=== PATIENT | female | born 1940 | race Caucasian/White ===

== ENCOUNTER 2017-10-05 17:36 | Emergency (ER) | payer MEDICARE, MEDICAID ==
[~2017-10-05] VITALS: Ht 162.6 cm; Wt 67.6 kg
--- NOTE | 2017-10-05 17:40 | NUR ---
[id number] FROM HOME FOR AMS, S/P SEIZURE. BS-120. PATIENT NOT IN DISTRESS. SKIN IS WARM TO TOUCH AND NON DIAPHORETIC. PATIENT IS AFEBRILE. ON O2 VIA NC. VSS. CONNECTED PT TO TELE MONITOR. SEIZURE PRECAUTION OBSERVED./
--- NOTE | 2017-10-05 18:05 | NUR ---
MD CUMMINS AT BEDSIDE
[2017-10-05 18:29] LABS: BASOPHILS % (AUTO) 0.6 % (0.0-2.0); EOSINOPHILS % (AUTO) 0.8 % (0.0-6.0); HEMATOCRIT 43 % (33-45); HEMOGLOBIN 14.6 g/dL (11.5-14.8); LYMPHOCYTES # (AUTO) 1.9 /CMM (0.8-4.8); LYMPHOCYTES % (AUTO) 24.1 % (20.0-44.0); MEAN CORPUSCULAR HEMOGLOBIN 31 PG (26.0-33.0); MEAN CORPUSCULAR HGB CONC 34 g/dl (31.0-36.0); MEAN CORPUSCULAR VOLUME 91 fL (82-100); MONOCYTES # (AUTO) 0.4 /CMM (0.1-1.30); MONOCYTES % (AUTO) 5.1 % (2.0-12.0); NEUTROPHILS # (AUTO) 5.7 /CMM (1.8-8.9); NEUTROPHILS % (AUTO) 69.4 % (43.0-81.0); PLATELET COUNT (AUTO) 232 /CMM (150-450); RDW COEFFICIENT OF VARIATION 13.6 (11.5-15.0); RED BLOOD CELL COUNT(AUTO) 4.68 MIL/uL (4.0-5.2); WHITE BLOOD COUNT (AUTO) 8.1 K/uL (4.3-11.0)
[2017-10-05] MEDS ORDERED: IV NS 0.9% 500 ML BAG IV ONE (18:30)
[2017-10-05 18:48] LABS: CALCIUM, SERUM 8.8 mg/dL (8.5-10.1); CARBON DIOXIDE 29 mmol/L (21-32); CHLORIDE 102 mmol/L (98-107); CREATININE 0.5 mg/dL (0.6-1.3); GLUCOSE 108 mg/dL (74-106); POTASSIUM 4.2 mmol/L (3.5-5.1); SODIUM SERUM 136 mmol/L (136-145); UREA NITROGEN, BLOOD 15 mg/dL (7-18)
[2017-10-05 18:54] LABS: VALPROIC ACID 57 ug/mL (50-100)
--- NOTE | 2017-10-05 18:59 | NUR ---
URINE SAMPLE SENT TO LAB
[2017-10-05 19:28] LABS: APPEARANCE,URINE Clear (CLEAR); BILIRUBIN,URINE Negative (NEGATIVE); BLOOD, URINE Trace-lysed Ery/uL (NEGATIVE); COLOR,URINE Yellow (YELLOW); KETONES,URINE Negative (NEGATIVE); LEUKOCYTE ESTERASE ,URINE Negative (NEGATIVE); NITRITE, URINE Negative (NEGATIVE); PH,URINE 7.5 (5.0-8.0); PROTEIN,URINE Negative (NEGATIVE); UGLUCOSE Negative (NEGATIVE); UROBILINOGEN,URINE 0.2 EU/dL (0.2)
--- NOTE | 2017-10-05 19:35 | NUR ---
REPORT GIVEN TO DORIE YOUNG
[2017-10-05 19:45] LABS: BACTERIA,URINE Few /HPF (None Seen); RBC,URINE 2-3/HPF /HPF (0-2); SQUAMOUS EPITHELIAL CELL,UR Few /HPF (None Seen); URINE AMORPHOUS PHOSPHATES Few /HPF (None Seen); WBC,URINE 0-2 /HPF (0-3)
--- NOTE | 2017-10-05 20:10 | NUR ---
CALLED [facility] FOR TRANSPORT BACK TO [facility], ETA [id number], TRIP [id number]
--- NOTE | 2017-10-05 21:06 | NUR ---
PT COMFORTABLE SLEEPING IN BED. WILL CONTINUE TO MONITOR UNTIL PICKED UP TO BE TAKEN BACK TO FACILITY BY [facility]
[2017-10-05 21:49] VITALS: BP 147/84
== END 2017-10-05 21:49 | disposition home or self-care (01) ==
LOC: ER 17:39
DX: G40.909 Epilepsy, unspecified, not intractable, without status epilepticus (principal); G30.9 Alzheimer's disease, unspecified; F02.80 Dementia in other diseases classified elsewhere, unspecified severity, without behavioral disturbance, psychotic disturbance, mood disturbance, and anxiety; I10 Essential (primary) hypertension
CPT/HCPCS: 36415; 51702; 70450; 71045; 80048; 80164; 81001; 85025; 93005; 99285; A4606; J7040; 81000-TC; Z7610

== ENCOUNTER 2017-12-29 21:40 | Inpatient (IN) | payer MEDICARE, MEDICAID ==
[~2017-12-29] VITALS: Ht 154.9 cm; Wt 63.3 kg
--- NOTE | 2017-12-29 22:10 | NUR ---
[facility] C/O FEVER AT HOME, RECENT UTI ON ATB TREATMENT. NO FEVER ON ARRIVAL. TYLENOL WAS GIVEN EARLIER TODAY AFTER TEMP OF 99.1. GCS 9-10. SKIN WARM AND DRY TO TOUCH. RR EVEN AND UNLABORED. NAD NOTED. PT PLACED ON HAND HARDENER AND POX. PT SAFETY AND COMFORT MEASURES IN PLACE. PT ON NC 3L/M FROM FACILITY. BEDSIDE FOR EVAL
--- NOTE | 2017-12-29 22:55 | NUR ---
RADIOLGY TECH BEDSIDE FOR CHEST X-RAY
[2017-12-29 22:59] LABS: BASOPHILS # (AUTO) 0.1 /CMM (0.0-0.2); BASOPHILS % (AUTO) 1.6 % (0.0-2.0); EOSINOPHILS % (AUTO) 0.3 % (0.0-6.0); HEMATOCRIT 42 % (33-45); HEMOGLOBIN 14.1 g/dL (11.5-14.8); LYMPHOCYTES % (AUTO) 26.6 % (20.0-44.0); MEAN CORPUSCULAR HGB CONC 34 g/dl (31.0-36.0); MEAN CORPUSCULAR VOLUME 95 fL (82-100); MONOCYTES # (AUTO) 0.6 /CMM (0.1-1.30); MONOCYTES % (AUTO) 8.2 % (2.0-12.0); NEUTROPHILS # (AUTO) 4.9 /CMM (1.8-8.9); NEUTROPHILS % (AUTO) 63.3 % (43.0-81.0); PLATELET COUNT (AUTO) 215 /CMM (150-450); RDW COEFFICIENT OF VARIATION 13.4 (11.5-15.0); RED BLOOD CELL COUNT(AUTO) 4.39 MIL/uL (4.0-5.2); WHITE BLOOD COUNT (AUTO) 7.7 K/uL (4.3-11.0)
[2017-12-29] MEDS ORDERED: IV NS 0.9% 1,000 ML BAG IV ONE (23:00)
[2017-12-29 23:10] LABS: CALCIUM, SERUM 8.5 mg/dL (8.5-10.1); CARBON DIOXIDE 24 mmol/L (21-32); CHLORIDE 98 mmol/L (98-107); CREATININE 0.5 mg/dL (0.6-1.3); GLUCOSE 95 mg/dL (74-106); POTASSIUM 5.2 mmol/L (3.5-5.1); SODIUM SERUM 132 mmol/L (136-145); UREA NITROGEN, BLOOD 25 mg/dL (7-18)
[2017-12-29 23:14] LABS: INR 1.1 (0.87-1.13)
[2017-12-29 23:14] LABS: APPEARANCE,URINE SL CLOUDY (CLEAR); BILIRUBIN,URINE NEGATIVE (NEGATIVE); BLOOD, URINE 1+ Ery/uL (NEGATIVE); COLOR,URINE YELLOW (YELLOW); KETONES,URINE NEGATIVE (NEGATIVE); LEUKOCYTE ESTERASE ,URINE TRACE (NEGATIVE); NITRITE, URINE NEGATIVE (NEGATIVE); PROTEIN,URINE NEGATIVE (NEGATIVE); UGLUCOSE NEGATIVE (NEGATIVE); UROBILINOGEN,URINE 0.2 EU/dL (0.2)
[2017-12-29 23:15] LABS: ALANINE AMINOTRANSFERASE 19 U/L (12-78); ALBUMIN 3.1 g/dL (3.4-5.0); ALKALINE PHOSPHATASE 87 U/L (46-116); ASPARTATE AMINOTRANSFERASE 16 U/L (15-37); BILIRUBIN,DIRECT 0.1 mg/dL (0.0-0.2); BILIRUBIN,TOTAL 0.2 mg/dL (0.2-1.0); TOTAL PROTEIN, SERUM 6.8 g/dL (6.4-8.2)
[2017-12-29 23:20] LABS: TROPONIN I 0.032 ng/mL (0.00-0.056)
[2017-12-29 23:36] LABS: BACTERIA,URINE None seen /HPF (None Seen); SQUAMOUS EPITHELIAL CELL,UR Few /HPF (None Seen)
[2017-12-30] VITALS (7 sets, daily range): BP systolic 87–127; BP diastolic 48–80
[2017-12-30] MEDS ORDERED: CEFTRIAXONE 1GM BAG (ER ONLY) 1 GM/50 ML PIGGYBACK IV ONE
[2017-12-30] MEDS ORDERED: CEFTRIAXONE 1GM BAG (ER ONLY) 50 ML IV ONE (00:14)
--- NOTE | 2017-12-30 00:43 | NUR ---
REPORT GIVEN TO NYDIA ORNELAS FOR ALANIS
[2017-12-30] MEDS ORDERED: ACETAMINOPHEN 325 MG TABLET PO PRN (01:00)
[2017-12-30] MEDS ORDERED: ZOLPIDEM TARTRATE 5 MG TABLET PO PRN (01:00)
[2017-12-30] MEDS ORDERED: MAG HYDROX/AL HYDROX/SIMETH 30 ML UDC PO PRN (01:00)
[2017-12-30] MEDS ORDERED: HYDROCODONE/APAP 5/325MG 1 EACH TABLET PO PRN (01:00)
[2017-12-30] MEDS ORDERED: MAGNESIUM HYDROXIDE 30 ML UDC PO PRN (01:00)
[2017-12-30] MEDS ORDERED: Z GUARD REMEDY 2 OZ OINT TP PRN (01:00)
[2017-12-30] MEDS ORDERED: MORPHINE SULFATE INJ 2 MG/ML DISP.SYRIN IV PRN (01:00)
[2017-12-30] MEDS ORDERED: IV NS 0.9% 1,000 ML BAG IV ONE (01:00)
[2017-12-30] MEDS ORDERED: ONDANSETRON HCL/PF 4 MG/2 ML VIAL IVP PRN (01:00)
--- NOTE | 2017-12-30 01:28 | NUR ---
MADE AWARE OF PT'S BP BEING 92/53, HR 69. OKAY FOR PT TO GO TO TELE UNIT.
--- NOTE | 2017-12-30 01:40 | NUR ---
TECHNICAL SERVICE SPECIALISTUPPER EXTREMITY SURGEON NOTES Patient came to unit via gurney. Patient's eyes are open but non-verbal. Son with patient. Breathing even and unlabored. Not in any distress. On O2 at 2L via NC saturating 98%. Patient on tele monitor, sinus rhythm 75. History taken from son as patient not able to answer. IV site on right hand g#20 intact and patent. According to son, patient does not talk since her dementia worsened. Patient does not ambulate but has physical [facility] a week. She is on pureed, low fat, low cholesterol, thin liquids in the [facility]. Pills are crushed and given with applesauce. Medications from [facility] entered for reconciliation. PT/ST/CM consult ordered. Son requested to stay through the night. Oriented to call weller. Padded side rails for seizure precaution in place. Bed in lowest, locked position. Will monitor accordingly
[2017-12-30] MEDS: IV D5W 1,000 ML IV PRN ×2 (02:31→17:47)
[2017-12-30] MEDS ORDERED: BISA10SU8 RC (04:04)
[2017-12-30] MEDS ORDERED: FERR12.5 PO (04:04)
[2017-12-30] MEDS ORDERED: DIVA125T2 PO (04:04)
[2017-12-30] MEDS ORDERED: CRAN425C6 PO (04:04)
[2017-12-30] MEDS ORDERED: LORA10TA68 PO (04:04)
[2017-12-30] MEDS ORDERED: ASPI-1169 PO (04:04)
[2017-12-30] MEDS ORDERED: CLON0.2T PO (04:04)
[2017-12-30] MEDS ORDERED: POLY15DR58 OP (04:04)
[2017-12-30] MEDS ORDERED: LACT1CAP7 PO (04:04)
[2017-12-30] MEDS ORDERED: DONE5TAB7 PO (04:04)
[2017-12-30] MEDS ORDERED: ACET-2605 PO (04:05)
[2017-12-30] MEDS ORDERED: MEMA10TA PO (04:05)
[2017-12-30] MEDS ORDERED: VITA1TAB20 PO (04:05)
[2017-12-30] MEDS ORDERED: OMEG-143 PO (04:05)
[2017-12-30] MEDS ORDERED: MELA5TAB PO (04:05)
[2017-12-30] MEDS ORDERED: CHOL200026 PO (04:05)
[2017-12-30] MEDS ORDERED: VITA400C68 PO (04:05)
[2017-12-30] MEDS ORDERED: POLY17PO4 PO (04:05)
[2017-12-30] MEDS ORDERED: IPRA0.2S49 IH (05:49)
--- NOTE | 2017-12-30 06:50 | NUR ---
EXTRUSION MANAGER CLOSING NOTES Patient still sleeping in bed, non- verbal. Breathing even and unlabored. Not in any distress. Son at bedside. Peripheral IV infusing at 75mL/hr. All needs attended to. Turned and reposition as needed. Tele monitor in place, sinus rhythm 73. Dr. Hawley made aware of medications that needs to be reconciled. Will endorse ALANIS to oncoming RN
--- NOTE | 2017-12-30 08:00 | NUR ---
rn notes RECEIVED PATIENT WOLOF SPEAKER IN THE BED EYES CLOSE ALL THE TIME, PATIENT NON VERBAL, BUT REDIRECTABLE.PATIENT ON O2-2L NC NO CUTE RESPIRATORY DISTRESS, V/S TAKEN STABLE, NEEDS ATTENDED AND ANTICIPATED. SCHEDULED MEDICATION ADMINISTERED. ASSIST TURN AND REPOSTION Q 2HR, ASSIST EATING, KEEP HOB ELEVATED FOR ASPIRATION PRECAUTION. INFUSING NS AT 75 ML/HR INTACT. PATIENT INCONTINENT, APPLIED Z-GUARD. CALL LIGHT WITHIN TO REACH, PRIVATE SECOND CLASS WELDER NEXT TO THE BED. CONTINUED MONITORING.
--- NOTE | 2017-12-30 12:20 | NUR ---
RN NOTES PATIENT FLIGHT AGENT FOR CT-SCAN OF HEAD WO CONTRAST.
--- NOTE | 2017-12-30 12:35 | NUR ---
RN NOTES PATIENT BACK FROM CT. NO ACUTE RESPIRATORY DISTRESS, CALL LIGHT WITHIN TO REACH, SAFETY PRECAUTION MAINTAINED ALL THE TIME. ASSIST TURN AND REPOSTION.
--- NOTE | 2017-12-30 13:00 | NUR ---
RN NOTES NOTIFIED DR CAICEDO FOR RECONCILIATION OF PATIENT HOME MEDICATION.
[2017-12-30] MEDS: AZITHROMYCIN 500 MG in IV D5W 250 ML IV SCH (13:11)
--- NOTE | 2017-12-30 18:00 | NUR ---
RN NOTES PATIENT STABLE, NO ACUTE RESPIRATORY DISTRESS, V/S STABLE, SCHEDULED MEDICATION ADMINISTERED, NEEDS ATTENDED AND ANTICIPATED. ASSIST TURN AND REPOSTION Q 2 HR. CALL LIGHT WITHIN TO REACH, PRIVATE MINE CAPTAIN NEXT TO THE BED. ENDORSED ONCOMING NURSE FOR PLAN OF CARE.
--- NOTE | 2017-12-30 19:15 | NUR ---
MS RN NOTES RECEIVED PT IN BED, RESTING COMFORTABLY AT THIS TIME, AROUSABLE, NON VERBAL. NO DISTRESS, NO SOB NOTED. DAUGHTER AND PRIVATE CAREGIVER AT BEDSIDE. RESPIRATION IS EVEN AND UNLABORED. IV SITE ON RIGHT HAND INTACT AND PATENT, IVF INFUSING WELL. CAREGIVER FEEDING PT AT THIS TIME, EDUCATED ON ASPIRATION PRECAUTIONS , VERBALIZED UNDERSTANDING. ALL NEEDS ATTENDED AND MET. KEPT COMFORTABLE. SAFETY , ASPIRATION AND SEIZURE PRECAUTION OBSERVED. CALL LIGHT WITHIN REACH. WILL CONTINUE TO MONITOR.
--- NOTE | 2017-12-31 06:21 | NUR ---
MS RN CLOSING NOTES PT IN BED, ASLEEP AT THIS TIME, APPEARS COMFORTABLE. AROUSABLE, REMAINS NON VERBAL. NO DISTRESS, NO SOB NOTED. DAUGHTER AT BEDSIDE. RESPIRATION IS EVEN AND UNLABORED. IV SITE ON RIGHT HAND INTACT AND PATENT, IVF INFUSING WELL. ALL NEEDS ATTENDED AND MET. KEPT COMFORTABLE. SAFETY , ASPIRATION AND SEIZURE PRECAUTION OBSERVED. CALL LIGHT WITHIN REACH. WILL ENDORSE TO NEXT SHIFT ACCORDINGLY FOR ALANIS.
--- NOTE | 2017-12-31 07:30 | NUR ---
MS RN OPENING NOTES RECEIVED PT LAYING IN BED, SLEEPING COMFORTABLY. DAUGHTER AT BEDSIDE. PT IS NONVERBAL, RESPONSIVE TO VERBAL AND TACTILE STIMULI WITH SPONTANEOUS EYE OPENING. RESPIRATIONS ARE EVEN AND UNLABORED, NOT IN ANY ACUTE DISTRESS NOTED. NO FACIAL GRIMACING OR MOANING NOTED. IV SITE TO R. HAND INTACT, NO INFILTRATION NOTED. DRESSING KEPT CLEAN AND DRY. SAFETY MEASURES ARE IN PLACE. INSTRUCTED PT AND DAUGHTER TO USE CALL LIGHT WHEN ASSISTANCE IS NEEDED, CALL LIGHT IS LEFT WITHIN REACH. WILL CONTINUE TO MONITOR THROUGHOUT SHIFT FOR CONTINUITY OF CARE.
[2017-12-31 07:54] LABS: CALCIUM, SERUM 8.5 mg/dL (8.5-10.1); CARBON DIOXIDE 27 mmol/L (21-32); CHLORIDE 104 mmol/L (98-107); CREATININE 0.4 mg/dL (0.6-1.3); GLUCOSE 89 mg/dL (74-106); PHOSPHORUS 3.8 mg/dL (2.5-4.9); SODIUM SERUM 137 mmol/L (136-145); UREA NITROGEN, BLOOD 6 mg/dL (7-18)
[2017-12-31 07:57] LABS: BASOPHILS # (AUTO) 0.1 /CMM (0.0-0.2); BASOPHILS % (AUTO) 1.2 % (0.0-2.0); EOSINOPHILS % (AUTO) 5.8 % (0.0-6.0); HEMATOCRIT 37 % (33-45); LYMPHOCYTES # (AUTO) 1.8 /CMM (0.8-4.8); LYMPHOCYTES % (AUTO) 34.7 % (20.0-44.0); MEAN CORPUSCULAR HGB CONC 33 g/dl (31.0-36.0); MEAN CORPUSCULAR VOLUME 98 fL (82-100); MONOCYTES # (AUTO) 0.3 /CMM (0.1-1.30); MONOCYTES % (AUTO) 5.9 % (2.0-12.0); NEUTROPHILS # (AUTO) 2.7 /CMM (1.8-8.9); NEUTROPHILS % (AUTO) 52.4 % (43.0-81.0); PLATELET COUNT (AUTO) 127 /CMM (150-450); RED BLOOD CELL COUNT(AUTO) 3.74 MIL/uL (4.0-5.2); WHITE BLOOD COUNT (AUTO) 5.2 K/uL (4.3-11.0)
[2017-12-31 08:00] VITALS: BP 95/54
[2017-12-31] MEDS ORDERED: DIVALPROEX SODIUM 125 MG TABLET.DR PO PRN (10:00)
[2017-12-31] MEDS: IV D5W 1,000 ML IV PRN (10:36)
[2017-12-31] MEDS: AZITHROMYCIN 500 MG in IV D5W 250 ML IV SCH (11:18)
[2017-12-31 16:00] VITALS: BP 125/67
[2017-12-31] MEDS: MEMANTINE HCL 5 MG TABLET PO SCH (16:12)
--- NOTE | 2017-12-31 18:17 | NUR ---
MS RN CLOSING NOTES ALL DUE MEDS GIVEN, NEEDS MET AND RENDERED. PT REMAINS NONVERBAL, OPENS EYES. RESPIRATIONS ARE EVEN AND UNLABORED, NOT IN ANY ACUTE DISTRESS NOTED. NO FACIAL GRIMACING OR MOANING NOTED. IV SITE INTACT, NO INFILTRATION NOTED. DRESSING KEPT CLEAN AND DRY. IV FLUIDS RUNNING AT 75ML/HR, TOLERATING WELL. CAREGIVER AT BEDSIDE. REPOSITIONED PER PROTOCOL. SAFETY MEASURES ARE IN PLACE. WILL ENDORSE TO NEXT SHIFT FOR CONTINUITY OF CARE.
--- NOTE | 2017-12-31 19:30 | NUR ---
MS RN NOTES RECEIVED PT IN BED, RESTING COMFORTABLY AT THIS TIME, AROUSABLE, NON VERBAL. NO DISTRESS, NO SOB NOTED. PRIVATE CAREGIVER AT BEDSIDE. RESPIRATION IS EVEN AND UNLABORED. IV SITE ON RIGHT HAND INTACT AND PATENT, IVF INFUSING WELL. GOOD BILLY CARE RENDERED. ALL NEEDS ATTENDED AND MET. KEPT COMFORTABLE. SAFETY , ASPIRATION AND SEIZURE PRECAUTION OBSERVED. CALL LIGHT WITHIN REACH. WILL CONTINUE TO MONITOR.
[2017-12-31 20:00] VITALS: BP 146/78
[2017-12-31] MEDS: DONEPEZIL 5 MG TABLET PO SCH (22:09)
--- NOTE | 2018-01-01 06:30 | NUR ---
MS RN CLOSING NOTES PT IN BED, ASLEEP AT THIS TIME, AROUSABLE, NON VERBAL. NO DISTRESS, NO SOB NOTED. RESPIRATION IS EVEN AND UNLABORED. IV SITE ON RIGHT HAND INTACT AND PATENT, IVF INFUSING WELL. AM CARE RENDERED. ALL NEEDS ANTICIPATED, ATTENDED AND MET. KEPT COMFORTABLE. SAFETY , ASPIRATION AND SEIZURE PRECAUTION OBSERVED. NO S/SOF PAIN OR DISCOMFORT NOTED. CALL LIGHT WITHIN REACH. WILL CONTINUE TO MONITOR.
--- NOTE | 2018-01-01 07:10 | NUR ---
RN OPENING NOTES RECEIVED PT. IN BED A&OXO, PT. IS NON VERBAL. BREATHING ON OXYGEN AT 3L/MIN VIA NASAL CANNULA. NO S/S OF ACUTE DISTRESS. IV FLUIDS RUNNING AT 75 ML/HR. BED IS IN LOWEST, AND LOCKED POSITION. 2 SIDE RAILS UP, AND CALL LIGHT IS WITHIN REACH.
[2018-01-01] MEDS: IV D5W 1,000 ML IV PRN ×2 (07:44→22:43)
[2018-01-01 08:00] VITALS: BP 122/73
[2018-01-01] MEDS: MEMANTINE HCL 5 MG TABLET PO SCH ×2 (10:30→17:54)
[2018-01-01] MEDS: ASPIRIN 81 MG TAB.CHEW PO SCH (10:30)
[2018-01-01] MEDS: CHOLECALCIFEROL 1,000 UNIT TABLET (VIT D3) PO SCH (10:30)
[2018-01-01] MEDS: AZITHROMYCIN 500 MG in IV D5W 250 ML IV SCH (12:07)
[2018-01-01 16:00] VITALS: BP 152/89
--- NOTE | 2018-01-01 19:15 | NUR ---
MS RN NOTES RECEIVED PT IN BED, PT'S EYES CLOSED , AROUSABLE, NON VERBAL. NO DISTRESS, NO SOB NOTED. PRIVATE CAREGIVER AT BEDSIDE, FEEDING THE PT, EDUCATED CAREGIVER ON ASPIRATION PRECAUTIONS, AND NOT TO FEED PT FAST, CAREGIVER VERBALIZED UNDERSTANDING. PLACED PT'S HEAD ON 90 DEGREES. RESPIRATION IS EVEN AND UNLABORED. IV SITE ON RIGHT HAND INTACT AND PATENT, IVF INFUSING WELL. ALL NEEDS ANTICIPATED AND ATTENDED . KEPT COMFORTABLE. SAFETY , ASPIRATION AND SEIZURE PRECAUTION OBSERVED. CALL LIGHT WITHIN REACH. WILL CONTINUE TO MONITOR.
--- NOTE | 2018-01-01 19:39 | NUR ---
RN CLOSING NOTES PT. IN BED A&OXO, PT. IS NON VERBAL, AND CAREGIVER IS AT BEDSIDE. BREATHING UNLABORED ON ROOM AIR. NO S/S OF ACUTE DISTRESS. IV FLUIDS RUNNING AT 75 ML/HR. BED IS IN LOWEST, AND LOCKED POSITION. 2 SIDE RAILS UP, AND CALL LIGHT IS WITHIN REACH. WILL ENDORSE REPORT TO NURSE.
[2018-01-01 20:00] VITALS: BP 156/86
[2018-01-01] MEDS: DONEPEZIL 5 MG TABLET PO SCH (22:39)
--- NOTE | 2018-01-02 06:40 | NUR ---
MS RN CLOSING NOTES PT IN BED, RESTING COMFORTABLY , AROUSABLE, NON VERBAL. NO DISTRESS, NO SOB NOTED. RESPIRATION IS EVEN AND UNLABORED. IV SITE ON RIGHT HAND INTACT AND PATENT, IVF INFUSING WELL. ALL NEEDS ANTICIPATED AND ATTENDED . KEPT COMFORTABLE. SAFETY , ASPIRATION AND SEIZURE PRECAUTION OBSERVED. CALL LIGHT WITHIN REACH. WILL ENDORSE TO NEXT SHIFT FOR ALANIS.
--- NOTE | 2018-01-02 07:38 | NUR ---
RN OPENING NOTES RECEIVED PT. IN BED A&OXO, PT. IS NON VERBAL, AND SLEEPING. BREATHING UNLABORED ON OXYGEN AT 3L/MIN VIA NASAL CANNULA. NO S/S OF ACUTE DISTRESS. BED IS IN LOWEST, AND LOCKED POSITION. 2 SIDE RAILS UP, AND CALL LIGHT IS WITHIN REACH. WILL CONTINUE TO ASSESS AND MONITOR.
[2018-01-02 08:00] VITALS: BP 97/61
[2018-01-02] MEDS: MEMANTINE HCL 5 MG TABLET PO SCH ×2 (08:24→17:17)
[2018-01-02] MEDS: CHOLECALCIFEROL 1,000 UNIT TABLET (VIT D3) PO SCH (08:24)
[2018-01-02] MEDS: ASPIRIN 81 MG TAB.CHEW PO SCH (08:24)
[2018-01-02] MEDS: AZITHROMYCIN 500 MG in IV D5W 250 ML IV SCH (11:50)
[2018-01-02 16:00] VITALS: BP 134/67
[2018-01-02] MEDS ORDERED: CEPH-570 PO (16:24)
[2018-01-02] MEDS ORDERED: VALPROIC ACID 250 MG/5 ML UDC PO ONE (16:30)
--- NOTE | 2018-01-02 18:00 | NUR ---
DISCHARGED PT. WAS DISCHARGED TO [facility]. REPORT WAS GIVEN VIA PHONE. DISCHARGE INSTRUCTIONS WERE PROVIDED ON REPORT. IV AND ID WAS REMOVED WITHOUT COMPLICATIONS. DISCHARGE PACKET AND REPORT WAS GIVEN TO AMBULANCE CREW. PT. LEFT WITH HER SON, ANTOINE AND CAREGIVER. BELONGINGS LIST WAS CHECKED AND SIGNED. PT. LEFT IN STABLE CONDITION BY AMBULANCE.
[2018-01-03] MEDS ORDERED: AZITHROMYCIN 250 MG TABLET PO SCH (09:00)
== END 2018-01-02 18:20 | DRG 193 ==
LOC: ER 21:46 → MED 12-30 00:22 → TELE 12-30 02:30 → MED 12-30 10:06
PROVIDERS: ADMIT Internal Medicine; ATTEND Internal Medicine
DX: J15.9 Unspecified bacterial pneumonia (principal); G92 Toxic encephalopathy; E44.1 Mild protein-calorie malnutrition; E87.1 Hypo-osmolality and hyponatremia; N39.0 Urinary tract infection, site not specified; E86.0 Dehydration; G40.909 Epilepsy, unspecified, not intractable, without status epilepticus; G30.9 Alzheimer's disease, unspecified; F02.80 Dementia in other diseases classified elsewhere, unspecified severity, without behavioral disturbance, psychotic disturbance, mood disturbance, and anxiety; M81.0 Age-related osteoporosis without current pathological fracture; S30.820A Blister (nonthermal) of lower back and pelvis, initial encounter; I10 Essential (primary) hypertension; E87.5 Hyperkalemia; Z68.26 Body mass index [BMI] 26.0-26.9, adult; D72.829 Elevated white blood cell count, unspecified; I95.9 Hypotension, unspecified; R79.89 Other specified abnormal findings of blood chemistry; E88.09 Other disorders of plasma-protein metabolism, not elsewhere classified
CPT/HCPCS: 36415; 70450-TC; 71045-TC; 80048-TC; 80076-TC; 80164-TC; 81000-TC; 82962-TC; 83605-TC; 83735-TC; 84100-TC; 84484-TC; 85025-TC; 85730-TC; 87040-TC; 87081-TC; 87086-TC; 92521; 92526; A4606; J0456; J0696; J7030; J7060; J7070; Z7610

== ENCOUNTER 2018-07-18 00:58 | Inpatient (IN) | payer MEDICARE, MEDICAID ==
[~2018-07-18] VITALS: Ht 152.4 cm; Wt 59.0 kg
[~2018-07-18 00:58] MED LIST: ACET-2605 PO; ASPI-1169 PO; BISA10SU8 RC; CEPH-570 PO; CHOL200026 PO; CLON0.2T PO; CRAN425C6 PO; DIVA125T2 PO; DONE5TAB7 PO; FERR12.5 PO; IPRA0.2S49 IH; LACT1CAP7 PO; LORA10TA68 PO; MELA5TAB PO; MEMA10TA PO; OMEG-143 PO; POLY15DR58 OP; POLY17PO4 PO; VITA1TAB20 PO; VITA400C68 PO
--- NOTE | 2018-07-18 01:00 | NUR ---
Carlos robison in ED - 07/18/18 at 0232 by MARY Patient is resting comfortably in bed with eyes closed. VSS
--- NOTE | 2018-07-18 01:02 | NUR ---
BIBRA. C/O "FEELING SHORT OF BREATH, NOT ACTING HERSELF" SOB NOTED. UNABLE TO ASSESS PAIN LEVEL. VSS MD AT BEDSIDE
[2018-07-18 01:41] LABS: APPEARANCE,URINE Clear (CLEAR); BILIRUBIN,URINE SMALL (NEGATIVE); BLOOD, URINE Small Ery/uL (NEGATIVE); COLOR,URINE Yellow (YELLOW); KETONES,URINE 15 (NEGATIVE); LEUKOCYTE ESTERASE ,URINE Small (NEGATIVE); NITRITE, URINE Negative (NEGATIVE); PH,URINE 5.5 (5.0-8.0); PROTEIN,URINE 100 mg/dl (NEGATIVE); UGLUCOSE Negative (NEGATIVE); UROBILINOGEN,URINE 0.2 EU/dL (0.2)
[2018-07-18 01:45] LABS: BASOPHILS # (AUTO) 0.1 /CMM (0.0-0.2); EOSINOPHILS % (AUTO) 0.2 % (0.0-6.0); HEMATOCRIT 44 % (33-45); HEMOGLOBIN 14.6 g/dL (11.5-14.8); LYMPHOCYTES # (AUTO) 0.8 /CMM (0.8-4.8); LYMPHOCYTES % (AUTO) 9.2 % (20.0-44.0); MEAN CORPUSCULAR HGB CONC 33 g/dl (31.0-36.0); MEAN CORPUSCULAR VOLUME 92 fL (82-100); MONOCYTES # (AUTO) 0.3 /CMM (0.1-1.30); MONOCYTES % (AUTO) 3.8 % (2.0-12.0); NEUTROPHILS # (AUTO) 7.6 /CMM (1.8-8.9); NEUTROPHILS % (AUTO) 85.8 % (43.0-81.0); PLATELET COUNT (AUTO) 277 /CMM (150-450); RED BLOOD CELL COUNT(AUTO) 4.75 MIL/uL (4.0-5.2); WHITE BLOOD COUNT (AUTO) 8.8 K/uL (4.3-11.0)
[2018-07-18] MEDS ORDERED: CALC-494 PO (01:49)
[2018-07-18] MEDS ORDERED: LEVE250T2 PO ×2 (01:49)
[2018-07-18] MEDS ORDERED: MELA3TAB70 PO (01:49)
[2018-07-18] MEDS ORDERED: SENN-168 PO (01:49)
[2018-07-18] MEDS ORDERED: IPRA0.2S9 IH (01:49)
[2018-07-18] MEDS ORDERED: SIME80TA15 PO (01:49)
[2018-07-18] MEDS ORDERED: CRAN3875 PO (01:49)
[2018-07-18] MEDS ORDERED: FAMO-131 PO (01:49)
[2018-07-18] MEDS ORDERED: FERR325T24 PO (01:49)
[2018-07-18 01:54] LABS: CALCIUM, SERUM 8.9 mg/dL (8.5-10.1); CARBON DIOXIDE 26 mmol/L (21-32); CHLORIDE 101 mmol/L (98-107); CREATININE 0.6 mg/dL (0.6-1.3); GLUCOSE 148 mg/dL (74-106); POTASSIUM 3.9 mmol/L (3.5-5.1); SODIUM SERUM 137 mmol/L (136-145); UREA NITROGEN, BLOOD 16 mg/dL (7-18)
--- NOTE | 2018-07-18 02:00 | NUR ---
Patient is resting comfortably in bed with eyes closed. VSS
[2018-07-18 02:03] LABS: BACTERIA,URINE Many /HPF (None Seen); WBC,URINE 81-100 /HPF (0-3)
[2018-07-18 02:03] LABS: ALANINE AMINOTRANSFERASE 17 U/L (12-78); ALBUMIN 3.3 g/dL (3.4-5.0); ALKALINE PHOSPHATASE 118 U/L (46-116); ASPARTATE AMINOTRANSFERASE 18 U/L (15-37); B-TYPE NATRIURETIC PEPTIDE 1313 PG/ML (0-125); BILIRUBIN,DIRECT 0.1 mg/dL (0.0-0.2); BILIRUBIN,TOTAL 0.3 mg/dL (0.2-1.0); TOTAL PROTEIN, SERUM 7.6 g/dL (6.4-8.2)
[2018-07-18 02:04] LABS: MUCUS,URINE Moderate /LPF (None Seen); SQUAMOUS EPITHELIAL CELL,UR Few /HPF (None Seen)
[2018-07-18] MEDS ORDERED: CEFTRIAXONE 1GM BAG (ER ONLY) 50 ML IV ONE (02:15)
[2018-07-18] MEDS ORDERED: AZITHROMYCIN 500 MG VIAL ONE (02:16)
[2018-07-18] MEDS ORDERED: CEFTRIAXONE 1GM BAG (ER ONLY) 1 GM/50 ML PIGGYBACK IV ONE (02:30)
[2018-07-18] MEDS ORDERED: AZITHROMYCIN 500 MG in IV D5W 250 ML IV ONE (02:30)
[2018-07-18] MEDS ORDERED: ONDANSETRON HCL/PF 4 MG/2 ML VIAL IVP PRN (03:00)
[2018-07-18] MEDS ORDERED: POLYETHYLENE GLYCOL 3350 17 GM POWD.PACK PO PRN (03:00)
[2018-07-18] MEDS ORDERED: MAGNESIUM HYDROXIDE 30 ML UDC PO PRN (03:00)
[2018-07-18] MEDS ORDERED: IPRATROPIUM NEB FS 0.5 MG/2.5 ML AMPUL.NEB IH PRN (03:00)
[2018-07-18] MEDS ORDERED: Z GUARD REMEDY 2 OZ OINT TP PRN (03:00)
[2018-07-18] MEDS ORDERED: Medication Not On Formulary EA (Cranberry Extract (Cranberry) 425 MG) PO PRN (03:00)
[2018-07-18] MEDS ORDERED: Medication Not On Formulary EA (Melatonin 3 MG) PO PRN (03:00)
[2018-07-18] MEDS ORDERED: BISACODYL SUPP (10 MG) 10 MG/SUPP.RECT SUPP.RECT RC PRN (03:00)
[2018-07-18] MEDS ORDERED: HYDROCODONE/APAP 5/325MG 1 EACH TABLET PO PRN (03:00)
[2018-07-18] MEDS ORDERED: ACETAMINOPHEN 325 MG TABLET PO PRN (03:00)
--- NOTE | 2018-07-18 03:16 | NUR ---
PT GOING TO RM [id number]
[2018-07-18 03:25] VITALS: BP 105/68
--- NOTE | 2018-07-18 03:25 | NUR ---
ADMISSION NOTES: RECEIVED REPORT FROM LEANNE OSHEA. PT BROUGHT TO THE UNIT VIA GURNEY, PT IS A/O X1 PER REPORT, NOT RESPONSIVE, MET WITH SON AT BEDSIDE, PT HAS KAYE CATHETER IN PLACED DRAINING INTO YELLOW COLORED URINE. ORIENTED TO UNIT POLICY AND HOURLY ROUNDING, SKIN ASSESSMENT PERFORMED, INVENTORY OF BELONGING COMPLETED BY JUNIOR DESIGNER, VS TAKEN AND RECORDED, TELEMONITORING IN PLACED, SINUS RHYTHM HR 94, APPEARS CALM AND COMFORTABLE. IV ACCESS PATENT AND FLUSHING WELL, ON HL. BLE OFFLOADED. SAFETY PRECAUTIONS FOR FALL INITIATED, CALL LIGHT IN REACH, WILL CONTINUE MONITORING PT.
[2018-07-18 04:00] VITALS: BP 97/68
[2018-07-18] MEDS ORDERED: ENOXAPARIN SODIUM 40 MG/0.4 ML DISP.SYRIN SQ ONE (05:00)
[2018-07-18] MEDS ORDERED: PIPERACILLIN /TAZOBACTAM 3.375 G VIAL IV ONE (05:11)
--- NOTE | 2018-07-18 05:20 | NUR ---
RN NOTES: RELAYED TO TITI LI REGARDING RESULT OF LACTIC 2.0, NO ORDERS RECEIVED
[2018-07-18] MEDS ORDERED: PIPERACILLIN /TAZOBACTAM 3.375 G in IV D5W 50 ML IV SCH (06:00)
--- NOTE | 2018-07-18 06:34 | NUR ---
RN CLOSING NOTES: PT REMAINS NON VERBAL, NOT OPENING EYES, NOTRESPONSIVE, PT'S BASELINE, SON AT BED SIDE, PT REMAIN ON 4L OXYGEN VIA NC RESPIRATION EVEN AND UNLABORED, PT APPEARS CALM AND COMFORTABLE, NO FACIAL GRIMACE NOTED, ONGOING IV ATB, BLE OFFLOADED, AWAITING DELIVERY OF [employer] MATTRESS. VS REMAINS STABLE, AFEBRILE, NEEDS ATTENDED. SAFETY PRECAUTIONS FOR FALL REMAINS ENGAGED, CALL LIGHT IN REACH, WILL ENDORSE TO DAY RN FOR CONTINUITY OF CARE.
--- NOTE | 2018-07-18 07:55 | NUR ---
CRYPTOZOOLOGIST OPENING NOTES RECEIVED PATIENT ON BED IN SUPINE POSITION, NON VERBAL AND NON RESPONSIVE BASELINE BEHAVIOR PER FAMILY. ANTOINE (SON) PRESENT ON BEDSIDE. RESPIRATION EVEN AND NON LABORED WITH NO ACUTE RESPIRATORY DISTRESS, ON OXYGEN AT 4LPM VIA NASAL CANNULA AND ABLE TO TOLERATE WELL. ABDOMEN SOFT AND NON DISTENDED WITH ACTIVE BOWEL SOUNDS TO ALL QUADRANTS, FC PRESENT WITH CLEAR YELLOW URINE. SKIN WARM TO TOUCH AND DRY. PATIENT HAS NO S/SX OF PAIN AND DISCOMFORT. PATIENT RE-POSITIONED TO LEFT SIDE LYING POSITION WITH HEAD OF BED ELEVATED. IV SITE AT LEFT HAND GAUGE 18 WITH NO S/SX OF INFILTRATION. PATIENT REMAIN ON NPO. TELE MONITOR SHOWS SINUS TACHYCARDIA 111. ALL CONCERNS ADDRESSED. WILL CONTINUE TO EVALUATE CARE.
[2018-07-18 08:00] VITALS: BP 113/78
[2018-07-18] MEDS ORDERED: FUROSEMIDE 20 MG/2 ML VIAL IV ONE (08:00)
[2018-07-18] MEDS: FERROUS SULFATE (325 MG) 325 MG/TAB TABLET PO SCH (08:00)
[2018-07-18] MEDS ORDERED: CLONIDINE HCL 0.1 MG TABLET PO PRN (08:00)
[2018-07-18] MEDS: VITAMIN B COMP W-C 1 TAB TABLET PO SCH (08:37)
[2018-07-18] MEDS: LACTOBACILLUS RHAMNOSUS GG 1 EACH CAP.SPRINK PO SCH (08:37)
[2018-07-18] MEDS: SIMETHICONE 80 MG TAB.CHEW PO SCH ×4 (08:37→21:00)
[2018-07-18] MEDS: FAMOTIDINE (20 MG) 20 MG TABLET PO SCH (08:37)
[2018-07-18] MEDS: VITAMIN E 400 UNIT CAPSULE PO SCH (08:38)
[2018-07-18] MEDS: CHOLECALCIFEROL 1,000 UNIT TABLET (VIT D3) PO SCH (08:38)
[2018-07-18] MEDS: CALCIUM CARBONATE 500 MG TAB.CHEW PO SCH (08:38)
--- NOTE | 2018-07-18 08:38 | NUR ---
COMPUTER INSTRUCTOR NOTES PO MEDS NOT GIVEN DUE TO NPO. WILL CONTINUE TO MONITOR.
[2018-07-18] MEDS ORDERED: LEVETIRACETAM (250 MG) 250 MG TABLET PO SCH ×2 (09:00→22:00)
[2018-07-18] MEDS ORDERED: Medication Not On Formulary EA (Cran/Vitc/Mannose/Inulin/Brom (Uti-Stat Liquid) 3,875 MG PO SCH (09:00)
[2018-07-18] MEDS: POLYVINYL ALCOHOL 15 ML BOTTLE OP SCH ×2 (09:28→17:32)
[2018-07-18] MEDS: PIPERACILLIN /TAZOBACTAM 3.375 G in IV D5W 100 ML IV SCH ×2 (13:15→19:46)
[2018-07-18] MEDS ORDERED: NA PHOS,M-B/NA PHOS,DI-BA 1 EA ENEMA RC PRN (14:30)
--- NOTE | 2018-07-18 14:36 | NUR ---
M/S RN NOTES FAMILY ON BEDSIDE REQUESTING FOR VENOUS DOPPLER ON RIGHT LEG DUE TO VEINS SEEN PROTRUDING, ASSESSED NO S/SX OF TENDERNESS, SKIN COLOR AND TEMPERATURE SAME OTHER EXTREMITIES. ALSO, PATIENT HAS NO BM X 3 DAYS AND FAMILY REQUESTED FOR FLEET ENEMA. OBTAINED ORDER FROM DR. ANGELES FOR VENOUS DOPPLER BLE AND FLEET ENEMA PRN. ORDER VERIFIED, NOTED AND CARRIED OUT. FAMILY NOTIFIED.
[2018-07-18 16:00] VITALS: BP 113/79
--- NOTE | 2018-07-18 16:08 | NUR ---
M/S RN NOTES MYLICON NOT GIVEN DUE TO NPO. FAMILY NOTIFIED. WILL CONTINUE TO MONITOR
--- NOTE | 2018-07-18 18:22 | NUR ---
M/S RN CLOSING NOTES PATIENT ON BED IN SUPINE POSITION WITH HEAD OF BED ELEVATED, NON VERBAL AND NON RESPONSIVE, ABLE TO OPEN EYES AT TIMES. RESPIRATION EVEN AND NON LABORED WITH NO ACUTE RESPIRATORY DISTRESS, ON OXYGEN AT 4LPM VIA NASAL CANNULA AND ABLE TO TOLERATE WELL SATING 98%. ABDOMEN SOFT AND NON DISTENDED WITH ACTIVE BOWEL SOUNDS TO ALL QUADRANTS, FC PRESENT WITH CLEAR YELLOW URINE WITH OUTPUT 550 ML. SKIN WARM TO TOUCH AND DRY. PROVIDED TREATMENT TO WOUND SITES AND WAITING FOR WOUND CONSULT FOR ANY FURTHER TREATMENT. PATIENT HAS NO S/SX OF PAIN AND DISCOMFORT. IV SITE AT LEFT HAND GAUGE 18 WITH NO S/SX OF INFILTRATION, REMAINED PATIENT IN FLUSHING. PATIENT STILL ON NPO. ALL CONCERNS ADDRESSED. FAMILY MEMBER PRESENT ON BEDSIDE. ENDORSED PATIENT CARE TO NEXT SHIFT.
--- NOTE | 2018-07-18 19:37 | NUR ---
RN MS OPENING NOTES RECEIVED REPORT BEDSIDE. PT IN BED AWAKE ALERT ORIENTED X1, FAMILY AT BEDSIDE, BREATHING EVEN AND UNLABORED ON 4L OF 02 VIA NC AND TOLERATING. NO COUGH OR CONGESTION NOTED AT THE MOMENT. WILL CONTINUE TO MONITOR. IV ACCESS ON THE L HAND 18G SL PATENT AND FLUSHING. F.C IN PLACE, NPO, POSSIBLE PROCEDURE IN AM. BED IN LOWEST LOCKED POSITION, CALL LIGHT WITHIN REACH AT ALL TIMES, WILL CONTINUE TO MONITOR.
[2018-07-18 20:00] VITALS: BP 110/78
[2018-07-18] MEDS: SENNOSIDES 8.6 MG TABLET PO SCH (21:03)
[2018-07-18] MEDS ORDERED: LEVETIRACETAM (500MG) 500 MG/5 ML VIAL IV ONE (21:07)
[2018-07-18] MEDS: LEVETIRACETAM (500MG) 250 MG in IV NS 0.9% 100 ML IV SCH (21:25)
[2018-07-19] MEDS: PIPERACILLIN /TAZOBACTAM 3.375 G in IV D5W 100 ML IV SCH ×2 (03:13→12:43)
[2018-07-19] MEDS: ENOXAPARIN SODIUM 40 MG/0.4 ML DISP.SYRIN SQ SCH (05:19)
--- NOTE | 2018-07-19 06:10 | NUR ---
RN MS CLOSING NOTES PT REMAINS IN BED SLEEPING, AROUSES EASILY TO TOUCH. CAREGIVER AT BEDSIDE, BREATHING EVEN AND UNLABORED ON 4L OF 02 VIA NC AND TOLERATING. NO COUGH OR CONGESTION NOTED AT THE MOMENT. IV ACCESS ON THE L HAND 18G SL PATENT AND FLUSHING. F.C IN PLACE, REMAINS NPO. BED IN LOWEST LOCKED POSITION, CALL LIGHT WITHIN REACH AT ALL TIMES, WILL ENDORSE TO DAY NURSE FOR ALANIS
[2018-07-19 06:24] LABS: BASOPHILS # (AUTO) 0.1 /CMM (0.0-0.2); BASOPHILS % (AUTO) 0.6 % (0.0-2.0); EOSINOPHILS % (AUTO) 2.1 % (0.0-6.0); HEMATOCRIT 37 % (33-45); HEMOGLOBIN 12.3 g/dL (11.5-14.8); LYMPHOCYTES # (AUTO) 1.8 /CMM (0.8-4.8); LYMPHOCYTES % (AUTO) 22.3 % (20.0-44.0); MEAN CORPUSCULAR HGB CONC 33 g/dl (31.0-36.0); MEAN CORPUSCULAR VOLUME 92 fL (82-100); MONOCYTES # (AUTO) 0.5 /CMM (0.1-1.30); MONOCYTES % (AUTO) 5.6 % (2.0-12.0); NEUTROPHILS # (AUTO) 5.7 /CMM (1.8-8.9); NEUTROPHILS % (AUTO) 69.4 % (43.0-81.0); PLATELET COUNT (AUTO) 192 /CMM (150-450); RED BLOOD CELL COUNT(AUTO) 4.04 MIL/uL (4.0-5.2); WHITE BLOOD COUNT (AUTO) 8.2 K/uL (4.3-11.0)
[2018-07-19 06:50] LABS: ALANINE AMINOTRANSFERASE 18 U/L (12-78); ALBUMIN 2.8 g/dL (3.4-5.0); ALKALINE PHOSPHATASE 96 U/L (46-116); ASPARTATE AMINOTRANSFERASE 33 U/L (15-37); BILIRUBIN,TOTAL 0.6 mg/dL (0.2-1.0); CALCIUM, SERUM 8.8 mg/dL (8.5-10.1); CARBON DIOXIDE 27 mmol/L (21-32); CHLORIDE 104 mmol/L (98-107); CREATININE 0.4 mg/dL (0.6-1.3); GLUCOSE 96 mg/dL (74-106); MAGNESIUM 1.9 mg/dL (1.8-2.4); PHOSPHORUS 3.7 mg/dL (2.5-4.9); POTASSIUM 3.3 mmol/L (3.5-5.1); SODIUM SERUM 140 mmol/L (136-145); TOTAL PROTEIN, SERUM 6.5 g/dL (6.4-8.2); UREA NITROGEN, BLOOD 14 mg/dL (7-18)
[2018-07-19 06:57] LABS: CHOLESTEROL 151 mg/dL (<200); HDL CHOLESTEROL 54 mg/dL (40-60); LDL 87 mg/dL (0-99); THYROID STIMULATING HORMONE 3.841 uIU/mL (0.358-3.74); TRIGLYCERIDES 130 mg/dL (30-150)
--- NOTE | 2018-07-19 07:59 | NUR ---
M/S RN OPENING NOTES RECEIVED ENDORSEMENT FROM DORIE SMILEY. PATIENT ON BED IN SUPINE POSITION HEAD OF BED ELEVATED WITH OXYGEN AT 3LPM VIA NASAL CANNULA, NO NOTED SHORTNESS OF BREATH. PATIENT NON VERBAL AND NON RESPONSIVE. CAREGIVER HEIDI ON BEDSIDE. ABDOMEN SOFT AND NON DISTENDED WITH ACTIVE BOWEL SOUNDS TO ALL QUADRANTS, F/C PRESENT WITH DARK YELLOW COLOR. SKIN WARM TO TOUCH AND DRY. STILL ON NPO. NO S/SX OF DISCOMFORT NOTED. ALL CONCERNS ADDRESSED WITH CAREGIVER. PLACED CALL LIGHT WITHIN REACH FOR SAFETY. WILL CONTINUE TO EVALUATE CARE.
[2018-07-19 08:00] VITALS: BP 100/58
[2018-07-19] MEDS: FERROUS SULFATE (325 MG) 325 MG/TAB TABLET PO SCH (08:00)
--- NOTE | 2018-07-19 08:05 | NUR ---
M/S RN NOTES PATIENT SEEN AND EVALUATED BY DR. ANGELES WITH ORDER IN TAPERING DOWN OXYGEN. OXYGEN FROM 4LPM TO 3LPM SATING 98%. FC DC TODAY. WILL CONTINUE TO MONITOR CARE
[2018-07-19] MEDS: SIMETHICONE 80 MG TAB.CHEW PO SCH ×4 (08:59→21:52)
[2018-07-19] MEDS: VITAMIN E 400 UNIT CAPSULE PO SCH (08:59)
[2018-07-19] MEDS: LACTOBACILLUS RHAMNOSUS GG 1 EACH CAP.SPRINK PO SCH (08:59)
[2018-07-19] MEDS: CALCIUM CARBONATE 500 MG TAB.CHEW PO SCH (08:59)
[2018-07-19] MEDS: CHOLECALCIFEROL 1,000 UNIT TABLET (VIT D3) PO SCH (08:59)
[2018-07-19] MEDS: FAMOTIDINE (20 MG) 20 MG TABLET PO SCH (08:59)
[2018-07-19] MEDS: VITAMIN B COMP W-C 1 TAB TABLET PO SCH (08:59)
[2018-07-19] MEDS ORDERED: LEVETIRACETAM (500MG) 250 MG in IV NS 0.9% 100 ML IV SCH (09:00)
--- NOTE | 2018-07-19 09:00 | NUR ---
M/S RN NOTES PO MEDICATION HELD DUE TO NPO STATUS. WAITING FOR SWALLOW EVAL BEFORE GIVING ANY PO. WILL CONTINUE TO MONITOR CARE.
[2018-07-19] MEDS: POLYVINYL ALCOHOL 15 ML BOTTLE OP SCH ×2 (09:30→17:49)
[2018-07-19] MEDS: LEVETIRACETAM (500MG) 250 MG in IV NS 0.9% 100 ML IV SCH ×2 (09:30→21:52)
--- NOTE | 2018-07-19 09:41 | NUR ---
M/S RN NOTES PATIENT SEEN BY DR. MONTANO WITH NO NEW ORDER
[2018-07-19] MEDS: POTASSIUM CL. PREMIX PERIPHER. 50 ML IV SCH ×2 (10:55→11:59)
--- NOTE | 2018-07-19 14:00 | NUR ---
M/S RN NOTES PAGED DR. ANGELES REGARDING SWALLOW EVAL DONE THIS MORNING BY ST WITH RECOMMENDATION OF SWALLOW VIDEO SCAN; FAMILY REQUESTED FOR ID CONSULT DUE TO UTI; AND ENT FOR EAR WAX. MD RESPONDED AND AGREED WITH SWALLOW VIDEO SCAN AND ID CONSULT. ENT NOT AVAILABLE IN THE HOSPITAL. ORDERS NOTED AND CARRIED OUT. READ BACK AND VERIFIED. FAMILY ESTEFANY ON BEDSIDE AND NOTIFIED WITH NEW ORDERS.
[2018-07-19 16:00] VITALS: BP 133/71
--- NOTE | 2018-07-19 16:40 | NUR ---
M/S RN NOTES PAGED EPIC NUMBER UNDER DR ANGELES WITH ERIC POMPA LICENSED ELECTRICIAN NATURAL RESOURCE TECHNICIAN DUE TO INABILITY TO CONNECT PERIPHERAL IV LINE WITH MULTIPLE ATTEMPTS HELPED WITH BELLA RN. NEW ORDER OF MID LINE NOTED AND CARRIED OUT. READ BACK ORDER AND VERIFIED. CALLED ANTOINE (SON) FOR NEW INTERVENTION AND AGREED WITH TREATMENT. NOTIFIED NURSING POST HOLE DIGGING MACHINE OPERATOR FOR NEW ORDER.
[2018-07-19] MEDS ORDERED: MEROPENEM 1 G in IV NS 0.9% 100 ML IV ONE (17:00)
--- NOTE | 2018-07-19 17:45 | NUR ---
M/S RN NOTES MIDLINE STILL WAITING, SCHEDULE AT 7 PM PER NURSING EDGER TECHNICIAN. CALLED ZAC FROM THE PHARMACY, INFORMED REGARDING THE IV ATB MERREM DUE AT 1700, HE STATED TO CALL PHARMACY ONCE MIDLINE CONNECTED. WILL CONTINUE TO MONITOR
[2018-07-19] MEDS: ENSURE ENLIVE 237 ML LIQUID (VANILLA) PO SCH (18:08)
--- NOTE | 2018-07-19 19:00 | NUR ---
M/S RN CLOSING NOTES PATIENT ON BED, AWAKE WITH HEAD OF BED ELEVATED. RESPIRATION EVEN AND NON LABORED WITH NO ACUTE RESPIRATORY DISTRESS, OXYGEN FROM 4LPM TAPERED TO 2 LPM VIA NASAL CANNULA AND PATIENT SATING 96-98%. PATIENT NON VERBAL AND NON RESPONSIVE BASELINE BEHAVIOR. CAREGIVER HEIDI ON BEDSIDE. ABDOMEN SOFT AND NON DISTENDED WITH ACTIVE BOWEL SOUNDS TO ALL QUADRANTS, F/C REMOVED AND PATIENT ABLE TO URINATE IN DIAPER. SKIN WARM TO TOUCH AND DRY. NO S/SX OF DISCOMFORT NOTED. IV ON LEFT HAND PULLED OUT AND WAITING FOR MIDLINE INSERTION. ALL CONCERNS ADDRESSED WITH CAREGIVER. PLACED CALL LIGHT WITHIN REACH FOR SAFETY. ENDORSED PATIENT CARE TO DORIE PAIGE.
--- NOTE | 2018-07-19 19:10 | NUR ---
MS/RN OPENING NOTES PT RECEIVED WITH CAREGIVER AT BEDSIDE. HOB ELEVATED. ON 2L O2 VIA NC, BREATHING EVEN AND UNLABORED. NO S/S OF SOB, IN NO ACUTE DISTRESS. NO FACIAL GRIMACING OR OTHER SIGNS OF PAIN NOTED. NON VERBAL, OPENS EYES SPONTANEOUSLY. NO IV ACCESS AT THIS TIME. AWAITING MIDLINE NURSE. WILL BE MOVING PT TO MS2, CAREGIVER MADE AWARE. BED IN LOW/LOCKED POSITION WITH CALL LIGHT IN REACH. BILAT. UPPER SIDE RAILS IN PLACE. WILL CONTINUE TO MONITOR
--- NOTE | 2018-07-19 19:25 | NUR ---
MS/RN NOTES MIDLINE NURSEMALINI AT BEDSIDE. MIDLINE INSERTED TO ANDRÉS #18
--- NOTE | 2018-07-19 19:35 | NUR ---
MS/RN NOTES SPOKE TO CHELI FROM PHARMACY. AWARE THAT PT NOW HAS MIDLINE. OKAY TO SCAN MERREM LATE AND RESUME AND SCHEDULED TIME IN THE MORNING, NO NEED TO CHANGE THE ADMINISTRATION TIME.
[2018-07-19 20:00] VITALS: BP 116/71
[2018-07-19] MEDS: SENNOSIDES 8.6 MG TABLET PO SCH (21:52)
[2018-07-20] MEDS ORDERED: MEROPENEM 1 G in IV NS 0.9% 100 ML IV SCH (01:00)
[2018-07-20] MEDS: MEROPENEM 1 G in IV NS 0.9% 100 ML IV SCH ×2 (05:46→17:12)
[2018-07-20] MEDS: ENOXAPARIN SODIUM 40 MG/0.4 ML DISP.SYRIN SQ SCH (05:52)
--- NOTE | 2018-07-20 07:08 | NUR ---
MS/RN OPENING NOTES PT ASLEEP, CAREGIVER AT BEDSIDE. ON 2L O2 VIA NC, BREATHING EVEN AND UNLABORED. NO S/S OF SOB OR PAIN. HOB ELEVATED. NON VERBAL, OPENS EYES SPONTANEOUSLY. ANDRÉS MIDLINE PATENT AND INTACT. ASPIRATION PRECAUTIONS IMPLEMENTED. ALL DUE MEDS GIVEN. NO SIGNIFICANT CHANGES OVERNIGHT. TURNED/REPOSITIONED Q2H, HEELS OFFLOADED. BED REMAINS IN LOW/LOCKED POSITION WITH CALL LIGHT IN REACH, BILAT. SIDE RAILS UPX2 WITH BED ALARM ON FOR SAFETY. WILL ENDORSE TO DAY SHIFT RN ALANIS.
[2018-07-20 07:39] LABS: CALCIUM, SERUM 8.8 mg/dL (8.5-10.1); CARBON DIOXIDE 28 mmol/L (21-32); CHLORIDE 102 mmol/L (98-107); CREATININE 0.3 mg/dL (0.6-1.3); GLUCOSE 87 mg/dL (74-106); POTASSIUM 3.3 mmol/L (3.5-5.1); SODIUM SERUM 139 mmol/L (136-145); UREA NITROGEN, BLOOD 12 mg/dL (7-18)
--- NOTE | 2018-07-20 07:50 | NUR ---
WOUND CARE CONSULT WOUND CARE RECEIVED CONSULT FOR LOW ERIN, RIGHT ELBOW AND SACRAL WOUND. WOUND CARE WILL DEFER CONSULT AND TREATMENT PLANS TO PLASTIC SURGICAL TEAM WHO ARE CURRENTLY FOLLOWING THIS PATIENT. PATIENT WITH ERIN AT 7, ALL PRESSURE ULCER PREVENTION MEASURES ARE NOTED TO BE IN PLACE AT THIS TIME. WILL SEE PRN.
--- NOTE | 2018-07-20 07:57 | NUR ---
RN OPENING NOTES PT RESTING IN BED. CAREGIVER AT BEDSIDE. NO APPARENT S/S OF PAIN, DISTRESS OR SOB AT THIS TIME. PT IS ON 2L O2 VIA NASAL CANNULA. PT HAS A RIGHT UPPER ARM IV INTACT AND PATENT. SAFETY PRECAUTIONS IN PLACE, BED IN LOWEST LOCKED POSITION, X2 SIDE RAILS UP AND CALL LIGHT WITHIN REACH. WILL CONTINUE TO MONITOR.
[2018-07-20 08:00] VITALS: BP 99/61
[2018-07-20] MEDS: CALCIUM CARBONATE 500 MG TAB.CHEW PO SCH (09:17)
[2018-07-20] MEDS: VITAMIN E 400 UNIT CAPSULE PO SCH (09:17)
[2018-07-20] MEDS: CHOLECALCIFEROL 1,000 UNIT TABLET (VIT D3) PO SCH (09:17)
[2018-07-20] MEDS: LACTOBACILLUS RHAMNOSUS GG 1 EACH CAP.SPRINK PO SCH (09:17)
[2018-07-20] MEDS: FAMOTIDINE (20 MG) 20 MG TABLET PO SCH (09:17)
[2018-07-20] MEDS: SIMETHICONE 80 MG TAB.CHEW PO SCH ×4 (09:17→20:14)
[2018-07-20] MEDS: CADEXOMER IODINE 40 GM TUBE TP SCH (09:18)
[2018-07-20] MEDS: POLYVINYL ALCOHOL 15 ML BOTTLE OP SCH ×2 (09:18→17:00)
[2018-07-20] MEDS: LEVETIRACETAM (500MG) 250 MG in IV NS 0.9% 100 ML IV SCH (09:18)
[2018-07-20] MEDS: ENSURE ENLIVE 237 ML LIQUID (VANILLA) PO SCH ×2 (09:19→17:22)
--- NOTE | 2018-07-20 10:04 | NUR ---
RN NOTES INFORMED PHARMACY OF MISSING MEDICATIONS. PER PHARMACY, WILL RESTOCK. WILL CONTINUE TO FOLLOW UP.
[2018-07-20] MEDS ORDERED: POTASSIUM CHLORIDE 20 MEQ POWDER PACKET PO SCH ×2 (10:30→13:30)
--- NOTE | 2018-07-20 10:51 | NUR ---
RN NOTES SECOND PHONE CALL. INFORMED PHARMACY OF MISSING MEDICATIONS. PER PHARMACY, WILL RESTOCK. WILL CONTINUE TO FOLLOW UP.
[2018-07-20] MEDS ORDERED: BARIUM SULFATE 240 ML ORAL.SUSP PO ONE (12:00)
[2018-07-20] MEDS ORDERED: BARIUM SULFATE 148 GM SUSP.RECON PO ONE (12:00)
[2018-07-20] MEDS: FERROUS SULFATE (325 MG) 325 MG/TAB TABLET PO SCH (13:49)
[2018-07-20] MEDS: VITAMIN B COMP W-C 1 TAB TABLET PO SCH (14:13)
--- NOTE | 2018-07-20 14:37 | NUR ---
RN NOTES ALL MEDICATIONS GIVEN THEY WERE MADE AVAILABLE FROM PHARMACY.
--- NOTE | 2018-07-20 18:40 | NUR ---
RN CLOSING NOTES PT RESTING IN BED. FAMILY AT BEDSIDE. NO APPARENT S/S OF PAIN, DISTRESS OR SOB DURING SHIFT. PT IS NOW ON ROOM AIR SATING WELL. PT HAS A RIGHT UPPER ARM IV INTACT AND PATENT. SAFETY PRECAUTIONS IN PLACE, BED IN LOWEST LOCKED POSITION, X2 SIDE RAILS UP AND CALL LIGHT WITHIN REACH. WILL ENDORSE TO CRIMP SETTER NURSE FOR CONTINUITY OF CARE.
--- NOTE | 2018-07-20 19:40 | NUR ---
RECIEVED PATIENT IN BED. KIERA NAME SPOKEN NOTED SHE MOVES HER LIPS NONVERBAL AND NOT OPENING EYES. DAUGHTERS AT THE BEDSIDE, OFFERING MOTHER FLUIDS AND TALKING TO HER. DIAPER ON DT SHE IS INCONTINENT. HEELS ON A PILLOW AND FLOATING SPOKE TO THE DTRS ABOUT ASP PRECAUTIONS.
[2018-07-20 20:00] VITALS: BP 138/74
[2018-07-20] MEDS: LEVETIRACETAM (250 MG) 250 MG TABLET PO SCH (20:14)
[2018-07-20 20:24] VITALS: BP 138/74
[2018-07-20] MEDS: SENNOSIDES 8.6 MG TABLET PO SCH (21:26)
[2018-07-21] MEDS: MEROPENEM 1 G in IV NS 0.9% 100 ML IV SCH (04:39)
--- NOTE | 2018-07-21 05:34 | NUR ---
SLEPT WELL THIS 12 HOURS. REMAINS NONVERBAL. PRIVATE SITTER REMAINS AT THE BEDSIDE, ASSISTS WITH CARE. ASPIRATION PRECAUTION MAINTAINED THIS 12 HOURS. NEVER OPENING HER EYES FOR ME. AFEBRILE THIS 12 HOURS. SAT ABOVE 92% THIS 12 HOURS.
[2018-07-21] MEDS: ENOXAPARIN SODIUM 40 MG/0.4 ML DISP.SYRIN SQ SCH (06:20)
[2018-07-21 07:20] LABS: BASOPHILS % (AUTO) 0.7 % (0.0-2.0); HEMATOCRIT 32 % (33-45); HEMOGLOBIN 10.8 g/dL (11.5-14.8); LYMPHOCYTES # (AUTO) 1.5 /CMM (0.8-4.8); LYMPHOCYTES % (AUTO) 33.3 % (20.0-44.0); MEAN CORPUSCULAR HGB CONC 34 g/dl (31.0-36.0); MEAN CORPUSCULAR VOLUME 92 fL (82-100); MONOCYTES # (AUTO) 0.3 /CMM (0.1-1.30); MONOCYTES % (AUTO) 6.2 % (2.0-12.0); NEUTROPHILS # (AUTO) 2.7 /CMM (1.8-8.9); NEUTROPHILS % (AUTO) 57.8 % (43.0-81.0); PLATELET COUNT (AUTO) 188 /CMM (150-450); RED BLOOD CELL COUNT(AUTO) 3.52 MIL/uL (4.0-5.2); WHITE BLOOD COUNT (AUTO) 4.6 K/uL (4.3-11.0)
[2018-07-21 07:34] LABS: CALCIUM, SERUM 8.7 mg/dL (8.5-10.1); CARBON DIOXIDE 28 mmol/L (21-32); CHLORIDE 106 mmol/L (98-107); CREATININE 0.3 mg/dL (0.6-1.3); GLUCOSE 88 mg/dL (74-106); POTASSIUM 3.5 mmol/L (3.5-5.1); SODIUM SERUM 141 mmol/L (136-145); UREA NITROGEN, BLOOD 7 mg/dL (7-18)
[2018-07-21 08:00] VITALS: BP 92/48
[2018-07-21] MEDS: FAMOTIDINE (20 MG) 20 MG TABLET PO SCH (08:38)
[2018-07-21] MEDS: FERROUS SULFATE (325 MG) 325 MG/TAB TABLET PO SCH (08:38)
[2018-07-21] MEDS: CALCIUM CARBONATE 500 MG TAB.CHEW PO SCH (08:38)
[2018-07-21] MEDS: LACTOBACILLUS RHAMNOSUS GG 1 EACH CAP.SPRINK PO SCH (08:38)
[2018-07-21] MEDS: VITAMIN E 400 UNIT CAPSULE PO SCH (08:38)
[2018-07-21] MEDS: CHOLECALCIFEROL 1,000 UNIT TABLET (VIT D3) PO SCH (08:38)
[2018-07-21] MEDS: LEVETIRACETAM (250 MG) 250 MG TABLET PO SCH ×2 (08:38→20:58)
[2018-07-21] MEDS: SIMETHICONE 80 MG TAB.CHEW PO SCH ×4 (08:38→20:59)
[2018-07-21] MEDS: VITAMIN B COMP W-C 1 TAB TABLET PO SCH (08:38)
[2018-07-21] MEDS: POLYVINYL ALCOHOL 15 ML BOTTLE OP SCH ×2 (09:09→17:09)
[2018-07-21] MEDS: ENSURE ENLIVE 237 ML LIQUID (VANILLA) PO SCH ×2 (09:09→17:09)
[2018-07-21] MEDS: CADEXOMER IODINE 40 GM TUBE TP SCH (09:10)
[2018-07-21] MEDS ORDERED: IV NS 0.9% 1,000 ML BAG IV PRN (10:30)
[2018-07-21] MEDS: IV NS 0.9% 1,000 ML IV PRN (10:50)
[2018-07-21] MEDS ORDERED: BISACODYL SUPP (10 MG) 10 MG/SUPP.RECT SUPP.RECT RC PRN (11:00)
[2018-07-21 16:00] VITALS: BP 113/59
[2018-07-21] MEDS: CEFEPIME 1 GM in IV D5W 50 ML IV SCH (17:09)
--- NOTE | 2018-07-21 18:29 | NUR ---
PATIENT IN BED, SITTER AT BEDSIDE. PATIENT ON ROOM AIR TOLERATING WELL, IV FLUIDS RUNNING AT 75 ML/HR. SAFETY AND ASPIRATION PRECAUTIONS IN PLACE. ALL NEEDS ATTENDED, PATIENT TURNED AND REPOSITIONED Q2H. WILL ENDORSE TO NEXT SHIFT FOR ALANIS.
--- NOTE | 2018-07-21 19:31 | NUR ---
MS RN RECEIVE PT IN BED A/O X 1, CAREGIVER AT BEDSIDE, RESPIRATIONS EVEN AND UNLABORED, NO SOB NOTED, NO DISTRESS, SAFETY MEASURES IN PLACE. WILL CONTINUE TO MONITOR.
[2018-07-21 20:00] VITALS: BP 116/72
[2018-07-21 20:29] VITALS: BP 116/72
[2018-07-21] MEDS: SENNOSIDES 8.6 MG TABLET PO SCH (21:07)
[2018-07-22] MEDS: IV NS 0.9% 1,000 ML IV PRN ×2 (00:38→16:20)
[2018-07-22] MEDS: CEFEPIME 1 GM in IV D5W 50 ML IV SCH (05:19)
[2018-07-22] MEDS: ENOXAPARIN SODIUM 40 MG/0.4 ML DISP.SYRIN SQ SCH (05:27)
--- NOTE | 2018-07-22 05:58 | NUR ---
MS RN ASLEEP AND EASILY AWAKEN, NON VERBAL OPENS EYES TO NAME, TOUCH, LIGHT PAIN. RESPIRATION EVEN AND UNLABORED, STABLE AND NOT IN DISTRESS, AM CARE RENDERED, CAREGIVER AT BEDSIDE. AFEBRILE. NEEDS ATTENDED AND ANTICIPATED, KEPT CLEAN AND DRY AND COMFORTABLE. NURSING CARE RENDERED, GOOD SKIN CARE PROVIDED. REPOSITIONED PT EVERY 2 HOURS AND PRN. SAFETY MEASURES AT ALL TIMES. ENDORSE TO THE NEXT SHIFT.
[2018-07-22 06:52] LABS: CALCIUM, SERUM 8.4 mg/dL (8.5-10.1); CARBON DIOXIDE 27 mmol/L (21-32); CHLORIDE 107 mmol/L (98-107); CREATININE 0.2 mg/dL (0.6-1.3); GLUCOSE 86 mg/dL (74-106); POTASSIUM 3.5 mmol/L (3.5-5.1); SODIUM SERUM 141 mmol/L (136-145); UREA NITROGEN, BLOOD 6 mg/dL (7-18)
[2018-07-22 07:00] LABS: BASOPHILS % (AUTO) 0.7 % (0.0-2.0); EOSINOPHILS % (AUTO) 2.4 % (0.0-6.0); HEMATOCRIT 33 % (33-45); LYMPHOCYTES # (AUTO) 1.8 /CMM (0.8-4.8); LYMPHOCYTES % (AUTO) 37.8 % (20.0-44.0); MEAN CORPUSCULAR HGB CONC 34 g/dl (31.0-36.0); MEAN CORPUSCULAR VOLUME 92 fL (82-100); MONOCYTES # (AUTO) 0.3 /CMM (0.1-1.30); MONOCYTES % (AUTO) 7.3 % (2.0-12.0); NEUTROPHILS # (AUTO) 2.4 /CMM (1.8-8.9); NEUTROPHILS % (AUTO) 51.8 % (43.0-81.0); PLATELET COUNT (AUTO) 191 /CMM (150-450); RED BLOOD CELL COUNT(AUTO) 3.58 MIL/uL (4.0-5.2); WHITE BLOOD COUNT (AUTO) 4.7 K/uL (4.3-11.0)
--- NOTE | 2018-07-22 07:15 | NUR ---
MS/RN OPENING NOTE THE PATIENT IS RECEIVED IN BED. OPENS EYES TO VERBAL AND TACTILE STIMULI BUT THE PATIENT IS NON-VERBAL. IN ROOM AIR. NO MANIFESTATION OF SOB OR DISTRESS. CAREGIVER AT THE BEDSIDE. RIGHT UPPER MIDLINE PATENT AND NORMAL SALINE INFUSING AT 75ML/HR AND NO S/S INFILTRATION NOTED. BED LOW AND LOCKED. SIDE RAILS UP X3. CALL LIGHT WITHIN REACH. WILL CONTINUE TO MONITOR.
[2018-07-22 08:00] VITALS: BP 132/64
[2018-07-22] MEDS: LEVETIRACETAM (250 MG) 250 MG TABLET PO SCH ×2 (08:02→23:33)
[2018-07-22] MEDS: VITAMIN E 400 UNIT CAPSULE PO SCH (08:02)
[2018-07-22] MEDS: SIMETHICONE 80 MG TAB.CHEW PO SCH ×4 (08:02→23:34)
[2018-07-22] MEDS: CHOLECALCIFEROL 1,000 UNIT TABLET (VIT D3) PO SCH (08:02)
[2018-07-22] MEDS: FAMOTIDINE (20 MG) 20 MG TABLET PO SCH (08:02)
[2018-07-22] MEDS: VITAMIN B COMP W-C 1 TAB TABLET PO SCH (08:02)
[2018-07-22] MEDS: LACTOBACILLUS RHAMNOSUS GG 1 EACH CAP.SPRINK PO SCH (08:02)
[2018-07-22] MEDS: CALCIUM CARBONATE 500 MG TAB.CHEW PO SCH (08:02)
[2018-07-22] MEDS: FERROUS SULFATE (325 MG) 325 MG/TAB TABLET PO SCH (08:02)
[2018-07-22] MEDS: ENSURE ENLIVE 237 ML LIQUID (VANILLA) PO SCH ×2 (08:55→17:00)
[2018-07-22] MEDS: POLYVINYL ALCOHOL 15 ML BOTTLE OP SCH ×2 (08:57→16:19)
[2018-07-22] MEDS: CADEXOMER IODINE 40 GM TUBE TP SCH (09:00)
[2018-07-22] MEDS ORDERED: CEFE1PIG3 IV (10:18)
[2018-07-22 16:00] VITALS: BP 132/69
[2018-07-22 16:05] VITALS: BP 132/69
--- NOTE | 2018-07-22 19:01 | NUR ---
MS/RN NOTE THE PATIENT IN BED AND SLEEPING. OPENS EYES TO VERBAL STIMULI. IN ROOM AIR AND SATURATION IS AT 96%. DENIES SOB. RESPIRATION REGULAR AND UNLABORED. DENIES PAIN. THE PATIENT IN NO APPARENT DISTRESS. RIGHT UPPER MIDLINE PATENT AND NORMAL SALINE INFUSING AT 75ML/HR AND NO S/S INFILTRATION NOTED. BED LOW AND LOCKED. SIDE RAILS UP X3. CALL LIGHT WITHIN REACH. WILL ENDORSE TO CHIEF RELAY TESTER.
--- NOTE | 2018-07-22 19:40 | NUR ---
RN OPENING NOTES RECEIVED REPORT FROM DAYSCTFT RN KERRI. FOUND Pt ASLEEP IN BED, SHAKE PACKER AT BEDSIDE. Pt IS A/OX1, NONVERBAL, OPENS EYES, CAN SWALLOW PUREED FOODS AND CAN TAKE MEDS CRUSHED IN PUDDING. FEEDER NEEDED. POTENTIAL ASPIRATION PRECAUTION. NO S/S OF ACUTE DISTRESS OR SOB NOTED. RESPIRATIONS ARE EVEN AND UNLABORED. IV ACCESS ON ANDRÉS MIDLINE, IVF NS @75ML/HR. SAFETY MEASURES IN PLACE. BED LOW, LOCKED, HOB ELEVATED, SIDE RAILS UP, BED ALARM ON. WILL CONTINUE TO MONITOR Pt's CONDITION AND SAFETY THROUGHOUT THE NIGHT.
[2018-07-22 19:55] VITALS: BP 133/78
[2018-07-22 20:00] VITALS: BP 133/78
[2018-07-22] MEDS: SENNOSIDES 8.6 MG TABLET PO SCH (23:34)
[2018-07-23] MEDS: ENOXAPARIN SODIUM 40 MG/0.4 ML DISP.SYRIN SQ SCH (05:55)
[2018-07-23] MEDS: IV NS 0.9% 1,000 ML IV PRN (06:00)
--- NOTE | 2018-07-23 06:32 | NUR ---
RN CLOSING NOTES NO SIGNIFICANT CHANGES IN Pt's CONDITION. Pt REMAINS STABLE AT THIS TIME. NO S/S OF ACUTE DISTRESS OR SOB NOTED DURING THE NIGHT. ALL NEEDS MET AND ATTENDED TO. ALL ORDERED MEDS GIVEN. Pt IS RESTING COMFORTABLY IN BED. RESPIRATIONS EVEN AND UNLABORED. SAFETY MEASURES IN PLACE. WILL ENDORSE TO DAYSHIFT RN FOR Pt's ALANIS.
[2018-07-23 08:00] VITALS: BP 125/70
--- NOTE | 2018-07-23 08:02 | NUR ---
MS/RN OPENING NOTE PATIENT IN BED IN STABLE CONDITION. A/O X 1, OPEN EYES. NO SIGNS OF ACUTE DISTRESS. NO COMPLAIN OF PAIN OR DISCOMFORT. CAREGIVER AT BEDSIDE. ALL NEEDS ATTENDED TO. CALL LIGHT WITHIN REACH. WILL CONTINUE TO MONITOR TO ENSURE SAFETY.
[2018-07-23] MEDS: CADEXOMER IODINE 40 GM TUBE TP SCH (08:54)
[2018-07-23] MEDS: SIMETHICONE 80 MG TAB.CHEW PO SCH ×2 (08:54→12:22)
[2018-07-23] MEDS: CHOLECALCIFEROL 1,000 UNIT TABLET (VIT D3) PO SCH (08:54)
[2018-07-23] MEDS: ENSURE ENLIVE 237 ML LIQUID (VANILLA) PO SCH ×2 (08:54→17:15)
[2018-07-23] MEDS: CALCIUM CARBONATE 500 MG TAB.CHEW PO SCH (08:55)
[2018-07-23] MEDS: LEVETIRACETAM (250 MG) 250 MG TABLET PO SCH (08:55)
[2018-07-23] MEDS: FERROUS SULFATE (325 MG) 325 MG/TAB TABLET PO SCH (08:55)
[2018-07-23] MEDS: VITAMIN E 400 UNIT CAPSULE PO SCH (08:55)
[2018-07-23] MEDS: VITAMIN B COMP W-C 1 TAB TABLET PO SCH (08:55)
[2018-07-23] MEDS: FAMOTIDINE (20 MG) 20 MG TABLET PO SCH (08:55)
[2018-07-23] MEDS: LACTOBACILLUS RHAMNOSUS GG 1 EACH CAP.SPRINK PO SCH (08:55)
[2018-07-23] MEDS: POLYVINYL ALCOHOL 15 ML BOTTLE OP SCH ×2 (08:56→17:14)
[2018-07-23] MEDS: LEVETIRACETAM SOL (5 ML) 100 MG/ML UDC PO SCH ×2 (09:38→21:30)
--- NOTE | 2018-07-23 10:45 | NUR ---
MS/RN SEEN BY DR MIR WITH ORDERS TO DC IV FLUIDS SINCE BP NOTED IN WNL RANGE. ORDERS NOTED AND CARRIED OUT. PATIENT AND FAMILY NOTIFIED.
[2018-07-23 16:00] VITALS: BP 167/98
[2018-07-23] MEDS: SIMETHICONE SUSP 40 MG/0.6 ML BOTTLE PO SCH ×2 (17:14→21:29)
--- NOTE | 2018-07-23 18:31 | NUR ---
MS/RN CLOSING NOTE PATIENT IN BED IN STABLE CONDITION. A/O X 1. NON VERBAL, OPEN EYES. NO SIGNS OF ACUTE DISTRESS. NO COMPLAIN OF PAIN OR DISCOMFORT. ALL NEEDS ATTENDED TO. CALL LIGHT WITHIN REACH. WILL ENDORSE TO NEXT SHIFT FOR CONTINUITY OF CARE.
[2018-07-23 20:00] VITALS: BP 121/68
[2018-07-23] MEDS: SENNOSIDES 8.6 MG TABLET PO SCH (21:41)
--- NOTE | 2018-07-23 21:41 | NUR ---
MS/RN SENNA NOT GIVEN, DAUGHTER REFUSED MED.
--- NOTE | 2018-07-23 22:46 | NUR ---
MS/RN PATIENT IS SLEEPING AT THIS TIME, APPEAR COMFORTABLE, NO SIGNS OF DISTRESS NOTED, CAREGIVER AT BEDSIDE. WILL CONTINUE TO MONITOR.
--- NOTE | 2018-07-24 06:20 | NUR ---
MS/RN PATIENT IS STILL SLEEPING AT THIS TIME, APPEAR COMFORTABLE, NO DISTRESS NOTED, CAREGIVER AT BEDSIDE, ALL NEEDS ATTENDED AT THIS TIME, WILL CONTINUE TO MONITOR.
[2018-07-24] MEDS: ENOXAPARIN SODIUM 40 MG/0.4 ML DISP.SYRIN SQ SCH (06:51)
--- NOTE | 2018-07-24 07:28 | NUR ---
MS/RN OPENING NOTE PATIENT IN BED IN STABLE CONDITION. A/O X 1, NON VERBAL, OPEN EYES UPON REACH. NO SIGNS OF ACUTE DISTRESS. NO COMPLAIN OF PAIN OR DISCOMFORT. CAREGIVER AT BEDSIDE. ALL NEEDS ATTENDED TO. CALL LIGHT WITHIN REACH. WILL CONTINUE TO MONITOR TO ENSURE SAFETY.
[2018-07-24 08:00] VITALS: BP 130/73
[2018-07-24] MEDS: VITAMIN E 400 UNIT CAPSULE PO SCH (08:03)
[2018-07-24] MEDS: CALCIUM CARBONATE 500 MG TAB.CHEW PO SCH (08:03)
[2018-07-24] MEDS: POLYVINYL ALCOHOL 15 ML BOTTLE OP SCH ×2 (08:03→17:03)
[2018-07-24] MEDS: LEVETIRACETAM SOL (5 ML) 100 MG/ML UDC PO SCH ×2 (08:03→20:31)
[2018-07-24] MEDS: LACTOBACILLUS RHAMNOSUS GG 1 EACH CAP.SPRINK PO SCH (08:03)
[2018-07-24] MEDS: VITAMIN B COMP W-C 1 TAB TABLET PO SCH (08:03)
[2018-07-24] MEDS: SIMETHICONE SUSP 40 MG/0.6 ML BOTTLE PO SCH ×4 (08:03→20:26)
[2018-07-24] MEDS: FERROUS SULFATE (325 MG) 325 MG/TAB TABLET PO SCH (08:03)
[2018-07-24] MEDS: FAMOTIDINE (20 MG) 20 MG TABLET PO SCH (08:03)
[2018-07-24] MEDS: CHOLECALCIFEROL 1,000 UNIT TABLET (VIT D3) PO SCH (08:04)
[2018-07-24] MEDS: ENSURE ENLIVE 237 ML LIQUID (VANILLA) PO SCH ×2 (08:05→16:56)
[2018-07-24] MEDS: CADEXOMER IODINE 40 GM TUBE TP SCH (08:05)
[2018-07-24 16:00] VITALS: BP 128/76
--- NOTE | 2018-07-24 18:14 | NUR ---
MS/RN CLOSING NOTE PATIENT IN BED IN STABLE CONDITION, NON VERBAL, OPEN EYES. NO SIGN OF ACUTE DISTRESS. NO COMPLAIN OF PAIN OR DISCOMFORT. CAREGIVER AT BEDSIDE. ALL NEEDS ATTENDED TO. CALL LIGHT WITHIN REACH. WILL ENDORSE TO NEXT SHIFT FOR CONTINUITY OF CARE.
--- NOTE | 2018-07-24 19:00 | NUR ---
CHANGE OF SHIFT REPORT Received patient in bed upright position, daughter Amarilis feeding the patient. Patient appears comfortable, able to open eyes, no facial grimace. Stable oxygen saturation on RA. Will cont to monitor.
[2018-07-24 20:00] VITALS: BP 115/75
[2018-07-24] MEDS: SENNOSIDES 8.6 MG TABLET PO SCH (20:33)
--- NOTE | 2018-07-24 20:34 | NUR ---
MEDICATION NON ADMINISTRATION Patient daughter Amarilis refused Senokot, per daughter patient had bowel movement today. Medication risk and benefits explained to Amarilis, daughter, verbalized understanding.
--- NOTE | 2018-07-24 22:00 | NUR ---
BOWEL MOVEMENT Bed bath given, voided urine, had BM this shift, small amount, no diarrhea. Total assist, repositioned, offload extremities.
[2018-07-25] MEDS: ENOXAPARIN SODIUM 40 MG/0.4 ML DISP.SYRIN SQ SCH (05:48)
--- NOTE | 2018-07-25 06:22 | NUR ---
END OF SHIFT REPORT Patient in bed, stable oxygen saturation on RA. No acute events overnight. ANDRÉS midline intact. Off antibiotic, blood culture pending result. Afebrile, repositioned, offload extremities. Aspiration, fall, seizure, skin precaution maintained. Right elbow wound dressing C/D/I. Pending discharge to SNF, for placement. Maintained safety.
--- NOTE | 2018-07-25 07:52 | NUR ---
MS RN OPENING NOTE RECEIVED PATIENT IN BED. ALERT, NON-VERBAL. ON ROOM AIR, TOLERATING WELL. IN NO APPARENT DISTRESS OR DISCOMFORT AT THIS TIME. RESPIRATIONS EVEN AND UNLABORED. UNABLE TO COMMUNICATE NEEDS, CAREGIVER AT BEDSIDE. RIGHT UPPER ARM MIDLINE, SL, PATENT AND INTACT. DRESSING ON RIGHT ELBOW CLEAN/DRY/INTACT. PATIENT KEPT CLEAN AND COMFORTABLE. ALL NEEDS ATTENDED, SAFETY MEASURES IN PLACE, BED IN LOW LOCKED POSITION, SIDE RAILS UP X2, CALL LIGHT WITHIN EASY REACH. WILL CONTINUE TO MONITOR.
[2018-07-25 08:00] VITALS: BP 117/63
[2018-07-25] MEDS: CHOLECALCIFEROL 1,000 UNIT TABLET (VIT D3) PO SCH (08:54)
[2018-07-25] MEDS: VITAMIN E 400 UNIT CAPSULE PO SCH (08:54)
[2018-07-25] MEDS: LEVETIRACETAM SOL (5 ML) 100 MG/ML UDC PO SCH ×2 (08:54→21:06)
[2018-07-25] MEDS: FAMOTIDINE (20 MG) 20 MG TABLET PO SCH (08:54)
[2018-07-25] MEDS: VITAMIN B COMP W-C 1 TAB TABLET PO SCH (08:54)
[2018-07-25] MEDS: FERROUS SULFATE (325 MG) 325 MG/TAB TABLET PO SCH (08:54)
[2018-07-25] MEDS: CALCIUM CARBONATE 500 MG TAB.CHEW PO SCH (08:54)
[2018-07-25] MEDS: LACTOBACILLUS RHAMNOSUS GG 1 EACH CAP.SPRINK PO SCH (08:54)
[2018-07-25] MEDS: ENSURE ENLIVE 237 ML LIQUID (VANILLA) PO SCH ×2 (08:56→16:08)
[2018-07-25] MEDS: SIMETHICONE SUSP 40 MG/0.6 ML BOTTLE PO SCH ×4 (08:56→21:07)
[2018-07-25] MEDS: POLYVINYL ALCOHOL 15 ML BOTTLE OP SCH ×2 (08:56→16:08)
[2018-07-25] MEDS: CADEXOMER IODINE 40 GM TUBE TP SCH (08:57)
[2018-07-25 11:55] VITALS: BP 117/63
--- NOTE | 2018-07-25 15:05 | NUR ---
PATIENT WAS REPOSITIONED TO HER RIGHT SIDE AT 1400. AT 1450, PATIENT'S DAUGHTER REQUESTED TO PLACE HER ON HER BACK AGAIN. RISKS AND BENEFITS EXPLAINED. FAMILIES WISHES IMPLEMENTED.
[2018-07-25 16:00] VITALS: BP_SYST 117; BP_SYST 123; BP_DIAS 63; BP_DIAS 65
--- NOTE | 2018-07-25 17:00 | NUR ---
DAUGHTER IS FEEDING THE PATIENT, REFUSED REPOSITIONING AT THIS TIME.
--- NOTE | 2018-07-25 19:29 | NUR ---
MS RN CLOSING NOTE PATIENT IN BED. SLEEPING AROUSED WITH PHYSICAL STIMULI, WITH BRIEF EYE OPENING ONLY, NON-VERBAL. ON ROOM AIR, TOLERATING WELL. IN NO APPARENT DISTRESS OR DISCOMFORT AT THIS TIME. RESPIRATIONS EVEN AND UNLABORED. UNABLE TO COMMUNICATE NEEDS, DAUGHTER AT BEDSIDE. RIGHT UPPER ARM MIDLINE, SL, PATENT AND INTACT. DRESSING ON RIGHT ELBOW CLEAN/DRY/INTACT. PATIENT KEPT CLEAN AND COMFORTABLE. TURNED AND REPOSITIONED PER PROTOCOL AND PER FAMILY'S WISHES. ALL NEEDS ATTENDED, ORDERS RENDERED. SAFETY MEASURES IN PLACE, BED IN LOW LOCKED POSITION, SIDE RAILS UP X2, CALL LIGHT WITHIN EASY REACH. WILL ENDORSE TO PM NURSE FOR ALANIS.
--- NOTE | 2018-07-25 19:30 | NUR ---
RECEIVED PATIENT IN BED WITH EYES OPEN, NON-VERBAL. NO ACUTE DISTRESS NOTED. NO SIGNS OF PAIN NOTED. IV SITE PATENT, INTACT; FLUSHED. SAFETY REMINDERS GIVEN. ON LOW BED WITH BILATERAL UPPER SIDE RAILS UP. CALL VO WITHIN EASY REACH. WILL CONTINUE TO MONITOR. DAUGHTER AT BEDSIDE.
[2018-07-25] MEDS: MAG HYDROX/AL HYDROX/SIMETH 30 ML UDC PO PRN (19:52)
[2018-07-25 20:00] VITALS: BP 139/78
[2018-07-25] MEDS: SENNOSIDES 8.6 MG TABLET PO SCH (22:00)
--- NOTE | 2018-07-25 22:03 | NUR ---
PATIENT HAD A SOFT BUT NOT WATERY STOOL DURING THE DAY SHIFT PER DAY SHIFT NURSE. DAUGHTER REQUESTED TO HOLD ANY LAXATIVES OR STOOL SOFTENER. SENNOSIDES HELD.
[2018-07-26] MEDS: ENOXAPARIN SODIUM 40 MG/0.4 ML DISP.SYRIN SQ SCH (05:38)
--- NOTE | 2018-07-26 06:30 | NUR ---
PATIENT ASLEEP, EASILY AROUSABLE. RESPIRATIONS EVEN. NO SIGNS OF PAIN OR NAUSEA NOTED. DUE MEDS GIVEN WITH NO ASE NOTED. NEEDS ATTENDED. KEPT CLEAN, DRY, AND COMFORTABLE. SAFETY PRECAUTIONS AND COMFORT MEASURES IN PLACE. WILL GIVE REPORT TO DAY SHIFT FOR CONTINUITY OF CARE. CAREGIVER AT BEDSIDE.
--- NOTE | 2018-07-26 07:24 | NUR ---
RN OPENING NOTE PT WAS RECEIVED IN BED AT LOWEST AND LOCKED POSITION WITH SIDE RAILS UP X2, PT IS NON-VERBAL BUT OPENS EYES, BREATHING EVEN AND UNLABORED ON RA, NO S/S OF ANY DISTRESS OR PAIN AT THIS TIME, IV IS PATENT AND INTACT, CAREGIVER PRESENT AT BEDSIDE, POSSIBLE D/C TODAY, SAFETY PRECAUTIONS IN PLACE, CALL LIGHT WITHIN REACH, WILL MONITOR ACCORDINGLY
[2018-07-26 08:00] VITALS: BP 108/63
[2018-07-26] MEDS: CALCIUM CARBONATE 500 MG TAB.CHEW PO SCH (08:28)
[2018-07-26] MEDS: SIMETHICONE SUSP 40 MG/0.6 ML BOTTLE PO SCH ×2 (08:28→12:01)
[2018-07-26] MEDS: FERROUS SULFATE (325 MG) 325 MG/TAB TABLET PO SCH (08:29)
[2018-07-26] MEDS: LACTOBACILLUS RHAMNOSUS GG 1 EACH CAP.SPRINK PO SCH (08:29)
[2018-07-26] MEDS: FAMOTIDINE (20 MG) 20 MG TABLET PO SCH (08:29)
[2018-07-26] MEDS: VITAMIN E 400 UNIT CAPSULE PO SCH (08:29)
[2018-07-26] MEDS: VITAMIN B COMP W-C 1 TAB TABLET PO SCH (08:29)
[2018-07-26] MEDS: POLYVINYL ALCOHOL 15 ML BOTTLE OP SCH (08:29)
[2018-07-26] MEDS: LEVETIRACETAM SOL (5 ML) 100 MG/ML UDC PO SCH (08:29)
[2018-07-26] MEDS: CHOLECALCIFEROL 1,000 UNIT TABLET (VIT D3) PO SCH (08:29)
[2018-07-26] MEDS: CADEXOMER IODINE 40 GM TUBE TP SCH (09:20)
[2018-07-26] MEDS: ENSURE ENLIVE 237 ML LIQUID (VANILLA) PO SCH (09:20)
[2018-07-26] MEDS: MAG HYDROX/AL HYDROX/SIMETH 30 ML UDC PO PRN (11:32)
--- NOTE | 2018-07-26 14:35 | NUR ---
RN NOTE REPORT GIVEN TO AISSATOU AT [facility] AT THIS TIME
[2018-07-26 16:00] VITALS: BP 105/59
--- NOTE | 2018-07-26 16:16 | NUR ---
DISCHARGE NOTE PT WAS D/C AT THIS TIME IN MEDICALLY STABLE CONDITION BACK TO [facility] AT THIS TIME WHERE REPORT WAS GIVEN TO AISSATOU. IV AND ID BAND WERE REMOVED. ALL D/C PAPERWORK, EXITCARE, AND BELONGINGS LIST WERE DISCUSSED, SIGNED, AND HANDED TO THE PATIENT CAREGIVER AND EMT CREW. SKIN WOUND PHOTOS WERE TAKEN AND PLACED IN THE CHART. ALL NEEDS WERE ATTENDED TO DURING HER STAY. PT LEFT WITH EMT CREW AT THIS TIME.
== END 2018-07-26 16:23 | DRG 871 ==
LOC: ER 01:01 → TELE 03:15 → MED 08:11 → MEDSG2 07-19 20:06
PROVIDERS: ADMIT Internal Medicine; ATTEND Student in an Organized Health Care Education/Training Program
PROC: 05H533Z Insertion of Infusion Device into Right Subclavian Vein, Percutaneous Approach (ICD-10-PCS; principal; 2018-07-19)
DX: A41.9 Sepsis, unspecified organism (principal); J69.0 Pneumonitis due to inhalation of food and vomit; J96.01 Acute respiratory failure with hypoxia; J15.6 Pneumonia due to other Gram-negative bacteria; G93.41 Metabolic encephalopathy; I50.32 Chronic diastolic (congestive) heart failure; E87.2 Acidosis; N39.0 Urinary tract infection, site not specified; I11.0 Hypertensive heart disease with heart failure; G30.9 Alzheimer's disease, unspecified; F02.80 Dementia in other diseases classified elsewhere, unspecified severity, without behavioral disturbance, psychotic disturbance, mood disturbance, and anxiety; G40.909 Epilepsy, unspecified, not intractable, without status epilepticus; I35.0 Nonrheumatic aortic (valve) stenosis; Z88.2 Allergy status to sulfonamides; L98.8 Other specified disorders of the skin and subcutaneous tissue; L89.010 Pressure ulcer of right elbow, unstageable; L89.899 Pressure ulcer of other site, unspecified stage; R13.10 Dysphagia, unspecified; B96.5 Pseudomonas (aeruginosa) (mallei) (pseudomallei) as the cause of diseases classified elsewhere; K21.9 Gastro-esophageal reflux disease without esophagitis; D64.9 Anemia, unspecified
CPT/HCPCS: 36415; 36569; 71045-TC; 74230-TC; 80048-TC; 80053-TC; 80061-TC; 80076-TC; 80177; 81000-TC; 83605-TC; 83735-TC; 83880; 84100-TC; 84443-TC; 84484-TC; 85025-TC; 85730-TC; 87040-TC; 87081-TC; 87086-TC; 87186-TC; 92526; 92611-TC; 93307-TC; 93970-TC; A6403; G0378; J0456; J0692; J0696; J1650; J1940; J1953; J2185; J2543; J3480; J7030; J7050; J7060

== ENCOUNTER 2018-09-09 15:42 | Inpatient (IN) | payer MEDICARE, MEDICAID ==
[~2018-09-09] VITALS: Ht 162.6 cm; Wt 59.5 kg
[~2018-09-09 15:42] MED LIST changes: -ASPI-1169 PO; +BISA10SU11 RC; -BISA10SU8 RC; +CALC-494 PO; -CEPH-570 PO; +CRAN3875 PO; -DIVA125T2 PO; -DONE5TAB7 PO; +FAMO-131 PO; -FERR12.5 PO; +FERR325T24 PO; -IPRA0.2S49 IH; +IPRA0.2S9 IH; +LEVE250T2 PO; -LORA10TA68 PO; +MELA3TAB70 PO; -MELA5TAB PO; -MEMA10TA PO; +POLY15DR58 EACHEYE; -POLY15DR58 OP; +SENN-168 PO; +SIME80TA15 PO
--- NOTE | 2018-09-09 16:00 | NUR ---
RACHEL FROM [facility] C/O COFFEE GROUND COLOR EMESIS AT 2:40PM. PATIENT A/OXO, FAMILY AT BEDSIDE, BREATHING EVEN AND UNLABORED, NO DISTRESS NOTED. NO FURTHER EPISODE OF COFFEE GROUND EMESIS. ATTACHED TO THE MONITOR.
[2018-09-09] MEDS ORDERED: ACET-868 PO ×2 (16:02)
[2018-09-09] MEDS ORDERED: ASCO500T9 PO (16:02)
[2018-09-09] MEDS ORDERED: ARGI1PAC PO (16:02)
[2018-09-09] MEDS ORDERED: MULT-447 PO (16:02)
[2018-09-09] MEDS ORDERED: FOLI1TAB16 PO (16:02)
[2018-09-09] MEDS ORDERED: AMIN30LI27 PO (16:02)
[2018-09-09 16:27] LABS: BASOPHILS # (AUTO) 0.2 /CMM (0.0-0.2); BASOPHILS % (AUTO) 1.5 % (0.0-2.0); EOSINOPHILS % (AUTO) 0.2 % (0.0-6.0); HEMATOCRIT 41 % (33-45); HEMOGLOBIN 13.4 g/dL (11.5-14.8); LYMPHOCYTES # (AUTO) 1.4 /CMM (0.8-4.8); LYMPHOCYTES % (AUTO) 12.1 % (20.0-44.0); MEAN CORPUSCULAR HGB CONC 33 g/dl (31.0-36.0); MEAN CORPUSCULAR VOLUME 90 fL (82-100); MONOCYTES # (AUTO) 0.6 /CMM (0.1-1.30); MONOCYTES % (AUTO) 5.2 % (2.0-12.0); NEUTROPHILS # (AUTO) 9.3 /CMM (1.8-8.9); PLATELET COUNT (AUTO) 212 /CMM (150-450); WHITE BLOOD COUNT (AUTO) 11.5 K/uL (4.3-11.0)
[2018-09-09] MEDS ORDERED: IV NS 0.9% 500 ML BAG IV ONE (16:30)
[2018-09-09] MEDS ORDERED: ONDANSETRON HCL/PF 4 MG/2 ML VIAL IVP ONE (16:30)
[2018-09-09 16:37] LABS: ALANINE AMINOTRANSFERASE 19 U/L (12-78); ALBUMIN 3.3 g/dL (3.4-5.0); ALKALINE PHOSPHATASE 99 U/L (46-116); ASPARTATE AMINOTRANSFERASE 18 U/L (15-37); BILIRUBIN,DIRECT 0.1 mg/dL (0.0-0.2); BILIRUBIN,TOTAL 0.4 mg/dL (0.2-1.0); CALCIUM, SERUM 9.3 mg/dL (8.5-10.1); CARBON DIOXIDE 25 mmol/L (21-32); CHLORIDE 103 mmol/L (98-107); CREATININE 0.3 mg/dL (0.6-1.3); GLUCOSE 122 mg/dL (74-106); LIPASE 71 U/L (73-393); POTASSIUM 3.9 mmol/L (3.5-5.1); SODIUM SERUM 137 mmol/L (136-145); TOTAL PROTEIN, SERUM 7.5 g/dL (6.4-8.2); UREA NITROGEN, BLOOD 11 mg/dL (7-18)
[2018-09-09] MEDS ORDERED: ONDANSETRON HCL/PF 4 MG/2 ML VIAL ONE (16:42)
--- NOTE | 2018-09-09 18:05 | NUR ---
STRAIGHT CATHETER USED TO OBTAINED UA SAMPLE. ASEPTIC TECHNIQUE USED, UA SENT TO LAB.
[2018-09-09 18:08] LABS: APPEARANCE,URINE Cloudy (CLEAR); BILIRUBIN,URINE Negative (NEGATIVE); BLOOD, URINE Small Ery/uL (NEGATIVE); COLOR,URINE Yellow (YELLOW); KETONES,URINE Negative (NEGATIVE); LEUKOCYTE ESTERASE ,URINE Large (NEGATIVE); NITRITE, URINE Positive (NEGATIVE); PH,URINE 7.5 (5.0-8.0); PROTEIN,URINE 30 mg/dl (NEGATIVE); UGLUCOSE Negative (NEGATIVE); UROBILINOGEN,URINE 0.2 EU/dL (0.2)
[2018-09-09 18:27] LABS: BACTERIA,URINE 3+ /HPF (None Seen); SQUAMOUS EPITHELIAL CELL,UR Few /HPF (None Seen); WBC,URINE 51-80 /HPF (0-3)
[2018-09-09] MEDS ORDERED: CEFTRIAXONE 1 G in IV D5W 50 ML IV ONE (19:00)
--- NOTE | 2018-09-09 19:20 | NUR ---
REPORT REC'D FROM DORIE JEFFREY
--- NOTE | 2018-09-09 19:31 | NUR ---
PT WAS CLEANED AND CHANGED.
--- NOTE | 2018-09-09 19:43 | NUR ---
PT'S DAUGHTER WAS ON THE PHONE AND ASKED THAT THE PT NOT BE LAID FLAT WHEN CHANGING HER. SHE IS ON ASPIRATION PRECAUTIONS. PT'S DAUGHTER WANTS TO HAVE THE PT'S KEPPRA REDUCED SHE SLEEPS UNTIL "3PM THE NEXT DAY". THE DAUGHTER ALSO WANTS TO HAVE A NEUROLOGY CONSULT. DR LENZ WAS NOTIFIED.
--- NOTE | 2018-09-09 20:21 | NUR ---
TELE BED 308-0
--- NOTE | 2018-09-09 20:26 | NUR ---
PT TO BE ON A PUREED DIET. 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 PT CAN ONLY TOLERATE ALMOND MILK.
--- NOTE | 2018-09-09 20:27 | NUR ---
REPORT GIVEN TO MARCLELUS GOLDBERG
[2018-09-09 20:30] VITALS: BP 119/79
[2018-09-09] MEDS ORDERED: Z GUARD REMEDY 2 OZ OINT TP PRN (20:30)
[2018-09-09] MEDS ORDERED: MAG HYDROX/AL HYDROX/SIMETH 30 ML UDC PO PRN (20:30)
[2018-09-09] MEDS ORDERED: CLONIDINE HCL 0.2 MG TABLET PO PRN (20:30)
[2018-09-09] MEDS ORDERED: POLYETHYLENE GLYCOL 3350 17 GM POWD.PACK PO PRN (20:30)
[2018-09-09] MEDS ORDERED: BISACODYL SUPP (10 MG) 10 MG/SUPP.RECT SUPP.RECT RC PRN (20:30)
[2018-09-09] MEDS ORDERED: IPRATROPIUM NEB FS 0.5 MG/2.5 ML AMPUL.NEB IH PRN (20:30)
[2018-09-09] MEDS ORDERED: ACETAMINOPHEN 325 MG TABLET PO PRN (20:30)
[2018-09-09] MEDS ORDERED: ONDANSETRON HCL/PF 4 MG/2 ML VIAL IVP PRN (20:30)
[2018-09-09] MEDS ORDERED: Medication Not On Formulary EA (Melatonin 3 MG) PO PRN (20:30)
[2018-09-09] MEDS ORDERED: MAGNESIUM HYDROXIDE 30 ML UDC PO PRN (20:30)
[2018-09-09 21:00] VITALS: BP 119/79
[2018-09-09] MEDS ORDERED: LEVETIRACETAM (250 MG) 250 MG TABLET PO SCH (21:00)
[2018-09-09] MEDS: SIMETHICONE 80 MG TAB.CHEW PO SCH (21:00)
--- NOTE | 2018-09-09 21:04 | NUR ---
PT TRANSPORTED TO TELE [facility]IA [facility] PER PROTOCOL
--- NOTE | 2018-09-09 21:05 | NUR ---
TELE PORTABLE MACHINE SANDER INITIAL NOTES ADMIT PT FROM ER VIA GURMARCIAL ACCOMPANIED BY ER NURSE AND TECH LONG FAMILY TOO. DX OF UPPER GI BLEED AND UTI. PT CAME FROM [facility] AND PER FAMILY PT HAD COFFEE GROUND THIS AFTERNOON BUT AFTER THAT NO MORE N/V NOTED . PT ALERT ORIENTED BUT FARSI SPEAKING ONLY SO THE FAMILY IS THE ONE THAT'S PROVIDE INFORMATION . PT RESTING AT THIS TIME WITH EYES CLOSED BUT AROUSE TO TOUCH AND RESPONDING WHEN FAMILY SPOKE TO HER. NO SIGNS OF ANY ACUTE DISTRESS NOTED AT THIS TIME. RESPIRATION EVEN AND NON-LABORED.SKIN WARM AND DRY TOUCH. NO EDEMA NOTED. HEPLOCK ON LEFT AC PATENT AND INTACT. PER DAUGHTER PT IN ON PUREED DIET AND ASPIRATION PRECAUTION AND UNABLE TO LIE FLAT TOO LONG. 24 HR CAREGIVER AT THE BEDSIDE PER FAMILY REQUEST. TELE APPLIED AND HER CHEST WALL AND EXPLAINED TO HER DAUGHTER WHAT'S THE PURPOSE OF IT AND THEY UNDERSTOOD WELL. KEPT PT WARM AND COMFORTABLE AT ALL TIMES. HOB ELEVATED AND ASPIRATION PRECAUTION AND SEIZURE PRECAUTION IMPLEMENTED AND OBSERVED. WILL CONTINUE MONITORING. BED IN LOW AND LOCK IN POSITION WITH SIDE RAILS X2 UP. SITTER AT THE BEDSIDE.
--- NOTE | 2018-09-09 22:00 | NUR ---
TELE GROCERY STORE CLERK NOTES FAMILY REFUSED TO HAVE NGT TO BE INSERTED ORDERED EVEN I EXPLAINED TO THEM WHY THE PT NEEDED. DAUGHTER INSISTED AND SAYING " DON'T EVER 'EVER INSERTED NGT TO THEIR MOTHER. " PT RESTING AT THIS TIME NO N.V NOTED SINCE PT ADMITTED. KEPT HER HOB ELEVATED FOR PT COMFORT. TELE SINUS TACH 118 PER MONITOR. WILL CONTINUE MONITORING.
--- NOTE | 2018-09-09 22:25 | NUR ---
TELE FILLER SPREADER NOTES PT NPO INCLUDING MEDICATION AT THIS TIME ORDERED BUT PT DAUGHTER INSISTED TO HAVE GERMAN FULLER , NOTIFY CENTER CONSULTANT NICOLAS SCHWARTZ /ACNP AND SHE ORDERED TO CHANGES THE ORDER TO IV INSTEAD.
[2018-09-09] MEDS: IV NS 0.9% 1,000 ML IV PRN (22:32)
[2018-09-09] MEDS ORDERED: LEVETIRACETAM (500MG) 500 MG/5 ML VIAL IV ONE (23:07)
[2018-09-09] MEDS: LEVETIRACETAM (500MG) 250 MG in IV NS 0.9% 100 ML IV SCH (23:38)
--- NOTE | 2018-09-09 23:40 | NUR ---
TELE ALUMINA REFINERY OPERATOR NOTES KEPPRA IVP BAG 250 MG HUNG BY ANOTHER NURSE ORDERED. PT REMAIN RESTING WITHOUT ANY ACUTE DISTRESS NOTED. WILL CONTINUE MONITORING.
[2018-09-10] VITALS: BP 143/81
--- NOTE | 2018-09-10 01:00 | NUR ---
tele pastry supervisor notes pt sleeping comfortably in bed with IVF NS at 75ml.hr infusing on her left ac patent and intact , no redness noted. kept her warm and comfortable at all times. caregiver at the bedside at this time. will continue monitoring. place call light at reach.
--- NOTE | 2018-09-10 03:00 | NUR ---
tele floorleader notes remain asleep without any acute distress or any signs of any seizure noted. tele Sinus Tach heart rate 105 per monitor.
[2018-09-10 04:00] VITALS: BP 120/57
[2018-09-10 07:06] LABS: ALANINE AMINOTRANSFERASE 15 U/L (12-78); ALBUMIN 2.7 g/dL (3.4-5.0); ALKALINE PHOSPHATASE 81 U/L (46-116); ASPARTATE AMINOTRANSFERASE 15 U/L (15-37); BILIRUBIN,TOTAL 0.4 mg/dL (0.2-1.0); CALCIUM, SERUM 8.6 mg/dL (8.5-10.1); CARBON DIOXIDE 27 mmol/L (21-32); CHLORIDE 107 mmol/L (98-107); CREATININE 0.3 mg/dL (0.6-1.3); GLUCOSE 97 mg/dL (74-106); MAGNESIUM 1.9 mg/dL (1.8-2.4); POTASSIUM 4.2 mmol/L (3.5-5.1); SODIUM SERUM 140 mmol/L (136-145); TOTAL PROTEIN, SERUM 6.3 g/dL (6.4-8.2); UREA NITROGEN, BLOOD 18 mg/dL (7-18)
[2018-09-10 07:07] LABS: BASOPHILS % (AUTO) 0.4 % (0.0-2.0); EOSINOPHILS % (AUTO) 0.4 % (0.0-6.0); HEMATOCRIT 36 % (33-45); HEMOGLOBIN 11.7 g/dL (11.5-14.8); LYMPHOCYTES # (AUTO) 1.4 /CMM (0.8-4.8); LYMPHOCYTES % (AUTO) 11.7 % (20.0-44.0); MEAN CORPUSCULAR HGB CONC 33 g/dl (31.0-36.0); MEAN CORPUSCULAR VOLUME 90 fL (82-100); MONOCYTES # (AUTO) 0.6 /CMM (0.1-1.30); NEUTROPHILS # (AUTO) 9.7 /CMM (1.8-8.9); NEUTROPHILS % (AUTO) 82.5 % (43.0-81.0); PLATELET COUNT (AUTO) 194 /CMM (150-450); RED BLOOD CELL COUNT(AUTO) 3.99 MIL/uL (4.0-5.2); WHITE BLOOD COUNT (AUTO) 11.8 K/uL (4.3-11.0)
[2018-09-10 07:09] LABS: CHOLESTEROL 145 mg/dL (<200); HDL CHOLESTEROL 55 mg/dL (40-60); LDL 78 mg/dL (0-99); THYROID STIMULATING HORMONE 1.164 uIU/mL (0.358-3.74); TRIGLYCERIDES 75 mg/dL (30-150)
--- NOTE | 2018-09-10 07:13 | NUR ---
tele developmental education instructor closing pt back to rest after morning care done. stable navin the night and slept . all due meds given and all needs met. IVF NS at 75ml.hr still infusing on her left ac. Tele Sinus Tach heart rate 105 per monitor. Reposition her for comfort and kept her warm and comfortable at all times. aspiration precaution and seizure precaution implemented and observed. endorse to am nurse Morales for continuity of care. caregiver at the bedside.
[2018-09-10] MEDS ORDERED: CLONIDINE HCL 0.1 MG TABLET PO PRN (07:24)
[2018-09-10 08:00] VITALS: BP 126/69
--- NOTE | 2018-09-10 08:00 | NUR ---
group director notes pt sleeping comfortably but arousable with IVF NS at 75ml.hr infusing on her left ac patent and intact , no redness noted. kept her warm and comfortable at all times. caregiver at the bedside at this time. will continue monitoring. place call light within reach.
[2018-09-10] MEDS: LEVETIRACETAM (500MG) 250 MG in IV NS 0.9% 100 ML IV SCH (08:53)
--- NOTE | 2018-09-10 08:53 | NUR ---
PT'S DAUGHTER ESTEFANY CALLED AND WAS SCREAMING ON THE PHONE WHEN SHE FOUND OUT THAT PT IS GOING TO RECEIVE KEPPRA IV THIS MORNING AND WAS RAISING HELL THAT HER MOM WILL GET OVERDOSED,ESTEFANY STATED THAT HER MOM SHOULD ONLY BE RECEIVING KEPPRA IV ONLY AT NIGHTIME. WILL INFORM .
[2018-09-10] MEDS ORDERED: Medication Not On Formulary EA (Cranberry Extract (Cranberry) 425 MG) PO SCH (09:00)
[2018-09-10] MEDS ORDERED: ARGININE PO SCH (09:00)
[2018-09-10] MEDS ORDERED: GLUTAMINE PO SCH (09:00)
[2018-09-10] MEDS: CHOLECALCIFEROL 1,000 UNIT TABLET (VIT D3) PO SCH (10:47)
[2018-09-10] MEDS: FOLIC ACID 1 MG TABLET PO SCH (10:47)
[2018-09-10] MEDS: CALCIUM CARBONATE 500 MG TAB.CHEW PO SCH (10:47)
[2018-09-10] MEDS: ACIDOPHILUS/BULGARICUS 1 EACH TAB.CHEW PO SCH ×2 (10:47→17:49)
[2018-09-10] MEDS: CEPHALEXIN MONOHYDRATE 500 MG CAPSULE PO SCH ×2 (10:47→17:49)
[2018-09-10] MEDS: MULTIVIT W/MINERALS 1 TAB TABLET PO SCH (10:47)
[2018-09-10] MEDS: ASCORBIC ACID 500 MG TABLET PO SCH (10:48)
[2018-09-10] MEDS: FERROUS SULFATE (325 MG) 325 MG/TAB TABLET PO SCH (10:48)
[2018-09-10] MEDS: SIMETHICONE 80 MG TAB.CHEW PO SCH ×4 (10:48→22:32)
[2018-09-10] MEDS: NEXIUM 40 MG VIAL IV SCH (10:54)
[2018-09-10] MEDS: IV NS 0.9% 1,000 ML IV PRN (14:13)
[2018-09-10 16:00] VITALS: BP 122/56
[2018-09-10] MEDS: SUCRALFATE 1 G TABLET PO SCH ×2 (17:49→22:32)
--- NOTE | 2018-09-10 18:32 | NUR ---
PT RESTING IN BED WITH DAUGHTER AT BEDSIDE.ATE 100%DINNER AND IS AWAKE THIS TIME.ABLE TO TAKE MEDS AND DINNER WELL.EEG DONE AT 1700.NO S/S OF PAIN OR DISTRESS.TURNED EVERY TWO HRS. CALL LIGHT PLACED WITHIN REACH.
--- NOTE | 2018-09-10 19:40 | NUR ---
RN OPENING NOTES RECEIVED REPORT FROM DAYSHIFT RN, BREANA Rainey FOUND Pt AWAKE, RESTING IN BED, WITH PLANER FEEDER AT BEDSIDE. NO S/S OF ACUTE DISTRESS OR SOB NOTED. RESPIRATIONS EVEN AND UNLABORED WITH EQUAL CHEST RISE AND FALL. Pt IS A/0X1-2, FARSI SPEAKING ONLY; BASELINE DEMENTIA. IV ACCESS ON LAC #20G, IVF NS @75ML/HR. SAFETY MEASURES IN PLACE. BED LOW, LOCKED, HOB ELEVATED, SIDE RAILS UP, CALL LIGHT AND BEDSIDE TABLE WITHIN REACH. BED ALARM ON. WILL CONTINUE TO MONITOR Pt's CONDITION AND SAFETY THROUGHOUT THE NIGHT.
[2018-09-10 19:46] LABS: OCCULT BLOOD STOOL NEGATIVE (NEGATIVE)
[2018-09-10 20:00] VITALS: BP 109/58
[2018-09-10 20:30] VITALS: BP 109/58
[2018-09-10] MEDS: LEVETIRACETAM SOL (5 ML) 100 MG/ML UDC PO SCH (22:32)
[2018-09-11] MEDS: IV NS 0.9% 1,000 ML IV PRN ×2 (04:15→19:14)
--- NOTE | 2018-09-11 06:45 | NUR ---
RN CLOSING NOTES NO SIGNIFICANT CHANGES IN Pt's CONDITION. Pt REMAINS STABLE PER BASELINE. NO S/S OF ACUTE DISTRESS OR SOB NOTED DURING THE NIGHT. ALL NEEDS MET AND ATTENDED TO. SAFETY MEASURES IN PLACE. Pt IS RESTING COMFORTABLY IN BED, RESPIRATIONS EVEN AND UNLABORED, WITH EQUAL CHEST RISE AND FALL. CAREGIVER AT BEDSIDE. WILL ENDORSE TO DAYSHIFT RN FOR Pt's ALANIS.
[2018-09-11 06:48] LABS: CALCIUM, SERUM 7.7 mg/dL (8.5-10.1); CARBON DIOXIDE 21 mmol/L (21-32); CHLORIDE 107 mmol/L (98-107); CREATININE 0.3 mg/dL (0.6-1.3); GLUCOSE 87 mg/dL (74-106); MAGNESIUM 1.9 mg/dL (1.8-2.4); PHOSPHORUS 2.7 mg/dL (2.5-4.9); POTASSIUM 3.6 mmol/L (3.5-5.1); SODIUM SERUM 137 mmol/L (136-145); UREA NITROGEN, BLOOD 16 mg/dL (7-18)
--- NOTE | 2018-09-11 07:43 | NUR ---
Nurse Notes: received patient resting in bed, caregiver at bedside. Normal saline is infusing at 75 cc per hour left AC, appears in no respiratory distress, appears in no pain.
[2018-09-11 08:00] VITALS: BP 91/56
[2018-09-11 08:11] LABS: BASOPHILS % (AUTO) 0.6 % (0.0-2.0); EOSINOPHILS % (AUTO) 1.9 % (0.0-6.0); HEMATOCRIT 29 % (33-45); HEMOGLOBIN 9.5 g/dL (11.5-14.8); LYMPHOCYTES # (AUTO) 1.5 /CMM (0.8-4.8); LYMPHOCYTES % (AUTO) 19.7 % (20.0-44.0); MEAN CORPUSCULAR HGB CONC 33 g/dl (31.0-36.0); MEAN CORPUSCULAR VOLUME 90 fL (82-100); MONOCYTES # (AUTO) 0.3 /CMM (0.1-1.30); MONOCYTES % (AUTO) 4.7 % (2.0-12.0); NEUTROPHILS # (AUTO) 5.4 /CMM (1.8-8.9); NEUTROPHILS % (AUTO) 73.1 % (43.0-81.0); PLATELET COUNT (AUTO) 139 /CMM (150-450); RED BLOOD CELL COUNT(AUTO) 3.18 MIL/uL (4.0-5.2); WHITE BLOOD COUNT (AUTO) 7.4 K/uL (4.3-11.0)
[2018-09-11] MEDS: SUCRALFATE 1 G TABLET PO SCH ×4 (08:39→21:25)
--- NOTE | 2018-09-11 09:00 | NUR ---
Nurse Notes: patient had bowel movement, patient zinc oxide and remedy was applied to buttocks and mep lix was applied, dry skin is starting to open on right buttocks. Patient was able to swallow her medications crushed in applesauce.
[2018-09-11] MEDS: NEXIUM 40 MG VIAL IV SCH ×2 (09:29→21:27)
[2018-09-11] MEDS: CHOLECALCIFEROL 1,000 UNIT TABLET (VIT D3) PO SCH (09:33)
[2018-09-11] MEDS: FERROUS SULFATE (325 MG) 325 MG/TAB TABLET PO SCH (09:33)
[2018-09-11] MEDS: MULTIVIT W/MINERALS 1 TAB TABLET PO SCH (09:34)
[2018-09-11] MEDS: FOLIC ACID 1 MG TABLET PO SCH (09:34)
[2018-09-11] MEDS: ACIDOPHILUS/BULGARICUS 1 EACH TAB.CHEW PO SCH ×2 (09:34→16:32)
[2018-09-11] MEDS: MODAFINIL 100 MG TABLET PO SCH (09:34)
[2018-09-11] MEDS: ASCORBIC ACID 500 MG TABLET PO SCH (09:34)
[2018-09-11] MEDS: SIMETHICONE 80 MG TAB.CHEW PO SCH ×4 (09:34→21:25)
[2018-09-11] MEDS: CEPHALEXIN MONOHYDRATE 500 MG CAPSULE PO SCH (09:34)
[2018-09-11] MEDS: COD LIVER OIL/ZINC OXIDE 120 GM TUBE TP SCH (09:35)
[2018-09-11] MEDS: CALCIUM CARBONATE 500 MG TAB.CHEW PO SCH (09:37)
--- NOTE | 2018-09-11 11:22 | NUR ---
Nurse Notes: report given to Ashwini OSHEA. Caregiver remains at bedside, Patient is alseep at present time. In no respiratory distress.
--- NOTE | 2018-09-11 11:24 | NUR ---
M/S RN NOTES RECEIVED REPORT FROM DORIE MARQUEZ FOR CARE TRANSFER OF CARE.
[2018-09-11] MEDS ORDERED: MEROPENEM 500 MG in IV NS 0.9% 50 ML IV SCH (13:00)
[2018-09-11] MEDS: MEROPENEM 1 G in IV NS 0.9% 100 ML IV SCH ×2 (13:20→21:25)
[2018-09-11] MEDS ORDERED: PANTOPRAZOLE 40 MG TABLET.DR PO SCH (15:30)
--- NOTE | 2018-09-11 18:18 | NUR ---
M/S RN CLOSING NOTES PATIENT A/O X1 TO NAME ONLY, BASELINE OF ABLE TO MAKE EYE CONTACT, MOSTLY NON VERBAL. CAREGIVER AND ANTOINE (SON) PRESENT ON BEDSIDE. RESPIRATION EVEN AND NON LABORED WITH NO ACUTE RESPIRATORY DISTRESS, ABDOMEN SOFT AND NON DISTENDED WITH ACTIVE BOWEL SOUNDS. SKIN WARM TO TOUCH AND DRY. ASSESSED NO PAIN AND DISCOMFORT. INCONTINENT BOWEL AND BLADDER, ON DIAPER. BM X 1 DURING THE SHIFT. IV SITE AT LEFT AC GAUGE 20 WITH NO S/SX ON INFILTRATION. RUNNING NS AT 75 ML/HR. ALL CONCERNS ADDRESSED. PLACED CALL LIGHT WITHIN REACH FOR SAFETY. ENDORSED PATIENT TO NEXT SHIFT.
--- NOTE | 2018-09-11 19:48 | NUR ---
MS RN NOTE RECEIVED PT IN STABLE CONDITION. PT A&O X 1-2, GUEST CURRENTLY AT BEDSIDE. NO SIGNS OF SOB OR DISTRESS, NO INDICATIONS OF PAIN. IV IN PLACE WITH IVF INFUSING. ALL CURRENT NEEDS MET. BED LOW, LOCKED, UPPER RAILS UP, AND CALL LIGHT WITHIN REACH. WILL CONT TO MONITOR.
[2018-09-11 20:08] VITALS: BP 121/70
[2018-09-11] MEDS: LEVETIRACETAM SOL (5 ML) 100 MG/ML UDC PO SCH (21:45)
[2018-09-12] MEDS: MEROPENEM 1 G in IV NS 0.9% 100 ML IV SCH ×2 (04:51→12:26)
--- NOTE | 2018-09-12 06:15 | NUR ---
MS RN NOTE PT IN STABLE CONDITION. PT A&O X 1-2, CURRENTLY ASLEEP. NO SIGNS OF SOB OR DISTRESS, NO INDICATIONS OF PAIN. IV IN PLACE WITH IV ATB INFUSING. PT. REPOSITIONED Q2H PER UNIT PROTOCOL. ALL CURRENT NEEDS MET. BED LOW, LOCKED, UPPER RAILS UP, AND CALL LIGHT WITHIN REACH. WILL CONT TO MONITOR AND ENDORSE TO NEXT SHIFT FOR ALANIS.
[2018-09-12 06:47] LABS: BASOPHILS % (AUTO) 0.6 % (0.0-2.0); EOSINOPHILS % (AUTO) 2.8 % (0.0-6.0); HEMATOCRIT 29 % (33-45); HEMOGLOBIN 9.6 g/dL (11.5-14.8); LYMPHOCYTES # (AUTO) 1.4 /CMM (0.8-4.8); LYMPHOCYTES % (AUTO) 25.2 % (20.0-44.0); MEAN CORPUSCULAR HGB CONC 33 g/dl (31.0-36.0); MEAN CORPUSCULAR VOLUME 91 fL (82-100); MONOCYTES # (AUTO) 0.3 /CMM (0.1-1.30); MONOCYTES % (AUTO) 4.8 % (2.0-12.0); NEUTROPHILS # (AUTO) 3.8 /CMM (1.8-8.9); NEUTROPHILS % (AUTO) 66.6 % (43.0-81.0); PLATELET COUNT (AUTO) 129 /CMM (150-450); RED BLOOD CELL COUNT(AUTO) 3.19 MIL/uL (4.0-5.2); WHITE BLOOD COUNT (AUTO) 5.7 K/uL (4.3-11.0)
[2018-09-12 07:01] LABS: CARBON DIOXIDE 26 mmol/L (21-32); CHLORIDE 108 mmol/L (98-107); CREATININE 0.3 mg/dL (0.6-1.3); GLUCOSE 89 mg/dL (74-106); MAGNESIUM 1.8 mg/dL (1.8-2.4); PHOSPHORUS 2.5 mg/dL (2.5-4.9); POTASSIUM 3.7 mmol/L (3.5-5.1); SODIUM SERUM 141 mmol/L (136-145); UREA NITROGEN, BLOOD 7 mg/dL (7-18)
[2018-09-12 08:00] VITALS: BP 117/60
[2018-09-12] MEDS: SUCRALFATE 1 G TABLET PO SCH ×5 (08:12→21:03)
[2018-09-12] MEDS: CALCIUM CARBONATE 500 MG TAB.CHEW PO SCH (08:31)
[2018-09-12] MEDS: SIMETHICONE 80 MG TAB.CHEW PO SCH ×5 (08:31→21:03)
[2018-09-12] MEDS: MODAFINIL 100 MG TABLET PO SCH (08:31)
[2018-09-12] MEDS: MULTIVIT W/MINERALS 1 TAB TABLET PO SCH (08:32)
[2018-09-12] MEDS: FERROUS SULFATE (325 MG) 325 MG/TAB TABLET PO SCH (08:32)
[2018-09-12] MEDS: ACIDOPHILUS/BULGARICUS 1 EACH TAB.CHEW PO SCH ×3 (08:32→17:50)
[2018-09-12] MEDS: FOLIC ACID 1 MG TABLET PO SCH (08:32)
[2018-09-12] MEDS: ASCORBIC ACID 500 MG TABLET PO SCH (08:32)
[2018-09-12] MEDS: CHOLECALCIFEROL 1,000 UNIT TABLET (VIT D3) PO SCH (08:32)
[2018-09-12] MEDS: NEXIUM 40 MG VIAL IV SCH ×2 (08:44→21:02)
[2018-09-12] MEDS: COD LIVER OIL/ZINC OXIDE 120 GM TUBE TP SCH (10:06)
[2018-09-12 16:00] VITALS: BP 126/70
[2018-09-12] MEDS ORDERED: DOSING PER PHARMACY-AMIKACI IV XX PRN (17:00)
[2018-09-12] MEDS ORDERED: FEE PK DOSING 1 MIN EA MC ONE (17:45)
--- NOTE | 2018-09-12 18:48 | NUR ---
M/S RN NOTES DR. KLEIN CONTACTED PER PATIENT'S FAMILY REQUEST TO HAVE AN ID CONSULT FOR THEIR MOM. DR. WORKMAN IS AWARE THAT PATIENT'S FAMILY REQUESTED FOR SECOND OPINION FOR AN ID CONSULT AFTER DR. DELGADO HAVE SEEN THE PATIENT EARLIER TODAY WHO ORDERED FOR AMIKIN 350MG IV. DR. KLEIN GAVE A NUMBER TO CALL DR. VILLAGOMEZ FOR ANY PATIENT'S ISSUES BECAUSE DR. VILLAGOMEZ IS COVERING. CALLED THE NUMBER AND SPOKE WITH HUSSAIN AND TOLD HER ABOUT PATIENT'S DAUGHTERS' CONCERN ABOUT THE ABX AMIKIN 350MG THAT THEY MIGHT NOT WANT THAT FOR THEIR MOM AND ITS DUE AT 1999. ENDORSED TO NIGHT NURSE THAT FAMILY MIGHT REQUEST FOR THE ABX TO BE HELD AND FAMILY IS AWARE THAT ID CONSULT IS TO BE DONE TOMORROW.
--- NOTE | 2018-09-12 19:30 | NUR ---
MS RN OPENING NOTES: RECEIVED PT WITH 2 DTRS AT BEDSIDE FEEDING P.T PT APPEARS TO BE APHASIC. PT IS FARSI UNDERSTANDING ONLY ACCORDING TO FAMILY. PT IN HIGH BLUNT'S POSITION FOR NOW. PT HAS IV ON L AC #20G AND SI BEING INFUSED WITH IV NS AT 75ML/HR. L ARM NOTED SWELLING AND ELEVATED WITH A PILLOW. PT'S DTRS REQUESTING FOR DIGITAL DISIMPACTION AND NO ENEMAS. DTRS VERY CONCERNED ABOUT AMIKACIN AND WANTS TO SPEAK TO DR. KLEIN. BED KEPT IN LOW, LOCKED POSITION, AND SIDE RAILS X 2UP. BED ALARM ACTIVATED. WILL CONTINUE TO MONITOR PT.
--- NOTE | 2018-09-12 19:30 | NUR ---
M/S RN NOTES PATIENT LYING IN BED RESTING, ALERT AND ORIENTED X 1, NON VERBAL. DAUGHTER AT BEDSIDE. PATIENT IN NO RESPIRATORY DISTRESS AND NO S/S OF PAIN AT THIS TIME. PATIENT'S SKIN WARM TO TOUCH, IVF INFUSING ON THE LAC, INTACT AND PATENT. PATIENT'S NEEDS ATTENDED. BED ON LOWEST LOCKED POSITION, CALL LIGHT WITHIN REACH. WILL CONTINUE TO MONITOR.
[2018-09-12] MEDS: AMIKACIN 350 MG in IV D5W 100 ML IV SCH (20:00)
--- NOTE | 2018-09-12 20:39 | NUR ---
MS RN NOTES: AFTER LONG DISCUSSION AND BACK AND FORTH WITH THE FAMILY, THE 2 DTRS AT BEDSIDE DOES NOT WANT THE SCHEDULED AMIKICIN IV GIVEN UNTIL SEEN BY DR. KLEIN/WHOEVER IS COVER DR. KLEIN TOMORROW IN THE AM. WILL HOLD AMIKIN IV PER FAMILY'S REQUEST. INFORMED THAT MERREM WAS D/C FROM ID D/T SECONDARY TO SEIZURE. FAMILY MEMBERS STILL DOES NOT WANT AMIKICIN.
--- NOTE | 2018-09-12 20:40 | NUR ---
MS RN NOTES: FAMILY MEMBERS REQUESTING FOR DIGITAL DISIMPACTION ONLY TO BE DONE AND NO ENEMAS.
[2018-09-12 20:45] VITALS: BP 141/75
[2018-09-12] MEDS: LEVETIRACETAM SOL (5 ML) 100 MG/ML UDC PO SCH (21:02)
[2018-09-12] MEDS: IV NS 0.9% 1,000 ML IV PRN (22:09)
--- NOTE | 2018-09-12 23:30 | NUR ---
MS RN NOTES: NO NEED FOR BLADDER SCAN. PT WAS CHANGED AND DIAPER AND DRAW SHEET WAS FULLY SOAKED. WILL CONTINUE TO MONITOR.
--- NOTE | 2018-09-13 05:04 | NUR ---
MS RN NOTES: NO NEED FOR BLADDER SCAN PT JUST SATURATED ENTIRE DIAPER AND PAD.
[2018-09-13 06:53] LABS: BASOPHILS % (AUTO) 0.5 % (0.0-2.0); EOSINOPHILS % (AUTO) 2.5 % (0.0-6.0); HEMATOCRIT 30 % (33-45); HEMOGLOBIN 9.9 g/dL (11.5-14.8); LYMPHOCYTES # (AUTO) 1.4 /CMM (0.8-4.8); LYMPHOCYTES % (AUTO) 27.9 % (20.0-44.0); MEAN CORPUSCULAR HGB CONC 33 g/dl (31.0-36.0); MEAN CORPUSCULAR VOLUME 90 fL (82-100); MONOCYTES # (AUTO) 0.3 /CMM (0.1-1.30); MONOCYTES % (AUTO) 5.3 % (2.0-12.0); NEUTROPHILS # (AUTO) 3.3 /CMM (1.8-8.9); NEUTROPHILS % (AUTO) 63.8 % (43.0-81.0); PLATELET COUNT (AUTO) 166 /CMM (150-450); RED BLOOD CELL COUNT(AUTO) 3.31 MIL/uL (4.0-5.2); WHITE BLOOD COUNT (AUTO) 5.1 K/uL (4.3-11.0)
--- NOTE | 2018-09-13 07:19 | NUR ---
MS RN CLOSING NOTES: ALL NEEDS WERE ATTENDED AND ANTICIPATED FOR. PT KEPT CLEAN, DRY, AND COMFORTABLE. WOUND TX PERFORMED ORDERED. PT TURN AND REPOSITIONED Q2HRS. PT ON 1LPM VIA NC AND IS TOLERATING WELL. NO SOB NOTED. NO S/S OF DISTRESS. CAREGIVER AT BEDSIDE. IV REMAINS INTACT AND IS BEING INFUSED WITH IV NS AT 75ML/HR. LEFT ARM ELEVATED WITH PILLOWS NOTED SWELLING. BED ALARM ACTIVATED. BED KEPT IN LOW, LOCKED POSITION, AND SIDE RAILS X 2UP. ENDORSED TO AM NURSE FOR ALANIS.
[2018-09-13 07:22] LABS: CALCIUM, SERUM 7.9 mg/dL (8.5-10.1); CARBON DIOXIDE 25 mmol/L (21-32); CHLORIDE 106 mmol/L (98-107); CREATININE 0.3 mg/dL (0.6-1.3); GLUCOSE 90 mg/dL (74-106); MAGNESIUM 1.8 mg/dL (1.8-2.4); PHOSPHORUS 2.1 mg/dL (2.5-4.9); POTASSIUM 3.2 mmol/L (3.5-5.1); SODIUM SERUM 142 mmol/L (136-145); UREA NITROGEN, BLOOD 4 mg/dL (7-18)
--- NOTE | 2018-09-13 07:32 | NUR ---
MS RN OPENING NOTES Received Patient asleep and resting in bed. A/O x 1. VS stable with no acute distress. Breathing even and unlabored on 1LPM via NC with no respiratory distress, SPO2 98%. Patient in semi-Fowlers position. No signs and symptoms of pain. 20g PIV on LAC clean, dry, intact and flushing well with IVF NS running at 75ml/hr. Noted LEFT ARM edema, elevated on one pillow. Safety precautions in place. Bed locked and set to lowest position with side rails x 2. All needs rendered at this time. Caregiver at bedside. Will continue to monitor.
[2018-09-13] MEDS: SUCRALFATE 1 G TABLET PO SCH ×4 (07:51→21:12)
[2018-09-13 08:00] VITALS: BP 116/62
[2018-09-13] MEDS ORDERED: LEVE100S PO (08:42)
[2018-09-13] MEDS ORDERED: AMIK250V8 IM (08:42)
--- NOTE | 2018-09-13 08:50 | NUR ---
MS RN NOTES Amarilis (daughter) called and discussed concerns about IV ABX treatment and ID consult. Notified Patricia regarding these concerns at this time. Will continue to monitor.
[2018-09-13] MEDS: NEXIUM 40 MG VIAL IV SCH (09:10)
[2018-09-13] MEDS: FOLIC ACID 1 MG TABLET PO SCH (09:11)
[2018-09-13] MEDS: FERROUS SULFATE (325 MG) 325 MG/TAB TABLET PO SCH (09:11)
[2018-09-13] MEDS: ACIDOPHILUS/BULGARICUS 1 EACH TAB.CHEW PO SCH ×2 (09:15→17:33)
[2018-09-13] MEDS: MULTIVIT W/MINERALS 1 TAB TABLET PO SCH (09:16)
[2018-09-13] MEDS: MODAFINIL 100 MG TABLET PO SCH (09:16)
[2018-09-13] MEDS: ASCORBIC ACID 500 MG TABLET PO SCH (09:16)
[2018-09-13] MEDS: SIMETHICONE 80 MG TAB.CHEW PO SCH ×4 (09:16→21:13)
[2018-09-13] MEDS: CALCIUM CARBONATE 500 MG TAB.CHEW PO SCH (09:16)
[2018-09-13] MEDS: COD LIVER OIL/ZINC OXIDE 120 GM TUBE TP SCH (09:17)
[2018-09-13] MEDS: CHOLECALCIFEROL 1,000 UNIT TABLET (VIT D3) PO SCH (09:17)
--- NOTE | 2018-09-13 09:56 | NUR ---
MS RN NOTES Spoke to Amarilis (daughter) in regards to ID consult. Notified daughter that ID consult Veronica LI will be seeing the Patient. Notified daughter that Patricia HERNANDEZ was informed of discharge appeal and consults. Will continue to monitor.
--- NOTE | 2018-09-13 10:15 | NUR ---
MS RN NOTES Patient seen by wound care consult/assessment with Edita DAILY at this time. Noted superficial opening of wound on RIGHT BUTTOCK. Per PA, apply hydrogel on wound and z-guard on sacral area and then cover with Mepliex. Edita DAILY spoke to daughter via phone at this time and notified family of plan of care. Will continue to monitor.
[2018-09-13] MEDS ORDERED: HYDROGEL DRESSING 90 GM TUBE TP SCH (10:30)
--- NOTE | 2018-09-13 10:38 | NUR ---
MS RN NOTES Patient seen by ID consult, Veronica UNDERWRITING MANAGER at this time. Veronica spoke to daughter regarding plan of care via phone. Will continue to monitor.
--- NOTE | 2018-09-13 10:52 | NUR ---
MS RN NOTES Patient seen by neurologist, Jerilyn HERNANDEZ, at this time. NNO.
[2018-09-13] MEDS: POTASSIUM CHLORIDE 20 MEQ POWDER PACKET PO SCH ×2 (10:55→12:13)
[2018-09-13] MEDS ORDERED: NEUTRA PHOS 1 POWD.PACKET PO ONE (15:30)
[2018-09-13 16:00] VITALS: BP 125/65
[2018-09-13] MEDS: IV NS 0.9% 1,000 ML IV PRN (17:38)
--- NOTE | 2018-09-13 19:39 | NUR ---
MS RN CLOSING NOTES Patient asleep and resting in bed. A/O x 1. VS stable with no acute distress. Breathing even and unlabored on room air via NC with no respiratory distress, SPO2 97%. Patient in semi-Fowlers position. No signs and symptoms of pain. 20g PIV on LAC clean, dry, intact and flushing well with IVF NS running at 75ml/hr. Noted LEFT ARM edema, elevated on one pillow. Safety precautions in place. Bed locked and set to lowest position with side rails x 2. All needs rendered at this time. Caregiver at bedside. Will endorse plan of care to oncoming shift.
--- NOTE | 2018-09-13 19:52 | NUR ---
MS RN NOTES RECEIVED PATIENT AWAKE IN BED WITH NO DISTRESS NOTED. CALL LIGHT WITHIN REACH. CAREGIVER AT BEDSIDE. NO FACIAL GRIMACING OR GROANING TO INDICATE PAIN OR DISCOMFORT. PERIPHERAL LINE INTACT AND PATENT. BED IN LOW LOCK SETTING. ALL BELONGINGS KEPT NEAR BEDSIDE. WILL CONTINUE TO MONITOR.
[2018-09-13 20:00] VITALS: BP 129/82
[2018-09-13] MEDS: AMIKACIN 350 MG in IV D5W 100 ML IV SCH (20:54)
[2018-09-13] MEDS: PANTOPRAZOLE 40 MG TABLET.DR PO SCH (21:12)
[2018-09-13] MEDS: LEVETIRACETAM SOL (5 ML) 100 MG/ML UDC PO SCH (21:13)
--- NOTE | 2018-09-14 00:05 | NUR ---
RN NOTES RECEIVED REPORT FROM DORIE DOZIER. PATIENT RESTING COMFORTABLY, CAREGIVER AT BEDSIDE, PT HAS NO SIGNS OF ACUTE CARDIAC/RESPIRATORY DISTRESS AT THIS TIME, KEEP COMFORTABLE, ALL NEEDS ATTENDED, WILL CONTINUE TO MONITOR ACCORDINGLY.
[2018-09-14 06:37] LABS: BASOPHILS # (AUTO) 0.1 /CMM (0.0-0.2); BASOPHILS % (AUTO) 1.1 % (0.0-2.0); EOSINOPHILS % (AUTO) 2.6 % (0.0-6.0); HEMATOCRIT 33 % (33-45); HEMOGLOBIN 10.8 g/dL (11.5-14.8); LYMPHOCYTES # (AUTO) 2.4 /CMM (0.8-4.8); LYMPHOCYTES % (AUTO) 42.2 % (20.0-44.0); MEAN CORPUSCULAR HGB CONC 33 g/dl (31.0-36.0); MEAN CORPUSCULAR VOLUME 91 fL (82-100); MONOCYTES # (AUTO) 0.3 /CMM (0.1-1.30); MONOCYTES % (AUTO) 4.8 % (2.0-12.0); NEUTROPHILS # (AUTO) 2.8 /CMM (1.8-8.9); NEUTROPHILS % (AUTO) 49.3 % (43.0-81.0); PLATELET COUNT (AUTO) 121 /CMM (150-450); RED BLOOD CELL COUNT(AUTO) 3.63 MIL/uL (4.0-5.2); WHITE BLOOD COUNT (AUTO) 5.6 K/uL (4.3-11.0)
[2018-09-14 06:56] LABS: CALCIUM, SERUM 8.5 mg/dL (8.5-10.1); CARBON DIOXIDE 26 mmol/L (21-32); CHLORIDE 105 mmol/L (98-107); CREATININE 0.2 mg/dL (0.6-1.3); GLUCOSE 84 mg/dL (74-106); MAGNESIUM 1.8 mg/dL (1.8-2.4); PHOSPHORUS 3.1 mg/dL (2.5-4.9); POTASSIUM 3.8 mmol/L (3.5-5.1); SODIUM SERUM 140 mmol/L (136-145); UREA NITROGEN, BLOOD 4 mg/dL (7-18)
--- NOTE | 2018-09-14 06:58 | NUR ---
RN NOTES ALL NEEDS ATTENDED AND MET, ABLE TO REST AND SLEEP AT INTERVALS, NO SIGNS OF ACUTE RESPIRATORY DISTRESS NOTED,SAFETY MEASURES IN PLACE, CAREGIVER AT BEDSIDE, WILL ENDORSE TO AM NURSE FOR CONTINUITY OF CARE.
--- NOTE | 2018-09-14 07:53 | NUR ---
MS RN OPENING NOTES Received Patient asleep and resting in bed. A/O x 1. VS stable with no acute distress. Breathing even and unlabored on 1LPM via NC with no respiratory distress. Patient in semi-Fowlers position. No signs and symptoms of pain. 24g PIV on LEFT ARM clean, dry, intact and flushing well with IVF NS running at 75ml/hr. Noted LEFT ARM edema, elevated on one pillow. Safety precautions in place. Bed locked and set to lowest position with side rails x 2. All needs rendered at this time. Caregiver at bedside. Will continue to monitor.
[2018-09-14 08:00] VITALS: BP 107/63
--- NOTE | 2018-09-14 08:16 | NUR ---
MS RN NOTES Patient seen by Patricia HERNANDEZ. Obtained order for Fleet Enema PRN. Noted and carried out. Will continue to monitor.
[2018-09-14] MEDS: SUCRALFATE 1 G TABLET PO SCH ×4 (09:27→21:04)
[2018-09-14] MEDS: FOLIC ACID 1 MG TABLET PO SCH (09:27)
[2018-09-14] MEDS: FERROUS SULFATE (325 MG) 325 MG/TAB TABLET PO SCH (09:27)
[2018-09-14] MEDS: ACIDOPHILUS/BULGARICUS 1 EACH TAB.CHEW PO SCH ×2 (09:27→17:17)
[2018-09-14] MEDS: SIMETHICONE 80 MG TAB.CHEW PO SCH ×4 (09:28→21:04)
[2018-09-14] MEDS: ASCORBIC ACID 500 MG TABLET PO SCH (09:28)
[2018-09-14] MEDS: MODAFINIL 100 MG TABLET PO SCH (09:28)
[2018-09-14] MEDS: PANTOPRAZOLE 40 MG TABLET.DR PO SCH ×2 (09:28→21:04)
[2018-09-14] MEDS: COD LIVER OIL/ZINC OXIDE 120 GM TUBE TP SCH (09:29)
[2018-09-14] MEDS: CHOLECALCIFEROL 1,000 UNIT TABLET (VIT D3) PO SCH (09:29)
[2018-09-14] MEDS: CALCIUM CARBONATE 500 MG TAB.CHEW PO SCH (09:29)
[2018-09-14] MEDS: MULTIVIT W/MINERALS 1 TAB TABLET PO SCH (09:29)
[2018-09-14] MEDS ORDERED: NA PHOS,M-B/NA PHOS,DI-BA 1 EA ENEMA RC PRN (15:30)
[2018-09-14 16:00] VITALS: BP 102/61
--- NOTE | 2018-09-14 16:00 | NUR ---
MS RN NOTES Administered Fleet Enema ME. Patient tolerated well. BM x 1. Noted soft brown. Will continue to monitor.
--- NOTE | 2018-09-14 19:29 | NUR ---
MS RN CLOSING NOTES Patient asleep and resting in bed. A/O x 1. VS stable with no acute distress. Breathing even and unlabored on 1LPM via NC with no respiratory distress. Patient in semi-Fowlers position. No signs and symptoms of pain. 24g PIV on LEFT ARM clean, dry, intact and flushing well with IVF NS running at 25ml/hr. MD aware. Noted LEFT ARM edema, elevated on one pillow. Safety precautions in place. Bed locked and set to lowest position with side rails x 2. All needs rendered at this time. Caregiver at bedside. Will endorse plan of care to oncoming shift.
--- NOTE | 2018-09-14 19:35 | NUR ---
RN OPENING NOTES RECEIVED REPORT FROM DAYSHIFT RNTANIA. FOUND Pt AWAKE, RESTING IN BED, WATCHING TV, WITH CAREGIVER AT BEDSIDE.NO S/S OF ACUTE DISTRESS OR SOB NOTED. RESPIRATIONS EVEN AND UNLABORED, WITH EQUAL CHEST RISE AND FALL. Pt IS A/OX1, FARSI UNDERSTANDING ONLY, NON-VERBAL. IV ACCESS ON LAC #24G, IVF NS @25ML/HR ( AWARE OF RATE, SAID OK). SAFETY MEASURES IN PLACE. BED LOW, LOCKED, HOB ELEVATED, SIDE RAILS UP, CALL LIGHT AND BEDSIDE TABLE WITHIN REACH. WILL CONTINUE TO MONITOR Pt's CONDITION AND SAFETY THROUGHOUT THE SHIFT.
[2018-09-14 20:39] VITALS: BP 129/78
[2018-09-14] MEDS: AMIKACIN 350 MG in IV D5W 100 ML IV SCH (20:47)
[2018-09-14] MEDS: LEVETIRACETAM SOL (5 ML) 100 MG/ML UDC PO SCH (21:04)
[2018-09-15] MEDS: IV NS 0.9% 1,000 ML IV PRN (01:49)
--- NOTE | 2018-09-15 06:50 | NUR ---
RN CLOSING NOTES NO SIGNIFICANT CHANGES IN Pt's CONDITION. Pt REMAINS STABLE AT THIS TIME. NO S/S OF ACUTE DISTRESS OR SOB NOTED DURING THE NIGHT. Pt IS RESTING IN BED, RESPIRATIONS EVEN AND UNLABORED, WITH EQUAL CHEST RISE AND FALL. SAFETY MEASURES IN PLACE. BED LOW, LOCKED, HOB ELEVATED, SIDE RAILS UP, CALL LIGHT AND BEDSIDE TABLE WITHIN REACH. WILL ENDORSE TO DAYSHIFT RN FOR Pt's ALANIS.
[2018-09-15 07:00] LABS: CALCIUM, SERUM 8.1 mg/dL (8.5-10.1); CARBON DIOXIDE 27 mmol/L (21-32); CHLORIDE 103 mmol/L (98-107); CREATININE 0.2 mg/dL (0.6-1.3); GLUCOSE 94 mg/dL (74-106); POTASSIUM 3.4 mmol/L (3.5-5.1); SODIUM SERUM 139 mmol/L (136-145); UREA NITROGEN, BLOOD 8 mg/dL (7-18)
[2018-09-15 08:00] VITALS: BP 109/63
--- NOTE | 2018-09-15 08:00 | NUR ---
RN NOTES RECEIVED PATIENT ON THE BED NONVERBAL,AFASIC. PATIENT OPEN EYES WHEN CALLED NAME, OR TOUCHED. PATIENT HAS NO ACUTE RESPIRATORY DISTRESS, V/S TAKEN STABLE. PRIVET FLOWER SHOP LABORER/DESIGNER NEXT TO THE BED. KEEP HOB ELEVATED 35 DEGREE FOR ASPIRATION PRECAUTION. ADMINISTERED SCHEDULED MEDICATION WITH CRUSHED, AND MIXED WITH APPLE SAUCE. PATIENT CONTACT ISOLATION OF URINE. ASSIST PATIENT TURN AND REPOSTION Q 2 HR. INCONTINENT APPLIED Z-GURD. CONTINUED MONITORING.
[2018-09-15] MEDS: ACIDOPHILUS/BULGARICUS 1 EACH TAB.CHEW PO SCH ×2 (08:53→17:39)
[2018-09-15] MEDS: FOLIC ACID 1 MG TABLET PO SCH (08:53)
[2018-09-15] MEDS: CHOLECALCIFEROL 1,000 UNIT TABLET (VIT D3) PO SCH (08:53)
[2018-09-15] MEDS: PANTOPRAZOLE 40 MG TABLET.DR PO SCH ×2 (08:53→21:44)
[2018-09-15] MEDS: FERROUS SULFATE (325 MG) 325 MG/TAB TABLET PO SCH (08:53)
[2018-09-15] MEDS: SIMETHICONE 80 MG TAB.CHEW PO SCH ×4 (08:53→21:44)
[2018-09-15] MEDS: MULTIVIT W/MINERALS 1 TAB TABLET PO SCH (08:54)
[2018-09-15] MEDS: CALCIUM CARBONATE 500 MG TAB.CHEW PO SCH (08:54)
[2018-09-15] MEDS: ASCORBIC ACID 500 MG TABLET PO SCH (08:54)
[2018-09-15] MEDS: COD LIVER OIL/ZINC OXIDE 120 GM TUBE TP SCH (08:55)
[2018-09-15] MEDS: MODAFINIL 100 MG TABLET PO SCH (08:57)
[2018-09-15] MEDS: SUCRALFATE 1 G TABLET PO SCH ×4 (08:57→21:44)
[2018-09-15] MEDS ORDERED: POTASSIUM CHLORIDE 20 MEQ POWDER PACKET PO SCH (10:00)
--- NOTE | 2018-09-15 12:00 | NUR ---
RN NOTES ADMINISTERED SCHEDULED MEDICATION, PATIENT STABLE. ASSIST TURN AND REPOSTION Q 2 HR. PRIVET CRE MARINE SAFETY OFFICER NEXT TO THE BED. CONTINUED MONITORING.
[2018-09-15 16:00] VITALS: BP 104/68
--- NOTE | 2018-09-15 17:00 | NUR ---
RN NOTES PATIENT STABLE, NO ACUTE RESPIRATORY DISTRESS, V/S STABLE. PRIVET AREA MECHANIC NEXT TO BED ASSISTING EAT. MEDICATION ADMINISTERED BY CRUSHED, AND MIXED WITH APPLE SAUCE. ASSIST TURN AND REPOSTION Q 2 HR. KEEP LEGS ELEVATED PREVENT EDEMA USING PILLOWS. IV ACCESS ON LEFT FA INTACT INFUSING NS AT 25 ML/HR . PATIENT INCONTINENT APPLIED Z-GUARD. NEEDS ATTENDED AND ANTICIPATED, ENDORSED ONCOMING NURSE FOLLOW PLAN OF CARE.
--- NOTE | 2018-09-15 19:10 | NUR ---
CHANGE OF SHIFT REPORT Received patient sitting up in bed, eyes closed non verbal. On low flow oxygen at 2L via NC, appears comfortable. IVF infusing. Patient pending discharge, per report family's request, filed appeal to [facility] following. Will cont to monitor, maintained safety. Caregiver at bedside.
[2018-09-15 20:00] VITALS: BP 116/74
[2018-09-15 20:12] VITALS: BP 116/74
[2018-09-15] MEDS: AMIKACIN 350 MG in IV D5W 100 ML IV SCH (21:10)
[2018-09-15] MEDS: LEVETIRACETAM SOL (5 ML) 100 MG/ML UDC PO SCH (21:44)
--- NOTE | 2018-09-16 06:07 | NUR ---
END OF SHIFT OF REPORT Patient in bed, non verbal able to open eyes. On low flow oxygen at 1L via NC tolerating well. IVF infusing maintained at 75 ml/hr, on IV abx as scheduled with no adverse side effect, voiding well. No BM this shift, no active bleeding, H/H stable. Aspiration precaution. Contact isolation, PPE utilized. Maintained safety.
[2018-09-16] MEDS: IV NS 0.9% 1,000 ML IV PRN ×2 (06:12→21:36)
[2018-09-16 07:50] LABS: CALCIUM, SERUM 8.6 mg/dL (8.5-10.1); CARBON DIOXIDE 28 mmol/L (21-32); CHLORIDE 106 mmol/L (98-107); CREATININE 0.3 mg/dL (0.6-1.3); GLUCOSE 88 mg/dL (74-106); POTASSIUM 3.8 mmol/L (3.5-5.1); SODIUM SERUM 141 mmol/L (136-145); UREA NITROGEN, BLOOD 5 mg/dL (7-18)
[2018-09-16 08:00] VITALS: BP 107/62
--- NOTE | 2018-09-16 08:00 | NUR ---
MS RN NOTES: RECEIVED PATIENT IN BED, ASLEEP. AROUSABLE TO VERBAL AND TACTILE STIMULI. OPENS EYES WHEN CALLED BY NAME. PRIVATE CAREGIVER AT BEDSIDE. ATE BREAKFAST FED BY CAREGIVER TOLERATED WELL. RFA #22 INTACT AND PATENT. DENIES ANY C/O PAIN NOR DISCOMFORT AT THIS TIME. CALL LIGHT WITHIN REACH, NEEDS ATTENDED. REMAINS STABLE AT THIS TIME.
[2018-09-16] MEDS: SUCRALFATE 1 G TABLET PO SCH ×5 (08:12→21:35)
[2018-09-16] MEDS: FERROUS SULFATE (325 MG) 325 MG/TAB TABLET PO SCH (08:13)
[2018-09-16] MEDS: MULTIVIT W/MINERALS 1 TAB TABLET PO SCH (08:13)
[2018-09-16] MEDS: MODAFINIL 100 MG TABLET PO SCH (08:13)
[2018-09-16] MEDS: PANTOPRAZOLE 40 MG TABLET.DR PO SCH ×2 (08:13→21:35)
[2018-09-16] MEDS: SIMETHICONE 80 MG TAB.CHEW PO SCH ×5 (08:14→21:35)
[2018-09-16] MEDS: CHOLECALCIFEROL 1,000 UNIT TABLET (VIT D3) PO SCH (08:14)
[2018-09-16] MEDS: ACIDOPHILUS/BULGARICUS 1 EACH TAB.CHEW PO SCH ×2 (08:14→17:04)
[2018-09-16] MEDS: CALCIUM CARBONATE 500 MG TAB.CHEW PO SCH (08:15)
[2018-09-16] MEDS: FOLIC ACID 1 MG TABLET PO SCH (08:15)
[2018-09-16] MEDS: ASCORBIC ACID 500 MG TABLET PO SCH (08:15)
[2018-09-16] MEDS: COD LIVER OIL/ZINC OXIDE 120 GM TUBE TP SCH (09:25)
[2018-09-16 16:00] VITALS: BP 112/63
--- NOTE | 2018-09-16 19:04 | NUR ---
MS RN NOTES PATIENT IN BED, ALERT AND AWAKE. OPENS EYES WHEN CALLED. CAREGIVER AT BEDSIDE. ATE ALL MEALS WITH GOOD PO INTAKE. ALL DUE MEDS VIA PO MARY WELL W/O ASE NOTED. DENIES ANY C/O PAIN NOR DISCOMFORT. S/P IV ATB ORDERED FOR ESBL UTI W/O ASE NOTED. ON GOING IVF ORDERED MARY WELL. RFA #22 INTACT & PATENT W/O S/S OF COMPLICATIONS. CONTACT PRECAUTIONS OBSERVED AT AL TIMES. GOOD HANDWASHING TECHNIQUE OBSERVED. REMAINS STABLE AT THIS TIME.
--- NOTE | 2018-09-16 19:25 | NUR ---
MS RN PM OPENING NOTE BEDSIDE REPORT RECIEVED FROM KHANH OSHEA. PATIENT IN BED, ALERT AND AWAKE. CAREGIVER AT THE BEDSIDE, SUSAN. REVIEWED POC QUESTIONS CONCERNS ADDRESSED. ON GOING NS IVF INFUSING TO RFA #22 INTACT & PATENT W/O S/S OF COMPLICATIONS. CONTACT PRECAUTIONS BEING OBSERVED AT AL TIMES FOR ESBL IN URINE.
[2018-09-16 20:01] VITALS: BP 121/68
[2018-09-16] MEDS: LEVETIRACETAM SOL (5 ML) 100 MG/ML UDC PO SCH (21:34)
--- NOTE | 2018-09-16 21:36 | NUR ---
IV INFUSION DOCUMENTATION ERROR. INCORRECTLY DOCUMENTED INFUSING TO LEFT ARM. INFUSION IS INFUSING TO RIGHT ARM 22 GAUGE WITH NO S/S OF COMPLICATION.
--- NOTE | 2018-09-17 06:27 | NUR ---
MS RN OPENING NOTES RECEIVED PT IN BED RESTING.ON SUPPLEMENTARY OXYGEN AT 1L VIA NC, WITH NO ACUTE RESPIRATORY DISTRESS. PT NON VERBAL, ONLY OPENS EYES. PT EXHIBITED NO SIGNS OF PAIN OR DISCOMFORT. PT HAS CAREGIVER 24HOURS BEDSIDE, DENIES ANY CONCERNS AND QUESTIONS AT THIS TIME. IVF NS AT 75ML/HR TO RFA G22, INTACT AND FLUID INFUSING WELL. PT KEPT COMFORTABLE. CALL LIGHT AND FLUID KEPT WITHIN REACH. HOB ELEVATED. PT'S BED IN LOWEST, LOCKED POSITION WITH SR X3. WILL CONTINUE PLAN OF CARE.
[2018-09-17 06:38] LABS: CALCIUM, SERUM 8.1 mg/dL (8.5-10.1); CARBON DIOXIDE 28 mmol/L (21-32); CHLORIDE 106 mmol/L (98-107); CREATININE 0.3 mg/dL (0.6-1.3); GLUCOSE 86 mg/dL (74-106); POTASSIUM 3.2 mmol/L (3.5-5.1); SODIUM SERUM 142 mmol/L (136-145); UREA NITROGEN, BLOOD 7 mg/dL (7-18)
--- NOTE | 2018-09-17 06:47 | NUR ---
RN PM CLOSING NOTES. PATIENT SEEN WITH EYES CLOSED. CAREGIVER RESTING ON COT AT THE BEDSIDE ALSO SEEN WITH EYES CLOSED. PATIENT IN NO APPARENT DISTRESS ON ONE LITER NC. MEDS ADMINISTERED ORDERED. IV INFUSING TO RIGHT FOREARM WILL ENDORSE REPORT TO DAY NURSE FOR CONTINUITY OF CARE.
[2018-09-17 08:00] VITALS: BP 108/64
[2018-09-17] MEDS: SUCRALFATE 1 G TABLET PO SCH ×4 (08:02→21:05)
[2018-09-17] MEDS: SIMETHICONE 80 MG TAB.CHEW PO SCH ×4 (08:02→21:05)
[2018-09-17] MEDS: FERROUS SULFATE (325 MG) 325 MG/TAB TABLET PO SCH (08:03)
[2018-09-17] MEDS: ACIDOPHILUS/BULGARICUS 1 EACH TAB.CHEW PO SCH ×2 (08:03→17:23)
[2018-09-17] MEDS: CHOLECALCIFEROL 1,000 UNIT TABLET (VIT D3) PO SCH (08:03)
[2018-09-17] MEDS: FOLIC ACID 1 MG TABLET PO SCH (08:03)
[2018-09-17] MEDS: MODAFINIL 100 MG TABLET PO SCH (08:03)
[2018-09-17] MEDS: CALCIUM CARBONATE 500 MG TAB.CHEW PO SCH (08:03)
[2018-09-17] MEDS: ASCORBIC ACID 500 MG TABLET PO SCH (08:04)
[2018-09-17] MEDS: PANTOPRAZOLE 40 MG TABLET.DR PO SCH ×2 (08:04→21:05)
[2018-09-17] MEDS: MULTIVIT W/MINERALS 1 TAB TABLET PO SCH (08:04)
[2018-09-17] MEDS: COD LIVER OIL/ZINC OXIDE 120 GM TUBE TP SCH (08:21)
--- NOTE | 2018-09-17 09:12 | NUR ---
MS RN NOTES SEEN AND EVALUATED BY SK EARLIER THIS MORNING, WITH NO NEW ORDERS NOTED. WILL CONTINUE TO MONITOR. MD/SK AWARE WILL REPLACE POTASSIUM ELECTROLYTES.
[2018-09-17] MEDS: POTASSIUM CL. PREMIX PERIPHER. 50 ML IV SCH ×4 (09:34→13:00)
[2018-09-17] MEDS ORDERED: DOSING PER PHARMACY-AMIKACI IV XX PRN (11:30)
[2018-09-17] MEDS ORDERED: AMIKACIN 350 MG in IV D5W 100 ML IV ONE (14:00)
[2018-09-17 16:00] VITALS: BP 134/73
[2018-09-17] MEDS: IV NS 0.9% 1,000 ML IV PRN (17:33)
--- NOTE | 2018-09-17 19:02 | NUR ---
MS RN CLOSING NOTES PT REMAINS IN BED RESTING. ON SUPPLEMENTARY OXYGEN AT 1L VIA NC, WITH NO ACUTE RESPIRATORY DISTRESS. PT NON VERBAL, ONLY OPENS EYES. PT EXHIBITED NO SIGNS OF PAIN OR DISCOMFORT. DAUGHTER PRESENT BEDSIDE, DENIES ANY CONCERNS AND QUESTIONS AT THIS TIME. IVF NS AT 75ML/HR TO RFA G22, INTACT AND FLUID INFUSING WELL. ALL NEEDS AND CARE PROVIDED. PT KEPT COMFORTABLE. CALL LIGHT AND FLUID KEPT WITHIN REACH. HOB ELEVATED. PT'S BED IN LOWEST, LOCKED POSITION WITH SR X3. ENDORSED TO INCOMING NIGHT NURSE FOR ALANIS.
--- NOTE | 2018-09-17 19:19 | NUR ---
MS RN OPENING NOTES: RECEIVED PATIENT AWAKE ALERT, NON- VERBAL, ON O2 NC, DAUGHTER AT THE BEDSIDE, REQUESTING FOR THE DIAPER CHANGE OF THE PATIENT, ADVISED DAUGHTER THAT CENTRAL SUPPLY TECHNICIAN WILL BE THERE NOVA, VERBALIZED UNDERSTANDING. ADVISED DAUGHTER TO INFORM RN BEFORE SHE LEAVES, SO THE BED WILL LOWER DOWN AND BED ALARM WILL TURN ON AND SHE REPLIED" YES AND THE CAREGIVER IS COMING". PATIENT IS COMFORTABLE. NO SOB. DAUGHTER IS TALKING TO THE PATIENT. AND PATIENT IS RESPONDING BY FACIAL EXPRESSIONS.
[2018-09-17 20:00] VITALS: BP 126/78
[2018-09-17] MEDS: LEVETIRACETAM SOL (5 ML) 100 MG/ML UDC PO SCH (21:05)
--- NOTE | 2018-09-17 23:59 | NUR ---
IV REINSERTED BY THE JADA SEALS AT RIGHT HAND G22. IVF CONTINUED.
--- NOTE | 2018-09-18 00:33 | NUR ---
PATIENT'S CARE-RESEARCH PROFESSOR OF BIOSTATISTICS CAME LAST NIGHT AT AROUND 2300.
--- NOTE | 2018-09-18 05:00 | NUR ---
MS RN CLOSING NOTES: PATIENT IS RESTING COMFORTABLY IN BED, WITH O2 AT 2L/MIN. NO SOB NOTED. MANAGED CARE SPECIALIST AT THE BEDSIDE. NO C/O PAIN. HEMODYNAMICS AND RESPIRATORY STATUS ARE STABLE. BED ALARM ON. KEPT PATIENT CLEAN AND DRY. CONTACT ISOLATION FOR ESBL OF THE URINE MAINTAINED AT ALL TIMES. SIGN ON THE DOOR TO ALERT FAMILY OR VISITORS FOR CONTACT ISOLATION. BED IN LOW AND LOCKED POSITION. NOTES FROM ST POSTED ON THE WALL IN THE PATIENT'S HEAD PART, RECOMMENDATIONS FROM ST FOLLOWED AT ALL TIMES ESPECIALLY WHEN GIVING PO MEDS AND ALL PO FLUIDS. MANAGED CARE SPECIALIST REMINDED,VERBALIZED UNDERSTANDING.
[2018-09-18 06:37] LABS: CALCIUM, SERUM 8.3 mg/dL (8.5-10.1); CARBON DIOXIDE 28 mmol/L (21-32); CHLORIDE 103 mmol/L (98-107); CREATININE 0.3 mg/dL (0.6-1.3); GLUCOSE 95 mg/dL (74-106); MAGNESIUM 1.8 mg/dL (1.8-2.4); POTASSIUM 3.8 mmol/L (3.5-5.1); SODIUM SERUM 138 mmol/L (136-145); UREA NITROGEN, BLOOD 6 mg/dL (7-18)
--- NOTE | 2018-09-18 07:31 | NUR ---
MS RN OPENING NOTES RECEIVED PT IN BED ASLEEP, EASILY AROUSED. A/O X1, NON VERBAL, OPENS EYES . PT HAS CAREGIVER AT BEDSIDE. ON SUPPLEMENTARY OXYGEN AT 1L, WITH NO ACUTE RESPIRATORY DISTRESS. PT DENIES PAIN AND DISCOMFORT AT THIS TIME. IVF NS AT 75 ML/HR TO RFA G22, INTACT AND FLUID INFUSING WELL. PT KEPT COMFORTABLE. HOB ELEVATED. PT'S BED IN LOWEST, LOCKED POSITION WITH SR X3. CALL LIGHT KEPT WITHIN REACH. WILL CONTINUE PLAN OF CARE.
[2018-09-18 08:00] VITALS: BP 99/58
[2018-09-18] MEDS: IV NS 0.9% 1,000 ML IV PRN ×2 (08:04→23:09)
[2018-09-18] MEDS: FERROUS SULFATE (325 MG) 325 MG/TAB TABLET PO SCH (08:05)
[2018-09-18] MEDS: SIMETHICONE 80 MG TAB.CHEW PO SCH ×4 (08:05→21:27)
[2018-09-18] MEDS: FOLIC ACID 1 MG TABLET PO SCH (08:05)
[2018-09-18] MEDS: PANTOPRAZOLE 40 MG TABLET.DR PO SCH ×2 (08:06→21:27)
[2018-09-18] MEDS: MULTIVIT W/MINERALS 1 TAB TABLET PO SCH (08:06)
[2018-09-18] MEDS: SUCRALFATE 1 G TABLET PO SCH ×4 (08:06→21:27)
[2018-09-18] MEDS: ASCORBIC ACID 500 MG TABLET PO SCH (08:06)
[2018-09-18] MEDS: CHOLECALCIFEROL 1,000 UNIT TABLET (VIT D3) PO SCH (08:06)
[2018-09-18] MEDS: ACIDOPHILUS/BULGARICUS 1 EACH TAB.CHEW PO SCH ×2 (08:06→16:59)
[2018-09-18] MEDS: CALCIUM CARBONATE 500 MG TAB.CHEW PO SCH (08:06)
[2018-09-18] MEDS: MODAFINIL 100 MG TABLET PO SCH (08:06)
[2018-09-18] MEDS: COD LIVER OIL/ZINC OXIDE 120 GM TUBE TP SCH (08:49)
--- NOTE | 2018-09-18 10:00 | NUR ---
MS RN NOTES SPOKE TO THE DAUGHTER VIA PHONE REGARDING CONCERNS ON MEDICINES, REPEAT UA, OXYGEN, PT'S NOT TOLERATING RA. MD/SK IN THE UNIT MADE AWARE AND ORDERED CXRAY. WILL CONTINUE TO MONITOR PT.
[2018-09-18] MEDS: ENSURE CLEAR 237 ML LIQUID (MIX BERRY) PO SCH ×2 (13:34→17:47)
[2018-09-18 16:00] VITALS: BP 106/58
[2018-09-18 16:20] VITALS: BP 106/58
--- NOTE | 2018-09-18 19:05 | NUR ---
MS RN NOTES PT'S AUGHTER PRESENT WHILE PT BEING CHANGED AND CLEANED BY BIOLOGY TEACHER. DAUGHTER REPORTED DISCHARGE ON PERINEAL AREA. MD/SK MADE AWARE. DAUGHTER CONSENTED TO TAKE A PICTURE TO SEND TO MD/SK. MD/SK MADE AWARE AND ADVISE TO TELL ID INTERIOR DECORATOR PAINTING NERA. AWAITING FOR RESPONSE FROM ID/INTERIOR DECORATOR PAINTING NERA. WILL ENDORSE TO INCOMING NIGHT NURSE WELL.
--- NOTE | 2018-09-18 19:25 | NUR ---
RN OPEN NOTES RECEIVED PATIENT AWAKE IN BED WITH DAUGHTER AT BEDSIDE. PT NON-VERBAL WITH TRACKING. NO SIGNS OF DISTRESS OR DISCOMFORT. BREATHING EVEN AND UNLABORED. ON 1LPM 02 VIA NC. IV ACCESS IN R HAND WITH NS INFUSING, PATENT AND INTACT, NO SIGNS OF REDNESS OR INFILTRATION. BED IN LOW LOCKED POSITION WITH SIDE RAILS X2. CALL LIGHT WITHIN REACH. WILL CONTINUE TO MONITOR.
--- NOTE | 2018-09-18 19:38 | NUR ---
MS RN CLOSING NOTES PT IN BED ASLEEP, EASILY AROUSED. A/O X1, NON VERBAL, OPENS EYES . DAUGHTER PRESENT AT BEDSIDE. ON SUPPLEMENTARY OXYGEN AT 1L, WITH NO ACUTE RESPIRATORY DISTRESS. PT DENIES PAIN AND DISCOMFORT AT THIS TIME. IVF NS AT 75 ML/HR TO RFA G22, INTACT AND FLUID INFUSING WELL. ALL NEEDS AND CARE PROVIDED. PT KEPT COMFORTABLE. HOB ELEVATED. PT'S BED IN LOWEST, LOCKED POSITION WITH SR X3. CALL LIGHT KEPT WITHIN REACH. WILL ENDORSE TO LEARNING SUPPORT SPECIALIST NURSE.
--- NOTE | 2018-09-18 19:40 | NUR ---
RN NOTES SPOKE TO ROLLER PRINTING SUPERVISOR/HARJEET ORDERED TO PLACE ORDER FOR AMIKACIN FOR PHARMACY TO DOSE. INCOMING NIGHT NURSE/SHELLEY MADE AWARE.
[2018-09-18 20:00] VITALS: BP 126/68
[2018-09-18] MEDS ORDERED: DOSING PER PHARMACY-AMIKACI IV XX PRN (20:00)
[2018-09-18] MEDS ORDERED: AMIKACIN 350 MG in IV D5W 100 ML IV ONE (21:00)
[2018-09-18] MEDS: LEVETIRACETAM SOL (5 ML) 100 MG/ML UDC PO SCH (21:27)
[2018-09-18] MEDS ORDERED: AMIKACIN 250 MG/ML VIAL ONE (22:41)
--- NOTE | 2018-09-19 07:00 | NUR ---
RN CLOSING NOTES PATIENT RESTING IN BED WITH CAREGIVER AT BEDSIDE. PT NON-VERBAL WITH TRACKING. NO SIGNS OF DISTRESS OR DISCOMFORT. BREATHING EVEN AND UNLABORED. ON 1LPM 02 VIA NC. IV ACCESS IN R HAND WITH NS INFUSING, PATENT AND INTACT, NO SIGNS OF REDNESS OR INFILTRATION. ALL NEEDS MET. NO SIGNIFICANT CHANGES THROUGH THE NIGHT. PATIENT REPOSITIONED Q2H. BED IN LOW LOCKED POSITION WITH SIDE RAILS X2. CALL LIGHT WITHIN REACH. WILL ENDORSE TO AM SHIFT FOR ALANIS.
--- NOTE | 2018-09-19 07:44 | NUR ---
MS RN OPENING NOTES RECEIVED PT RESTING IN BED, EASILY AROUSED. A/O X1. CAREGIVER PRESENT BEDSIDE. ON SUPPLEMENTARY O2 AT 1L VIA NC, WITH NO ACUTE RESPIRATORY DISTRESS NOTED. PT DENIES ANY PAIN OR DISCOMFORT AT THIS TIME. IVF NS AT 75ML/HR TO RIGHT HAND G22, INTACT AND FLUID INFUSING WELL. PT KEPT COMFORTABLE. HOB ELEVATED. PT'S BED KEPT IN LOWEST, LOCKED POSITION WITH SR X3. CALL LIGHT KEPT WITHIN REACH. WILL CONTINUE PLAN OF CARE.
[2018-09-19 08:00] VITALS: BP 104/51
[2018-09-19] MEDS: ENSURE CLEAR 237 ML LIQUID (MIX BERRY) PO SCH ×2 (08:07→17:24)
[2018-09-19] MEDS: CHOLECALCIFEROL 1,000 UNIT TABLET (VIT D3) PO SCH (08:08)
[2018-09-19] MEDS: PANTOPRAZOLE 40 MG TABLET.DR PO SCH ×2 (08:08→21:27)
[2018-09-19] MEDS: FOLIC ACID 1 MG TABLET PO SCH (08:08)
[2018-09-19] MEDS: SIMETHICONE 80 MG TAB.CHEW PO SCH ×4 (08:08→21:27)
[2018-09-19] MEDS: ACIDOPHILUS/BULGARICUS 1 EACH TAB.CHEW PO SCH ×2 (08:08→17:09)
[2018-09-19] MEDS: CALCIUM CARBONATE 500 MG TAB.CHEW PO SCH (08:08)
[2018-09-19] MEDS: FERROUS SULFATE (325 MG) 325 MG/TAB TABLET PO SCH (08:08)
[2018-09-19] MEDS: SUCRALFATE 1 G TABLET PO SCH ×4 (08:08→21:27)
[2018-09-19] MEDS: MODAFINIL 100 MG TABLET PO SCH (08:08)
[2018-09-19] MEDS: MULTIVIT W/MINERALS 1 TAB TABLET PO SCH (08:08)
[2018-09-19] MEDS: ASCORBIC ACID 500 MG TABLET PO SCH (08:08)
[2018-09-19 08:16] VITALS: BP 104/51
[2018-09-19] MEDS: COD LIVER OIL/ZINC OXIDE 120 GM TUBE TP SCH (08:20)
--- NOTE | 2018-09-19 11:45 | NUR ---
MS RN NOTES DAUGHTER/ESTEFANY PRESENT BEDSIDE AWARE OF PT'S CONDITION. DAUGHTER SPOKE TO CM/FAROOQ REGARDING DISCHARGE PLANNING AND PREFERENCE FOR ID MD/DR DAY. DR KLEIN MADE AWARE, AWAITING FOR RESPONSE.
[2018-09-19] MEDS: IV NS 0.9% 1,000 ML IV PRN (14:10)
[2018-09-19 16:00] VITALS: BP 123/59
--- NOTE | 2018-09-19 18:32 | NUR ---
MS RN CLOSING NOTES PT REMAINS IN BED AWAKE, A/O X1, NON VERBAL, OPENS EYES AND TRACKING. DAUGHTER PRESENT AT BEDSIDE. ON SUPPLEMENTARY OXYGEN AT 1L, WITH NO ACUTE RESPIRATORY DISTRESS. PT EXHIBITED NO SIGNS OF PAIN AND DISCOMFORT AT THIS TIME. IVF NS AT 75 ML/HR TO RFA G22, INTACT AND FLUID INFUSING WELL. ALL NEEDS AND CARE PROVIDED. PT KEPT COMFORTABLE. HOB ELEVATED. PT'S BED IN LOWEST, LOCKED POSITION WITH SR X3. CALL LIGHT KEPT WITHIN REACH. WILL ENDORSE TO VICE ADMIRAL NURSE.
[2018-09-19 20:00] VITALS: BP 136/67
--- NOTE | 2018-09-19 20:00 | NUR ---
MS RN NOTES PATIENT ASLEEP IN BED WITH NO DISTRESS NOTED. HOB ELEVATED AT 90 DEGREES FOR ASPIRATION PRECAUTION. CALL LIGHT WITHIN REACH. DTR AT BEDSIDE. PERIPHERAL LINE INTACT AND PATENT. NO FACIAL GRIMACING OR GROANING TO INDICATE PAIN OR DISCOMFORT. BED IN LOW LOCK SETTING. ALL BELONGINGS KEPT NEAR BEDSIDE. WILL CONTINUE TO MONITOR.
[2018-09-19] MEDS: LEVETIRACETAM SOL (5 ML) 100 MG/ML UDC PO SCH (21:27)
[2018-09-19] MEDS ORDERED: AMIKACIN 350 MG in IV D5W 100 ML IV SCH (22:00)
[2018-09-20] MEDS: IV NS 0.9% 1,000 ML IV PRN (04:12)
--- NOTE | 2018-09-20 06:52 | NUR ---
MS RN NOTES PATIENT ASLEEP IN BED WITH NO DISTRESS NOTED. CALL LIGHT WITHIN REACH. CAREGIVER AT BEDSIDE. ALL DUE MEDS GIVEN ORDERED WITH NO ASE NOTED. WOUND CARE RENDERED AND TOLERATED WELL. NO FACIAL GRIMACING OR GROANING TO INDICATE PAIN OR DISCOMFORT. PERIPHERAL LINE INTACT AND PATENT. BED IN LOW LOCK SETTING. ALL BELONGINGS KEPT NEAR BEDSIDE. WILL CONTINUE TO MONITOR.
[2018-09-20 07:07] LABS: CALCIUM, SERUM 8.4 mg/dL (8.5-10.1); CARBON DIOXIDE 28 mmol/L (21-32); CHLORIDE 102 mmol/L (98-107); CREATININE 0.4 mg/dL (0.6-1.3); GLUCOSE 132 mg/dL (74-106); POTASSIUM 3.2 mmol/L (3.5-5.1); SODIUM SERUM 139 mmol/L (136-145); UREA NITROGEN, BLOOD 5 mg/dL (7-18)
[2018-09-20 08:00] VITALS: BP 105/60
[2018-09-20] MEDS: ENSURE CLEAR 237 ML LIQUID (MIX BERRY) PO SCH (08:26)
[2018-09-20] MEDS: PANTOPRAZOLE 40 MG TABLET.DR PO SCH (08:27)
[2018-09-20] MEDS: SUCRALFATE 1 G TABLET PO SCH ×2 (08:27→12:22)
[2018-09-20] MEDS: FERROUS SULFATE (325 MG) 325 MG/TAB TABLET PO SCH (08:27)
[2018-09-20] MEDS: ACIDOPHILUS/BULGARICUS 1 EACH TAB.CHEW PO SCH (08:27)
[2018-09-20] MEDS: FOLIC ACID 1 MG TABLET PO SCH (08:27)
[2018-09-20] MEDS: CALCIUM CARBONATE 500 MG TAB.CHEW PO SCH (08:27)
[2018-09-20] MEDS: ASCORBIC ACID 500 MG TABLET PO SCH (08:27)
[2018-09-20] MEDS: SIMETHICONE 80 MG TAB.CHEW PO SCH ×2 (08:27→12:22)
[2018-09-20] MEDS: MULTIVIT W/MINERALS 1 TAB TABLET PO SCH (08:27)
[2018-09-20] MEDS: CHOLECALCIFEROL 1,000 UNIT TABLET (VIT D3) PO SCH (08:27)
[2018-09-20] MEDS: MODAFINIL 100 MG TABLET PO SCH (08:47)
[2018-09-20] MEDS: COD LIVER OIL/ZINC OXIDE 120 GM TUBE TP SCH (08:48)
[2018-09-20] MEDS: POTASSIUM CHLORIDE 20 MEQ POWDER PACKET PO SCH ×2 (12:21→12:33)
--- NOTE | 2018-09-20 13:30 | NUR ---
SLACK COOPER NOTES PT STABLE AT DISCHARGE. [facility], PT [facility] BE GOING TO 6B. ALL PATIENT BELONGINGS TAKEN WITH PATIENT. CAREGIVER AT BEDSIDE, HELPED ASSIST IN TAKING BELONGINGS. ID AND IV REMOVED AT DISCHARGE. PT LEFT UNIT AT 1330 [facility]IA [facility]. PT LEFT VIA GURNEY.
[2018-10-27] MEDS ORDERED: NITR100C15 PO (14:42)
[2018-10-27] MEDS ORDERED: PANT40SU2 PO (14:42)
[2018-10-27] MEDS ORDERED: LEVE100S PO (14:42)
== END 2018-09-20 13:30 | DRG 177 ==
LOC: ER 15:44 → TELE 20:51 → MED 09-10 09:01
PROVIDERS: ADMIT Registered Nurse; ATTEND Student in an Organized Health Care Education/Training Program
DX: J69.0 Pneumonitis due to inhalation of food and vomit (principal); K29.01 Acute gastritis with bleeding; J96.01 Acute respiratory failure with hypoxia; N39.0 Urinary tract infection, site not specified; I50.32 Chronic diastolic (congestive) heart failure; K44.9 Diaphragmatic hernia without obstruction or gangrene; I11.0 Hypertensive heart disease with heart failure; G40.909 Epilepsy, unspecified, not intractable, without status epilepticus; G30.9 Alzheimer's disease, unspecified; F02.80 Dementia in other diseases classified elsewhere, unspecified severity, without behavioral disturbance, psychotic disturbance, mood disturbance, and anxiety; B96.20 Unspecified Escherichia coli [E. coli] as the cause of diseases classified elsewhere; E87.6 Hypokalemia; K21.9 Gastro-esophageal reflux disease without esophagitis; R13.10 Dysphagia, unspecified; Z16.12 Extended spectrum beta lactamase (ESBL) resistance; Z88.2 Allergy status to sulfonamides; Z87.440 Personal history of urinary (tract) infections; L89.010 Pressure ulcer of right elbow, unstageable; L98.8 Other specified disorders of the skin and subcutaneous tissue; K59.09 Other constipation; D72.829 Elevated white blood cell count, unspecified; T14.8XXA Other injury of unspecified body region, initial encounter; S30.820A Blister (nonthermal) of lower back and pelvis, initial encounter; X58.XXXA Exposure to other specified factors, initial encounter; Y93.9 Activity, unspecified; Y92.129 Unspecified place in nursing home as the place of occurrence of the external cause; Y99.9 Unspecified external cause status; J15.9 Unspecified bacterial pneumonia
CPT/HCPCS: 36415; 71045-TC; 80048-TC; 80053-TC; 80061-TC; 80076-TC; 80150; 80177; 81000-TC; 82272-TC; 82533; 83605-TC; 83690-TC; 83735-TC; 84100-TC; 84443-TC; 84484-TC; 85025-TC; 85730-TC; 87040-TC; 87081-TC; 87086-TC; 87186-TC; 92526; 92611-TC; 94799-TC; 95819-TC; 97530-TC; A4216; A6248; G0378; J0278; J0696; J1953; J2185; J2405; J3480; J7030; J7040; J7060

== ENCOUNTER 2018-10-19 19:34 | Inpatient (IN) | payer MEDICARE, MEDICAID ==
[~2018-10-19] VITALS: Ht 134.6 cm; Wt 54.9 kg
[~2018-10-19 19:34] MED LIST changes: +ACET-868 PO; +AMIN30LI27 PO; +ARGI1PAC PO; +ASCO500T9 PO; -CRAN3875 PO; -CRAN425C6 PO; +FOLI1TAB16 PO; +LEVE100S PO; -LEVE250T2 PO; +MULT-447 PO; -OMEG-143 PO; -SENN-168 PO; -VITA400C68 PO
--- NOTE | 2018-10-19 19:45 | NUR ---
TO BED 3 BIB PARAMEDICS C/O LOW O2 SAT PER EMS REPORT, O2 SAT 91% ON RA. PT AAOX1, NO ACUTE DISTRESS NOTED, RESP EVEN AND UNLABORED. PLACE PT ON CARDIAC MONITORING, CONTINUOUS POX, NOTED O2 SAT 90-91% ON RA, PLACE PT ON O2@2L/NC, O2 SAT IMPROVED TO 97%. ER MD AT BEDSIDE TO EVAL PT WITH ORDERS RECEIVED. WILL CARRY OUT ORDERS.
--- NOTE | 2018-10-19 19:50 | NUR ---
STARTED SL 18G TO R HAND, BLOOD DRAWN AND SENT TO LAB.
[2018-10-19 20:03] LABS: BASOPHILS # (AUTO) 0.1 /CMM (0.0-0.2); EOSINOPHILS % (AUTO) 1.2 % (0.0-6.0); HEMATOCRIT 30 % (33-45); HEMOGLOBIN 9.7 g/dL (11.5-14.8); LYMPHOCYTES % (AUTO) 9.8 % (20.0-44.0); MEAN CORPUSCULAR HGB CONC 32 g/dl (31.0-36.0); MEAN CORPUSCULAR VOLUME 85 fL (82-100); MONOCYTES # (AUTO) 0.3 /CMM (0.1-1.30); MONOCYTES % (AUTO) 3.3 % (2.0-12.0); NEUTROPHILS # (AUTO) 8.6 /CMM (1.8-8.9); NEUTROPHILS % (AUTO) 84.7 % (43.0-81.0); PLATELET COUNT (AUTO) 220 /CMM (150-450); RED BLOOD CELL COUNT(AUTO) 3.56 MIL/uL (4.0-5.2); WHITE BLOOD COUNT (AUTO) 10.2 K/uL (4.3-11.0)
[2018-10-19 20:11] LABS: CALCIUM, SERUM 8.5 mg/dL (8.5-10.1); CARBON DIOXIDE 25 mmol/L (21-32); CHLORIDE 99 mmol/L (98-107); CREATININE 0.5 mg/dL (0.6-1.3); GLUCOSE 136 mg/dL (74-106); POTASSIUM 4.1 mmol/L (3.5-5.1); SODIUM SERUM 131 mmol/L (136-145); UREA NITROGEN, BLOOD 11 mg/dL (7-18)
[2018-10-19 20:27] LABS: ALANINE AMINOTRANSFERASE 23 U/L (12-78); ALKALINE PHOSPHATASE 98 U/L (46-116); ASPARTATE AMINOTRANSFERASE 16 U/L (15-37); B-TYPE NATRIURETIC PEPTIDE 496 PG/ML (0-125); BILIRUBIN,DIRECT 0.1 mg/dL (0.0-0.2); BILIRUBIN,TOTAL 0.3 mg/dL (0.2-1.0)
[2018-10-19] MEDS ORDERED: NTG 50 MG/D5W250 ML BOTTL 250 ML IV ONE (20:30)
[2018-10-19] MEDS ORDERED: FUROSEMIDE 40 MG/4 ML VIAL IV ONE (20:30)
--- NOTE | 2018-10-19 20:55 | NUR ---
lasix and nitro drip cancelled by ana maria montenegro.
--- NOTE | 2018-10-19 21:08 | NUR ---
report called to television reporteralan rodriguez. will transport pt via acls protocol.
--- NOTE | 2018-10-19 21:25 | NUR ---
PT FAMILY TALKING TO ER MD AND REQUESTING PT KEPPRA MED TO BE GIVEN PRIOR TO ADMISSION. ORDERS RECEIVED. WILL MEDICATE PT.
[2018-10-19] MEDS ORDERED: LEVETIRACETAM SOL (5 ML) 100 MG/ML UDC PO SCH (21:30)
[2018-10-19] MEDS ORDERED: LEVETIRACETAM (250 MG) 250 MG TABLET PO ONE (21:41)
[2018-10-19] MEDS ORDERED: LEVETIRACETAM (250 MG) 250 MG TABLET PO SCH (22:00)
--- NOTE | 2018-10-19 23:29 | NUR ---
CROSSBOW MAKER NOTE RECEIVED PT FROM ER ON [facility] ACCOMPANIED BY ER STAFF. PT IN STABLE CONDITION, AWAKE BUT UNRESPONSIVE. CHILDREN AT BEDSIDE. ON O2 NC 2L, SATURATION 96%. NO SIGNS OF SOB OR DISTRESS, NO INDICATIONS OF PAIN. TELE MONITOR SR 81. IV IN R HAND IN PLACE. BODY ASSESSED, PHOTOS IN CHART. BELONGINGS ACCOUNTED FOR. ALL CURRENT NEEDS ATTENDED TO. BED LOW, LOCKED, UPPER RAILS UP, AND CALL LIGHT WITHIN REACH WILL CONT. TO MONITOR.
[2018-10-20] MEDS ORDERED: CLONIDINE HCL 0.2 MG TABLET PO PRN
[2018-10-20] MEDS ORDERED: ONDANSETRON HCL/PF 4 MG/2 ML VIAL IVP PRN
[2018-10-20] MEDS ORDERED: POLYETHYLENE GLYCOL 3350 17 GM POWD.PACK PO PRN
[2018-10-20] MEDS ORDERED: ACETAMINOPHEN 325 MG TABLET PO PRN
[2018-10-20] MEDS: ENOXAPARIN SODIUM 40 MG/0.4 ML DISP.SYRIN SQ SCH (00:38)
[2018-10-20] MEDS: IV NS 0.9% 1,000 ML IV PRN ×2 (00:42→19:12)
[2018-10-20] MEDS ORDERED: PIPERACILLIN /TAZOBACTAM 3.375 G VIAL IV ONE (02:48)
--- NOTE | 2018-10-20 04:19 | NUR ---
FARM RANCHER NOTE MANUALLY ADMINISTERED 0500 DOSE OF ZOSYN, TAKEN FROM PYXIS BY CHARGE NURSE. MEDICATION BOTTLE NO RECOGNIZED WHEN SCANNED.
[2018-10-20] MEDS ORDERED: PIPERACILLIN /TAZOBACTAM 3.375 G in IV D5W 50 ML IV SCH (05:00)
--- NOTE | 2018-10-20 06:14 | NUR ---
FACILITIES MECHANICAL DESIGN ENGINEER NOTE PT IN STABLE CONDITION, AWAKE BUT UNRESPONSIVE. ON O2 NC 2L, SATURATION 96%. NO SIGNS OF SOB OR DISTRESS, NO INDICATIONS OF PAIN. TELE MONITOR SR 82. IV IN R HAND IN PLACE WITH IVF INFUSING TOLERATING WELL. PT REPOSITIONED PER UNIT PROTOCOL. CURRENT NEEDS ATTENDED TO. BED LOW, LOCKED, UPPER RAILS UP, AND CALL LIGHT WITHIN REACH WILL CONT. TO MONITOR AND ENDORSE TO NEXT SHIFT FOR ALANIS.
[2018-10-20 06:23] LABS: BASOPHILS # (AUTO) 0.1 /CMM (0.0-0.2); BASOPHILS % (AUTO) 1.2 % (0.0-2.0); EOSINOPHILS % (AUTO) 2.3 % (0.0-6.0); HEMATOCRIT 29 % (33-45); HEMOGLOBIN 9.2 g/dL (11.5-14.8); LYMPHOCYTES # (AUTO) 1.4 /CMM (0.8-4.8); LYMPHOCYTES % (AUTO) 16.4 % (20.0-44.0); MEAN CORPUSCULAR HGB CONC 32 g/dl (31.0-36.0); MEAN CORPUSCULAR VOLUME 85 fL (82-100); MONOCYTES # (AUTO) 0.4 /CMM (0.1-1.30); MONOCYTES % (AUTO) 5.1 % (2.0-12.0); NEUTROPHILS # (AUTO) 6.4 /CMM (1.8-8.9); PLATELET COUNT (AUTO) 208 /CMM (150-450); RED BLOOD CELL COUNT(AUTO) 3.38 MIL/uL (4.0-5.2); WHITE BLOOD COUNT (AUTO) 8.6 K/uL (4.3-11.0)
[2018-10-20 06:50] LABS: CHOLESTEROL 133 mg/dL (<200); HDL CHOLESTEROL 59 mg/dL (40-60); LDL 59 mg/dL (0-99); THYROID STIMULATING HORMONE 1.505 uIU/mL (0.358-3.74); TRIGLYCERIDES 62 mg/dL (30-150)
[2018-10-20] MEDS ORDERED: CLONIDINE HCL 0.1 MG TABLET PO PRN (07:11)
--- NOTE | 2018-10-20 07:15 | NUR ---
RN INITIAL NOTES PATIENT IN BED, ONLY OPENS EYES. UNRESPONSIVE. ON 2L NC. ON TELE MONITOR, SR. HAS A RIGHT HAND #18 WITH NS RUNNING AT 75 ML/HR. NO SIGNS OF ANY PAIN NOR SOB. BED LOCKED AND IN LOWEST POSITION. CALL LIGHT WITHIN REACH. WILL CONTINUE TO MONITOR PATIENT CLOSELY
[2018-10-20 07:17] LABS: ALANINE AMINOTRANSFERASE 21 U/L (12-78); ALBUMIN 2.9 g/dL (3.4-5.0); ALKALINE PHOSPHATASE 84 U/L (46-116); ASPARTATE AMINOTRANSFERASE 11 U/L (15-37); BILIRUBIN,TOTAL 0.5 mg/dL (0.2-1.0); CALCIUM, SERUM 8.2 mg/dL (8.5-10.1); CARBON DIOXIDE 25 mmol/L (21-32); CHLORIDE 101 mmol/L (98-107); CREATININE 0.4 mg/dL (0.6-1.3); GLUCOSE 99 mg/dL (74-106); PHOSPHORUS 2.8 mg/dL (2.5-4.9); POTASSIUM 3.6 mmol/L (3.5-5.1); SODIUM SERUM 135 mmol/L (136-145); UREA NITROGEN, BLOOD 9 mg/dL (7-18)
[2018-10-20 07:18] LABS: MAGNESIUM 2.1 mg/dL (1.8-2.4); TOTAL PROTEIN, SERUM 6.8 g/dL (6.4-8.2)
[2018-10-20 07:19] LABS: IRON, SERUM 12 ug/dl (50-175); TOTAL IRON BINDING CAPACITY 345 ug/dl (250-450)
[2018-10-20 08:00] VITALS: BP 114/66
[2018-10-20] MEDS: FOLIC ACID 1 MG TABLET PO SCH (10:00)
[2018-10-20] MEDS: FERROUS SULFATE (325 MG) 325 MG/TAB TABLET PO SCH (10:00)
[2018-10-20] MEDS: SIMETHICONE 80 MG TAB.CHEW PO SCH ×5 (10:00→20:58)
[2018-10-20] MEDS: FAMOTIDINE (20 MG) 20 MG TABLET PO SCH (10:00)
--- NOTE | 2018-10-20 10:47 | NUR ---
RN NOTES REPORT GIVEN TO DORIE GRACE. FAMILY AT BEDSIDE
[2018-10-20 12:00] VITALS: BP 119/59
[2018-10-20] MEDS: PIPERACILLIN /TAZOBACTAM 3.375 G in IV D5W 100 ML IV SCH ×2 (12:28→20:58)
--- NOTE | 2018-10-20 13:50 | NUR ---
FAMILY WANTED DR. CARREON TO SEE PATIENT INSTEAD OF EPIC,CM MARLIN KNOW ,SHE WILL NOTIFY DR. CARREON FIRST IF OK WITH HIM,PER DMITY OK WITH HIM .
[2018-10-20 16:00] VITALS: BP 118/58
[2018-10-20] MEDS: CLOTRIMAZOLE 1% 15 GM TUBE TP SCH (16:47)
[2018-10-20] MEDS ORDERED: LORAZEPAM INJ 2 MG/ML VIAL IV PRN (19:00)
--- NOTE | 2018-10-20 19:24 | NUR ---
ENGINE INSTALLER CLOSING NOTES PATIENT LYING IN BED, HOB ELEVATED, A/O X 1, OPENS EYES. NO PAIN, SOB OR ACUTE DISTRESS NOTED. ON 2L O2 VIA NC. ON TELE MONITOR, SR 80'S. R HAND #18 IV INTACT AND PATENT INFUSING NS AT 75 ML/HR. PELVIC CT COMPLETED DURING SHIFT. WOUND CARE COMPLETED ORDERED X 2. PATIENT FAMILY AT BEDSIDE. MD COMMUNICATION COORDINATED WITH FAMILY REQUESTED. NO CHANGES IN CONDITION DURING SHIFT. SAFETY MEASURES IN PLACE. BED LOCKED AND IN LOWEST POSITION. CALL LIGHT WITHIN REACH. CARE ENDORSED TO WIRER PASSENGER CAR RN.
[2018-10-20 20:00] VITALS: BP 124/57
--- NOTE | 2018-10-20 20:00 | NUR ---
RN INITIAL NOTES RECEIVED PATIENT'S REPORT FROM AM RN. PATIENT IS IN BED, OPENS EYES BUT CAN NOT FOLLOW COMMENDS, ON 2L NC. ON TELE MONITOR, SR. HAS A RIGHT HAND #18 IV LINE WITH NS RUNNING AT 75 ML/HR. NO SIGNS OF ANY PAIN NOR SOB. BED LOCKED AND IN LOWEST POSITION.HOB ELEVATED AT ALL TIMES, CALL LIGHT WITHIN REACH. REGULATOR TESTER IS AT THE BEDSIDE ,WILL CONTINUE TO MONITOR PATIENT CLOSELY.
[2018-10-20] MEDS: LEVETIRACETAM SOL (5 ML) 100 MG/ML UDC PO SCH (21:01)
[2018-10-21] VITALS: BP 123/67
--- NOTE | 2018-10-21 00:40 | NUR ---
URINE HAS BEEN COLLECTED AND SENT TO LAB.
[2018-10-21 00:44] LABS: APPEARANCE,URINE TURBID (CLEAR); BILIRUBIN,URINE NEGATIVE (NEGATIVE); BLOOD, URINE 1+ Ery/uL (NEGATIVE); COLOR,URINE YELLOW (YELLOW); KETONES,URINE NEGATIVE (NEGATIVE); LEUKOCYTE ESTERASE ,URINE 3+ (NEGATIVE); NITRITE, URINE POSITIVE (NEGATIVE); PROTEIN,URINE TRACE mg/dl (NEGATIVE); UGLUCOSE NEGATIVE (NEGATIVE)
[2018-10-21] MEDS: ENOXAPARIN SODIUM 40 MG/0.4 ML DISP.SYRIN SQ SCH (00:45)
[2018-10-21 01:03] LABS: BACTERIA,URINE Few /HPF (None Seen); SQUAMOUS EPITHELIAL CELL,UR Rare /HPF (None Seen); WBC,URINE TOO NUMEROUS TO COUN /HPF (0-3)
[2018-10-21 04:00] VITALS: BP 93/54
[2018-10-21] MEDS: PIPERACILLIN /TAZOBACTAM 3.375 G in IV D5W 100 ML IV SCH ×3 (04:27→20:14)
[2018-10-21 06:23] LABS: BASOPHILS # (AUTO) 0.1 /CMM (0.0-0.2); BASOPHILS % (AUTO) 1.4 % (0.0-2.0); EOSINOPHILS % (AUTO) 5.1 % (0.0-6.0); HEMATOCRIT 25 % (33-45); LYMPHOCYTES # (AUTO) 1.1 /CMM (0.8-4.8); LYMPHOCYTES % (AUTO) 17.5 % (20.0-44.0); MEAN CORPUSCULAR HGB CONC 32 g/dl (31.0-36.0); MEAN CORPUSCULAR VOLUME 85 fL (82-100); MONOCYTES # (AUTO) 0.4 /CMM (0.1-1.30); MONOCYTES % (AUTO) 6.4 % (2.0-12.0); NEUTROPHILS # (AUTO) 4.5 /CMM (1.8-8.9); NEUTROPHILS % (AUTO) 69.6 % (43.0-81.0); PLATELET COUNT (AUTO) 158 /CMM (150-450); RED BLOOD CELL COUNT(AUTO) 2.95 MIL/uL (4.0-5.2); WHITE BLOOD COUNT (AUTO) 6.4 K/uL (4.3-11.0)
[2018-10-21 06:38] LABS: CALCIUM, SERUM 8.1 mg/dL (8.5-10.1); CARBON DIOXIDE 24 mmol/L (21-32); CHLORIDE 106 mmol/L (98-107); CREATININE 0.3 mg/dL (0.6-1.3); GLUCOSE 94 mg/dL (74-106); POTASSIUM 3.3 mmol/L (3.5-5.1); SODIUM SERUM 140 mmol/L (136-145); UREA NITROGEN, BLOOD 7 mg/dL (7-18)
[2018-10-21] MEDS ORDERED: POTASSIUM CHLORIDE 20 MEQ TAB.PRT.SR PO ONE (07:30)
--- NOTE | 2018-10-21 07:41 | NUR ---
RN OPENING NOTES RECEIVED PATIENT'S IN BED, OPENS EYES BUT CAN NOT FOLLOW COMMANDS, ON 2L NC. ON TELE MONITOR, SR 80'S. R HAND #18 IV LINE INTACT AND PATENT WITH NS RUNNING AT 75 ML/HR. NO SOB, PAIN OR ACUTE DISTRESS NOTED. BED LOCKED AND IN LOWEST POSITION.HOB ELEVATED AT ALL TIMES, CALL LIGHT WITHIN REACH. CRYPTOGRAPHER IS AT THE BEDSIDE ,WILL CONTINUE TO MONITOR.
--- NOTE | 2018-10-21 07:49 | NUR ---
WOUND CARE CONSULT WOUND CARE RECEIVED CONSULT FOR SACRUM. WOUND CARE WILL DEFER CONSULT AND TREATMENT PLANS TO PLASTIC SURGICAL TEAM WHO ARE CURRENTLY FOLLOWING THIS PATIENT. PATIENT WITH ERIN AT 9, ALL PRESSURE ULCER PREVENTION MEASURES ARE NOTED TO BE IN PLACE AT THIS TIME. WILL SEE PRN.
[2018-10-21 08:00] VITALS: BP 112/55
[2018-10-21] MEDS: SIMETHICONE 80 MG TAB.CHEW PO SCH ×4 (09:12→20:14)
[2018-10-21] MEDS: FAMOTIDINE (20 MG) 20 MG TABLET PO SCH (09:13)
[2018-10-21] MEDS: FOLIC ACID 1 MG TABLET PO SCH (09:13)
[2018-10-21] MEDS: FERROUS SULFATE (325 MG) 325 MG/TAB TABLET PO SCH (09:13)
[2018-10-21] MEDS: CLOTRIMAZOLE 1% 15 GM TUBE TP SCH ×2 (09:37→17:49)
[2018-10-21] MEDS ORDERED: POTASSIUM CHLORIDE 20 MEQ TAB.PRT.SR PO SCH (10:00)
[2018-10-21] MEDS: PANTOPRAZOLE 40 MG TABLET.DR PO SCH ×2 (10:06→17:48)
--- NOTE | 2018-10-21 12:00 | NUR ---
MS RN NOTE 1400 FERRLICIT IV HELD UNTIL 1700 TO ALLOW FOR ANTIBIOTIC TO BE COMPLETED. FERRLICIT ADMINISTERED AT APPROXIMATELY 1730. MEDICATION COMPLETED W/O INCIDENT.
[2018-10-21 16:00] VITALS: BP 114/60
[2018-10-21] MEDS: BISACODYL SUPP (10 MG) 10 MG/SUPP.RECT SUPP.RECT RC PRN (16:24)
[2018-10-21] MEDS: SOD FERRIC GLUC 125 MG in IV NS 0.9% 100 ML IV SCH (17:48)
--- NOTE | 2018-10-21 18:00 | NUR ---
WOUND CARE COMPLETED ORDERED 3 X THROUGHOUT DAY SHIFT.
--- NOTE | 2018-10-21 19:25 | NUR ---
MS RN OPENING NOTES RECEIVED PATIENT IN BED, A/OX1, OPENS EYES BUT UNABLE TO FOLLOW COMMANDS. FAMILY AT BEDSIDE. ON OXYGEN 2L VIA NC, SATURATING 98%. IV SITE RIGHT HAND #18, FLUSHING AND PATENT, SITE C/D/I. NO SOB, PAIN OR ACUTE DISTRESS NOTED. PER REPORT FAMILY IS VERY DEMANDING. PER DAUGHTER, CAREGIVER WILL BE WITH PATIENT THROUGHOUT THE NIGHT. SAFETY MEASURES IN PLACE; BED LOCKED IN LOWEST POSITION, HOB ELEVATED AT ALL TIMES TO PREVENT ASPIRATION, CALL LIGHT WITHIN REACH, SIDE RAILS UP X2. WILL CONT TO MONITOR PT CLOSELY.
--- NOTE | 2018-10-21 19:27 | NUR ---
MS RN CLOSING NOTES PATIENT IN BED, A/O X 1, OPENS EYES BUT CAN NOT FOLLOW COMMANDS, ON 2L NC. 02 SAT 95%. R HAND #18 IV LINE INTACT AND PATENT. NO SOB, PAIN OR ACUTE DISTRESS NOTED. FAMILY AT BEDSIDE ALL DAY. FAMILY DEMANDS DEEMED EXCESSIVE THROUGHOUT SHIFT. MULTIPLE MD'S BEDSIDE TODAY. FAMILY ASSURED ON MULTIPLE OCCASSIONS BY MD'S THAT PATIENT WAS PROGRESSING WELL, CARE PLANS WERE IN PLACE AND SAID PLANS WERE BEING FOLLWED THROUGH ORDERED. WOUND CARE COMPLETED THREE TIMES DURING SHIFT. SAFETY MEASURES IN PLACE. BED LOCKED IN LOWEST POSITION. HOB ELEVATED AT ALL TIMES, CALL LIGHT WITHIN REACH. CARE ENDORSED TO TRANSPORT AIRCREWMAN RN.
[2018-10-21 20:00] VITALS: BP 118/70
--- NOTE | 2018-10-21 20:20 | NUR ---
MS RN NOTES PATIENT DAUGHTER REFUSED SIMETHICONE 160MG PO AND STATED "MY MOM HAD A BOWEL MOVEMENT I DON'T THINK SHE NEEDS IT RIGHT NOW" EDUCATION REGARDING MEDICATION GIVEN. WILL CONT TO MONITOR.
[2018-10-21] MEDS: LEVETIRACETAM SOL (5 ML) 100 MG/ML UDC PO SCH (21:39)
[2018-10-22] MEDS: ENOXAPARIN SODIUM 40 MG/0.4 ML DISP.SYRIN SQ SCH (00:58)
[2018-10-22 04:00] VITALS: BP 118/53
[2018-10-22] MEDS: PIPERACILLIN /TAZOBACTAM 3.375 G in IV D5W 100 ML IV SCH ×3 (04:40→20:13)
[2018-10-22 06:24] LABS: BASOPHILS # (AUTO) 0.1 /CMM (0.0-0.2); BASOPHILS % (AUTO) 1.8 % (0.0-2.0); EOSINOPHILS % (AUTO) 5.9 % (0.0-6.0); HEMATOCRIT 26 % (33-45); HEMOGLOBIN 8.2 g/dL (11.5-14.8); LYMPHOCYTES # (AUTO) 1.1 /CMM (0.8-4.8); LYMPHOCYTES % (AUTO) 22.7 % (20.0-44.0); MEAN CORPUSCULAR HGB CONC 32 g/dl (31.0-36.0); MEAN CORPUSCULAR VOLUME 85 fL (82-100); MONOCYTES # (AUTO) 0.4 /CMM (0.1-1.30); MONOCYTES % (AUTO) 7.7 % (2.0-12.0); NEUTROPHILS # (AUTO) 3.1 /CMM (1.8-8.9); NEUTROPHILS % (AUTO) 61.9 % (43.0-81.0); PLATELET COUNT (AUTO) 188 /CMM (150-450); RED BLOOD CELL COUNT(AUTO) 3.03 MIL/uL (4.0-5.2)
[2018-10-22 06:41] LABS: CALCIUM, SERUM 8.2 mg/dL (8.5-10.1); CARBON DIOXIDE 24 mmol/L (21-32); CHLORIDE 106 mmol/L (98-107); CREATININE 0.3 mg/dL (0.6-1.3); GLUCOSE 93 mg/dL (74-106); POTASSIUM 3.4 mmol/L (3.5-5.1); SODIUM SERUM 138 mmol/L (136-145); UREA NITROGEN, BLOOD 5 mg/dL (7-18)
--- NOTE | 2018-10-22 06:53 | NUR ---
MS RN CLOSING NOTES PATIENT RESTING IN BED, OPENS EYES BUT UNABLE TO FOLLOW COMMANDS. CAREGIVER AT BEDSIDE, ON OXYGEN 2L VIA NC, SATURATING 97-98%. IV SITE RIGHT HAND #18, FLUSHING AND PATENT, SITE C/D/I, IV FLUIDS RUNNING ORDERED. NO SOB, PAIN OR ACUTE DISTRESS NOTED. SAFETY MEASURES MAINTAINED THROUGHOUT SHIFT; BED LOCKED AND IN LOWEST POSITION, HOB ELEVATED AT ALL TIMES TO PREVENT ASPIRATION, CALL LIGHT WITHIN REACH, SIDE RAILS UP X2. ALL MD ORDERS ATTENDED, ALL NEEDS ANTICIPATED AND MET. WOUND TX ORDERED, REPOSITIONED Q2H. WILL ENDORSE TO AM NURSE FOR ALANIS.
[2018-10-22] MEDS ORDERED: POTASSIUM CHLORIDE 20 MEQ TAB.PRT.SR PO ONE (07:30)
--- NOTE | 2018-10-22 07:56 | NUR ---
RN INITIAL NOTES PT IS IN BED SLEEPING, OIL WELL CABLE TOOL OPERATOR IS AT THE BEDSIDE WITH THE PATIENT. PT IS ON NC 2L. BED IS AT THE LOWEST POSITION, CALL LIGHT WITHIN REACH OF THE PT. BED ALARM IS ON. WILL CONTINUE TO MONITOR FOR ANY CHANGES.
[2018-10-22 08:00] VITALS: BP 122/54
[2018-10-22] MEDS: SIMETHICONE 80 MG TAB.CHEW PO SCH ×4 (08:33→21:09)
[2018-10-22] MEDS: FOLIC ACID 1 MG TABLET PO SCH (08:34)
[2018-10-22] MEDS: PANTOPRAZOLE 40 MG TABLET.DR PO SCH ×2 (08:34→17:31)
[2018-10-22] MEDS: CLOTRIMAZOLE 1% 15 GM TUBE TP SCH ×2 (08:46→17:32)
[2018-10-22 09:45] LABS: IRON, SERUM 175 ug/dl (50-175); TOTAL IRON BINDING CAPACITY 256 ug/dl (250-450)
[2018-10-22] MEDS: POTASSIUM CHLORIDE 20 MEQ TAB.PRT.SR PO SCH ×3 (10:15→12:00)
[2018-10-22 10:31] LABS: FERRITIN 108 ng/mL (8-388)
[2018-10-22 12:00] VITALS: BP 122/54
[2018-10-22 16:00] VITALS: BP 124/61
[2018-10-22 16:15] VITALS: BP 124/61
[2018-10-22] MEDS: SOD FERRIC GLUC 125 MG in IV NS 0.9% 100 ML IV SCH (16:19)
--- NOTE | 2018-10-22 19:19 | NUR ---
RN CLOSING NOTE PT IS LAYING ON THE BED WITH DAUGHTER AT BED SIDE. FAMILY HAS REQUESTED A NEW IV SITE DUE TO LEAKAGE. IV INSERTION HAS BEEN ENDORSED TO ON COMING SHIFT. PT DOES NOT SHOW ANY SIGNS OF DISTRESS. ON 2L NC, 98 % O2 SAT. BED IS LOCKED IN A HIGH FOWLERS POSITION AND LOCKED. CALL LIGHT IS WITHIN REACH ALL SAFETY MEASURES HAVE BEEN MET. ALANIS HAS BEEN ENDORSED TO ONCOMING NURSE.
[2018-10-22] MEDS: LEVETIRACETAM SOL (5 ML) 100 MG/ML UDC PO SCH (21:10)
[2018-10-23] VITALS: BP 110/65
[2018-10-23] MEDS: ENOXAPARIN SODIUM 40 MG/0.4 ML DISP.SYRIN SQ SCH (00:13)
--- NOTE | 2018-10-23 00:40 | NUR ---
MS/RN NOTES PATIENT RECEIVED AT THIS TIME, IN NO ACUTE DISTRESS, RESPIRATION EVEN AND UNLABORED. NO SOB NOTED. NO S/S OF PAIN NOTED AT THIS TIME, CAREGIVER AT BED SIDE, PATIENT ON O2 2LPM VIA NC, SATURATION NOTED 96%. SAFETY MAINTAINED, BED AT THE LOWEST LOCKED POSITION. CALL LIGHT WITHIN REACH. WILL CONTINUE TO MONITOR PATIENT PER PLAN OF CARE.
--- NOTE | 2018-10-23 00:40 | NUR ---
GAVE REPORT TO
[2018-10-23] MEDS: PIPERACILLIN /TAZOBACTAM 3.375 G in IV D5W 100 ML IV SCH ×3 (03:41→20:21)
--- NOTE | 2018-10-23 06:41 | NUR ---
MS/RN NOTES PATIENT IN BED, SLEEPING COMFORTABLY AT THIS TIME, IN NO ACUTE DISTRESS, RESPIRATION EVEN AND UNLABORED. NO SOB NOTED. NO S/S OF PAIN NOTED AT THIS TIME, CAREGIVER AT BED SIDE, PATIENT ON O2 2LPM VIA NC, SATURATION NOTED 96%. IV SITE ON RIGHT HAND NOTED WITH NO S/S OF INFECTION, INFILTRATION. SAFETY MAINTAINED, BED AT THE LOWEST LOCKED POSITION. CALL LIGHT WITHIN REACH. WILL ENDORSE TO THE AM SHIFT NURSE FOR ALANIS.
[2018-10-23 07:05] LABS: BASOPHILS # (AUTO) 0.1 /CMM (0.0-0.2); BASOPHILS % (AUTO) 2.1 % (0.0-2.0); EOSINOPHILS % (AUTO) 5.3 % (0.0-6.0); HEMATOCRIT 28 % (33-45); HEMOGLOBIN 8.9 g/dL (11.5-14.8); LYMPHOCYTES # (AUTO) 1.1 /CMM (0.8-4.8); LYMPHOCYTES % (AUTO) 26.8 % (20.0-44.0); MEAN CORPUSCULAR HGB CONC 32 g/dl (31.0-36.0); MEAN CORPUSCULAR VOLUME 84 fL (82-100); MONOCYTES # (AUTO) 0.3 /CMM (0.1-1.30); MONOCYTES % (AUTO) 7.6 % (2.0-12.0); NEUTROPHILS # (AUTO) 2.5 /CMM (1.8-8.9); NEUTROPHILS % (AUTO) 58.2 % (43.0-81.0); PLATELET COUNT (AUTO) 207 /CMM (150-450); WHITE BLOOD COUNT (AUTO) 4.2 K/uL (4.3-11.0)
[2018-10-23 07:26] LABS: CALCIUM, SERUM 8.9 mg/dL (8.5-10.1); CARBON DIOXIDE 24 mmol/L (21-32); CHLORIDE 102 mmol/L (98-107); CREATININE 0.3 mg/dL (0.6-1.3); GLUCOSE 90 mg/dL (74-106); MAGNESIUM 1.9 mg/dL (1.8-2.4); PHOSPHORUS 3.1 mg/dL (2.5-4.9); SODIUM SERUM 136 mmol/L (136-145); UREA NITROGEN, BLOOD 4 mg/dL (7-18)
--- NOTE | 2018-10-23 07:40 | NUR ---
MS RN OPENING NOTES PATIENT IN BED, SLEEPING, IN NO ACUTE DISTRESS, RESPIRATION EVEN AND UNLABORED. NO SOB NOTED. NO S/S OF PAIN NOTED AT THIS TIME, CAREGIVER AT BED SIDE, PATIENT ON O2 2LPM VIA NC. IV SITE ON RIGHT HAND NOTED WITH NO S/S OF INFECTION, INFILTRATION. SAFETY MAINTAINED, BED AT THE LOWEST LOCKED POSITION. CALL LIGHT WITHIN REACH. WILL CONTINUE MONITOR.
[2018-10-23 08:00] VITALS: BP 106/59
[2018-10-23] MEDS: FOLIC ACID 1 MG TABLET PO SCH (08:13)
[2018-10-23] MEDS: PANTOPRAZOLE 40 MG TABLET.DR PO SCH ×2 (08:13→17:41)
[2018-10-23] MEDS: SIMETHICONE 80 MG TAB.CHEW PO SCH ×4 (08:14→21:03)
--- NOTE | 2018-10-23 08:57 | NUR ---
MS RN NOTE PER DAUGHTER'S REQUEST DISCONNECTED IV LINE ON THE RIGHT HAND 18G AT THIS TIME. MILD REDNESS BUT NOT INFILTRATION NOTED. PATIENT TOLERATED WELL. WILL CONTINUE TO MONITOR THE PATIENT.
[2018-10-23] MEDS: CLOTRIMAZOLE 1% 15 GM TUBE TP SCH ×2 (09:27→17:41)
--- NOTE | 2018-10-23 09:30 | NUR ---
MS RN NOTES PT REPORT GIVEN TO DORIE COOPER IN [place].PT TOLERATED WELL.NO SOB AND ACUTE DISTRESS NOTED.
--- NOTE | 2018-10-23 09:31 | NUR ---
MS/RN NOTES RECEIVED PATIENT FROM DORIE TINAJERO. PATIENT REMAINS IN STABLE CONDITION. WILL CONTINUE TO MONITOR CLOSELY. CAREGIVER AT BEDSIDE AT ALL TIMES.
[2018-10-23] MEDS: SOD FERRIC GLUC 125 MG in IV NS 0.9% 100 ML IV SCH (14:54)
[2018-10-23 16:00] VITALS: BP 124/59
--- NOTE | 2018-10-23 19:30 | NUR ---
MS/ RN CLOSING NOTES PATIENT CONTINUES TO REMAIN IN STABLE CONDITION. PROVIDED COMFORT AND SAFETY THROUGHOUT THE SHIFT. PATIENT IN BED AWAKE ALERT AND ABLE TO RESPOND TO TACTILE STIMULI. FAMILY MEMBER AT BEDSIDE AT ALL TIMES. RESPIRATION EVEN AND UNLABORED. SKIN IS DRY WARM TO TOUCH. NO PAIN OR ACUTE DISTRESS AT THIS TIME. PATIENT ON O2 2LPM VIA NC. TOLERATED WELL. IV SITE ON RIGHT HAND AND LEFT HAND. NOTED WITH NO S/S OF INFECTION, INFILTRATION. ALL NEEDS ANTICIPATED. KEPT CLEAN AND DRY. CALL LIGHT WITHIN REACHED. BED LOCKED AND IN LOWEST POSITION. WILL CONTINUE TO MONITOR. ENDORSED TO PM NURSE FOR ALANIS.
--- NOTE | 2018-10-23 19:30 | NUR ---
RN INITIAL NOTES: RECEIVED REPORT FROM TITI OSHEA. PT IN BED, AWAKE, MET WITH DAUGHTER AT BED SIDE, PT ON 2L OXYGEN VIA NC, RESPIRATIONS EVEN AND UNLABORED. DISCUSSED WITH PT'S DAUGHTER ABOUT PLAN OF CARE TONIGHT AND PLACING PT ON ISOLATION ESBL URINE, UTILIZATION OF PPE. IV ACCESS PATENT AND FLUSHING WELL, INFUSING WITH NS AT TKO. ANSWERED DAUGHTER'S QUESTION AND CONCERN. DAUGHTER REQUESTING FOR COPY OF LAB WORKS, PER UNDERCOLLAR MAKER SHE'S TAKING CARE OF IT AND WILL GIVE TO DAUGHTER ONCE DONE PRINTING. BLE OFFLOADED. FAMILY PARTICULAR WITH PT'S CARE. REASSURANCE PROVIDED. SAFETY PRECAUTIONS FOR FALL INITIATED, CALL LIGHT IN REACH, WILL CONTINUE MONITORING PT.
[2018-10-23 20:00] VITALS: BP 117/57
--- NOTE | 2018-10-23 20:00 | NUR ---
RN NOTES: EDUCATE PT'S DAUGHTER ABOUT USING GOWN AND GLOVES FOR EVERY PT'S CONTACT, PERFORMING HAND WASHING BEFORE AND AFTER TOUCHING PT AND BELONGINGS.
[2018-10-23] MEDS: LEVETIRACETAM SOL (5 ML) 100 MG/ML UDC PO SCH (21:03)
--- NOTE | 2018-10-23 21:10 | NUR ---
rn notes: assisted tester semiconductor packages in changing pt's diaper, wound care tx provided. oral care provided. kept on aspiration precautions, due meds administered.
--- NOTE | 2018-10-23 23:10 | NUR ---
RN NOTES; ASSISTED TRANSPORTATION DEPARTMENT SUPERVISOR IN CHANGING PT'S DIAPER AT THIS TIME
[2018-10-24] MEDS: ENOXAPARIN SODIUM 40 MG/0.4 ML DISP.SYRIN SQ SCH (00:25)
[2018-10-24] MEDS: PIPERACILLIN /TAZOBACTAM 3.375 G in IV D5W 100 ML IV SCH ×3 (03:56→21:19)
[2018-10-24 04:00] VITALS: BP 104/52
--- NOTE | 2018-10-24 05:00 | NUR ---
rn notes: assisted field associate in providing bed bath to the pt, changed pt's diaper, provide oral care
[2018-10-24 06:30] LABS: BASOPHILS # (AUTO) 0.2 /CMM (0.0-0.2); BASOPHILS % (AUTO) 3.6 % (0.0-2.0); EOSINOPHILS % (AUTO) 3.9 % (0.0-6.0); HEMATOCRIT 26 % (33-45); HEMOGLOBIN 8.4 g/dL (11.5-14.8); LYMPHOCYTES # (AUTO) 1.6 /CMM (0.8-4.8); LYMPHOCYTES % (AUTO) 34.1 % (20.0-44.0); MEAN CORPUSCULAR HGB CONC 32 g/dl (31.0-36.0); MEAN CORPUSCULAR VOLUME 85 fL (82-100); MONOCYTES # (AUTO) 0.3 /CMM (0.1-1.30); MONOCYTES % (AUTO) 5.7 % (2.0-12.0); NEUTROPHILS # (AUTO) 2.5 /CMM (1.8-8.9); NEUTROPHILS % (AUTO) 52.7 % (43.0-81.0); PLATELET COUNT (AUTO) 232 /CMM (150-450); RED BLOOD CELL COUNT(AUTO) 3.11 MIL/uL (4.0-5.2); WHITE BLOOD COUNT (AUTO) 4.7 K/uL (4.3-11.0)
--- NOTE | 2018-10-24 06:30 | NUR ---
rn closing notes: pt in bed, remains aphasic, on 2l oxygen via nc respirations even and unlabored. no facial grimace noted. remains on aspiration precautions. iv access kept patent and flushing well, on hl. no s/s of iv infiltration noted. total of 6diaper changed through out the shift. ble kept offloaded. vs remains stable, needs attended. dr foley aware of family request for different MD, rn lvn aware. safety precautions for fall remains engaged, on isolation, will endorse to day rn for continuity of care.
[2018-10-24 06:45] LABS: CALCIUM, SERUM 8.8 mg/dL (8.5-10.1); CARBON DIOXIDE 27 mmol/L (21-32); CHLORIDE 104 mmol/L (98-107); CREATININE 0.4 mg/dL (0.6-1.3); GLUCOSE 92 mg/dL (74-106); POTASSIUM 3.9 mmol/L (3.5-5.1); SODIUM SERUM 139 mmol/L (136-145); UREA NITROGEN, BLOOD 6 mg/dL (7-18)
--- NOTE | 2018-10-24 07:30 | NUR ---
ms rn notes received pt in bed, asleep but arousable. pt is nonverbal. vs stable. on 2L nc. r hand 22g on tko. no s/sx of infiltration. pt has dry diaper on. bed alarm on. isolation precautions maintained. bed in locked/lowest position. call light in reach. will cont to monitor.
[2018-10-24 08:00] VITALS: BP 110/72
[2018-10-24] MEDS: SIMETHICONE 80 MG TAB.CHEW PO SCH ×4 (08:15→21:20)
[2018-10-24] MEDS: FOLIC ACID 1 MG TABLET PO SCH (08:15)
[2018-10-24] MEDS: PANTOPRAZOLE 40 MG TABLET.DR PO SCH (08:15)
[2018-10-24] MEDS: CLOTRIMAZOLE 1% 15 GM TUBE TP SCH ×2 (09:25→17:22)
[2018-10-24] MEDS: ACETYLCYSTEINE 10% SOLN 400 MG/4 ML VIAL NEB SCH ×2 (12:00→15:30)
[2018-10-24] MEDS: BISACODYL SUPP (10 MG) 10 MG/SUPP.RECT SUPP.RECT RC PRN (14:49)
[2018-10-24] MEDS: SOD FERRIC GLUC 125 MG in IV NS 0.9% 100 ML IV SCH (14:49)
[2018-10-24 16:00] VITALS: BP_SYST 119; BP_SYST 87; BP_DIAS 58; BP_DIAS 60
[2018-10-24 18:00] VITALS: BP 114/89
--- NOTE | 2018-10-24 18:32 | NUR ---
ms rn notes pt in bed, daughter at bedside. daughter fed all 3 meals. vs remained stable throughout shift. no labored breathing. on 2l nc. pt non verbal; opens eyes and tracks. wound tx rendered as ordered. daughter (radha) updated with poc. dr garcia rounded with pt. will endorse to pm nurse for dafne.
[2018-10-24 20:00] VITALS: BP 113/65
--- NOTE | 2018-10-24 20:00 | NUR ---
RN INITIAL NOTES: RECEIVED REPORT FROM AM RN. PT IN BED, AWAKE, MET WITH DAUGHTER AT BED SIDE, PT ON 2L OXYGEN VIA NC, RESPIRATIONS EVEN AND UNLABORED. DISCUSSED WITH PT'S DAUGHTER ABOUT PLAN OF CARE TONIGHT. PT IS ON ISOLATION IV ACCESS PATENT AND FLUSHING WELL SL.. ANSWERED DAUGHTER'S QUESTION AND CONCERN. BLE OFFLOADED. FAMILY PARTICULAR WITH PT'S CARE. REASSURANCE PROVIDED. SAFETY PRECAUTIONS FOR FALL INITIATED, CALL LIGHT IN REACH, WILL CONTINUE MONITORING PT.
[2018-10-24] MEDS: LEVETIRACETAM SOL (5 ML) 100 MG/ML UDC PO SCH (21:19)
[2018-10-24] MEDS: PANTOPRAZOLE 40 MG/PACK PACK GT SCH (21:20)
[2018-10-25] MEDS: ENOXAPARIN SODIUM 40 MG/0.4 ML DISP.SYRIN SQ SCH (00:01)
[2018-10-25] MEDS: ACETYLCYSTEINE 10% SOLN 400 MG/4 ML VIAL NEB SCH ×4 (00:05→22:45)
--- NOTE | 2018-10-25 01:00 | NUR ---
RT NO CPT AT THIS TIME DUE TO LACK OF EQUIPMENT Addendum: 10/25/18 at 0641 by MARY BOLDEN RT Amended: Links added.
[2018-10-25 04:00] VITALS: BP 114/89
[2018-10-25] MEDS: PIPERACILLIN /TAZOBACTAM 3.375 G in IV D5W 100 ML IV SCH ×2 (04:24→11:23)
[2018-10-25 06:46] LABS: CALCIUM, SERUM 8.7 mg/dL (8.5-10.1); CARBON DIOXIDE 27 mmol/L (21-32); CHLORIDE 105 mmol/L (98-107); CREATININE 0.3 mg/dL (0.6-1.3); GLUCOSE 95 mg/dL (74-106); POTASSIUM 3.3 mmol/L (3.5-5.1); SODIUM SERUM 141 mmol/L (136-145); UREA NITROGEN, BLOOD 6 mg/dL (7-18)
[2018-10-25 06:56] LABS: BASOPHILS # (AUTO) 0.1 /CMM (0.0-0.2); BASOPHILS % (AUTO) 1.6 % (0.0-2.0); HEMATOCRIT 27 % (33-45); HEMOGLOBIN 8.8 g/dL (11.5-14.8); LYMPHOCYTES # (AUTO) 1.5 /CMM (0.8-4.8); LYMPHOCYTES % (AUTO) 27.3 % (20.0-44.0); MEAN CORPUSCULAR HGB CONC 32 g/dl (31.0-36.0); MEAN CORPUSCULAR VOLUME 85 fL (82-100); MONOCYTES # (AUTO) 0.3 /CMM (0.1-1.30); MONOCYTES % (AUTO) 5.8 % (2.0-12.0); NEUTROPHILS # (AUTO) 3.3 /CMM (1.8-8.9); NEUTROPHILS % (AUTO) 62.3 % (43.0-81.0); PLATELET COUNT (AUTO) 240 /CMM (150-450); RED BLOOD CELL COUNT(AUTO) 3.22 MIL/uL (4.0-5.2); WHITE BLOOD COUNT (AUTO) 5.4 K/uL (4.3-11.0)
--- NOTE | 2018-10-25 07:45 | NUR ---
RN OPENING NOTES RECEIVED REPORT FROM MUSHROOM FARMER RN. PT IS RESTING IN BED ON 2L O2 VIA NC. FURNACE MAINTENANCE AT BEDSIDE. PT APPEARS TO BE IN NO RESPIRATORY DISTRESS OR PAIN AT PRESENT MOMENT. BED IS LOCKED AND IN LOWEST POSITION IN HIGH BLUNT POSITION PER FAMILY REQUEST. WILL CONTINUE TO MONITOR.
[2018-10-25 08:00] VITALS: BP 138/59
[2018-10-25] MEDS: PANTOPRAZOLE 40 MG/PACK PACK GT SCH ×2 (08:27→21:48)
[2018-10-25] MEDS: SIMETHICONE 80 MG TAB.CHEW PO SCH ×4 (08:28→21:48)
[2018-10-25] MEDS: FOLIC ACID 1 MG TABLET PO SCH (08:28)
[2018-10-25] MEDS: CLOTRIMAZOLE 1% 15 GM TUBE TP SCH ×2 (08:28→17:36)
[2018-10-25] MEDS ORDERED: POTASSIUM CHLORIDE 20 MEQ TAB.PRT.SR PO SCH (10:00)
[2018-10-25] MEDS: IPRATROPIUM NEB FS 0.5 MG/2.5 ML AMPUL.NEB NEB SCH ×3 (12:55→22:45)
[2018-10-25] MEDS: SOD FERRIC GLUC 125 MG in IV NS 0.9% 100 ML IV SCH (15:16)
[2018-10-25 16:00] VITALS: BP 140/72
[2018-10-25] MEDS: ENSURE ENLIVE 237 ML LIQUID (VANILLA) PO SCH (17:36)
--- NOTE | 2018-10-25 17:46 | NUR ---
SPOKE WITH DAUGHTER OVER THE PHONE. DAUGHTER IS REQUESTING A UROLOGIST CONSULT AND FOR PHYSICAL THERAPY TO COME AND SIT MOTHER AT EDGE OF BED. MESSAGED AND AWAITING ORDERS.
--- NOTE | 2018-10-25 19:03 | NUR ---
RN CLOSING NOTES PT IS RESTING IN BED WITH CAREGIVER AT BEDSIDE. PT IS IN HIGH BLUNT'S POSITION FOR ASPIRATION PRECAUTIONS. PT DOES NOT APPEAR TO BE IN PAIN OR SOB AT PRESENT MOMENT. NO ACUTE CHANGES OCCURES. ALL NEEDS AND SAFETY PRECAUTION IN PLACE. BED IS LOCKED AND IN LOWEST POSITION WITH CALL LIGHT IN REACH. WILL ENDORSE CONTINUITY OF CARE TO HAND DRY CLEANER RN.
[2018-10-25 20:00] VITALS: BP 93/49
[2018-10-25] MEDS: LEVETIRACETAM SOL (5 ML) 100 MG/ML UDC PO SCH (21:48)
[2018-10-26] MEDS: ENOXAPARIN SODIUM 40 MG/0.4 ML DISP.SYRIN SQ SCH (00:49)
--- NOTE | 2018-10-26 00:51 | NUR ---
RT NOTES UNABLE TO PERFORM CPT BECAUSE PT WAS ASLEEP. NO DISTRESS NOTED. TX GIVEN WITH NO ADVERSE EFFECTS. SITTER AT BEDSIDE. EXPLAINED REASON TO WHY CPT NOT ADMINISTERED AND CAREGIVER AGREED. WILL CONT TO MONITOR PT FOR REST OF SHIFT.
[2018-10-26 04:00] VITALS: BP 115/87
[2018-10-26 06:38] LABS: BASOPHILS # (AUTO) 0.1 /CMM (0.0-0.2); BASOPHILS % (AUTO) 1.4 % (0.0-2.0); EOSINOPHILS % (AUTO) 1.8 % (0.0-6.0); HEMATOCRIT 28 % (33-45); HEMOGLOBIN 8.8 g/dL (11.5-14.8); LYMPHOCYTES # (AUTO) 1.5 /CMM (0.8-4.8); LYMPHOCYTES % (AUTO) 24.7 % (20.0-44.0); MEAN CORPUSCULAR HGB CONC 32 g/dl (31.0-36.0); MEAN CORPUSCULAR VOLUME 86 fL (82-100); MONOCYTES # (AUTO) 0.3 /CMM (0.1-1.30); MONOCYTES % (AUTO) 5.2 % (2.0-12.0); NEUTROPHILS # (AUTO) 4.1 /CMM (1.8-8.9); NEUTROPHILS % (AUTO) 66.9 % (43.0-81.0); PLATELET COUNT (AUTO) 256 /CMM (150-450); RED BLOOD CELL COUNT(AUTO) 3.23 MIL/uL (4.0-5.2); WHITE BLOOD COUNT (AUTO) 6.1 K/uL (4.3-11.0)
--- NOTE | 2018-10-26 06:47 | NUR ---
RN NOTES, PATIENT IN STABLE CONDITION WITH STABLE VS, NO SIGNIFICANT CHANGE IN CONDITION DURING THE NIGHT, CAREGIVER AT BEDSIDE, HOB ELEVATED AT ALL TIME, WILL ENDORSE CONTINUITY OF CARE TO ONCOMING NURSE.
[2018-10-26 06:53] LABS: CALCIUM, SERUM 8.9 mg/dL (8.5-10.1); CARBON DIOXIDE 31 mmol/L (21-32); CHLORIDE 105 mmol/L (98-107); CREATININE 0.3 mg/dL (0.6-1.3); GLUCOSE 87 mg/dL (74-106); PHOSPHORUS 3.4 mg/dL (2.5-4.9); POTASSIUM 3.9 mmol/L (3.5-5.1); SODIUM SERUM 141 mmol/L (136-145); UREA NITROGEN, BLOOD 7 mg/dL (7-18)
--- NOTE | 2018-10-26 07:23 | NUR ---
MS/RN OPENING NOTE PATIENT IN BED IN STABLE CONDITION. A/O X 1, NON VERBAL, NO SIGNS OF ACUTE DISTRESS. NO COMPLAIN OF PAIN OR DISCOMFORT. ON CONTACT ISOLATION FOR ESBL URINE. CAREGIVER AT BEDSIDE. ALL NEEDS ATTENDED TO. CALL LIGHT WITHIN REACH.WILL CONTINUE TO MONITOR TO ENSURE SAFETY.
[2018-10-26] MEDS: ACETYLCYSTEINE 10% SOLN 400 MG/4 ML VIAL NEB SCH ×2 (07:31→14:11)
[2018-10-26] MEDS: IPRATROPIUM NEB FS 0.5 MG/2.5 ML AMPUL.NEB NEB SCH ×3 (07:32→20:12)
[2018-10-26 08:00] VITALS: BP 120/61
[2018-10-26] MEDS: PANTOPRAZOLE 40 MG/PACK PACK GT SCH (08:06)
[2018-10-26] MEDS: SIMETHICONE 80 MG TAB.CHEW PO SCH ×4 (08:06→22:00)
[2018-10-26] MEDS: FOLIC ACID 1 MG TABLET PO SCH (08:06)
[2018-10-26] MEDS: ENSURE ENLIVE 237 ML LIQUID (VANILLA) PO SCH ×2 (08:06→16:27)
[2018-10-26] MEDS: CLOTRIMAZOLE 1% 15 GM TUBE TP SCH ×2 (08:11→17:08)
--- NOTE | 2018-10-26 10:30 | NUR ---
MS/RN SEEN BY DR REID AND NOTIFIED FAMILY REQUESTING FOR UROLOGY CONSULT SECONDARY TO PATIENT HAVING FREQUENT UTI. PER DR REID AT THIS MOMENT UROLOGY WON'T BE ABLE TO HELP UNTIL UTI IS CLEARED, CURRENTLY ON ATB NITROFURANTOIN. CAREGIVER AWARE.
[2018-10-26 16:00] VITALS: BP 96/55
--- NOTE | 2018-10-26 18:23 | NUR ---
MS/RN CLOSING NOTE PATIENT IN BED IN STABLE CONDITION. NON VERBAL, OPEN EYES. NO SIGNS OF ACUTE DISTRESS. NO COMPLAIN OF PAIN OR DISCOMFORT. ON CONTACT ISOLATION SECONDARY TO ESBL POSITIVE FOR URINE. ALL NEEDS ATTENDED TO. 1:1 CAREGIVER AT BEDSIDE PROVIDED BY FAMILY. WILL ENDORSE TO NEXT SHIFT FOR CONTINUITY OF CARE.
--- NOTE | 2018-10-26 19:35 | NUR ---
MS/RN OPENING NOTE RECEIVED PATIENT IN BED IN STABLE CONDITION. A/O X 1, NON VERBAL, NO SIGNS OF ACUTE RESPIRATORY DISTRESS. NO COMPLAINTS OF PAIN OR DISCOMFORT. ON CONTACT ISOLATION FOR ESBL URINE. CAREGIVER AT BEDSIDE. ALL NEEDS ATTENDED TO. SAFETY MEASURES INPLACE, ASPIRATION PRECAUTION EMPHASIZE, CALL LIGHT WITHIN REACH.WILL CONTINUE TO MONITOR ACCORDINGLY.
[2018-10-26 20:00] VITALS: BP 132/77
[2018-10-26] MEDS ORDERED: PANTOPRAZOLE 40 MG VIAL IV SCH (22:00)
[2018-10-26] MEDS ORDERED: PANTOPRAZOLE 40 MG VIAL ONE (22:35)
[2018-10-26] MEDS: LEVETIRACETAM SOL (5 ML) 100 MG/ML UDC PO SCH (22:37)
[2018-10-26] MEDS: NITROFURANTOIN/NITROFURAN MAC 100 MG CAPSULE PO SCH (22:37)
[2018-10-27] MEDS: ACETYLCYSTEINE 10% SOLN 400 MG/4 ML VIAL NEB SCH ×3 (00:33→14:31)
[2018-10-27] MEDS: IPRATROPIUM NEB FS 0.5 MG/2.5 ML AMPUL.NEB NEB SCH ×4 (00:33→19:57)
[2018-10-27 04:00] VITALS: BP 134/62
[2018-10-27 04:36] VITALS: BP 134/62
--- NOTE | 2018-10-27 07:21 | NUR ---
RN NOTES ALL NEEDS ATTENDED AND MET, ABLE TO REST AND SLEPT COMFORTABLY, KEPT CLEAN AND DRY, NO SIGNS OF PAIN AT THIS TIME, CAREGIVER AT BEDSIDE. WILL ENDORSE TO AM NURSE FOR CONTINUITY OF CARE.
[2018-10-27] MEDS ORDERED: PANTOPRAZOLE 40 MG TABLET.DR PO SCH (07:30)
[2018-10-27 07:31] LABS: BASOPHILS # (AUTO) 0.1 /CMM (0.0-0.2); BASOPHILS % (AUTO) 1.3 % (0.0-2.0); EOSINOPHILS % (AUTO) 2.9 % (0.0-6.0); HEMATOCRIT 28 % (33-45); HEMOGLOBIN 9.2 g/dL (11.5-14.8); LYMPHOCYTES # (AUTO) 1.5 /CMM (0.8-4.8); LYMPHOCYTES % (AUTO) 27.9 % (20.0-44.0); MEAN CORPUSCULAR HGB CONC 32 g/dl (31.0-36.0); MEAN CORPUSCULAR VOLUME 86 fL (82-100); MONOCYTES # (AUTO) 0.3 /CMM (0.1-1.30); MONOCYTES % (AUTO) 5.3 % (2.0-12.0); NEUTROPHILS # (AUTO) 3.4 /CMM (1.8-8.9); NEUTROPHILS % (AUTO) 62.6 % (43.0-81.0); PLATELET COUNT (AUTO) 262 /CMM (150-450); RED BLOOD CELL COUNT(AUTO) 3.31 MIL/uL (4.0-5.2); WHITE BLOOD COUNT (AUTO) 5.4 K/uL (4.3-11.0)
[2018-10-27 07:42] LABS: CALCIUM, SERUM 9.2 mg/dL (8.5-10.1); CARBON DIOXIDE 29 mmol/L (21-32); CHLORIDE 103 mmol/L (98-107); CREATININE 0.4 mg/dL (0.6-1.3); GLUCOSE 93 mg/dL (74-106); POTASSIUM 3.8 mmol/L (3.5-5.1); SODIUM SERUM 140 mmol/L (136-145); UREA NITROGEN, BLOOD 7 mg/dL (7-18)
[2018-10-27 08:00] VITALS: BP 154/98
[2018-10-27] MEDS: FOLIC ACID 1 MG TABLET PO SCH (09:04)
[2018-10-27] MEDS: SIMETHICONE 80 MG TAB.CHEW PO SCH ×4 (09:04→21:05)
[2018-10-27] MEDS: ENSURE ENLIVE 237 ML LIQUID (VANILLA) PO SCH ×2 (09:10→17:00)
[2018-10-27] MEDS: PANTOPRAZOLE 40 MG/PACK PACK PO SCH ×2 (10:46→21:06)
[2018-10-27] MEDS: Z GUARD REMEDY 2 OZ OINT TP PRN (10:46)
[2018-10-27] MEDS ORDERED: ENOXAPARIN SODIUM 40 MG/0.4 ML DISP.SYRIN SQ SCH (12:00)
[2018-10-27] MEDS: CLOTRIMAZOLE 1% 15 GM TUBE TP SCH ×2 (13:11→17:39)
--- NOTE | 2018-10-27 14:41 | NUR ---
patient in from OR per bed sleeping, arousable. ivf resumed, with orders to resume all orders, vital signs checked and recorded Addendum: 10/27/18 at 1443 by FAY SINGH RN not for this patient mistakenly placed in this chart, clarification of ole
[2018-10-27] MEDS ORDERED: LEVE100S PO (14:42)
[2018-10-27] MEDS ORDERED: NITR100C15 PO (14:42)
[2018-10-27] MEDS ORDERED: PANT40SU2 PO (14:42)
[2018-10-27 16:00] VITALS: BP 94/52
--- NOTE | 2018-10-27 16:41 | NUR ---
patient with orders for discharge and ion the process .
--- NOTE | 2018-10-27 16:45 | NUR ---
MS RN NOTES PT ALANIS GIVEN BY DORIE APONTE.RECEIVED PT LYING ON BED WITH NC 2LPM O2 CONTINUOUSLY.NO SOB AND ACUTE DISTRESS NOTED.CAREGIVER IS AT BEDSIDE.NO SOB AND ACUTE DISTRESS NOTED.IV LINE IS ON RIGHT HAND G22,SL AND LEFT WRIST G24,SL.IV SITE IS CLEAN,DRY AND INTACT.NO INFILTRATION NOTED.BED IS IN LOW POSITION AND LOCKED,CALL LIGHT IS WITHIN REACH.WILL CONTINUE TO MONITOR THE PT CLOSELY.
--- NOTE | 2018-10-27 18:35 | NUR ---
MS RN CLOSING NOTES PT IS LYING ON BED WITH THE CAREGIVER IS AT BEDSIDE.ALL MEDS ARE GIVEN.NO SOB AND ACUTE DISTRESS NOTED.WILL ENDORSE TO HOSE BUILDER RN FOR ALANIS.
--- NOTE | 2018-10-27 19:15 | NUR ---
MS RN OPENING NOTES RECEIVED PATIENT IN BED, AWAKE, NONVERBAL. ON OXYGEN 2L VIA NC 2LPM, NO SOB AND ACUTE DISTRESS NOTED. CAREGIVER IS AT BEDSIDE. NO WORKING IV NOTED, WILL INSERT NEW IV. SAFETY MEASURES IN PLACE; BED IS IN LOW POSITION AND LOCKED, CALL LIGHT IS WITHIN REACH, SIDE RAILS UP X2, HOB ELEVATED FOR ASPIRATION PRECAUTIONS, ON ISOLATION PRECAUTION FOR ESBL URINE. WILL CONTINUE TO MONITOR PT.
[2018-10-27 20:00] VITALS: BP 132/73
[2018-10-27] MEDS: NITROFURANTOIN/NITROFURAN MAC 100 MG CAPSULE PO SCH (21:06)
[2018-10-27] MEDS: LEVETIRACETAM SOL (5 ML) 100 MG/ML UDC PO SCH (21:06)
[2018-10-27] MEDS: ENOXAPARIN SODIUM 40 MG/0.4 ML DISP.SYRIN SQ SCH (21:07)
[2018-10-28] MEDS: IPRATROPIUM NEB FS 0.5 MG/2.5 ML AMPUL.NEB NEB SCH ×4 (01:36→19:26)
[2018-10-28] MEDS: ACETYLCYSTEINE 10% SOLN 400 MG/4 ML VIAL NEB SCH ×3 (01:37→14:59)
--- NOTE | 2018-10-28 01:50 | NUR ---
MS RN NOTES GAVE REPORT TO DORIE WALKER FOR ALANIS.
--- NOTE | 2018-10-28 01:55 | NUR ---
MS RN NOTE PATIENT REPORT GIVEN BEDSIDE, FAMILY IN ROOM. PATIENT SLEEPING COMFORTABLY NO S/S OF ACUTE DISTRESS BREATHING EVEN AND UNLABORED SKIN COLOR WNL. RN WILL CONTINUE TO MONITOR. CALL LIGHT WITHIN REACH. SAFETY PRECAUTIONS IN PLACE.
[2018-10-28 04:00] VITALS: BP 131/66
--- NOTE | 2018-10-28 06:32 | NUR ---
MS RN NOTE PATIENT TOLERATED THE NIGHT WELL. NO S/S OF ACUTE DISTRESS. CARE GIVEN ORDERED. RN WILL ENDORSE TO AM POC FOR ALANIS.
[2018-10-28 08:00] VITALS: BP 131/59
--- NOTE | 2018-10-28 08:33 | NUR ---
MS RN OPENING NOTE RECEIVED PATIENT WITH REPORT GIVEN BEDSIDE. PATIENT IN BED ASLEEP WITH CAREGIVER AT BEDSIDE. NO SOB OR ACUTE DISTRESS NOTED. BREATHING EVEN AND UNLABORED. R HAND #22 IV INTACT AND PATENT. SKIN COLOR WNL. RN WILL CONTINUE TO MONITOR. CALL LIGHT WITHIN REACH. SAFETY PRECAUTIONS IN PLACE.
[2018-10-28] MEDS: SIMETHICONE 80 MG TAB.CHEW PO SCH ×4 (09:55→21:16)
[2018-10-28] MEDS: CLOTRIMAZOLE 1% 15 GM TUBE TP SCH ×2 (09:56→16:59)
[2018-10-28] MEDS: FOLIC ACID 1 MG TABLET PO SCH (09:56)
[2018-10-28] MEDS: PANTOPRAZOLE 40 MG/PACK PACK PO SCH ×2 (09:57→21:16)
[2018-10-28] MEDS: ENSURE ENLIVE 237 ML LIQUID (VANILLA) PO SCH ×2 (09:57→16:58)
[2018-10-28] MEDS: BISACODYL SUPP (10 MG) 10 MG/SUPP.RECT SUPP.RECT RC PRN (10:23)
--- NOTE | 2018-10-28 14:00 | NUR ---
MS RN NOTE WOUND CARE COMPLETED ORDERED.
[2018-10-28 16:00] VITALS: BP 105/61
--- NOTE | 2018-10-28 19:07 | NUR ---
MS RN CLOSING NOTE PATIENT IN BED AWAKE WITH FAMILY AT BEDSIDE. NO SOB OR ACUTE DISTRESS NOTED. BREATHING EVEN AND UNLABORED. R HAND #22 IV INTACT AND PATENT. SKIN COLOR WNL. ALL WOUND CARE COMPLETED. PATEINT TURNED [id number]. ALL NURSING CARE RENDERED ORDERED. CALL LIGHT WITHIN REACH. SAFETY PRECAUTIONS IN PLACE. CARE ENDORSED TO FIRST CALENDER WORKER RN.
--- NOTE | 2018-10-28 19:30 | NUR ---
MS/RN NOTES RECEIVED PT. LYING IN BED. PT. IS AWAKE, ALERT AND ORIENTED TO SELF, NON-VERBAL. BREATHING EVEN AND UNLABORED ON 2LPM O2 VIA NC. NO SOB, RESPIRATORY DISTRESS OR S/S OF PAIN NOTED AT THIS TIME. PT. WITH RIGHT HAND 22 GAUGE IV SALINE LOCK PRESENT, PATENT AND INTACT. PT. FAMILY MEMBER PRESENT AT BEDSIDE. ISOLATION, ASPIRATION AND SAFETY PRECAUTIONS IMPLEMENTED AND IN PLACE. BED LOCKED AND IN LOWEST POSITION, SIDE RAILS UP X3, BED ALARM ON, CALL LIGHT WITHIN REACH, WILL CONTINUE TO MONITOR.
[2018-10-28 20:00] VITALS: BP 108/58
[2018-10-28] MEDS: NITROFURANTOIN/NITROFURAN MAC 100 MG CAPSULE PO SCH (21:17)
[2018-10-28] MEDS: LEVETIRACETAM SOL (5 ML) 100 MG/ML UDC PO SCH (21:17)
[2018-10-28] MEDS: ENOXAPARIN SODIUM 40 MG/0.4 ML DISP.SYRIN SQ SCH (21:19)
[2018-10-29] MEDS: IPRATROPIUM NEB FS 0.5 MG/2.5 ML AMPUL.NEB NEB SCH ×4 (00:50→19:54)
[2018-10-29] MEDS: ACETYLCYSTEINE 10% SOLN 400 MG/4 ML VIAL NEB SCH ×4 (00:50→23:33)
[2018-10-29 04:00] VITALS: BP 113/71
--- NOTE | 2018-10-29 06:56 | NUR ---
MS/RN NOTES PT. IS LYING IN BED RESTING. BREATHING EVEN AND UNLABORED ON 2LPM O2 VIA NC. NO SOB, RESPIRATORY DISTRESS OR S/S OF PAIN NOTED AT THIS TIME. PT. WITH RIGHT HAND 22 GAUGE IV SALINE LOCK PRESENT, PATENT AND INTACT. PT. CAREGIVER PRESENT AT BEDSIDE. ALL PT. NEEDS MET. PT. OFFLOADED, TURNED AND REPOSITIONED Q2H AND NEEDED. ISOLATION, ASPIRATION AND SAFETY PRECAUTIONS IMPLEMENTED AND IN PLACE. BED LOCKED AND IN LOWEST POSITION, SIDE RAILS UP X3, BED ALARM ON, CALL LIGHT WITHIN REACH, WILL ENDORSE TO DAYSMDFT NURSE FOR CONTINUITY OF CARE.
--- NOTE | 2018-10-29 07:35 | NUR ---
MS RN OPENING NOTE RECEIVED PATIENT WITH REPORT GIVEN BEDSIDE. PATIENT IN BED ASLEEP WITH CAREGIVER AT BEDSIDE. NO SOB OR ACUTE DISTRESS NOTED. BREATHING EVEN AND UNLABORED. R HAND #22 IV INTACT AND PATENT. SKIN COLOR WNL. BED IS LOW AND IN LOCKED POSITION. CALL LIGHT WITHIN REACH. SRX4.SAFETY PRECAUTIONS IN PLACE.WILL CONTINUE TO MONITOR.
[2018-10-29 08:00] VITALS: BP 118/61
[2018-10-29] MEDS: PANTOPRAZOLE 40 MG/PACK PACK PO SCH ×2 (08:28→21:40)
[2018-10-29] MEDS: SIMETHICONE 80 MG TAB.CHEW PO SCH ×4 (08:28→21:40)
[2018-10-29] MEDS: FOLIC ACID 1 MG TABLET PO SCH (08:28)
[2018-10-29] MEDS: CLOTRIMAZOLE 1% 15 GM TUBE TP SCH ×2 (08:29→17:56)
[2018-10-29] MEDS: ENSURE ENLIVE 237 ML LIQUID (VANILLA) PO SCH ×2 (08:30→17:56)
--- NOTE | 2018-10-29 13:00 | NUR ---
MS RN NOTE DAUGHTER WANT TO BE THE DOCTOR FOR THE PATIENT , MADE AWARE ABOUT REQUEST.WILL TALK TO DAIRY TECHNOLOGIST JEANETTE WILL PLAN ABOUT IT. SPOKE TO THE PATIENT DAUGHTER AND AGREED PLAN OF CARE.
--- NOTE | 2018-10-29 15:00 | NUR ---
MS RN NOTE JEN REID MADE AWARE ABOUT PATIENT CONDITION ,MORE LETHARGIC AND SLEEPY.VITAL SIGNS STABLE.OPEN EYES .JEN REID SEEN THE PATIENT AND ANSWERED ALL THE QUESTIONS.WILL CONTINUE TO MONITOR.
[2018-10-29 16:00] VITALS: BP 93/56
--- NOTE | 2018-10-29 16:56 | NUR ---
MS RN NOTE SEEN BY ,UPDATED ABOUT PATIENT CONDITION,SLEEPINESS AND LETHARGIC.SPOKE TO DAUGHTER AND ANSWERED ALL THE QUESTIONS.WILL CONTINUE TO MONITOR.
--- NOTE | 2018-10-29 18:19 | NUR ---
MS RN CLOSING NOTE PATIENT IN BED AWAKE.FAMILY AT BEDSIDE. NO SOB OR ACUTE DISTRESS NOTED. BREATHING EVEN AND UNLABORED.ON O2 2L VIA NASAL CANULA. R HAND #22 IV INTACT AND PATENT. SKIN COLOR WNL. BED IS LOW AND IN LOCKED POSITION. CALL LIGHT WITHIN REACH. SRX4.SAFETY PRECAUTIONS IN PLACE.ENDORSED TO PM NURSE FOR ALANIS.
--- NOTE | 2018-10-29 19:00 | NUR ---
RN MS OPENING NOTES RECEIVED PATIENT IN BED AWAKE , NON VERBAL EYES OPEN, RESPIRATIONS EVEN AND UNLABORED WITH EQUAL RISE AND FALL OF CHEST, APPEARS TO BE COMFORTABLE AT THIS TIME, NO FACIAL GRIMACING, NO RESPIRATORY DISTRESS PRESENT,ON 2 L VIA NC 02 SAT 96%, HEAD OF BED ELEVATED FOR ASPIRATION PRECAUTION PRECAUTIONS, IV SITE TO RIGHT HAND #22 G INTACT AND PATENT, SL, NO REDNESS, NO INFILTRATION PRESENT. ORIENTED TO STAFF AND CALL LIGHT AND KEPT WITHIN REACH, SAFETY PRECAUTIONS IN PLACE, FAMILY AT BEDSIDE, FALL PRECAUTIONS RENDERED ALL NEEDS ATTENDED AT THIS TIME.
[2018-10-29 20:00] VITALS: BP 117/63
[2018-10-29] MEDS: NITROFURANTOIN/NITROFURAN MAC 100 MG CAPSULE PO SCH (21:40)
[2018-10-29] MEDS: LEVETIRACETAM SOL (5 ML) 100 MG/ML UDC PO SCH (21:40)
[2018-10-29] MEDS: ENOXAPARIN SODIUM 40 MG/0.4 ML DISP.SYRIN SQ SCH (21:40)
[2018-10-30] MEDS: IPRATROPIUM NEB FS 0.5 MG/2.5 ML AMPUL.NEB NEB SCH ×4 (01:56→20:18)
[2018-10-30 04:00] VITALS: BP 101/58
--- NOTE | 2018-10-30 06:22 | NUR ---
RN MS CLOSING NOTES PATIENT IN BED AWAKE , NON VERBAL EYES OPEN, RESPIRATIONS EVEN AND UNLABORED WITH EQUAL RISE AND FALL OF CHEST, APPEARS TO BE COMFORTABLE AT THIS TIME, NO FACIAL GRIMACING, NO RESPIRATORY DISTRESS PRESENT,ON 2 L VIA NC 02 SAT 96-99%, HEAD OF BED ELEVATED FOR ASPIRATION PRECAUTION PRECAUTIONS, SUCTIONED NEEDED, SMALL THIN SECRETIONS NOTED WHITE, IV SITE TO RIGHT HAND #22 G INTACT AND PATENT, SL, NO REDNESS, NO INFILTRATION PRESENT. CALL LIGHT KEPT WITHIN REACH, SAFETY PRECAUTIONS IN PLACE, CAREGIVER AT BEDSIDE, WOUND TREATMENT PROVIDED ORDERED, MEPILEX INTACT TO SACRAL AREA AND RIGHT ELBOW, NO FURTHER CHANGES NOTED TO SKIN , PATIENT FREQUENTLY REPOSITIONED TO OFFLOAD SACRAL AREA, PATIENT KEPT CLEAN AND DRY, TOLERATED SMALL SIPS OF NECTAR THICKEN LIQUIDS,FALL PRECAUTIONS RENDERED ALL NEEDS ATTENDED AT THIS TIME WILL CONTINUE TO ENDORSE TO NEXT SHIFT, PATIENT LEFT COMFORTABLE.
--- NOTE | 2018-10-30 07:14 | NUR ---
RECEIVED REPORT FROM NIGHT NURSE USING SBAR PATIENT IN BED AWAKE
[2018-10-30 07:52] VITALS: BP 123/71
[2018-10-30] MEDS: ACETYLCYSTEINE 10% SOLN 400 MG/4 ML VIAL NEB SCH ×2 (08:20→14:05)
[2018-10-30] MEDS: ENSURE ENLIVE 237 ML LIQUID (VANILLA) PO SCH ×2 (09:00→16:43)
--- NOTE | 2018-10-30 09:30 | NUR ---
MS RN NOTE DAUGHTER WANT TO BE THE DOCTOR FOR THE PATIENT , MADE ROUNDS HOWEVER THE DAUGHTER WASN'T HERE. NO FAMILY IN THE ROOM
[2018-10-30] MEDS: SIMETHICONE 80 MG TAB.CHEW PO SCH ×4 (10:09→21:50)
[2018-10-30] MEDS: CLOTRIMAZOLE 1% 15 GM TUBE TP SCH ×2 (10:09→16:43)
[2018-10-30] MEDS: FOLIC ACID 1 MG TABLET PO SCH (10:10)
[2018-10-30] MEDS: PANTOPRAZOLE 40 MG/PACK PACK PO SCH ×2 (10:10→21:50)
[2018-10-30 12:00] VITALS: BP 123/71
--- NOTE | 2018-10-30 12:44 | NUR ---
PATIENT APPEARS TO BE IN NO DISTRESS, HOB ELEVATED ABOVE 45 DEGREES, NO PAIN NOTED, DRESSINGS CHANGED, MEDICATION GIVEN WITH APPLESAUCE, PATIENT APPEARS TO GO IN AND OUT OF SLEEP.
[2018-10-30 16:00] VITALS: BP 94/54
--- NOTE | 2018-10-30 16:30 | NUR ---
PATIENTS SON WAS UPSET DUE TO ENVIRONMENTAL SOLUTIONS ENGINEER NOT COMING AT EXACTLY 4:00 PM. I EXPLAINED TO THE FAMILY MEMBER THAT SOMETHING COULD OCCUR AND CAUSE A DELAY. THE ENVIRONMENTAL SOLUTIONS ENGINEER IS SOMETIMES UNABLE TO COME TO A ROOM AT EXACT TIME. HE STATED THAT THE PATIENT WASN'T CHANGED AT 12 NOON, HOWEVER THE PATIENT WAS CHANGED BECAUSE I ASSISTED WITH THE ENVIRONMENTAL SOLUTIONS ENGINEER. THE SON STATED THAT SHE SHOULD BE CHANGED EVERY 2 HOURS ON THE CLOCK TO PREVENT UTI, WE OFFERED TO CHANGE THE PATIENT, HOWEVER SHE WAS COMPLETELY DRY WITH NO BM OR URINE.
--- NOTE | 2018-10-30 19:32 | NUR ---
REPORT GIVEN TO LORRIE VIA SBAR ALL QUESTIONS ANSWERED
[2018-10-30 20:00] VITALS: BP_SYST 99; BP_DIAS 53; BP_DIAS 58
[2018-10-30] MEDS: LEVETIRACETAM SOL (5 ML) 100 MG/ML UDC PO SCH (21:50)
[2018-10-30] MEDS: NITROFURANTOIN/NITROFURAN MAC 100 MG CAPSULE PO SCH (21:50)
[2018-10-30] MEDS: ENOXAPARIN SODIUM 40 MG/0.4 ML DISP.SYRIN SQ SCH (21:51)
[2018-10-31] MEDS: ACETYLCYSTEINE 10% SOLN 400 MG/4 ML VIAL NEB SCH ×4 (00:28→22:50)
[2018-10-31] MEDS: IPRATROPIUM NEB FS 0.5 MG/2.5 ML AMPUL.NEB NEB SCH ×4 (00:30→19:31)
[2018-10-31 04:24] VITALS: BP 91/53
--- NOTE | 2018-10-31 06:25 | NUR ---
RN MS PM CLOSING NOTES PATIENT IN BED SEEN WITH EYES CLOSED IN NO APPARENT DISTRESS. RESPIRATIONS EVEN AND UNLABORED WITH EQUAL RISE AND FALL OF CHEST, ON 2 L VIA NC 02 SAT WITH LAST SATURATION 97% AT 4AM. HEAD OF BED ELEVATED AT 45 DEGREES, IV SITE TO RIGHT HAND #22 G INTACT AND PATENT, SL, NO REDNESS, NO INFILTRATION PRESENT. CALL LIGHT KEPT WITHIN REACH, SAFETY PRECAUTIONS IN PLACE WOUND TREATMENT PROVIDED ORDERED, MEPILEX INTACT TO SACRAL AREA AND RIGHT ELBOW, NO FURTHER CHANGES NOTED TO SKIN , PATIENT REPOSITIONED Q2H PER PROTOCOL OFFLOADING TO SACRAL AREA, PATIENT KEPT CLEAN AND DRY, BED DOWN AND LOCKED.
--- NOTE | 2018-10-31 07:05 | NUR ---
RN OPENING NOTE RECEIVED PATIENT WITH REPORT GIVEN BEDSIDE. PATIENT IN BED ASLEEP, EASILY AROUSABLE. ALERT, NON VERBAL. NO SOB, NOT IN ANY FORM OF DISTRESS. BREATHING EVEN AND UNLABORED. NO S/S OF PAIN OR DISCOMFORT AT THIS TIME. R HAND #22 INTACT AND PATENT. KEPT PATIENT SAFE AND COMFORTABLE. BED IN LOW AND IN LOCKED POSITION. CALL LIGHT WITHIN REACH. SIDERAILS UP,SAFETY PRECAUTIONS IN PLACE.WILL CONTINUE TO MONITOR ACCORDINGLY.
[2018-10-31 08:00] VITALS: BP 120/66
--- NOTE | 2018-10-31 08:30 | NUR ---
rn notes deboner changed diaper and cleaned patient. turned and repositioned
--- NOTE | 2018-10-31 09:30 | NUR ---
rn notes early childhood teacher changed diaper, turned and repositioned.
[2018-10-31] MEDS: SIMETHICONE 80 MG TAB.CHEW PO SCH ×4 (09:58→21:15)
[2018-10-31] MEDS: PANTOPRAZOLE 40 MG/PACK PACK PO SCH ×2 (09:58→21:15)
[2018-10-31] MEDS: FOLIC ACID 1 MG TABLET PO SCH (09:59)
[2018-10-31] MEDS: ENSURE ENLIVE 237 ML LIQUID (VANILLA) PO SCH ×2 (09:59→16:26)
[2018-10-31] MEDS: CLOTRIMAZOLE 1% 15 GM TUBE TP SCH ×2 (10:15→16:29)
--- NOTE | 2018-10-31 11:07 | NUR ---
rn notes phone triage specialist, changed diaper, turned and repositioned
--- NOTE | 2018-10-31 12:20 | NUR ---
RN NOTES RECORDS MANAGEMENT CLERK CHANGED DIAPER, TURNED AND REPOSITIONED
--- NOTE | 2018-10-31 14:30 | NUR ---
rn notes currency counter, changed diaper, turned and repositioned
[2018-10-31 16:00] VITALS: BP 128/72
[2018-10-31] MEDS: Z GUARD REMEDY 2 OZ OINT TP PRN (16:29)
--- NOTE | 2018-10-31 16:30 | NUR ---
rn notes rehab spec, changed diaper, turned and repositioned
--- NOTE | 2018-10-31 18:23 | NUR ---
rn notes asphalt machine operator, changed diaper, turned and repositioned
--- NOTE | 2018-10-31 18:24 | NUR ---
RN CLOSING NOTES PATIENT IN STABLE CONDITION. ALL NEEDS ATTENDED AND PROVIDED. ALL DUE MEDICATIONS GIVEN ORDERED. KEPT PATIENT SAFE AND COMFORTABLE. BED IN LOW/LOCKED POSITION, SIDERAILS UPX2, CALL LIGHT IN REACH. WILL ENDORSED TO NIGHT RN FOR ALANIS.
--- NOTE | 2018-10-31 19:30 | NUR ---
RN OPEN NOTES RECEIVED PATIENT AWAKE IN BED WITH FAMILY AT BEDSIDE. NON-VERBAL. NO SIGNS OF DISTRESS OR DISCOMFORT. BREATHING EVEN AND UNLABORED. ON 2LPM O2 VIA NC. IV ACCESS IN R HAND, PATENT AND INTACT, NO SIGNS OF REDNESS OR INFILTRATION. BED IN LOW LOCKED POSITION WITH SIDE RAILS X2. CALL LIGHT WITHIN REACH. WILL CONTINUE TO MONITOR.
[2018-10-31 19:58] VITALS: BP 109/67
[2018-10-31 20:00] VITALS: BP 109/67
--- NOTE | 2018-10-31 20:55 | NUR ---
RN NOTES PT TURNED AND REPOSITIONED, DIAPER CHANGED. WILL CONTINUE TO MONITOR.
[2018-10-31] MEDS: ENOXAPARIN SODIUM 40 MG/0.4 ML DISP.SYRIN SQ SCH (21:14)
[2018-10-31] MEDS: LEVETIRACETAM SOL (5 ML) 100 MG/ML UDC PO SCH (21:15)
[2018-10-31] MEDS: NITROFURANTOIN/NITROFURAN MAC 100 MG CAPSULE PO SCH (21:15)
[2018-11-01] MEDS: IPRATROPIUM NEB FS 0.5 MG/2.5 ML AMPUL.NEB NEB SCH ×3 (02:05→13:17)
[2018-11-01 04:00] VITALS: BP 108/52
--- NOTE | 2018-11-01 06:47 | NUR ---
RN CLOSING NOTES PATIENT RESTING IN BED WITH CAREGIVER AT BEDSIDE. NON-VERBAL. NO SIGNS OF DISTRESS OR DISCOMFORT. BREATHING EVEN AND UNLABORED. ON 2LPM O2 VIA NC. IV ACCESS IN R HAND, PATENT AND INTACT, NO SIGNS OF REDNESS OR INFILTRATION. ALL NEEDS MET. NO SIGNIFICANT CHANGES THROUGH THE NIGHT. PATIENT REPOSITIONED Q2H AND PRN. BED IN LOW LOCKED POSITION WITH SIDE RAILS X2. CALL LIGHT WITHIN REACH. WILL ENDORSE TO AM SHIFT FOR ALANIS.
--- NOTE | 2018-11-01 07:25 | NUR ---
MS RN OPENING NOTES Report received at bedside. patient received in bed, sleeping comfortably, easily aroused. On contact isolation for ESBL. Not in any type of distress. No facial grimacing or moaning noted. COIN COLLECTOR arrived. Safety measures in place. Will continue to monitor and assess patient.
[2018-11-01] MEDS: ACETYLCYSTEINE 10% SOLN 400 MG/4 ML VIAL NEB SCH ×2 (07:55→13:17)
[2018-11-01 08:00] VITALS: BP 113/57
[2018-11-01] MEDS: SIMETHICONE 80 MG TAB.CHEW PO SCH ×3 (08:18→16:25)
[2018-11-01] MEDS: FOLIC ACID 1 MG TABLET PO SCH (08:18)
[2018-11-01] MEDS: ENSURE ENLIVE 237 ML LIQUID (VANILLA) PO SCH ×2 (08:18→16:26)
[2018-11-01] MEDS: PANTOPRAZOLE 40 MG/PACK PACK PO SCH (08:19)
[2018-11-01] MEDS: CLOTRIMAZOLE 1% 15 GM TUBE TP SCH ×2 (08:19→16:26)
--- NOTE | 2018-11-01 09:35 | NUR ---
MS RN NOTES Son at bedside
--- NOTE | 2018-11-01 09:45 | NUR ---
MS RN NOTES Daughter called to inquire about the orhto and decreasing dosage for protonix.
[2018-11-01 12:00] VITALS: BP 113/57
[2018-11-01 16:00] VITALS: BP 106/57
--- NOTE | 2018-11-01 16:30 | NUR ---
MS RN NOTES Got a call from CM that patient is okay to be discharge per POA.
--- NOTE | 2018-11-01 17:06 | NUR ---
MS PRINCIPAL ARCHITECT NOTES Report given to Allison (nurse) from [facility] [phone].
--- NOTE | 2018-11-01 17:52 | NUR ---
MS STITCH WHEELER NOTES Called Daryl (son) and made aware of bulk picker time to be transported to [facility]. Son agreed and acknowledged. Witnessed by Charge Nurse (S.H.)
--- NOTE | 2018-11-01 18:30 | NUR ---
MS OSHEAAGRICULTURAL ECONOMIST NOTES Valentin arrived to orange picker machine operator patient. Report given. Patient being transported in stable condition. No signs and symptoms of distress. vortex operator going with [place]. IV access removed with cath tip intact and no bleeding noted. Discharge papers and instructions given to towboat operator. Instructions for continuation of care provided to Allison from [facility]. Discharge papers signed by charge nurse and I. No available family members at bedside to sign. Son aware of transfer time. Belongings reviewed and signed by REGAN. All belongings will be taken by personal fitness manager. All questions and concerns addressed. Safety measures implemented until patient leaves facility. Addendum: 11/01/18 at 1837 by CAILIN ISBELL RN Transported with oxygen therapy noted. Patient just left the unit. Addendum: 11/01/18 at 1900 by CAILIN ISBELL RN Son came to orange picker machine operator more personal stuff. Provided son with copies of discharge papers.
== END 2018-11-01 18:25 | DRG 177 ==
LOC: ER 19:34 → TELE 21:07 → TELE1 22:02 → MEDSG1 10-21 10:23
PROVIDERS: ADMIT Nurse Practitioner Acute Care; ATTEND Hospitalist
DX: J69.0 Pneumonitis due to inhalation of food and vomit (principal); I50.33 Acute on chronic diastolic (congestive) heart failure; J96.01 Acute respiratory failure with hypoxia; E87.1 Hypo-osmolality and hyponatremia; E44.0 Moderate protein-calorie malnutrition; N39.0 Urinary tract infection, site not specified; J98.11 Atelectasis; I11.0 Hypertensive heart disease with heart failure; G30.9 Alzheimer's disease, unspecified; F02.80 Dementia in other diseases classified elsewhere, unspecified severity, without behavioral disturbance, psychotic disturbance, mood disturbance, and anxiety; G40.909 Epilepsy, unspecified, not intractable, without status epilepticus; K21.9 Gastro-esophageal reflux disease without esophagitis; D50.9 Iron deficiency anemia, unspecified; Z88.2 Allergy status to sulfonamides; L30.4 Erythema intertrigo; R13.10 Dysphagia, unspecified; L89.010 Pressure ulcer of right elbow, unstageable; E88.09 Other disorders of plasma-protein metabolism, not elsewhere classified; R30.0 Dysuria; Z87.440 Personal history of urinary (tract) infections; K44.9 Diaphragmatic hernia without obstruction or gangrene; K57.90 Diverticulosis of intestine, part unspecified, without perforation or abscess without bleeding; F09 Unspecified mental disorder due to known physiological condition; B96.20 Unspecified Escherichia coli [E. coli] as the cause of diseases classified elsewhere; E66.9 Obesity, unspecified; Z68.32 Body mass index [BMI] 32.0-32.9, adult; E87.6 Hypokalemia
CPT/HCPCS: 36415; 70450-TC; 71045-TC; 80048-TC; 80053-TC; 80061-TC; 80076-TC; 80305; 81000-TC; 82728-TC; 83540-TC; 83605-TC; 83735-TC; 83880; 84100-TC; 84443-TC; 84484-TC; 85025-TC; 87081-TC; 87086-TC; 87186-TC; 92526; 92611-TC; 93307-TC; 94668-TC; 94760-TC; 94799-TC; 97112-TC; 97530-TC; A6253; C9113; G0378; J1650; J1953; J2543; J2916; J7030; J7060

== ENCOUNTER 2018-12-24 14:19 | Emergency (ER) | payer MEDICARE, MEDICAID ==
[~2018-12-24] VITALS: Ht 162.6 cm; Wt 60.8 kg
[~2018-12-24 14:19] MED LIST changes: +NITR100C15 PO; +PANT40SU2 PO
[2018-12-24 14:24] VITALS: BP 123/81
--- NOTE | 2018-12-24 14:27 | NUR ---
CALLED NURSING SUP FOR TELE BED.
[2018-12-24] MEDS ORDERED: PANT40TA2 PO (14:47)
[2018-12-24] MEDS ORDERED: LEVE100S PO (14:47)
[2018-12-24] MEDS ORDERED: PANT20TA3 PO (14:47)
[2018-12-24] MEDS ORDERED: IPRA3AMP23 IH (14:47)
--- NOTE | 2018-12-24 14:55 | NUR ---
CALLED [facility]. SPOKE WITH STAFF NURSE-GILDA, CONFIRMED PATIENT IS ON BACTRIM DS 1 TAB PO BID X5 DAYS FOR UTI, STARTED ON 12-21-18.
[2018-12-24] MEDS ORDERED: IV NS 0.9% 1,000 ML BAG IV ONE (15:00)
[2018-12-24] MEDS ORDERED: LEVETIRACETAM (500MG) 250 MG in IV NS 0.9% 100 ML IV SCH (15:00)
--- NOTE | 2018-12-24 15:00 | NUR ---
BACK FROM CT,SL ESTABLISHED, BLOOD DRAWN FOR LAB
[2018-12-24 15:35] LABS: BASOPHILS # (AUTO) 0.1 /CMM (0.0-0.2); EOSINOPHILS % (AUTO) 0.4 % (0.0-6.0); HEMATOCRIT 45 % (33-45); HEMOGLOBIN 14.7 g/dL (11.5-14.8); LYMPHOCYTES # (AUTO) 1.2 /CMM (0.8-4.8); LYMPHOCYTES % (AUTO) 13.9 % (20.0-44.0); MEAN CORPUSCULAR HGB CONC 33 g/dl (31.0-36.0); MEAN CORPUSCULAR VOLUME 91 fL (82-100); MONOCYTES # (AUTO) 0.3 /CMM (0.1-1.30); MONOCYTES % (AUTO) 3.5 % (2.0-12.0); NEUTROPHILS # (AUTO) 7.1 /CMM (1.8-8.9); NEUTROPHILS % (AUTO) 81.2 % (43.0-81.0); PLATELET COUNT (AUTO) 169 /CMM (150-450); RED BLOOD CELL COUNT(AUTO) 4.91 MIL/uL (4.0-5.2); WHITE BLOOD COUNT (AUTO) 8.7 K/uL (4.3-11.0)
[2018-12-24 15:40] LABS: CALCIUM, SERUM 9.8 mg/dL (8.5-10.1); CARBON DIOXIDE 27 mmol/L (21-32); CHLORIDE 102 mmol/L (98-107); CREATININE 0.7 mg/dL (0.6-1.3); GLUCOSE 112 mg/dL (74-106); POTASSIUM 4.7 mmol/L (3.5-5.1); SODIUM SERUM 137 mmol/L (136-145); UREA NITROGEN, BLOOD 13 mg/dL (7-18)
[2018-12-24 15:45] LABS: ALANINE AMINOTRANSFERASE 26 U/L (12-78); ALBUMIN 3.9 g/dL (3.4-5.0); ALKALINE PHOSPHATASE 120 U/L (46-116); ASPARTATE AMINOTRANSFERASE 30 U/L (15-37); BILIRUBIN,DIRECT 0.1 mg/dL (0.0-0.2); BILIRUBIN,TOTAL 0.3 mg/dL (0.2-1.0); TOTAL PROTEIN, SERUM 8.3 g/dL (6.4-8.2)
[2018-12-24 16:37] LABS: APPEARANCE,URINE Clear (CLEAR); BILIRUBIN,URINE Negative (NEGATIVE); BLOOD, URINE Negative Ery/uL (NEGATIVE); COLOR,URINE Yellow (YELLOW); KETONES,URINE Negative (NEGATIVE); LEUKOCYTE ESTERASE ,URINE Negative (NEGATIVE); NITRITE, URINE Negative (NEGATIVE); PROTEIN,URINE Negative (NEGATIVE); UGLUCOSE Negative (NEGATIVE); UROBILINOGEN,URINE 0.2 EU/dL (0.2)
--- NOTE | 2018-12-24 17:21 | NUR ---
ARRANGED BLS TRANSPORT WITH [facility]: JAMEEL 2100, TRIP NUMBER:[id number] SPOKE TO [facility] FROM DISPATCH.
--- NOTE | 2018-12-24 17:31 | NUR ---
ARRANGED BLS TRANSPORT WITH [facility]: ETA 1999, CANCELLED [facility] TRANSPORT.
--- NOTE | 2018-12-24 20:16 | NUR ---
PT PICKED UP BY [facility]
== END 2018-12-24 20:29 | disposition home or self-care (01) ==
LOC: ER 14:29
DX: S32.009A Unspecified fracture of unspecified lumbar vertebra, initial encounter for closed fracture (principal); G40.909 Epilepsy, unspecified, not intractable, without status epilepticus; G30.9 Alzheimer's disease, unspecified; F02.80 Dementia in other diseases classified elsewhere, unspecified severity, without behavioral disturbance, psychotic disturbance, mood disturbance, and anxiety; R40.4 Transient alteration of awareness; Z87.440 Personal history of urinary (tract) infections; Z88.2 Allergy status to sulfonamides; Z88.1 Allergy status to other antibiotic agents; Z88.8 Allergy status to other drugs, medicaments and biological substances; Z88.9 Allergy status to unspecified drugs, medicaments and biological substances; X58.XXXA Exposure to other specified factors, initial encounter; Y93.89 Activity, other specified; Y92.89 Other specified places as the place of occurrence of the external cause; Y99.8 Other external cause status
CPT/HCPCS: 36415; 70450; 71045; 72131; 80048; 80076; 81001; 84484; 85025; 85730; 87086; 93005; 96365; 99284; J1953; J7030 ×2; 81000-TC

== ENCOUNTER 2019-04-05 16:24 | Inpatient (IN) | payer MEDICARE, MEDICAID ==
[~2019-04-05] VITALS: Ht 152.4 cm; Wt 56.7 kg
[~2019-04-05 16:24] MED LIST changes: -ARGI1PAC PO; -FAMO-131 PO; -IPRA0.2S9 IH; +IPRA3AMP23 IH; +PANT20TA3 PO; -PANT40SU2 PO; +PANT40TA2 PO
[2019-04-05] MEDS ORDERED: IPRA0.2S9 IH (16:49)
[2019-04-05] MEDS ORDERED: METH1TAB30 PO (16:49)
[2019-04-05] MEDS ORDERED: CALC-7 PO (16:49)
--- NOTE | 2019-04-05 16:50 | NUR ---
SENT BY PMD FOR WEAKNESS EVAL. PATIENT A/OX1, OPENS EYES, NON-VERBAL. FAMILY AT BEDSIDE. ATTACHED TO THE TELETRAY OPERATOR.
--- NOTE | 2019-04-05 17:00 | NUR ---
MIKE BY DR. HOPSON.
[2019-04-05 17:21] LABS: BASOPHILS # (AUTO) 0.1 /CMM (0.0-0.2); BASOPHILS % (AUTO) 1.1 % (0.0-2.0); EOSINOPHILS % (AUTO) 3.7 % (0.0-6.0); HEMATOCRIT 42 % (33-45); LYMPHOCYTES % (AUTO) 13.1 % (20.0-44.0); MEAN CORPUSCULAR HGB CONC 34 g/dl (31.0-36.0); MEAN CORPUSCULAR VOLUME 96 fL (82-100); MONOCYTES # (AUTO) 0.2 /CMM (0.1-1.30); NEUTROPHILS # (AUTO) 6.3 /CMM (1.8-8.9); NEUTROPHILS % (AUTO) 79.1 % (43.0-81.0); PLATELET COUNT (AUTO) 103 /CMM (150-450); RED BLOOD CELL COUNT(AUTO) 4.34 MIL/uL (4.0-5.2); WHITE BLOOD COUNT (AUTO) 7.9 K/uL (4.3-11.0)
[2019-04-05 17:29] LABS: CARBON DIOXIDE 26 mmol/L (21-32); CHLORIDE 103 mmol/L (98-107); CREATININE 0.6 mg/dL (0.6-1.3); GLUCOSE 103 mg/dL (74-106); POTASSIUM 4.5 mmol/L (3.5-5.1); SODIUM SERUM 137 mmol/L (136-145); UREA NITROGEN, BLOOD 11 mg/dL (7-18)
[2019-04-05 17:35] LABS: BILIRUBIN,URINE Negative (NEGATIVE); BLOOD, URINE Trace-intact Ery/uL (NEGATIVE); COLOR,URINE Yellow (YELLOW); KETONES,URINE Negative (NEGATIVE); LEUKOCYTE ESTERASE ,URINE Trace (NEGATIVE); NITRITE, URINE Negative (NEGATIVE); PROTEIN,URINE Negative (NEGATIVE); UGLUCOSE Negative (NEGATIVE); UROBILINOGEN,URINE 0.2 EU/dL (0.2)
[2019-04-05 17:36] LABS: PH,URINE >9.0 (5.0-8.0)
[2019-04-05 17:40] LABS: APPEARANCE,URINE SLIGHTLY CLOUDY (CLEAR); WBC,URINE 21-50 /HPF (0-3)
[2019-04-05 17:41] LABS: BACTERIA,URINE Few /HPF (None Seen); SQUAMOUS EPITHELIAL CELL,UR Few /HPF (None Seen); URINE AMORPHOUS PHOSPHATES Many /HPF (None Seen)
[2019-04-05 17:44] LABS: ALANINE AMINOTRANSFERASE 24 U/L (12-78); ALBUMIN 3.2 g/dL (3.4-5.0); ALKALINE PHOSPHATASE 94 U/L (46-116); ASPARTATE AMINOTRANSFERASE 18 U/L (15-37); BILIRUBIN,DIRECT 0.2 mg/dL (0.0-0.2); BILIRUBIN,TOTAL 0.8 mg/dL (0.2-1.0); TOTAL PROTEIN, SERUM 7.5 g/dL (6.4-8.2)
--- NOTE | 2019-04-05 18:00 | NUR ---
CALLED [facility]
--- NOTE | 2019-04-05 18:27 | NUR ---
BED ASSIGN TO ROOM 109
[2019-04-05] MEDS ORDERED: MEROPENEM 1,000 MG in IV NS 0.9% 100 ML IV ONE (18:30)
--- NOTE | 2019-04-05 18:30 | NUR ---
TELE1/RN REPORT FROM ER REPORT GIVEN BY ER NURSE LAMBERTO. PT TO BE ADMITTED FOR UTI UNDER THE CARE OF DR. WORKMAN. AWAITING FOR PT'S ARRIVAL.
--- NOTE | 2019-04-05 18:31 | NUR ---
REPORT GIVEN TO OLIVIER OSHEA.
--- NOTE | 2019-04-05 18:45 | NUR ---
TRANSFERRED TO ROOM 109-1 VIA ACLS PROTOCOL. NO DISTRESS NOTED. ENDORSED TO OLIVIER OSHEA.
--- NOTE | 2019-04-05 18:45 | NUR ---
TELE1/SCHOOL BUS INSPECTOR - ROOM 109 PT ARRIVED VIA GURNEY ACCOMPANIED BY ER NURSE LAMBERTO AND THREADING MACHINE TENDER WITH ON GOING IV INFUSION MERREM. PT TRANSFERRED WITH FULL ASSIST TO HOSPITAL BED. PT A/O X 1, OPEN EYES, NO GRIMACING NOTED. PLACED ON 2L O2 VIA N/C SATURATING @ 100%, RESPIRATIONS EVEN & UNLABORED, LUNG SOUNDS CLEAR. TELE BOX PLACED, SINUS RHYTHM. IV SITE PATENT WITH NO S/S OF INFECTION. VS TAKEN, WITHIN. ADMITTING PROTOCOLS UNDERWAY. CL WITHIN REACHED AND SAFETY MAINTAINED. ON GOING MONITORING.
[2019-04-05 19:00] VITALS: BP 105/48
[2019-04-05] MEDS ORDERED: MAGNESIUM HYDROXIDE 30 ML UDC PO PRN (19:00)
[2019-04-05] MEDS ORDERED: ONDANSETRON HCL/PF 4 MG/2 ML VIAL IVP PRN (19:00)
[2019-04-05] MEDS ORDERED: ZOLPIDEM TARTRATE 5 MG TABLET PO PRN (19:00)
[2019-04-05] MEDS ORDERED: ACETAMINOPHEN 325 MG TABLET PO PRN (19:00)
[2019-04-05] MEDS ORDERED: Medication Not On Formulary EA (Melatonin 3 MG) PO PRN (19:00)
[2019-04-05] MEDS ORDERED: MAG HYDROX/AL HYDROX/SIMETH 30 ML UDC PO PRN (19:00)
[2019-04-05] MEDS ORDERED: BISACODYL SUPP (10 MG) 10 MG/SUPP.RECT SUPP.RECT RC PRN (19:00)
[2019-04-05] MEDS ORDERED: HYDROCODONE/APAP 5/325MG 1 EACH TABLET PO PRN (19:00)
[2019-04-05] MEDS ORDERED: CLONIDINE HCL 0.1 MG TABLET PO PRN (19:00)
[2019-04-05] MEDS ORDERED: IPRATROPIUM NEB FS 0.5 MG/2.5 ML AMPUL.NEB IH PRN (19:00)
[2019-04-05] MEDS ORDERED: CALCIUM CARBONATE 500 MG TAB.CHEW PO PRN (19:30)
[2019-04-05 20:00] VITALS: BP 111/52
[2019-04-05] MEDS: LACTOBACILLUS RHAMNOSUS GG 1 EACH CAP.SPRINK PO SCH (20:03)
[2019-04-05] MEDS: POLYVINYL ALCOHOL 15 ML BOTTLE EACHEYE SCH (20:03)
[2019-04-05] MEDS: IV D5/0.45 NACL 1,000 ML IV PRN (20:39)
[2019-04-05] MEDS: LEVETIRACETAM SOL (5 ML) 100 MG/ML UDC PO SCH (21:02)
[2019-04-05] MEDS ORDERED: METHENAMINE MANDELATE 1 GM TABLET PO SCH (22:00)
[2019-04-06] VITALS: BP 120/66
[2019-04-06 04:00] VITALS: BP 117/69
[2019-04-06 05:53] LABS: CALCIUM, SERUM 8.4 mg/dL (8.5-10.1); CARBON DIOXIDE 27 mmol/L (21-32); CHLORIDE 102 mmol/L (98-107); CREATININE 0.3 mg/dL (0.6-1.3); GLUCOSE 99 mg/dL (74-106); PHOSPHORUS 2.5 mg/dL (2.5-4.9); POTASSIUM 4.5 mmol/L (3.5-5.1); SODIUM SERUM 136 mmol/L (136-145); UREA NITROGEN, BLOOD 8 mg/dL (7-18)
[2019-04-06] MEDS ORDERED: MEROPENEM 500 MG in IV NS 0.9% 50 ML IV SCH (06:00)
[2019-04-06 06:17] LABS: BASOPHILS # (AUTO) 0.1 /CMM (0.0-0.2); BASOPHILS % (AUTO) 1.2 % (0.0-2.0); EOSINOPHILS % (AUTO) 5.2 % (0.0-6.0); HEMATOCRIT 39 % (33-45); HEMOGLOBIN 12.9 g/dL (11.5-14.8); LYMPHOCYTES % (AUTO) 15.1 % (20.0-44.0); MEAN CORPUSCULAR HGB CONC 34 g/dl (31.0-36.0); MEAN CORPUSCULAR VOLUME 96 fL (82-100); MONOCYTES # (AUTO) 0.3 /CMM (0.1-1.30); MONOCYTES % (AUTO) 3.7 % (2.0-12.0); NEUTROPHILS # (AUTO) 5.2 /CMM (1.8-8.9); NEUTROPHILS % (AUTO) 74.8 % (43.0-81.0); RED BLOOD CELL COUNT(AUTO) 4.01 MIL/uL (4.0-5.2); WHITE BLOOD COUNT (AUTO) 6.9 K/uL (4.3-11.0)
[2019-04-06 06:22] LABS: PLATELET COUNT (AUTO) 83 /CMM (150-450)
--- NOTE | 2019-04-06 07:29 | NUR ---
RN CLOSING NOTE PT IN BED AWAKE IN SEMI BLUNT'S POSITION. ALERT AND ORIENTED TO NAME ONLY. ON 2 L OF O2 VIA NC AND TOLERATING WELL. NO INDICATIONS OF PAIN OR DISTRESS. CAREGIVER AT BEDSIDE. SAFETY MEASURES IN PLACE. CALL LIGHT WITHIN REACH, ENDORSED TO MORNING SHIFT FOR CONTINUITY OF CARE.
--- NOTE | 2019-04-06 07:30 | NUR ---
RUSSIAN RUBBER OPENING NOTES RECEIVED PT RESTING IN BED. CAREGIVER BY BEDSIDE. PT IN STABLE CONDITION. PT IS AOX 1. ON NASAL CANULA RECEIVING 2L OF OXYGEN, SATURATING AT 95%. PATIENT IS ON TELE MONITOR, SR/ST HR AT 103BPM. RESPIRATIONS ARE EVEN AND UNLABORED, LUNG SOUNDS ARE DIMINISHED WITH CRACKLING HEARD IN THE LOWER LOBE. IV SITE IS PATENT WITH NO S/S OF INFECTION. RUNNING D5 .45% NS @ 75MLS/HR. FLUSHED WELL. SAFETY MAINTAINED. CALL LIGHT WITHIN REACH. WILL CONTINUE MONITORING.
[2019-04-06 08:00] VITALS: BP 121/68
[2019-04-06] MEDS: FERROUS SULFATE (325 MG) 325 MG/TAB TABLET PO SCH (08:12)
[2019-04-06] MEDS: VITAMIN B COMP W-C 1 TAB TABLET PO SCH (08:12)
[2019-04-06] MEDS: SIMETHICONE 80 MG TAB.CHEW PO SCH ×2 (08:12→16:37)
[2019-04-06] MEDS: CHOLECALCIFEROL 1,000 UNIT TABLET (VIT D3) PO SCH (08:12)
[2019-04-06] MEDS: POLYVINYL ALCOHOL 15 ML BOTTLE EACHEYE SCH ×2 (08:13→16:40)
[2019-04-06] MEDS: PANTOPRAZOLE 40 MG TABLET.DR PO SCH (08:13)
[2019-04-06] MEDS: FOLIC ACID 1 MG TABLET PO SCH (08:13)
[2019-04-06] MEDS: LACTOBACILLUS RHAMNOSUS GG 1 EACH CAP.SPRINK PO SCH ×2 (08:13→16:37)
[2019-04-06] MEDS: MULTIVIT W/MINERALS 1 TAB TABLET PO SCH (08:13)
[2019-04-06] MEDS: ASCORBIC ACID 500 MG TABLET PO SCH (08:13)
[2019-04-06] MEDS: CALCIUM CARB 250MG /VITAMIN D 1 UDTAB PO SCH ×2 (11:02→16:37)
[2019-04-06] MEDS: PROSOURCE / PROSTAT (PYXIS) 30 ML UDC PO SCH (11:05)
[2019-04-06] MEDS: IV D5/0.45 NACL 1,000 ML IV PRN (11:08)
[2019-04-06 12:00] VITALS: BP 117/69
--- NOTE | 2019-04-06 12:00 | NUR ---
RN ROUNDING NOTES DAUGHTER AT BEDSIDE. UPDATED HER REGARDING THE PATIENT CONDITION. WAS ASKED TO REQUEST PULMONARY CONSULT, MESSAGED DR CARVER, WAITING FOR RESPONSE. PATIENT IS IN STABLE CONDITION, ALL NEEDS MET, WILL CONTINUE OT MONITOR .
[2019-04-06 16:00] VITALS: BP 142/76
--- NOTE | 2019-04-06 19:15 | NUR ---
CHANGED OF SHIFT REPORT Patient in bed, awake. Unable to assess speech, not talking, Farsi per report. Oxygen 2LPM via NC, tolerating well. IVF infusing. SR/ST in the Tele monitor. Fall precaution maintained, caregiver at bedside.
[2019-04-06 20:45] VITALS: BP 120/81
[2019-04-06] MEDS: LEVETIRACETAM SOL (5 ML) 100 MG/ML UDC PO SCH (21:22)
[2019-04-07 00:10] VITALS: BP 128/67
[2019-04-07] MEDS: IV D5/0.45 NACL 1,000 ML IV PRN ×2 (00:52→15:25)
[2019-04-07 04:44] VITALS: BP 144/89
--- NOTE | 2019-04-07 06:24 | NUR ---
END OF SHIFT REPORT Patient in bed, no acute events overnight, afebrile. IVF infusing, remains on supplemental Oxygen 2LPM via NC, tolerating well. Sinus rhythm in the Tele monitor. Incontinent, voided urine x3 during the shift. 06:20 Bladder scan showed 499ml, straight cath as ordered, obtained 450ml urine. Fall/Aspiration/Skin precaution maintained.
[2019-04-07 06:31] LABS: BASOPHILS # (AUTO) 0.1 /CMM (0.0-0.2); BASOPHILS % (AUTO) 1.3 % (0.0-2.0); EOSINOPHILS % (AUTO) 4.5 % (0.0-6.0); HEMATOCRIT 35 % (33-45); LYMPHOCYTES # (AUTO) 1.3 /CMM (0.8-4.8); LYMPHOCYTES % (AUTO) 21.3 % (20.0-44.0); MEAN CORPUSCULAR HGB CONC 34 g/dl (31.0-36.0); MEAN CORPUSCULAR VOLUME 95 fL (82-100); MONOCYTES # (AUTO) 0.3 /CMM (0.1-1.30); MONOCYTES % (AUTO) 4.7 % (2.0-12.0); NEUTROPHILS # (AUTO) 4.1 /CMM (1.8-8.9); NEUTROPHILS % (AUTO) 68.2 % (43.0-81.0); PLATELET COUNT (AUTO) 90 /CMM (150-450); RED BLOOD CELL COUNT(AUTO) 3.68 MIL/uL (4.0-5.2)
[2019-04-07 06:55] LABS: CALCIUM, SERUM 8.2 mg/dL (8.5-10.1); CARBON DIOXIDE 24 mmol/L (21-32); CHLORIDE 104 mmol/L (98-107); CREATININE 0.2 mg/dL (0.6-1.3); GLUCOSE 103 mg/dL (74-106); MAGNESIUM 1.9 mg/dL (1.8-2.4); PHOSPHORUS 1.9 mg/dL (2.5-4.9); POTASSIUM 3.4 mmol/L (3.5-5.1); SODIUM SERUM 139 mmol/L (136-145); UREA NITROGEN, BLOOD 7 mg/dL (7-18)
--- NOTE | 2019-04-07 07:46 | NUR ---
PLANT PROTECTION OFFICER OPENING NOTE RECEIVED REPORT FROM [facility] SHIFT NURSE. PT ASLEEP IN BED, ON 02 VIA NC 2L/MIN, SATURATING WELL, RESPIRATIONS EVEN AND UNLABORED, NO SIGNS OF RESPIRATORY DISTRESS NOTED. ON TELE MONITOR SINUS RHYTHM. IV SITE ON RIGHT AC G20 INTACT, PATENT, D5 1/2 NS INFUSING AT 75CC/HR, NO SIGNS OF INFILTRATION NOTED. BED IN LOW POSITION, LOCKED, CALL LIGHT WITHIN REACH, CAREGIVER BY BEDSIDE.
[2019-04-07] MEDS: MULTIVIT W/MINERALS 1 TAB TABLET PO SCH (08:04)
[2019-04-07] MEDS: ASCORBIC ACID 500 MG TABLET PO SCH (08:04)
[2019-04-07] MEDS: FERROUS SULFATE (325 MG) 325 MG/TAB TABLET PO SCH (08:04)
[2019-04-07] MEDS: PANTOPRAZOLE 40 MG TABLET.DR PO SCH (08:04)
[2019-04-07] MEDS: CHOLECALCIFEROL 1,000 UNIT TABLET (VIT D3) PO SCH (08:04)
[2019-04-07] MEDS: LACTOBACILLUS RHAMNOSUS GG 1 EACH CAP.SPRINK PO SCH ×2 (08:04→17:17)
[2019-04-07] MEDS: SIMETHICONE 80 MG TAB.CHEW PO SCH ×2 (08:04→17:17)
[2019-04-07] MEDS: FOLIC ACID 1 MG TABLET PO SCH (08:05)
[2019-04-07] MEDS: VITAMIN B COMP W-C 1 TAB TABLET PO SCH (08:05)
[2019-04-07] MEDS: PROSOURCE / PROSTAT (PYXIS) 30 ML UDC PO SCH (08:05)
[2019-04-07] MEDS: CALCIUM CARB 250MG /VITAMIN D 1 UDTAB PO SCH ×2 (08:06→21:30)
--- NOTE | 2019-04-07 08:20 | NUR ---
GAVE REPORT TO REGISTRY NURSE MICHELINE OSHEA FOR ALANIS
[2019-04-07] MEDS ORDERED: POTASSIUM CHLORIDE 20 MEQ POWDER PACKET PO SCH (10:00)
[2019-04-07] MEDS ORDERED: NEUTRA PHOS 1 POWD.PACKET PO ONE (10:00)
[2019-04-07] MEDS: POLYVINYL ALCOHOL 15 ML BOTTLE EACHEYE SCH ×2 (11:34→17:18)
[2019-04-07 12:09] LABS: EOSINOPHILS % (MANUAL) 2 % (0-4); LYMPHOCYTES % (MANUAL) 25 % (16-48); MONOCYTES % (MANUAL) 7 % (0-11.0); NEUTROPHILS % (MANUAL) 66 (42-76)
[2019-04-07 16:00] VITALS: BP 117/69
[2019-04-07] MEDS ORDERED: POTASSIUM CHLORIDE 20 MEQ POWDER PACKET PO ONE (17:00)
--- NOTE | 2019-04-07 19:30 | NUR ---
ornamental metal erector: received late report from [employer] professor jonny. met with pt and pt's daughter and caregiver in the room. pt is farsi only, alert to self, on 2l oxygen via nc respirations even and unlabored. noted iv infiltrated and leaking, stopped ivf, will change iv access. per report last bladder scan and straight cath performed at 1800, with 300ml output removed. order is for q8hrs, next schedule will be 0200am. pt on pureed diet, feeder. education provided to family regarding keeping hob 35 degrees at all time, to prevent aspirations. ble offloaded on pillows. on tele monitoring, sinus tachycardia with elevated t wave hr 103. appears calm and comfortable, no facial grimace noted. discussed plan of care tonight. safety precautions for fall initiated, call light in reach, will continue monitoring pt.
[2019-04-07 20:00] VITALS: BP 134/64
[2019-04-07] MEDS: LEVETIRACETAM SOL (5 ML) 100 MG/ML UDC PO SCH (21:31)
--- NOTE | 2019-04-07 21:40 | NUR ---
RN NOTES: ASPIRATION PRECAUTION INITIATED. ALL DUE MEDS ADMINISTERED. NO ASPIRATION NOTED. KEPT HOB 45 DEGREES DURING ADMINISTRATION OF MEDICATION, INSTRUCTED TO KEEP PT UPRIGHT AT LEAST 30MINS AFTER DRINKING MEDICATION. CAREGIVER UNDERSTAND.
--- NOTE | 2019-04-07 21:51 | NUR ---
RN NOTES: RECEIVED CALL FROM PT'S DAUGHTER ISI, GIVEN UPDATE REGARDING PT AND PLAN OF CARE. ALL QUESTIONS/CONCERNS ANSWERED BASED ON RECENT LABS AND PLAN OF CARE FROM MD NOTES.
--- NOTE | 2019-04-07 22:58 | NUR ---
rn notes: suction set up secured, kept side rails padded. caregiver at bed side
[2019-04-08] VITALS: BP 134/72
[2019-04-08] MEDS: IV D5/0.45 NACL 1,000 ML IV PRN ×2 (03:20→17:47)
--- NOTE | 2019-04-08 03:20 | NUR ---
rn notes: performed bladder scan, showing 380ml. straight cath performed as ordered, obtained 380ml of urine, yellow colored, with sediments, foul smelling.
[2019-04-08 04:00] VITALS: BP 111/63
[2019-04-08 06:26] LABS: BASOPHILS # (AUTO) 0.1 /CMM (0.0-0.2); EOSINOPHILS % (AUTO) 3.1 % (0.0-6.0); HEMATOCRIT 35 % (33-45); LYMPHOCYTES # (AUTO) 1.1 /CMM (0.8-4.8); LYMPHOCYTES % (AUTO) 17.4 % (20.0-44.0); MEAN CORPUSCULAR HGB CONC 34 g/dl (31.0-36.0); MEAN CORPUSCULAR VOLUME 95 fL (82-100); MONOCYTES # (AUTO) 0.4 /CMM (0.1-1.30); MONOCYTES % (AUTO) 5.7 % (2.0-12.0); NEUTROPHILS # (AUTO) 4.7 /CMM (1.8-8.9); NEUTROPHILS % (AUTO) 72.8 % (43.0-81.0); PLATELET COUNT (AUTO) 114 /CMM (150-450); RED BLOOD CELL COUNT(AUTO) 3.72 MIL/uL (4.0-5.2); WHITE BLOOD COUNT (AUTO) 6.4 K/uL (4.3-11.0)
[2019-04-08 06:34] LABS: CALCIUM, SERUM 8.6 mg/dL (8.5-10.1); CARBON DIOXIDE 25 mmol/L (21-32); CHLORIDE 102 mmol/L (98-107); CREATININE 0.3 mg/dL (0.6-1.3); GLUCOSE 113 mg/dL (74-106); MAGNESIUM 1.9 mg/dL (1.8-2.4); PHOSPHORUS 2.3 mg/dL (2.5-4.9); POTASSIUM 3.8 mmol/L (3.5-5.1); SODIUM SERUM 136 mmol/L (136-145); UREA NITROGEN, BLOOD 8 mg/dL (7-18)
--- NOTE | 2019-04-08 06:43 | NUR ---
EOSS: PT REMAINS ON 2L OXYGEN RESPIRATIONS EVEN AND UNLABORED, IV ACCESS REMANS PATENT AND FLUSHING WELL, INFUSING WITH IV ORDERED. NO S/S OF IV INFILTRATION NOTED. NO FACIAL GRIMACE NOTED. APPEARS CALM AND COMFORTABLE. KEPT ON ASPIRATION PRECAUTIONS. BLE KEPT OFFLOADED ON PILLOWS. LAST BLADDER SCAN AND STRAIGHT CATH PERFORMED AT 0320AM, 380ML OUTPUT. PT'S DAUGHTER REQUESTING FOR MD TO SEE THE ESTROGEN VAGINAL RING, TO EVALUATE FOR INFECTION. WILL RELAY TO DAY RN. PT REMAINS AFEBRILE. ON SINUS RHYTHM HR 85. VS REMAINS STABLE, NEEDS ATTENDED. SAFETY PRECAUTIONS FOR FALL REMAINS ENGAGED, CALL LIGHT IN REACH, WILL ENDORSE TO DAY RN FOR CONTINUITY OF CARE.
--- NOTE | 2019-04-08 07:31 | NUR ---
INITIAL RECEIVED PT ON BED ASLEEP, ON 02 VIA NC 2L/MIN, SATURATING WELL, RESPIRATIONS EVEN AND UNLABORED, NO SIGNS OF RESPIRATORY DISTRESS NOTED. ON TELE MONITOR SINUS RHYTHM-84. IV SITE ON RIGHT AC G20 INTACT, PATENT, D5 1/2 NS INFUSING AT 75CC/HR, NO SIGNS OF INFILTRATION NOTED. BED IN LOW POSITION, LOCKED, CALL LIGHT WITHIN REACH, CAREGIVER BY BEDSIDE. WILL CONTINUE TO MONITOR
[2019-04-08 08:00] VITALS: BP 100/52
[2019-04-08] MEDS: PANTOPRAZOLE 40 MG TABLET.DR PO SCH (08:01)
[2019-04-08] MEDS: PROSOURCE / PROSTAT (PYXIS) 30 ML UDC PO SCH (10:26)
[2019-04-08] MEDS: LACTOBACILLUS RHAMNOSUS GG 1 EACH CAP.SPRINK PO SCH ×2 (10:26→17:24)
[2019-04-08] MEDS: CHOLECALCIFEROL 1,000 UNIT TABLET (VIT D3) PO SCH (10:26)
[2019-04-08] MEDS: CALCIUM CARB 250MG /VITAMIN D 1 UDTAB PO SCH ×2 (10:26→17:24)
[2019-04-08] MEDS: FOLIC ACID 1 MG TABLET PO SCH (10:26)
[2019-04-08] MEDS: POLYVINYL ALCOHOL 15 ML BOTTLE EACHEYE SCH ×2 (10:26→17:20)
[2019-04-08] MEDS: MULTIVIT W/MINERALS 1 TAB TABLET PO SCH (10:26)
[2019-04-08] MEDS: SIMETHICONE 80 MG TAB.CHEW PO SCH ×2 (10:26→17:24)
[2019-04-08] MEDS: FERROUS SULFATE (325 MG) 325 MG/TAB TABLET PO SCH (10:26)
[2019-04-08] MEDS: ASCORBIC ACID 500 MG TABLET PO SCH (10:26)
[2019-04-08] MEDS: VITAMIN B COMP W-C 1 TAB TABLET PO SCH (10:27)
[2019-04-08] MEDS: POLYETHYLENE GLYCOL 3350 17 GM POWD.PACK PO PRN (11:17)
--- NOTE | 2019-04-08 11:18 | NUR ---
FAMILY GAVE MIRALAX PER DAUGHTER WHO STATES MOTHER HAS NOT HAS A BOWEL MOVEMENT IN THREE DAYS
[2019-04-08 12:00] VITALS: BP 132/84
--- NOTE | 2019-04-08 12:03 | NUR ---
BLADDER SCAN DONE AT 1100 322 RESIDUAL VOLUME WILL DO IN AND OUT CATH.
[2019-04-08] MEDS ORDERED: NEUTRA PHOS 1 POWD.PACKET PO ONE (13:30)
--- NOTE | 2019-04-08 14:05 | NUR ---
FAMILY TEXT MD WORKMAN FAMILY DOES NOT WANT PT DISCHARGED NO BOWEL MOVEMENT WANTS DISIMPACTION WAITING FOR RESPONSE
[2019-04-08] MEDS ORDERED: MINERAL OIL 133 ML (PYXIS) 1 EA ENEMA RC ONE (14:30)
--- NOTE | 2019-04-08 15:20 | NUR ---
ULTRA SOUND POSITIVE LEFT POPITEAL VEIN DVT TEXTED MD WORKMAN
[2019-04-08] MEDS: RIVAROXABAN 15 MG TABLET PO SCH (17:25)
[2019-04-08 18:00] VITALS: BP 126/76
--- NOTE | 2019-04-08 18:21 | NUR ---
CLOSING PT HAD ULTRA SOUND DONE GIVEN ALL MEDICATIONS SPOKE WITH FAMILY AND TEXTED MD WORKMAN ABOUT BLOOD CULTURE FOR GRAM + COCCI TEXTED BACK AT 1800 AWARE OF RESULTS. WILL GIVEN RN REPORT TO PM SHIFT FOR CONTINUITY OF CARE
[2019-04-08 20:00] VITALS: BP 143/66
[2019-04-08] MEDS: LEVETIRACETAM SOL (5 ML) 100 MG/ML UDC PO SCH (21:03)
[2019-04-09 00:43] VITALS: BP 139/73
--- NOTE | 2019-04-09 03:08 | NUR ---
according to DENTAL BILLER Asha changed patient's diaper and it was full of urine.
[2019-04-09 05:17] VITALS: BP 130/64
--- NOTE | 2019-04-09 05:24 | NUR ---
DIAPER CHANGED, PATIENT'S DIAPER IS FULL OF URINE. CLEANED PATIENT AND KEPT DRY. Z-GUARD CREAM APPLIED OVER THE PERINEAL AREA. CHANGED POSITION.
--- NOTE | 2019-04-09 05:38 | NUR ---
NO BM YET BUT PATIENT JUST PASSED GASES. MOM GIVEN. BLADDER SCANNED=ONLY 290ML. PATIENT IS COMFORTABLE. NO MOANING. NOT RESTLESS. SITTER AT THE BEDSIDE. HOB ELEVATED AT ALL TIMES. BED ALARM ON. BED IN LOWEST AND LOCKED POSITION.
[2019-04-09] MEDS: IV D5/0.45 NACL 1,000 ML IV PRN (05:53)
[2019-04-09 06:48] LABS: CALCIUM, SERUM 8.3 mg/dL (8.5-10.1); CARBON DIOXIDE 25 mmol/L (21-32); CHLORIDE 96 mmol/L (98-107); CREATININE 0.3 mg/dL (0.6-1.3); GLUCOSE 119 mg/dL (74-106); SODIUM SERUM 131 mmol/L (136-145); UREA NITROGEN, BLOOD 8 mg/dL (7-18)
[2019-04-09 06:49] LABS: BASOPHILS # (AUTO) 0.1 /CMM (0.0-0.2); EOSINOPHILS % (AUTO) 1.8 % (0.0-6.0); HEMATOCRIT 36 % (33-45); HEMOGLOBIN 12.1 g/dL (11.5-14.8); LYMPHOCYTES # (AUTO) 1.1 /CMM (0.8-4.8); LYMPHOCYTES % (AUTO) 18.7 % (20.0-44.0); MEAN CORPUSCULAR HGB CONC 34 g/dl (31.0-36.0); MEAN CORPUSCULAR VOLUME 94 fL (82-100); MONOCYTES # (AUTO) 0.3 /CMM (0.1-1.30); MONOCYTES % (AUTO) 5.5 % (2.0-12.0); NEUTROPHILS # (AUTO) 4.5 /CMM (1.8-8.9); PLATELET COUNT (AUTO) 126 /CMM (150-450); RED BLOOD CELL COUNT(AUTO) 3.76 MIL/uL (4.0-5.2); WHITE BLOOD COUNT (AUTO) 6.1 K/uL (4.3-11.0)
--- NOTE | 2019-04-09 07:00 | NUR ---
RN INITIAL NOTE PATIENT IN BED, ASLEEP BUT EASILY AROUSABLE. PATIENT IS NON VERBAL, BUT UNDERSTANDS FARSI. CAREGIVER AT BEDSIDE. ON 3L NC, NO SOB NOTED. HAS A RIGHT HAND #22 WITH D5 HALF NS AT 75 ML/HR. BED LOCKED AND IN LOWEST POSITION. CALL LIGHT WITHIN REACH. WILL CONTINUE TO MONITOR CLOSELY
[2019-04-09 08:00] VITALS: BP 133/80
[2019-04-09] MEDS: FOLIC ACID 1 MG TABLET PO SCH (08:12)
[2019-04-09] MEDS: FERROUS SULFATE (325 MG) 325 MG/TAB TABLET PO SCH (08:12)
[2019-04-09] MEDS: LACTOBACILLUS RHAMNOSUS GG 1 EACH CAP.SPRINK PO SCH ×2 (08:12→17:16)
[2019-04-09] MEDS: MULTIVIT W/MINERALS 1 TAB TABLET PO SCH (08:12)
[2019-04-09] MEDS: CHOLECALCIFEROL 1,000 UNIT TABLET (VIT D3) PO SCH (08:12)
[2019-04-09] MEDS: CALCIUM CARB 250MG /VITAMIN D 1 UDTAB PO SCH ×2 (08:12→17:16)
[2019-04-09] MEDS: PROSOURCE / PROSTAT (PYXIS) 30 ML UDC PO SCH (08:12)
[2019-04-09] MEDS: ASCORBIC ACID 500 MG TABLET PO SCH (08:12)
[2019-04-09] MEDS: VITAMIN B COMP W-C 1 TAB TABLET PO SCH (08:12)
[2019-04-09] MEDS: SIMETHICONE 80 MG TAB.CHEW PO SCH ×2 (08:12→17:16)
[2019-04-09] MEDS: PANTOPRAZOLE 40 MG TABLET.DR PO SCH (08:12)
[2019-04-09] MEDS: RIVAROXABAN 15 MG TABLET PO SCH ×2 (08:15→17:17)
[2019-04-09] MEDS: POLYVINYL ALCOHOL 15 ML BOTTLE EACHEYE SCH ×2 (08:26→17:16)
[2019-04-09 10:47] LABS: ABG BASE EXCESS 3.4 mmol/L; ABG OXYGEN SATURATION 97.3 % (92.0-98.5); ABG PCO2 40.2 mmHg (35.0-45.0); ABG PH 7.454 (7.350-7.450); ABG PO2 103.3 mmHg (75.0-100.0); AaDO2 63.4 mmHg; COHb 0.4 % (0.5-1.5); MetHb 0.4 % (0.0-1.5); O2Hb 96.5 % (94.0-97.0); SITE, ABG Right Radial; VENT MODE, BG NC 3L
[2019-04-09] MEDS: POLYETHYLENE GLYCOL 3350 17 GM POWD.PACK PO PRN ×2 (12:37→17:19)
--- NOTE | 2019-04-09 13:35 | NUR ---
RN NOTE DR MAGAÑA ORDERED CT CHEST ANGIOGRAM. ASKED FAMILY IF PATIENT IS ALLERGIC TO DYE OR SHELLFISH. DAUGHTER STATES SHE DOES NOT WANT TO RISK THE PROCEDURE, THEY ARE NOT SURE IF THE PATIENT IS ALLERGIC TO DYE. DR MAGAÑA MADE AWARE. DR WORKMAN MADE AWARE WELL AND ORDERED TO DO A VQ SCAN INSTEAD. SON AT BEDSIDE AWARE AND PROCEDURE WILL BE DONE TODAY IN ABOUT AN HOUR OR TWO
--- NOTE | 2019-04-09 14:40 | NUR ---
RN NOTE PATIENT WAS PICKED UP TO DO THE VQ SCAN. SON ACCOMPANIED THE PATIENT. STABLE VS, PATIENT AWAKE BUT NON VERBAL
[2019-04-09 16:00] VITALS: BP 122/74
--- NOTE | 2019-04-09 16:37 | NUR ---
NM:LUNG V/Q WAS COMPLETED. TECH:RB
[2019-04-09] MEDS: LINEZOLID RTU BAG 600 MG in PREMIX 1 EA IV SCH (17:28)
[2019-04-09 18:00] VITALS: BP 122/74
--- NOTE | 2019-04-09 18:44 | NUR ---
RN CLOSING NOTE PATIENT IN BED, NON VERBAL. SON AT BEDSIDE. VQ SCAN WAS DONE, RESULTS RELAYED TO DR WORKMAN. ON 3L NC, NO SIGNS OF ANY SOB AT THIS TIME. PATIENT IS CONSTIPATED, WAS GIVEN MIRALAX X2. HAS A RIGHT HAND #22 WITH D5 HALF NS AT 75 ML/HR. BED LOCKED AND IN LOWEST POSITION. WILL ENDORSE TO NOC SHIFT FOR ALANIS
[2019-04-09 20:00] VITALS: BP 139/90
[2019-04-09] MEDS: LEVETIRACETAM SOL (5 ML) 100 MG/ML UDC PO SCH (22:35)
[2019-04-10 04:00] VITALS: BP 105/68
[2019-04-10] MEDS: LINEZOLID RTU BAG 600 MG in PREMIX 1 EA IV SCH (05:46)
[2019-04-10] MEDS: IV D5/0.45 NACL 1,000 ML IV PRN (06:34)
[2019-04-10] MEDS: PANTOPRAZOLE 40 MG TABLET.DR PO SCH (06:34)
[2019-04-10 08:00] VITALS: BP 105/61
--- NOTE | 2019-04-10 08:00 | NUR ---
RN NOTES RECEIVED PATIENT IN THE BED. CONFUSED NONVERBAL, BUT OPEN EYES WHEN CALLED NAME OR TOUCHED, NO ACUTE RESPIRATORY DISTRESS, ON O2-2L NC. PATIENT TOTAL CARE. KEEP HOB ELEVATED FOR ASPIRATION PRECAUTION, V/S STABLE, ADMINISTERED SCHEDULED MEDICATION CRUSHED AND MIXED WITH APPLE SAUCE. IV ACCESS ON RIGHT FA INTACT, . BOWEL SOUNDS ARE PRESENT 4 QUADRANT OF ABDOMEN, ASSIST EATING BY DATA COORDINATOR. PATIENT TOLERATED BREAKFAST 50% . ASSIST TURN AND REPOSTION Q 2 HR. CALL LIGHT WITHIN TO REACH. PATIENT INCONTINENT, USING DIAPER, APPLIED Z-GUARD. DVT PUMP ON. SAFETY PRECAUTION MAINTAINED ALL THE TIME.
[2019-04-10] MEDS: CHOLECALCIFEROL 1,000 UNIT TABLET (VIT D3) PO SCH (08:58)
[2019-04-10] MEDS: LACTOBACILLUS RHAMNOSUS GG 1 EACH CAP.SPRINK PO SCH ×2 (08:58→16:59)
[2019-04-10] MEDS: VITAMIN B COMP W-C 1 TAB TABLET PO SCH (08:58)
[2019-04-10] MEDS: ASCORBIC ACID 500 MG TABLET PO SCH (08:58)
[2019-04-10] MEDS: RIVAROXABAN 15 MG TABLET PO SCH ×2 (08:59→17:00)
[2019-04-10] MEDS: FOLIC ACID 1 MG TABLET PO SCH (09:00)
[2019-04-10] MEDS: SIMETHICONE 80 MG TAB.CHEW PO SCH ×2 (09:00→16:59)
[2019-04-10] MEDS: FERROUS SULFATE (325 MG) 325 MG/TAB TABLET PO SCH (09:00)
[2019-04-10] MEDS: MULTIVIT W/MINERALS 1 TAB TABLET PO SCH (09:00)
[2019-04-10] MEDS: PROSOURCE / PROSTAT (PYXIS) 30 ML UDC PO SCH (09:01)
[2019-04-10] MEDS: POLYVINYL ALCOHOL 15 ML BOTTLE EACHEYE SCH ×2 (09:01→17:01)
[2019-04-10] MEDS: CALCIUM CARB 250MG /VITAMIN D 1 UDTAB PO SCH ×2 (09:10→17:00)
[2019-04-10 13:00] VITALS: BP 112/61
--- NOTE | 2019-04-10 13:00 | NUR ---
RN NOTES PATIENT IN THE BED RESTING, NO ACUTE RESPIRATORY DISTRESS, SEEN PATIENT VIA HOSPITALIST Dr. WORKMAN, AND INFECTION CHASSIS INSPECTOR LIU , GET NEW BLOOD NIKHIL ORDER . CONTINUED MONITORING.
[2019-04-10 16:00] VITALS: BP 108/68
[2019-04-10] MEDS ORDERED: RIVA15TA PO (16:25)
--- NOTE | 2019-04-10 17:42 | NUR ---
rn notes patient was discharged per hospitalist Dr Gomez's order, but get call from son name Daryl and he is going to call insurance for appealing discharge order, call transferred to the case management for follow up.
--- NOTE | 2019-04-10 18:29 | NUR ---
RN NOTES PATIENT STABLE NO ACUTE RESPIRATORY DISTRESS, V/S STABLE, ADMINISTERED SCHEDULED MEDICATION VIA CREASED , AND MIXED WITH APPLE SAUCE, INFUSING D51/2 NS AT 75 ML/HR ON LEFT HAND INTACT. ASSIST TURN AND REPOSITION Q 2 HR, PATIENT TOLERATED DINNER WELL. PRIVET TRENCHER DRIVER NEXT TO THE BED, SAFETY PRECAUTION MAINTAINED ALL THE TIME. ENDORSED ONCOMING NURSE FOLLOW PLAN OF CARE.
[2019-04-10 20:00] VITALS: BP 119/63
[2019-04-10] MEDS: LINEZOLID 600 MG TABLET PO SCH (21:00)
[2019-04-10] MEDS: LEVETIRACETAM SOL (5 ML) 100 MG/ML UDC PO SCH (22:00)
[2019-04-10 22:07] VITALS: BP 119/63
[2019-04-11 04:00] VITALS: BP 106/64
[2019-04-11] MEDS: IV D5/0.45 NACL 1,000 ML IV PRN ×2 (05:39→21:10)
[2019-04-11 06:19] LABS: BASOPHILS # (AUTO) 0.1 /CMM (0.0-0.2); BASOPHILS % (AUTO) 1.1 % (0.0-2.0); EOSINOPHILS % (AUTO) 1.5 % (0.0-6.0); HEMATOCRIT 33 % (33-45); HEMOGLOBIN 11.3 g/dL (11.5-14.8); LYMPHOCYTES # (AUTO) 1.2 /CMM (0.8-4.8); LYMPHOCYTES % (AUTO) 18.5 % (20.0-44.0); MEAN CORPUSCULAR HGB CONC 35 g/dl (31.0-36.0); MEAN CORPUSCULAR VOLUME 94 fL (82-100); MONOCYTES # (AUTO) 0.4 /CMM (0.1-1.30); MONOCYTES % (AUTO) 6.3 % (2.0-12.0); NEUTROPHILS # (AUTO) 4.6 /CMM (1.8-8.9); NEUTROPHILS % (AUTO) 72.6 % (43.0-81.0); PLATELET COUNT (AUTO) 163 /CMM (150-450); WHITE BLOOD COUNT (AUTO) 6.3 K/uL (4.3-11.0)
[2019-04-11 06:36] LABS: CALCIUM, SERUM 8.5 mg/dL (8.5-10.1); CARBON DIOXIDE 30 mmol/L (21-32); CHLORIDE 99 mmol/L (98-107); CREATININE 0.3 mg/dL (0.6-1.3); GLUCOSE 105 mg/dL (74-106); MAGNESIUM 1.9 mg/dL (1.8-2.4); PHOSPHORUS 3.4 mg/dL (2.5-4.9); POTASSIUM 3.9 mmol/L (3.5-5.1); SODIUM SERUM 134 mmol/L (136-145); UREA NITROGEN, BLOOD 6 mg/dL (7-18)
[2019-04-11 08:00] VITALS: BP 104/68
--- NOTE | 2019-04-11 08:00 | NUR ---
m/s accounts payable supervisor: initial assessment received pt in bed with eyes open, non-verbal. private caregiver at bedside. hob elevated. no distress noted. will monitor.
[2019-04-11] MEDS: LINEZOLID 600 MG TABLET PO SCH (09:00)
[2019-04-11] MEDS: VITAMIN B COMP W-C 1 TAB TABLET PO SCH (09:58)
[2019-04-11] MEDS: LACTOBACILLUS RHAMNOSUS GG 1 EACH CAP.SPRINK PO SCH ×2 (09:58→17:19)
[2019-04-11] MEDS: SIMETHICONE 80 MG TAB.CHEW PO SCH ×2 (09:58→17:19)
[2019-04-11] MEDS: MULTIVIT W/MINERALS 1 TAB TABLET PO SCH (09:58)
[2019-04-11] MEDS: FOLIC ACID 1 MG TABLET PO SCH (09:58)
[2019-04-11] MEDS: CHOLECALCIFEROL 1,000 UNIT TABLET (VIT D3) PO SCH (09:58)
[2019-04-11] MEDS: ASCORBIC ACID 500 MG TABLET PO SCH (09:58)
[2019-04-11] MEDS: FERROUS SULFATE (325 MG) 325 MG/TAB TABLET PO SCH (09:58)
--- NOTE | 2019-04-11 10:00 | NUR ---
m/s c d still operator: md visit seen and examined by dr. coe at this time. dr. coe spoke to daughter over the phone for updates. private caregiver at bedside. received verbal order to d'c scd to legs, pt doesn't need it, pt is on xarelto as stated and d'c zyvox po. orders read back and carried out and acknowledged.
[2019-04-11] MEDS: RIVAROXABAN 15 MG TABLET PO SCH ×2 (10:01→17:22)
[2019-04-11] MEDS: PANTOPRAZOLE 40 MG TABLET.DR PO SCH (10:02)
[2019-04-11] MEDS: CALCIUM CARB 250MG /VITAMIN D 1 UDTAB PO SCH ×2 (10:03→17:19)
[2019-04-11] MEDS: PROSOURCE / PROSTAT (PYXIS) 30 ML UDC PO SCH (10:07)
[2019-04-11] MEDS: POLYVINYL ALCOHOL 15 ML BOTTLE EACHEYE SCH ×2 (10:12→17:20)
--- NOTE | 2019-04-11 12:00 | NUR ---
m/s spare hand carding: notes daughter and private caregiver remains at bedside. hob elevated. lunch served. will continue to monitor.
--- NOTE | 2019-04-11 15:00 | NUR ---
m/s plans examiner: notes called lab (micro) for f/u blood culture result, per maria antonia (tech) will f/u the 24 hour result. will continue to monitor.
[2019-04-11 16:00] VITALS: BP 108/59
--- NOTE | 2019-04-11 17:00 | NUR ---
m/s filter bed placer: notes daughter and private caregiver remains at bedside. incontinent care of bowel and bladder rendered. kept clean and dry. good ranjan care rendered. will continue to monitor.
--- NOTE | 2019-04-11 18:25 | NUR ---
m/s manager title: notes private caregiver still assisting with dinner. hob elevated. needs attended. no aspiration noted. will continue to monitor.
--- NOTE | 2019-04-11 19:00 | NUR ---
m/s interactive developer: notes report given to rashawn (alan) for continuity of care.
--- NOTE | 2019-04-11 19:10 | NUR ---
MS/RN OPENING NOTES: RECEIVED PATIENT IN BED RESTING COMFORTABLY. NO SOB NOTED, NO S/S OF ACUTE DISTRESS, DENISES PAIN OR DISCOMFORT AT THIS TIME. PT IS CONFUSED, NONVERBAL, BUT OPEN EYES WHEN CALLED NAME OR TOUCHED, ON ROOM AIR. HOB ELEVATED FOR ASPIRATION PRECAUTION, V/S STABLE, IV ACCESS ON RIGHT HAND #22G INTACT, PATENT AND FLUSHING WELL. D5 1/2 NS RUNNING AT 75ML/HR. CAREGIVER PRESENT AT BEDSIDE. CALL LIGHT WITHIN REACH. DVT PUMP ON. SAFETY PRECAUTION IN PLACE WITH BED IN LOW, LOCKED POSITION, SIDE RAILS UP X2. WILL CONTINUE MONITORING ACCORDINGLY.
[2019-04-11 20:00] VITALS: BP 127/91
[2019-04-11] MEDS: LEVETIRACETAM SOL (5 ML) 100 MG/ML UDC PO SCH (21:17)
[2019-04-12 04:00] VITALS: BP 141/83
--- NOTE | 2019-04-12 06:54 | NUR ---
MS/RN CLOSING NOTES: PATIENT IS IN BED RESTING COMFORTABLY. CAREGIVER AT BEDSIDE,. PT IS CONFUSED, NONVERBAL, NO SIGNIFICANT CHANGES IN CONDITION. NO SOB NOTED, NO S/S OF ACUTE DISTRESS, DENIES PAIN OR DISCOMFORT AT THIS TIME. ON ROOM AIR. HOB ELEVATED FOR ASPIRATION PRECAUTION, V/S STABLE, IV ACCESS ON RIGHT HAND #22G INTACT, PATENT AND FLUSHING WELL. D5 1/2 NS RUNNING AT 75ML/HR. CALL LIGHT WITHIN REACH. DVT PUMP ON. SAFETY PRECAUTION KEPT IN PLACE WITH BED IN LOW, LOCKED POSITION, SIDE RAILS UP X2. ALL NURSING NEEDS MET AND PROVIDED, WILL ENDORSE TO DAY SHIFT NURSE FOR ALANIS.
[2019-04-12 08:00] VITALS: BP 126/60
[2019-04-12] MEDS: CALCIUM CARB 250MG /VITAMIN D 1 UDTAB PO SCH ×2 (09:21→17:25)
[2019-04-12] MEDS: CHOLECALCIFEROL 1,000 UNIT TABLET (VIT D3) PO SCH (09:21)
[2019-04-12] MEDS: PANTOPRAZOLE 40 MG TABLET.DR PO SCH (09:21)
[2019-04-12] MEDS: FERROUS SULFATE (325 MG) 325 MG/TAB TABLET PO SCH (09:21)
[2019-04-12] MEDS: VITAMIN B COMP W-C 1 TAB TABLET PO SCH (09:21)
[2019-04-12] MEDS: SIMETHICONE 80 MG TAB.CHEW PO SCH ×2 (09:21→17:25)
[2019-04-12] MEDS: MULTIVIT W/MINERALS 1 TAB TABLET PO SCH (09:21)
[2019-04-12] MEDS: ASCORBIC ACID 500 MG TABLET PO SCH (09:21)
[2019-04-12] MEDS: LACTOBACILLUS RHAMNOSUS GG 1 EACH CAP.SPRINK PO SCH ×2 (09:23→17:25)
[2019-04-12] MEDS: FOLIC ACID 1 MG TABLET PO SCH (09:23)
[2019-04-12] MEDS: RIVAROXABAN 15 MG TABLET PO SCH ×2 (09:23→17:25)
[2019-04-12] MEDS: POLYVINYL ALCOHOL 15 ML BOTTLE EACHEYE SCH ×2 (09:23→17:26)
[2019-04-12] MEDS: PROSOURCE / PROSTAT (PYXIS) 30 ML UDC PO SCH (13:44)
[2019-04-12 16:00] VITALS: BP 120/68
[2019-04-12 20:00] VITALS: BP 121/73
[2019-04-12] MEDS: LEVETIRACETAM SOL (5 ML) 100 MG/ML UDC PO SCH (22:08)
[2019-04-13 04:00] VITALS: BP 126/69
[2019-04-13 06:49] LABS: CALCIUM, SERUM 8.7 mg/dL (8.5-10.1); CARBON DIOXIDE 29 mmol/L (21-32); CHLORIDE 101 mmol/L (98-107); CREATININE 0.2 mg/dL (0.6-1.3); GLUCOSE 85 mg/dL (74-106); POTASSIUM 3.6 mmol/L (3.5-5.1); SODIUM SERUM 137 mmol/L (136-145); UREA NITROGEN, BLOOD 9 mg/dL (7-18)
[2019-04-13 06:54] LABS: BASOPHILS # (AUTO) 0.1 /CMM (0.0-0.2); BASOPHILS % (AUTO) 1.2 % (0.0-2.0); EOSINOPHILS % (AUTO) 1.7 % (0.0-6.0); HEMATOCRIT 35 % (33-45); HEMOGLOBIN 11.9 g/dL (11.5-14.8); LYMPHOCYTES # (AUTO) 1.6 /CMM (0.8-4.8); LYMPHOCYTES % (AUTO) 25.4 % (20.0-44.0); MEAN CORPUSCULAR HGB CONC 34 g/dl (31.0-36.0); MEAN CORPUSCULAR VOLUME 95 fL (82-100); MONOCYTES # (AUTO) 0.4 /CMM (0.1-1.30); MONOCYTES % (AUTO) 6.8 % (2.0-12.0); NEUTROPHILS # (AUTO) 4.1 /CMM (1.8-8.9); NEUTROPHILS % (AUTO) 64.9 % (43.0-81.0); PLATELET COUNT (AUTO) 227 /CMM (150-450); RED BLOOD CELL COUNT(AUTO) 3.65 MIL/uL (4.0-5.2); WHITE BLOOD COUNT (AUTO) 6.3 K/uL (4.3-11.0)
[2019-04-13] MEDS: IV D5/0.45 NACL 1,000 ML IV PRN (07:47)
[2019-04-13] MEDS: PANTOPRAZOLE 40 MG TABLET.DR PO SCH (08:27)
[2019-04-13 09:12] VITALS: BP 127/76
[2019-04-13] MEDS: MULTIVIT W/MINERALS 1 TAB TABLET PO SCH (09:41)
[2019-04-13] MEDS: FOLIC ACID 1 MG TABLET PO SCH (09:41)
[2019-04-13] MEDS: LACTOBACILLUS RHAMNOSUS GG 1 EACH CAP.SPRINK PO SCH ×2 (09:41→17:38)
[2019-04-13] MEDS: ASCORBIC ACID 500 MG TABLET PO SCH (09:41)
[2019-04-13] MEDS: SIMETHICONE 80 MG TAB.CHEW PO SCH ×2 (09:41→17:38)
[2019-04-13] MEDS: VITAMIN B COMP W-C 1 TAB TABLET PO SCH (09:41)
[2019-04-13] MEDS: FERROUS SULFATE (325 MG) 325 MG/TAB TABLET PO SCH (09:41)
[2019-04-13] MEDS: CHOLECALCIFEROL 1,000 UNIT TABLET (VIT D3) PO SCH (09:41)
[2019-04-13] MEDS: RIVAROXABAN 15 MG TABLET PO SCH ×2 (09:42→17:39)
[2019-04-13] MEDS: PROSOURCE / PROSTAT (PYXIS) 30 ML UDC PO SCH (09:43)
[2019-04-13] MEDS: CALCIUM CARB 250MG /VITAMIN D 1 UDTAB PO SCH ×2 (09:43→17:38)
[2019-04-13] MEDS: POLYVINYL ALCOHOL 15 ML BOTTLE EACHEYE SCH ×2 (09:43→17:40)
[2019-04-13 20:00] VITALS: BP 122/77
[2019-04-13] MEDS: LEVETIRACETAM SOL (5 ML) 100 MG/ML UDC PO SCH (22:33)
[2019-04-13] MEDS: Z GUARD REMEDY 2 OZ OINT TP PRN (22:51)
[2019-04-14] VITALS: BP 111/59
[2019-04-14 04:00] VITALS: BP 120/70
[2019-04-14 06:47] LABS: BASOPHILS # (AUTO) 0.1 /CMM (0.0-0.2); BASOPHILS % (AUTO) 0.9 % (0.0-2.0); EOSINOPHILS % (AUTO) 1.8 % (0.0-6.0); HEMATOCRIT 33 % (33-45); HEMOGLOBIN 11.1 g/dL (11.5-14.8); LYMPHOCYTES # (AUTO) 1.3 /CMM (0.8-4.8); LYMPHOCYTES % (AUTO) 22.9 % (20.0-44.0); MEAN CORPUSCULAR HGB CONC 33 g/dl (31.0-36.0); MEAN CORPUSCULAR VOLUME 96 fL (82-100); MONOCYTES # (AUTO) 0.3 /CMM (0.1-1.30); MONOCYTES % (AUTO) 6.2 % (2.0-12.0); NEUTROPHILS # (AUTO) 3.9 /CMM (1.8-8.9); NEUTROPHILS % (AUTO) 68.2 % (43.0-81.0); PLATELET COUNT (AUTO) 236 /CMM (150-450); RED BLOOD CELL COUNT(AUTO) 3.49 MIL/uL (4.0-5.2); WHITE BLOOD COUNT (AUTO) 5.7 K/uL (4.3-11.0)
[2019-04-14 07:18] LABS: CALCIUM, SERUM 8.1 mg/dL (8.5-10.1); CARBON DIOXIDE 28 mmol/L (21-32); CHLORIDE 100 mmol/L (98-107); CREATININE 0.2 mg/dL (0.6-1.3); GLUCOSE 98 mg/dL (74-106); POTASSIUM 3.6 mmol/L (3.5-5.1); SODIUM SERUM 136 mmol/L (136-145); UREA NITROGEN, BLOOD 8 mg/dL (7-18)
--- NOTE | 2019-04-14 07:40 | NUR ---
RN OPENING NOTES RECEIVED PT ON BED, RESTING COMFORTABLY . FARSI SPEAKING. RESPIRATION EVEN AND UNLABORED. DENIES ANY PAIN OR DISCOMFORT. NO FACIAL GRIMACING DURING ASSESSMENT. ON ROOM AIR. HOB ELEVATED FOR ASPIRATION PRECAUTION , IV ACCESS INTACT, PATENT AND FLUSHED WELL. NO S/S OF INFILTRATION. CALL LIGHT WITHIN REACH . BED LOW IN LOW POSITION, LOCKED , SIDE RAILS UP X2 . WILL CONTINUE TO MONITOR
[2019-04-14 08:00] VITALS: BP 115/66
[2019-04-14] MEDS: PANTOPRAZOLE 40 MG TABLET.DR PO SCH ×2 (08:20→09:40)
[2019-04-14] MEDS: LACTOBACILLUS RHAMNOSUS GG 1 EACH CAP.SPRINK PO SCH ×2 (09:40→17:44)
[2019-04-14] MEDS: ASCORBIC ACID 500 MG TABLET PO SCH (09:40)
[2019-04-14] MEDS: MULTIVIT W/MINERALS 1 TAB TABLET PO SCH (09:40)
[2019-04-14] MEDS: FERROUS SULFATE (325 MG) 325 MG/TAB TABLET PO SCH (09:40)
[2019-04-14] MEDS: VITAMIN B COMP W-C 1 TAB TABLET PO SCH (09:40)
[2019-04-14] MEDS: SIMETHICONE 80 MG TAB.CHEW PO SCH ×2 (09:40→17:44)
[2019-04-14] MEDS: FOLIC ACID 1 MG TABLET PO SCH (09:40)
[2019-04-14] MEDS: CALCIUM CARB 250MG /VITAMIN D 1 UDTAB PO SCH ×2 (09:40→17:46)
[2019-04-14] MEDS: CHOLECALCIFEROL 1,000 UNIT TABLET (VIT D3) PO SCH (09:40)
[2019-04-14] MEDS: RIVAROXABAN 15 MG TABLET PO SCH ×2 (09:44→17:57)
[2019-04-14] MEDS: PROSOURCE / PROSTAT (PYXIS) 30 ML UDC PO SCH (09:48)
[2019-04-14] MEDS: POLYVINYL ALCOHOL 15 ML BOTTLE EACHEYE SCH ×2 (09:52→18:08)
[2019-04-14 16:00] VITALS: BP 102/67
--- NOTE | 2019-04-14 18:10 | NUR ---
RN CLOSING NOTES PATIENT IN BED, WITH THE CAREGIVER ON BEDSIDE. VITAL SIGNS WNL. IN NO ACUTE DISTRESS. ON STRICT PRECAUTION. HOB ELEVATED ALL TIMES. KEPT CLEAN AND DRY. ALL NEEDS MET. CALL LIGHT WITHIN REACH. BED ON LOW POSITION AND LOCKED. ENDORSED TO PM RN.
[2019-04-14 20:00] VITALS: BP 126/71
[2019-04-14] MEDS: LEVETIRACETAM SOL (5 ML) 100 MG/ML UDC PO SCH (21:42)
[2019-04-15 04:40] VITALS: BP 110/64
--- NOTE | 2019-04-15 05:00 | NUR ---
MS RN CLOSING NOTES: PATIENT IN BED, AWAKE, NON-VERBAL. VITALS STABLE. AFEBRILE. NO PAIN. CAREGIVER AT THE BEDSIDE. BED IN LOWEST AND LOCKED POSITION. NO RESP DISTRESS NOTED. HOB ELEVATED AT ALL TIMES.
[2019-04-15 06:46] LABS: BASOPHILS # (AUTO) 0.1 /CMM (0.0-0.2); BASOPHILS % (AUTO) 0.8 % (0.0-2.0); CALCIUM, SERUM 8.5 mg/dL (8.5-10.1); CARBON DIOXIDE 28 mmol/L (21-32); CHLORIDE 99 mmol/L (98-107); CREATININE 0.3 mg/dL (0.6-1.3); EOSINOPHILS % (AUTO) 1.1 % (0.0-6.0); GLUCOSE 92 mg/dL (74-106); HEMATOCRIT 35 % (33-45); HEMOGLOBIN 11.8 g/dL (11.5-14.8); LYMPHOCYTES # (AUTO) 1.4 /CMM (0.8-4.8); LYMPHOCYTES % (AUTO) 21.7 % (20.0-44.0); MEAN CORPUSCULAR HGB CONC 34 g/dl (31.0-36.0); MEAN CORPUSCULAR VOLUME 95 fL (82-100); MONOCYTES # (AUTO) 0.4 /CMM (0.1-1.30); MONOCYTES % (AUTO) 5.7 % (2.0-12.0); NEUTROPHILS # (AUTO) 4.6 /CMM (1.8-8.9); NEUTROPHILS % (AUTO) 70.7 % (43.0-81.0); PLATELET COUNT (AUTO) 264 /CMM (150-450); POTASSIUM 3.8 mmol/L (3.5-5.1); RED BLOOD CELL COUNT(AUTO) 3.68 MIL/uL (4.0-5.2); SODIUM SERUM 135 mmol/L (136-145); UREA NITROGEN, BLOOD 9 mg/dL (7-18); WHITE BLOOD COUNT (AUTO) 6.4 K/uL (4.3-11.0)
--- NOTE | 2019-04-15 07:39 | NUR ---
MS NURSE NOTES: RECEIVED PATIENT IN BED, WITH THE CAREGIVER ON BEDSIDE. VITAL SIGNS WNL. IN NO ACUTE DISTRESS. ON STRICT PRECAUTION. HOB ELEVATED ALL TIMES. CALL LIGHT WITHIN REACH. BED ON LOW POSITION AND LOCKED. RECEIVED REPORT FROM THE NIGHT NURSE JOE MOYER RN
[2019-04-15 08:00] VITALS: BP 103/62
[2019-04-15] MEDS: ASCORBIC ACID 500 MG TABLET PO SCH (10:16)
[2019-04-15] MEDS: PANTOPRAZOLE 40 MG TABLET.DR PO SCH (10:16)
[2019-04-15] MEDS: CHOLECALCIFEROL 1,000 UNIT TABLET (VIT D3) PO SCH (10:16)
[2019-04-15] MEDS: VITAMIN B COMP W-C 1 TAB TABLET PO SCH (10:16)
[2019-04-15] MEDS: LACTOBACILLUS RHAMNOSUS GG 1 EACH CAP.SPRINK PO SCH ×2 (10:16→18:51)
[2019-04-15] MEDS: RIVAROXABAN 15 MG TABLET PO SCH ×2 (10:18→18:54)
[2019-04-15] MEDS: FERROUS SULFATE (325 MG) 325 MG/TAB TABLET PO SCH (10:18)
[2019-04-15] MEDS: FOLIC ACID 1 MG TABLET PO SCH (10:18)
[2019-04-15] MEDS: SIMETHICONE 80 MG TAB.CHEW PO SCH ×2 (10:23→18:51)
[2019-04-15] MEDS: MULTIVIT W/MINERALS 1 TAB TABLET PO SCH (10:23)
[2019-04-15] MEDS: CALCIUM CARB 250MG /VITAMIN D 1 UDTAB PO SCH ×2 (10:23→18:55)
[2019-04-15] MEDS: PROSOURCE / PROSTAT (PYXIS) 30 ML UDC PO SCH (10:43)
[2019-04-15] MEDS: Z GUARD REMEDY 2 OZ OINT TP PRN (10:50)
[2019-04-15] MEDS: POLYVINYL ALCOHOL 15 ML BOTTLE EACHEYE SCH ×2 (12:38→18:51)
--- NOTE | 2019-04-15 12:45 | NUR ---
Nurse Notes: daughter at the bedside, will feed patient lunch, patient in no respiratory distress. patient is more drowsy. but eating. All Medications given crushed in apple sauce. Appears in no discomfort.
[2019-04-15 16:00] VITALS: BP 111/45
--- NOTE | 2019-04-15 18:00 | NUR ---
Nurse Notes: Caregiver at the bedside, patient is wide awake, not speaking but open yes, No complaints of pain medications. In no respiratory distress.
--- NOTE | 2019-04-15 19:30 | NUR ---
RN MS OPENING NOTES RECEIVED PATIENT IN BED WITH HEAD OF BED ELEVATED FOR ASPIRATION PRECAUTIONS RESPIRATIONS EVEN AND UNLABORED WITH EQUAL RISE AND FALL OF CHEST, APPEARS COMFORTABLE AT THIS TIME, NO FACIAL GRIMACING PRESENT, NO MOANS PRESENT, IV SITE TO LEFT HAND REMOVED D/T DISLODGED. NEW IV SITE TO LEFT FA #22 G . INTACT AND PATENT, NO REDNESS, NO INFILTRATION, SL. CAREGIVER AT BEDSIDE, PATIENT REPOSITIONED KEPT CLEAN ALL NEEDS ATTENDED AT THIS TIME, WILL CONTINUE TO MONITOR AND ATTEND TO NEEDS.
--- NOTE | 2019-04-15 19:30 | NUR ---
Nurse Notes: report given to the night nurse Marian OSHEA. Patient is receiving tears eye drops, patient needs enecouragement to open her eyes for her drops. caregiver still at bedside.
[2019-04-15 20:00] VITALS: BP 119/75
[2019-04-15] MEDS: LEVETIRACETAM SOL (5 ML) 100 MG/ML UDC PO SCH (21:47)
[2019-04-16 00:30] VITALS: BP 105/60
[2019-04-16 06:12] LABS: BASOPHILS # (AUTO) 0.1 /CMM (0.0-0.2); EOSINOPHILS % (AUTO) 0.9 % (0.0-6.0); HEMATOCRIT 37 % (33-45); HEMOGLOBIN 12.3 g/dL (11.5-14.8); LYMPHOCYTES # (AUTO) 1.5 /CMM (0.8-4.8); LYMPHOCYTES % (AUTO) 23.3 % (20.0-44.0); MEAN CORPUSCULAR HGB CONC 34 g/dl (31.0-36.0); MEAN CORPUSCULAR VOLUME 95 fL (82-100); MONOCYTES # (AUTO) 0.4 /CMM (0.1-1.30); MONOCYTES % (AUTO) 6.4 % (2.0-12.0); NEUTROPHILS # (AUTO) 4.4 /CMM (1.8-8.9); NEUTROPHILS % (AUTO) 68.4 % (43.0-81.0); PLATELET COUNT (AUTO) 266 /CMM (150-450); RED BLOOD CELL COUNT(AUTO) 3.83 MIL/uL (4.0-5.2); WHITE BLOOD COUNT (AUTO) 6.4 K/uL (4.3-11.0)
[2019-04-16 06:29] LABS: CALCIUM, SERUM 8.7 mg/dL (8.5-10.1); CARBON DIOXIDE 30 mmol/L (21-32); CHLORIDE 101 mmol/L (98-107); CREATININE 0.3 mg/dL (0.6-1.3); GLUCOSE 97 mg/dL (74-106); POTASSIUM 3.8 mmol/L (3.5-5.1); SODIUM SERUM 138 mmol/L (136-145); UREA NITROGEN, BLOOD 11 mg/dL (7-18)
--- NOTE | 2019-04-16 06:30 | NUR ---
RN MS CLOSING NOTES PATIENT IN BED WITH HEAD OF BED ELEVATED FOR ASPIRATION PRECAUTIONS ,RESPIRATIONS EVEN AND UNLABORED WITH EQUAL RISE AND FALL OF CHEST, APPEARS COMFORTABLE AT THIS TIME, NO FACIAL GRIMACING PRESENT, NO MOANS PRESENT, REPOSITIONED Q2 H AND NEEDED, HEELS OFFLOADED, SKIN REMAINS INTACT NO REDNESS,PERINEAL CARE PROVIDED REMAINS CLEAN AND DRY NTL FLUIDS GIVEN TOLERATED WELL, IV SITE TO LEFT FA #22 G . INTACT AND PATENT, NO REDNESS, NO INFILTRATION, SL. CAREGIVER AT BEDSIDE, PATIENT KEPT CLEAN ALL NEEDS ATTENDED AT THIS TIME, ALL DUE MEDS GIVEN ORDERED, NO ADVERSE REACTIONS, WILL CONTINUE TO MONITOR AND ATTEND TO NEEDS AND ENDORSE TO NEXT SHIFT.
[2019-04-16 08:00] VITALS: BP 117/68
[2019-04-16] MEDS: CHOLECALCIFEROL 1,000 UNIT TABLET (VIT D3) PO SCH (09:13)
[2019-04-16] MEDS: POLYVINYL ALCOHOL 15 ML BOTTLE EACHEYE SCH ×2 (09:13→17:26)
[2019-04-16] MEDS: VITAMIN B COMP W-C 1 TAB TABLET PO SCH (09:13)
[2019-04-16] MEDS: FOLIC ACID 1 MG TABLET PO SCH (09:14)
[2019-04-16] MEDS: ASCORBIC ACID 500 MG TABLET PO SCH (09:14)
[2019-04-16] MEDS: LACTOBACILLUS RHAMNOSUS GG 1 EACH CAP.SPRINK PO SCH (09:14)
[2019-04-16] MEDS: FERROUS SULFATE (325 MG) 325 MG/TAB TABLET PO SCH (09:14)
[2019-04-16] MEDS: MULTIVIT W/MINERALS 1 TAB TABLET PO SCH (09:14)
[2019-04-16] MEDS: SIMETHICONE 80 MG TAB.CHEW PO SCH ×2 (09:14→17:26)
[2019-04-16] MEDS: RIVAROXABAN 15 MG TABLET PO SCH ×2 (09:15→17:27)
[2019-04-16] MEDS: PROSOURCE / PROSTAT (PYXIS) 30 ML UDC PO SCH (09:16)
[2019-04-16] MEDS: CALCIUM CARB 250MG /VITAMIN D 1 UDTAB PO SCH ×2 (09:16→17:27)
[2019-04-16 16:00] VITALS: BP 112/59
--- NOTE | 2019-04-16 16:22 | NUR ---
sleepy but easily aroused, home care liaison at the bedside, left after breakfast. Feeder, complete care, took all pills in thicket, swallowing no problem. now son as a caregiver. Per charge nurse and confirmed by case picker, patient is to go back to [facility] today, report given to Fariha at the facility, and ambulance on the way. Son made aware of the transfer, " want to appeal" " my mother did not completely look well". Both charge nurse and case picker notified, transfer on hold now
--- NOTE | 2019-04-16 19:15 | NUR ---
MS RN NOTES RECEIVED PT IN BED AWAKE WITH FAMILY AT BEDSIDE. PT A/O X0-1 NONVERBAL. RESPIRATIONS EVEN AND UNLABORED WITH NO S/S OF ACUTE DISTRESS OR SOB NOTED AT THIS TIME. PT NOTED WITH WALTER #22G PATENT AND INTACT AND SL. NO S/S OF PAIN AT THIS TIME. SAFETY MEASURES IN PLACE WITH BED IN LOWEST LOCKED POSITION WITH SIDE RAILS UP X2. CALL LIGHT WITHIN REACH. WILL CONTINUE TO MONITOR.
[2019-04-16] MEDS: LEVETIRACETAM SOL (5 ML) 100 MG/ML UDC PO SCH (21:24)
[2019-04-17] VITALS: BP 131/81
--- NOTE | 2019-04-17 06:47 | NUR ---
MS RN NOTES RECEIVED PT IN BED AWAKE WITH CAREGIVER AT BEDSIDE. PT A/O X0-1 NONVERBAL. RESPIRATIONS EVEN AND UNLABORED WITH NO S/S OF ACUTE DISTRESS OR SOB NOTED THROUGHOUT SHIFT. PT NOTED WITH WALTER #22G PATENT AND INTACT AND SL. PT KEPT CLEAN, DRY, AND COMFORTABLE. PT TURNED Q2 HRS THROUGHOUT SHIFT. NO S/S OF PAIN AT THIS TIME. SAFETY MEASURES IN PLACE WITH BED IN LOWEST LOCKED POSITION WITH SIDE RAILS UP X2. CALL LIGHT WITHIN REACH. WILL ENDORSE TO ONCOMING NURSE FOR ALANIS.
[2019-04-17 08:00] VITALS: BP_SYST 111; BP_DIAS 64; BP_DIAS 68
[2019-04-17] MEDS: CHOLECALCIFEROL 1,000 UNIT TABLET (VIT D3) PO SCH (08:20)
[2019-04-17] MEDS: PANTOPRAZOLE 40 MG TABLET.DR PO SCH (08:20)
[2019-04-17] MEDS: CALCIUM CARB 250MG /VITAMIN D 1 UDTAB PO SCH ×2 (08:20→16:32)
[2019-04-17] MEDS: POLYVINYL ALCOHOL 15 ML BOTTLE EACHEYE SCH ×2 (08:20→16:39)
[2019-04-17] MEDS: FOLIC ACID 1 MG TABLET PO SCH (08:21)
[2019-04-17] MEDS: SIMETHICONE 80 MG TAB.CHEW PO SCH ×2 (08:21→16:32)
[2019-04-17] MEDS: ASCORBIC ACID 500 MG TABLET PO SCH (08:21)
[2019-04-17] MEDS: VITAMIN B COMP W-C 1 TAB TABLET PO SCH (08:21)
[2019-04-17] MEDS: MULTIVIT W/MINERALS 1 TAB TABLET PO SCH (08:21)
[2019-04-17] MEDS: FERROUS SULFATE (325 MG) 325 MG/TAB TABLET PO SCH (08:22)
[2019-04-17] MEDS: RIVAROXABAN 15 MG TABLET PO SCH ×2 (08:23→16:33)
[2019-04-17] MEDS: PROSOURCE / PROSTAT (PYXIS) 30 ML UDC PO SCH (08:30)
[2019-04-17] MEDS: LACTOBACILLUS RHAMNOSUS GG 1 EACH CAP.SPRINK PO SCH ×2 (09:00→16:32)
--- NOTE | 2019-04-17 10:33 | NUR ---
alert, non-verbal, flat affect. family still appealing , regarding the transfer to [facility]. discharge pending
--- NOTE | 2019-04-17 15:34 | NUR ---
patient's condition remains unchanged, son Daryl approached author twice during this shift, " Me and my sister, both thought about the discharge our mom back to [facility], and agreed with the decision. ". Charge Nurse, and Mine Development Engineer notified, report, again given to Reginaldo . supervisor microbiology technologists time expected at 1900 tonite. school crossing guard made aware.
[2019-04-17 16:00] VITALS: BP 115/65
[2019-04-17 16:18] VITALS: BP 115/65
--- NOTE | 2019-04-17 20:20 | NUR ---
REPORT GIVEN TO [facility] 27 IV SITE REMOVED FROM LEFT AC, DRESSING APPLIED.
--- NOTE | 2019-04-17 20:24 | NUR ---
PT LEFT UNIT VIA GURNEY IN STABLE CONDITION.
[2019-04-30] MEDS ORDERED: RIVAROXABAN 10 MG TABLET PO SCH (17:00)
== END 2019-04-17 20:25 | DRG 194 ==
LOC: ER 16:29 → TELE1 18:28 → MEDSG1 04-09 10:21
PROVIDERS: ADMIT Student in an Organized Health Care Education/Training Program; ATTEND Family Medicine
DX: J15.9 Unspecified bacterial pneumonia (principal); E44.0 Moderate protein-calorie malnutrition; I82.432 Acute embolism and thrombosis of left popliteal vein; I50.32 Chronic diastolic (congestive) heart failure; J98.11 Atelectasis; Z87.440 Personal history of urinary (tract) infections; G40.909 Epilepsy, unspecified, not intractable, without status epilepticus; G20 Parkinson's disease; I11.0 Hypertensive heart disease with heart failure; D50.9 Iron deficiency anemia, unspecified; E88.09 Other disorders of plasma-protein metabolism, not elsewhere classified; G30.9 Alzheimer's disease, unspecified; F02.80 Dementia in other diseases classified elsewhere, unspecified severity, without behavioral disturbance, psychotic disturbance, mood disturbance, and anxiety; K21.9 Gastro-esophageal reflux disease without esophagitis; K44.9 Diaphragmatic hernia without obstruction or gangrene; Z88.0 Allergy status to penicillin; Z88.2 Allergy status to sulfonamides; K57.30 Diverticulosis of large intestine without perforation or abscess without bleeding; K59.00 Constipation, unspecified
CPT/HCPCS: 36415; 36600; 71045-TC; 74018; 76856-TC; 78580; 80048-TC; 80076-TC; 81000-TC; 82803-TC; 83605-TC; 83735-TC; 84100-TC; 84484-TC; 85025-TC; 85730-TC; 87040-TC; 87081-TC; 87086-TC; 87186-TC; 92521; 93970-TC; 94799-TC; 97110-TC; 97112-TC; 97530-TC; A4216; A9540; A9567; G0378; J1953; J2020; J2185; J3490; J7030

== ENCOUNTER 2019-05-09 15:58 | Inpatient (IN) | payer MEDICARE, MEDICAID ==
[~2019-05-09] VITALS: Ht 154.9 cm; Wt 55.8 kg
[~2019-05-09 15:58] MED LIST changes: +ASCO-352 PO; -ASCO500T9 PO; +CALC-7 PO; +IPRA0.2S9 IH; -IPRA3AMP23 IH; +METH1TAB30 PO; -NITR100C15 PO; -PANT40TA2 PO; +RIVA15TA PO
[2019-05-09] MEDS ORDERED: LORAZEPAM INJ 2 MG/ML VIAL ONE (16:11)
--- NOTE | 2019-05-09 16:16 | NUR ---
william, from [facility], had seizure post ictal, unkown time, 95% on RA, BS 85. PT IS NONVERBAL AND HAS HX OF DEMENTIA, THIS IS HER BASELINE PER THE FAMILY. BILATERAL UPPER AND LOWER EXTREMITIES CONTRACTED. INCONTINENT OF BOWEL AND BLADDER, WEARS ADULT DIAPER. AMBULATORY WITH WALKER AT HOME. NO ACUTE DISTRESS NOTED. SKIN WARM, DRY, INTACT. FAMILY AT BEDSIDE. ON MONITOR AND READY FOR EVAL. Addendum: 05/09/19 at 2107 by JASWINDER PT IS NON-AMBULATORY
[2019-05-09] MEDS ORDERED: LORAZEPAM INJ 2 MG/ML VIAL IVP ONE (16:30)
[2019-05-09] MEDS ORDERED: IV NS 0.9% 500 ML BAG IV ONE (16:30)
[2019-05-09 16:32] LABS: BASOPHILS # (AUTO) 0.1 /CMM (0.0-0.2); EOSINOPHILS % (AUTO) 1.1 % (0.0-6.0); HEMATOCRIT 45 % (33-45); HEMOGLOBIN 14.8 g/dL (11.5-14.8); LYMPHOCYTES # (AUTO) 1.9 /CMM (0.8-4.8); LYMPHOCYTES % (AUTO) 32.6 % (20.0-44.0); MEAN CORPUSCULAR HGB CONC 33 g/dl (31.0-36.0); MEAN CORPUSCULAR VOLUME 97 fL (82-100); MONOCYTES # (AUTO) 0.3 /CMM (0.1-1.30); MONOCYTES % (AUTO) 4.7 % (2.0-12.0); NEUTROPHILS # (AUTO) 3.6 /CMM (1.8-8.9); NEUTROPHILS % (AUTO) 60.6 % (43.0-81.0); PLATELET COUNT (AUTO) 153 /CMM (150-450); WHITE BLOOD COUNT (AUTO) 5.9 K/uL (4.3-11.0)
[2019-05-09 16:39] LABS: CALCIUM, SERUM 9.6 mg/dL (8.5-10.1); CARBON DIOXIDE 29 mmol/L (21-32); CHLORIDE 98 mmol/L (98-107); CREATININE 0.5 mg/dL (0.6-1.3); GLUCOSE 118 mg/dL (74-106); POTASSIUM 4.5 mmol/L (3.5-5.1); SODIUM SERUM 134 mmol/L (136-145); UREA NITROGEN, BLOOD 11 mg/dL (7-18)
--- NOTE | 2019-05-09 16:47 | NUR ---
PT TAKEN TO CT VIA [facility]
[2019-05-09 16:50] LABS: ALANINE AMINOTRANSFERASE 24 U/L (12-78); ALBUMIN 3.8 g/dL (3.4-5.0); ALCOHOL, BLOOD < 3 mg/dL (0-0); ALKALINE PHOSPHATASE 239 U/L (46-116); ASPARTATE AMINOTRANSFERASE 25 U/L (15-37); BILIRUBIN,DIRECT 0.1 mg/dL (0.0-0.2); BILIRUBIN,TOTAL 0.3 mg/dL (0.2-1.0); TOTAL PROTEIN, SERUM 8.4 g/dL (6.4-8.2)
[2019-05-09 16:51] LABS: PHENOBARBITAL 1 ug/ml (15-39); PHENYTOIN (DILANTIN) < 0.5 ug/ml (10.0-20.0)
[2019-05-09 16:52] LABS: VALPROIC ACID < 3 ug/mL (50-100)
--- NOTE | 2019-05-09 17:45 | NUR ---
URINE OBTAINED VIA STRAIGHT CATH PER PROTOCOL PER
[2019-05-09] MEDS ORDERED: PIPERACILLIN /TAZOBACTAM 3.375 G in IV D5W 50 ML IV ONE (18:00)
[2019-05-09] MEDS ORDERED: IV NS 0.9% 1,000 ML BAG IV ONE (18:00)
[2019-05-09] MEDS ORDERED: AZTREONAM 2 G in IV NS 0.9% 100 ML IV ONE (18:00)
[2019-05-09 18:04] LABS: APPEARANCE,URINE Clear (CLEAR); BILIRUBIN,URINE Negative (NEGATIVE); BLOOD, URINE Trace-intact Ery/uL (NEGATIVE); COLOR,URINE Yellow (YELLOW); KETONES,URINE Negative (NEGATIVE); LEUKOCYTE ESTERASE ,URINE Small (NEGATIVE); NITRITE, URINE Negative (NEGATIVE); PH,URINE 7.5 (5.0-8.0); PROTEIN,URINE Negative (NEGATIVE); UGLUCOSE Negative (NEGATIVE); UROBILINOGEN,URINE 0.2 EU/dL (0.2)
[2019-05-09] MEDS ORDERED: CRAN400T3 PO (18:05)
[2019-05-09] MEDS ORDERED: CRAN3875 PO (18:05)
[2019-05-09 18:13] LABS: BACTERIA,URINE 1+ /HPF (None Seen); SQUAMOUS EPITHELIAL CELL,UR Few /HPF (None Seen)
--- NOTE | 2019-05-09 18:28 | NUR ---
PAGED [facility].
--- NOTE | 2019-05-09 18:48 | NUR ---
FAMILY BROUGHT FOOD FOR PT, OK PER
--- NOTE | 2019-05-09 19:24 | NUR ---
LAB AT BEDSIDE FOR LACTIC REDRAW
--- NOTE | 2019-05-09 19:32 | NUR ---
CALLED NURSING SUP FOR TELE BED.
--- NOTE | 2019-05-09 19:59 | NUR ---
RECIEVED BED 310-1
[2019-05-09] MEDS ORDERED: MORPHINE SULFATE INJ 2 MG/ML DISP.SYRIN IV PRN (20:30)
[2019-05-09] MEDS ORDERED: LORAZEPAM INJ 2 MG/ML VIAL IV PRN (20:30)
[2019-05-09] MEDS ORDERED: ONDANSETRON HCL/PF 4 MG/2 ML VIAL IVP PRN (20:30)
[2019-05-09] MEDS ORDERED: HYDROCODONE/APAP 5/325MG 1 EACH TABLET PO PRN (20:30)
[2019-05-09] MEDS ORDERED: BISACODYL SUPP (10 MG) 10 MG/SUPP.RECT SUPP.RECT RC PRN (20:30)
[2019-05-09] MEDS ORDERED: ACETAMINOPHEN 325 MG TABLET PO PRN (20:30)
[2019-05-09] MEDS ORDERED: TEMAZEPAM 15 MG CAPSULE PO PRN (20:30)
[2019-05-09] MEDS ORDERED: CLONIDINE HCL 0.2 MG TABLET PO PRN (20:30)
--- NOTE | 2019-05-09 20:58 | NUR ---
REPORT GIVEN TO DEVANG OSHEA FOR 310-1
[2019-05-09] MEDS ORDERED: PIPERACILLIN /TAZOBACTAM 3.375 G in IV D5W 50 ML IV SCH (21:00)
[2019-05-09] MEDS ORDERED: ACETAMINOPHEN ES 500 MG TABLET PO PRN (21:00)
--- NOTE | 2019-05-09 21:06 | NUR ---
ER TECHS AT BEDSIDE TO HELP CLEAN/CHANGE PT
[2019-05-09 21:45] VITALS: BP 133/92
--- NOTE | 2019-05-09 21:52 | NUR ---
[facility]
[2019-05-09 22:00] VITALS: BP 133/92
--- NOTE | 2019-05-09 22:00 | NUR ---
HEAD BAKERSENIOR MARKETING SPECIALIST NOTES Received patient from ER via gurney. Admitted to Tele 310-1 due to sepsis and UTI under the service of COLIN Lira. Transferred to bed comfortably with 4 persons assist. Admission routine done. Initial skin assessment done, family claimed patient has sacral redness. Photo taken and documented, wound consult triggered. Kept on bed clean, dry and comfortable. Used log roll and 2 persons assist in cleaning the patient. On aspiration and seizure precautions. Sign posted above head board visible to all HCPs. Admission orders noted and carried out. Kept on bed clean, dry and comfortable. Call light within reach. Will continue to monitor accordingly.
--- NOTE | 2019-05-09 22:05 | NUR ---
TRANSPORT SPECIALIST NOTES On tele monitor with NSR with ST elevation noted.
[2019-05-09] MEDS: ACIDOPHILUS/BULGARICUS 1 EACH TAB.CHEW PO SCH (22:35)
[2019-05-09] MEDS: LEVETIRACETAM SOL (5 ML) 100 MG/ML UDC PO SCH (22:35)
[2019-05-09] MEDS: IV NS 0.9% 1,000 ML IV PRN (22:36)
[2019-05-10] VITALS: BP 130/83
[2019-05-10] MEDS ORDERED: PIPERACILLIN /TAZOBACTAM 3.375 G VIAL IV ONE (00:41)
[2019-05-10] MEDS: PIPERACILLIN /TAZOBACTAM 3.375 G in IV D5W 100 ML IV SCH ×3 (00:46→16:11)
[2019-05-10 04:00] VITALS: BP 135/84
--- NOTE | 2019-05-10 06:30 | NUR ---
LAWN AND TREE SERVICE SPRAY SUPERVISOR CLOSING NOTES Patient asleep, easily awaken. On RA, no SOB/respiratory distress noted. Afebrile the whole shift, on tele monitor with NSR noted. No seizure noted within the shift. All nursing needs attended. Due meds given as ordered. On fall, aspiration, and seizure precautions. Kept on bed clean, dry and comfortable. Call light within easy reach. Caregiver at bedside the whole shift. Endorsed.
[2019-05-10 07:27] LABS: BASOPHILS # (AUTO) 0.1 /CMM (0.0-0.2); EOSINOPHILS % (AUTO) 0.7 % (0.0-6.0); HEMATOCRIT 40 % (33-45); HEMOGLOBIN 13.3 g/dL (11.5-14.8); LYMPHOCYTES # (AUTO) 1.5 /CMM (0.8-4.8); LYMPHOCYTES % (AUTO) 22.2 % (20.0-44.0); MEAN CORPUSCULAR HGB CONC 33 g/dl (31.0-36.0); MEAN CORPUSCULAR VOLUME 96 fL (82-100); MONOCYTES # (AUTO) 0.3 /CMM (0.1-1.30); MONOCYTES % (AUTO) 4.4 % (2.0-12.0); NEUTROPHILS # (AUTO) 4.7 /CMM (1.8-8.9); NEUTROPHILS % (AUTO) 71.7 % (43.0-81.0); PLATELET COUNT (AUTO) 129 /CMM (150-450); RED BLOOD CELL COUNT(AUTO) 4.21 MIL/uL (4.0-5.2); WHITE BLOOD COUNT (AUTO) 6.6 K/uL (4.3-11.0)
[2019-05-10] MEDS: PANTOPRAZOLE 40 MG TABLET.DR PO SCH ×2 (07:30→13:02)
--- NOTE | 2019-05-10 07:30 | NUR ---
SENIOR COST ESTIMATOR NOTES PT IN BED, ASLEEP, EASY TO AROUSE, NO SIGN OF PAIN OR DISTRESS, CALL LIGHT WITHIN REACH, CAREGIVER AT BEDSIDE, KEPT WARM AND COMFORTABLE IN BED.
[2019-05-10 07:46] LABS: CALCIUM, SERUM 8.6 mg/dL (8.5-10.1); CARBON DIOXIDE 24 mmol/L (21-32); CHLORIDE 100 mmol/L (98-107); CREATININE 0.4 mg/dL (0.6-1.3); GLUCOSE 95 mg/dL (74-106); MAGNESIUM 1.8 mg/dL (1.8-2.4); PHOSPHORUS 3.3 mg/dL (2.5-4.9); POTASSIUM 3.9 mmol/L (3.5-5.1); SODIUM SERUM 133 mmol/L (136-145); UREA NITROGEN, BLOOD 5 mg/dL (7-18)
[2019-05-10 08:00] VITALS: BP 122/65
[2019-05-10] MEDS: ACIDOPHILUS/BULGARICUS 1 EACH TAB.CHEW PO SCH ×2 (08:00→16:31)
[2019-05-10] MEDS ORDERED: ACETAMINOPHEN 325 MG TABLET PO PRN (08:00)
[2019-05-10] MEDS: POLYVINYL ALCOHOL 15 ML BOTTLE EACHEYE SCH ×2 (08:30→17:43)
--- NOTE | 2019-05-10 08:30 | NUR ---
RN MS NOTES PT SEEN AND EXAMINED BY DR. MIR, PLAN OF CARE DISCUSSED WITH DAUGHTERS OVER THE PHONE, VERBALIZED UNDERSTANDING.
[2019-05-10] MEDS: ACETAMINOPHEN 325 MG TABLET PO SCH (09:00)
[2019-05-10] MEDS ORDERED: RIVAROXABAN 15 MG TABLET PO SCH (09:00)
[2019-05-10] MEDS: FERROUS SULFATE (325 MG) 325 MG/TAB TABLET PO SCH (09:00)
[2019-05-10] MEDS: CALCIUM CARB 250MG /VITAMIN D 1 UDTAB PO SCH ×2 (09:00→16:31)
[2019-05-10] MEDS: PROSOURCE / PROSTAT (PYXIS) 30 ML UDC PO SCH (09:00)
[2019-05-10] MEDS: MULTIVITAMINS,THERAGRAN 1 UDTAB TABLET PO SCH (09:00)
[2019-05-10] MEDS: FOLIC ACID 1 MG TABLET PO SCH (09:00)
[2019-05-10] MEDS: ASCORBIC ACID 500 MG TABLET PO SCH (09:00)
[2019-05-10] MEDS: SIMETHICONE 80 MG TAB.CHEW PO SCH ×2 (09:00→16:31)
--- NOTE | 2019-05-10 10:46 | NUR ---
RN MS NOTES PT IN BED, NON VERBAL, UNABLE TO FOLLOW DIRECTIONS, UNABLE TO GIVE PO MEDS, RISK FOR ASPIRATION, SPEECH THERAPIST CAME TO SEE PT, DAUGHTER WANTS ST EVAL TO BE DONE TOMORROW.
--- NOTE | 2019-05-10 11:36 | NUR ---
WOUND CARE CONSULT: PT FOLLOWED BY PLASTIC SURGERY TEAM FOR WOUND CARE. DEFER TO SURGICAL TEAM FOR WOUND TREATMENT PLAN. ALL SKIN PROTECTION RECOMMENDATIONS DISCUSSED WITH NURSING STAFF. PT INCONTINENT WITH CURRENT ERIN SCORE OF 10. NELI ISOFLEX LOW AIRLOSS BED TO BE PLACED.
[2019-05-10] MEDS: Z GUARD REMEDY 2 OZ OINT TP SCH (13:02)
[2019-05-10 16:00] VITALS: BP 131/96
[2019-05-10] MEDS: IV NS 0.9% 1,000 ML IV PRN (16:28)
[2019-05-10] MEDS: RIVAROXABAN 10 MG TABLET PO SCH (16:32)
--- NOTE | 2019-05-10 18:05 | NUR ---
RN MS NOTES PT IN BED, RESTING, NON VERBAL, NO SIGN OF PAIN OR DISTRESS, CAREGIVER AT BEDSIDE, DAUGHTER PREFERS PT TO HAVE SWALLOW EVAL TOMORROW, ASPIRATION PRECAUTIONS OBSERVED, SUCTIONED MOUTH SECRETIONS NEEDED, IV FLUIDS INFUSING WELL, PM CARE PROVIDED, TURNED AND REPOSITIONED Q2 HOURS, KEPT CLEAN AND DRY AT ALL TIMES, ALL NEEDS ATTENDED.
--- NOTE | 2019-05-10 19:05 | NUR ---
MS RN OPENING NOTES Received patient asleep, easily awaken. On RA, no SOB/respiratory distress noted. No complaints noted at this time. Kept on bed clean, dry and comfortable. Call light within easy reach. On fall, seizure and aspiration precautions. Will continue to monitor accordingly.
[2019-05-10 20:00] VITALS: BP 151/92
[2019-05-10 20:36] VITALS: BP 151/92
[2019-05-10] MEDS: LEVETIRACETAM SOL (5 ML) 100 MG/ML UDC PO SCH (21:12)
--- NOTE | 2019-05-10 22:07 | NUR ---
MS RN NOTES Diaper changed PRN. Perineal care done. Turned and repositioned patient per protocol. Suctioned PRN, scant saliva noted. Patient comfortable position, no SOB/respiration distress, no s/sx of discomfort noted.
[2019-05-11] MEDS: PIPERACILLIN /TAZOBACTAM 3.375 G in IV D5W 100 ML IV SCH ×3 (00:37→16:37)
--- NOTE | 2019-05-11 05:41 | NUR ---
MS RN NOTES Cleaned the patient, diaper changed, perineal care done, sponge bath done. Patient noted opened her eyes, no s/sx of discomfort/distress noted. Repositioned patient Q2H. Suctioned PRN. Will continue to monitor accordingly.
[2019-05-11 06:15] LABS: BASOPHILS # (AUTO) 0.1 /CMM (0.0-0.2); BASOPHILS % (AUTO) 1.2 % (0.0-2.0); EOSINOPHILS % (AUTO) 1.7 % (0.0-6.0); HEMATOCRIT 39 % (33-45); LYMPHOCYTES # (AUTO) 1.3 /CMM (0.8-4.8); MEAN CORPUSCULAR HGB CONC 34 g/dl (31.0-36.0); MEAN CORPUSCULAR VOLUME 96 fL (82-100); MONOCYTES # (AUTO) 0.3 /CMM (0.1-1.30); MONOCYTES % (AUTO) 5.5 % (2.0-12.0); NEUTROPHILS # (AUTO) 3.3 /CMM (1.8-8.9); NEUTROPHILS % (AUTO) 65.6 % (43.0-81.0); PLATELET COUNT (AUTO) 138 /CMM (150-450); RED BLOOD CELL COUNT(AUTO) 4.04 MIL/uL (4.0-5.2); WHITE BLOOD COUNT (AUTO) 5.1 K/uL (4.3-11.0)
[2019-05-11 06:27] LABS: CALCIUM, SERUM 8.8 mg/dL (8.5-10.1); CARBON DIOXIDE 25 mmol/L (21-32); CHLORIDE 100 mmol/L (98-107); CREATININE 0.4 mg/dL (0.6-1.3); GLUCOSE 92 mg/dL (74-106); POTASSIUM 3.4 mmol/L (3.5-5.1); SODIUM SERUM 134 mmol/L (136-145); UREA NITROGEN, BLOOD 3 mg/dL (7-18)
--- NOTE | 2019-05-11 06:42 | NUR ---
MS RN CLOSING NOTES Patient asleep, easily awaken. On RA, no SOB/respiratory distress noted. Afebrile the whole shift, no new unusualities noted. All nursing needs attended, due meds given as ordered. Patient able to reposition self independently. Kept on bed clean, dry and comfortable. On fall and aspiration precautions. Call light within easy reach. Endorsed.
--- NOTE | 2019-05-11 07:51 | NUR ---
MS RN NOTES PATIENT RECEIVED IN BED RESTING, EASILY AWAKEN BY NAME AND LIGHT TOUCH. PATIENT ON ROOM AIR, WITH NO RESPIRATORY DISTRESS PRESENT, NO SIGNS OF SOB, AND WITH NON-LABORED BREATHING. PATIENT SKIN DRY, INTACT, AND WARM, IV ACCESS INTACT AND PATENT. PROVIDED COMFORT MEASURES. SAFETY PRECAUTIONS IN PLACE, WITH BED IN THE LOWEST POSITION, BED LOCKED, BED ALARM ON, BILATERAL SIDE RAILS UP, AND CALL LIGHT WITHIN EASY REACH. WILL CONTINUE TO MONITOR PATIENT.
[2019-05-11 08:00] VITALS: BP 124/77
[2019-05-11] MEDS: ASCORBIC ACID 500 MG TABLET PO SCH (08:21)
[2019-05-11] MEDS: FOLIC ACID 1 MG TABLET PO SCH (08:21)
[2019-05-11] MEDS: ACIDOPHILUS/BULGARICUS 1 EACH TAB.CHEW PO SCH ×2 (08:21→16:31)
[2019-05-11] MEDS: FERROUS SULFATE (325 MG) 325 MG/TAB TABLET PO SCH (08:21)
[2019-05-11] MEDS: SIMETHICONE 80 MG TAB.CHEW PO SCH ×2 (08:21→16:38)
[2019-05-11] MEDS: PANTOPRAZOLE 40 MG TABLET.DR PO SCH (08:21)
[2019-05-11] MEDS: CALCIUM CARB 250MG /VITAMIN D 1 UDTAB PO SCH ×2 (08:21→16:32)
[2019-05-11] MEDS: MULTIVITAMINS,THERAGRAN 1 UDTAB TABLET PO SCH (08:21)
[2019-05-11] MEDS: ACETAMINOPHEN 325 MG TABLET PO SCH (08:23)
[2019-05-11] MEDS: POLYVINYL ALCOHOL 15 ML BOTTLE EACHEYE SCH ×2 (08:32→16:39)
[2019-05-11] MEDS: PROSOURCE / PROSTAT (PYXIS) 30 ML UDC PO SCH (08:49)
[2019-05-11] MEDS: Z GUARD REMEDY 2 OZ OINT TP PRN (08:50)
[2019-05-11] MEDS: Z GUARD REMEDY 2 OZ OINT TP SCH (08:53)
--- NOTE | 2019-05-11 09:05 | NUR ---
MS RN NOTES PATIENT SEEN AND EXAMINED BY DR MIR, ALSO SPOKE WITH DAUGHTER VIA PHONE WITH CAREGIVER. WITH ORDER FOR BLE VENOUS DUPLEX TO R/O DVT. NOTED AND CARRIED OUT. WILL CONTINUE TO MONITOR
[2019-05-11] MEDS ORDERED: POTASSIUM CHLORIDE 20 MEQ TAB.PRT.SR PO SCH (12:00)
--- NOTE | 2019-05-11 12:58 | NUR ---
MS RN NOTES PATIENT SEEN AND EXAMINED BY ST FOR SWALLOW EVAL. WILL CONTINUE TO MONITOR
--- NOTE | 2019-05-11 15:01 | NUR ---
MS RN NOTES RECEIVED RESULT FOR BLE DOPPLER WITH REPORT OF 'Increased extent of left lower extremity deep venous thrombosis.' NO REDNESS OR TENDERNESS NOTED ON PATIENT'S BLE. BLE COOL TO TOUCH. PLACED CALL TO [facility] AND PAGED DR MIR, AWAITING CALL BACK. WILL CONTINUE TO MONITOR.
[2019-05-11 16:00] VITALS: BP 138/60
--- NOTE | 2019-05-11 16:01 | NUR ---
MS RN NOTES PATIENT SEEN AND EXAMINED BY DR DAVILA (NEURO), ALSO SPOKE WITH DAUGHTER OVER THE PHONE. NO NEW ORDERS AT THIS TIME. WILL CONTINUE TO MONITOR
--- NOTE | 2019-05-11 16:24 | NUR ---
MS RN NOTES RECEIVED CALL BACK FROM DR MIR, MADE AWARE OF VENOUS DOPPLER RESULT, 'Increased extent of left lower extremity deep venous thrombosis.', NO NEW ORDERS AT THIS TIME. WILL CONTINUE TO MONITOR
[2019-05-11] MEDS: RIVAROXABAN 10 MG TABLET PO SCH (16:34)
--- NOTE | 2019-05-11 18:05 | NUR ---
MS RN NOTES PATIENT IN BED, RESTING. ALERT AND ORIENTED X 1. PATIENT NON-VERBAL, ACCOMPANIED BY CAREGIVER AT BEDSIDE. PATIENT ON ROOM AIR, WITH NO SIGNS OF RESPIRATORY DISTRESS, NO SIGNS OF SOB, AND WITH EVEN NON-LABORED BREATHING. PATIENT IV ACCESS INTACT AND PATENT. PATIENT SKIN DRY AND WARM, AND NO NEW SKIN BREAKDOWNS. PATIENT KEPT CLEAN AND DRY. PROVIDED COMFORT MEASURES TO PATIENT. SAFETY PRECAUTIONS IN PLACE, WITH BED IN THE LOWEST POSITION, BED LOCK, BED ALARM ON, BILATERAL SIDE RAILS UP, AND CALL LIGHT WITH IN EASY REACH. WILL ENDORSE LAANIS TO UPCOMING NURSE.
--- NOTE | 2019-05-11 19:30 | NUR ---
RN NOTES RECEIVED PT. AWAKE ON BED, NON-VERBAL, CAREGIVER AT BEDSIDE, NOT IN DISTRESS, NO PAIN NOTED, SIDERAILSUPX2, BED IN LOCKED POSITION, CALL LIGHT WITHIN REACH,., CONTINUE TO MONITOR
--- NOTE | 2019-05-11 19:45 | NUR ---
gaviota initial notes received report from am nurse and checked pt she's in bed awake and alert on semi fowlers position, with iVF NS at 75ml/hr infusing at this time. no signs of any acute distress noted. skin warm and dry to touch, denies any pain or any discomfort. kept her warm and comfortable at all times. place call light at reach,. will continue to monitor. caregiver at the bedside will continue to monitor. Addendum: 05/13/19 at 0007 by DEMETRIS PRASAD LVN pls disregard wrong date documentation.
[2019-05-11 20:00] VITALS: BP 149/99
[2019-05-11] MEDS: LEVETIRACETAM SOL (5 ML) 100 MG/ML UDC PO SCH (21:32)
[2019-05-11] MEDS: IV NS 0.9% 1,000 ML IV PRN (21:50)
[2019-05-12] MEDS: PIPERACILLIN /TAZOBACTAM 3.375 G in IV D5W 100 ML IV SCH ×3 (00:27→16:06)
[2019-05-12 06:23] LABS: BASOPHILS # (AUTO) 0.1 /CMM (0.0-0.2); EOSINOPHILS % (AUTO) 1.5 % (0.0-6.0); HEMATOCRIT 39 % (33-45); HEMOGLOBIN 13.1 g/dL (11.5-14.8); LYMPHOCYTES # (AUTO) 1.6 /CMM (0.8-4.8); LYMPHOCYTES % (AUTO) 28.2 % (20.0-44.0); MEAN CORPUSCULAR HGB CONC 33 g/dl (31.0-36.0); MEAN CORPUSCULAR VOLUME 96 fL (82-100); MONOCYTES # (AUTO) 0.3 /CMM (0.1-1.30); MONOCYTES % (AUTO) 5.6 % (2.0-12.0); NEUTROPHILS # (AUTO) 3.7 /CMM (1.8-8.9); NEUTROPHILS % (AUTO) 63.7 % (43.0-81.0); PLATELET COUNT (AUTO) 127 /CMM (150-450); RED BLOOD CELL COUNT(AUTO) 4.08 MIL/uL (4.0-5.2); WHITE BLOOD COUNT (AUTO) 5.8 K/uL (4.3-11.0)
--- NOTE | 2019-05-12 06:38 | NUR ---
RN NOTES SLEEPING BUT AROUSABLE, CAREGIVER AT BEDSIDE, NOT IN DISTRESS, NO PAIN NOTED, MORNING CARE RENDERED, SIDERAILSUPX2,, PT. NEEDS ATTENDED. ENDORSED TO [facility] NURSE FOR CONTINUITY OF CARE
[2019-05-12 06:42] LABS: CALCIUM, SERUM 8.3 mg/dL (8.5-10.1); CARBON DIOXIDE 25 mmol/L (21-32); CHLORIDE 102 mmol/L (98-107); CREATININE 0.3 mg/dL (0.6-1.3); GLUCOSE 108 mg/dL (74-106); POTASSIUM 3.4 mmol/L (3.5-5.1); SODIUM SERUM 137 mmol/L (136-145); UREA NITROGEN, BLOOD 5 mg/dL (7-18)
[2019-05-12] MEDS ORDERED: PIPE3.379 IV (06:58)
[2019-05-12] MEDS ORDERED: LORA2VIA11 IV (06:58)
--- NOTE | 2019-05-12 07:42 | NUR ---
MS RN NOTES PATIENT RECEIVED IN BED, RESTING COMFORTABLY, AND AWAKE, PATIENT IS NON-VERBAL, ACCOMPANIED BY CAREGIVER AT BEDSIDE. PATIENT ON ROOM AIR, NO SIGNS OF SOB AND NO SIGNS OF RESPIRATORY DEPRESSION, WITH NON-LABORED BREATHING. PATIENT SKIN CLEAN AND DRY, IV ACCESS IN PLACE AND INTACT. PROVIDED COMFORT MEASURES TO PATIENT. INITIATED SAFETY PRECAUTIONS WITH BED IN THE LOWEST POSITION, BED ALARM ON, BED LOCKED, BILATERAL SIDE RAILS UP, AND CALL LIGHT WITHIN EASY REACH. WILL CONTINUE TO MONITOR PATIENT.
[2019-05-12 08:00] VITALS: BP 133/88
[2019-05-12] MEDS: ACIDOPHILUS/BULGARICUS 1 EACH TAB.CHEW PO SCH ×2 (08:41→16:07)
[2019-05-12] MEDS: MULTIVITAMINS,THERAGRAN 1 UDTAB TABLET PO SCH (08:41)
[2019-05-12] MEDS: FERROUS SULFATE (325 MG) 325 MG/TAB TABLET PO SCH (08:42)
[2019-05-12] MEDS: CALCIUM CARB 250MG /VITAMIN D 1 UDTAB PO SCH ×2 (08:42→16:07)
[2019-05-12] MEDS: ACETAMINOPHEN 325 MG TABLET PO SCH (08:42)
[2019-05-12] MEDS: FOLIC ACID 1 MG TABLET PO SCH (08:42)
[2019-05-12] MEDS: ASCORBIC ACID 500 MG TABLET PO SCH (08:42)
[2019-05-12] MEDS: PANTOPRAZOLE 40 MG TABLET.DR PO SCH (08:42)
[2019-05-12] MEDS: SIMETHICONE 80 MG TAB.CHEW PO SCH ×2 (08:42→16:07)
[2019-05-12] MEDS: POLYVINYL ALCOHOL 15 ML BOTTLE EACHEYE SCH ×2 (08:48→16:07)
[2019-05-12] MEDS ORDERED: POTASSIUM CHLORIDE 20 MEQ TAB.PRT.SR PO SCH (09:30)
[2019-05-12] MEDS: Z GUARD REMEDY 2 OZ OINT TP PRN (09:33)
[2019-05-12] MEDS: Z GUARD REMEDY 2 OZ OINT TP SCH (09:36)
[2019-05-12] MEDS: PROSOURCE / PROSTAT (PYXIS) 30 ML UDC PO SCH (09:50)
[2019-05-12] MEDS: RIVAROXABAN 10 MG TABLET PO SCH (16:08)
--- NOTE | 2019-05-12 18:31 | NUR ---
MS RN NOTES PATIENT IN BED. PATIENT NON-VERBAL. ACCOMPANIED BY CAREGIVER AT BEDSIDE. PATIENT ON ROOM AIR PRESENTS NO SIGN OF RESPIRATORY DISTRESS, NO SIGNS OF SOB, PATIENT PRESENTS EVEN NON-LABORED BREATHING. PATIENT KEPT CLEAN AND DRY. IV ACCESS IN PLACE, INTACT, AND PATENT. PROVIDED COMFORT MEASURES FOR PATIENT. PATIENT PRESENTS NO DISCOMFORT OR PAIN. SAFETY PRECAUTIONS IN PLACE, WITH BED IN THE LOWEST POSITION, BED LOCKED, BED ALARM ON, BILATERAL SIDE RAILS UP, AND CALL LIGHT WITHIN EASY REACH. WILL ENDORSE ALANIS TO UPCOMING NIGHTSHIFT NURSE.
--- NOTE | 2019-05-12 19:45 | NUR ---
ms first aid attendant initial notes received report from am nurse and checked pt she's in bed awake and alert on semi fowlers position, with iVF NS at 75ml/hr infusing at this time. no signs of any acute distress noted. skin warm and dry to touch, denies any pain or any discomfort. kept her warm and comfortable at all times. place call light at reach,. will continue to monitor. caregiver at the bedside will continue to monitor.
[2019-05-12 20:00] VITALS: BP 150/84
[2019-05-12] MEDS: LEVETIRACETAM SOL (5 ML) 100 MG/ML UDC PO SCH (22:37)
[2019-05-12] MEDS: IV NS 0.9% 1,000 ML IV PRN (23:48)
--- NOTE | 2019-05-13 00:07 | NUR ---
ms commercial credit analyst notes pt sleeping comfortably in bed without any acute distress noted. will continue monitoring.
[2019-05-13] MEDS: PIPERACILLIN /TAZOBACTAM 3.375 G in IV D5W 100 ML IV SCH ×3 (00:59→16:15)
--- NOTE | 2019-05-13 07:10 | NUR ---
MS RN NOTES PATIENT IN BED AWAKE, NON VERBAL. NO ACUTE DISTRESS NOTED. BREATHING UNLABORED. NO SOB NOTED. NEEDS ATTENDED AND ANTICIPATED. KEPT CLEAN DRY AND COMFORTABLE. SAFETY MEASURES IN PLACE. CALL LIGHT WITHIN REACH. WILL ENDORSE TO NIGHT NURSE FOR CONTINUITY OF CARE
--- NOTE | 2019-05-13 07:40 | NUR ---
ms marine equipment preservation inspector closing notes. pt remains sleeping comfortably in bed without any acute distress noted. all due meds given and all needs met. IVF still infusing. pt stable navin the night . kept her warm and comfortable at all times. caregiver at the bedside for safety. will endorse to am nurse for continuity of care.
[2019-05-13] MEDS: PANTOPRAZOLE 40 MG TABLET.DR PO SCH (07:53)
[2019-05-13 08:00] VITALS: BP 140/70
[2019-05-13] MEDS: ACIDOPHILUS/BULGARICUS 1 EACH TAB.CHEW PO SCH ×2 (08:06→16:15)
[2019-05-13] MEDS: MULTIVITAMINS,THERAGRAN 1 UDTAB TABLET PO SCH (08:06)
[2019-05-13] MEDS: ACETAMINOPHEN 325 MG TABLET PO SCH (08:07)
[2019-05-13] MEDS: SIMETHICONE 80 MG TAB.CHEW PO SCH ×2 (08:08→16:15)
[2019-05-13] MEDS: ASCORBIC ACID 500 MG TABLET PO SCH (08:08)
[2019-05-13] MEDS: CALCIUM CARB 250MG /VITAMIN D 1 UDTAB PO SCH ×2 (08:08→16:16)
[2019-05-13] MEDS: FERROUS SULFATE (325 MG) 325 MG/TAB TABLET PO SCH (08:08)
[2019-05-13] MEDS: FOLIC ACID 1 MG TABLET PO SCH (08:09)
[2019-05-13 08:11] LABS: CALCIUM, SERUM 8.8 mg/dL (8.5-10.1); CARBON DIOXIDE 24 mmol/L (21-32); CHLORIDE 102 mmol/L (98-107); CREATININE 0.3 mg/dL (0.6-1.3); GLUCOSE 95 mg/dL (74-106); POTASSIUM 3.1 mmol/L (3.5-5.1); SODIUM SERUM 137 mmol/L (136-145); UREA NITROGEN, BLOOD 4 mg/dL (7-18)
[2019-05-13] MEDS: POLYVINYL ALCOHOL 15 ML BOTTLE EACHEYE SCH ×2 (08:13→16:19)
[2019-05-13] MEDS: Z GUARD REMEDY 2 OZ OINT TP SCH (08:17)
[2019-05-13] MEDS: PROSOURCE / PROSTAT (PYXIS) 30 ML UDC PO SCH (08:17)
[2019-05-13] MEDS: POTASSIUM CHLORIDE 20 MEQ POWDER PACKET GT SCH ×2 (10:51→12:12)
[2019-05-13 16:00] VITALS: BP 128/89
[2019-05-13] MEDS: RIVAROXABAN 10 MG TABLET PO SCH (16:17)
[2019-05-13 20:00] VITALS: BP 145/90
--- NOTE | 2019-05-13 20:03 | NUR ---
MS RN PATIENT IN BED AWAKE, NON VERBAL. STABLE AND NOT IN DISTRESS, DAUGHTER AND CAREGIVER AT BEDSIDE. SAFETY MEASURES IN PLACE. WILL CONTINUE TO MONITOR.
[2019-05-13] MEDS: IV NS 0.9% 1,000 ML IV PRN (21:08)
[2019-05-13] MEDS: LEVETIRACETAM SOL (5 ML) 100 MG/ML UDC PO SCH (21:08)
[2019-05-14] MEDS: PIPERACILLIN /TAZOBACTAM 3.375 G in IV D5W 100 ML IV SCH ×4 (00:02→23:41)
--- NOTE | 2019-05-14 06:16 | NUR ---
MS RN PT SLEPT WELL, CAREGIVER AT BEDSIDE. STABLE AND NOT IN DISTRESS, NEEDS ATTENDED AND ANTICIPATED, KEPT CLEAN, DRY AND COMFORTABLE. AM CARE RENDERED. OFFLOAD HEELS AND ELBOWS. SAFETY MEASURES AT ALL TIMES. WILL ENDORSE NEXT SHIFT POC.
[2019-05-14 07:13] LABS: BASOPHILS # (AUTO) 0.1 /CMM (0.0-0.2); EOSINOPHILS % (AUTO) 1.4 % (0.0-6.0); HEMATOCRIT 41 % (33-45); HEMOGLOBIN 13.8 g/dL (11.5-14.8); LYMPHOCYTES # (AUTO) 1.7 /CMM (0.8-4.8); LYMPHOCYTES % (AUTO) 30.1 % (20.0-44.0); MEAN CORPUSCULAR HGB CONC 34 g/dl (31.0-36.0); MEAN CORPUSCULAR VOLUME 96 fL (82-100); MONOCYTES # (AUTO) 0.3 /CMM (0.1-1.30); MONOCYTES % (AUTO) 6.2 % (2.0-12.0); NEUTROPHILS # (AUTO) 3.4 /CMM (1.8-8.9); NEUTROPHILS % (AUTO) 61.3 % (43.0-81.0); PLATELET COUNT (AUTO) 143 /CMM (150-450); RED BLOOD CELL COUNT(AUTO) 4.26 MIL/uL (4.0-5.2); WHITE BLOOD COUNT (AUTO) 5.6 K/uL (4.3-11.0)
--- NOTE | 2019-05-14 07:30 | NUR ---
MS/RN Opening Note Received patient AO x 2, able to resends all stimuli. Respiratory even and unlabored, no sob or respiratory distress observed with room air. NO appears pain or discomfort. Skin is warm to touch, kept clean.dry, intact IV site. No s/s of adverse reaction from ATB therapy. Encouraged patient to oral fluid intake as tolerated, call light within reach, will continue to monitor.
[2019-05-14 07:34] LABS: CALCIUM, SERUM 8.9 mg/dL (8.5-10.1); CARBON DIOXIDE 24 mmol/L (21-32); CHLORIDE 103 mmol/L (98-107); CREATININE 0.3 mg/dL (0.6-1.3); GLUCOSE 91 mg/dL (74-106); POTASSIUM 3.6 mmol/L (3.5-5.1); SODIUM SERUM 138 mmol/L (136-145); UREA NITROGEN, BLOOD 6 mg/dL (7-18)
[2019-05-14] MEDS: PANTOPRAZOLE 40 MG TABLET.DR PO SCH (07:57)
[2019-05-14 08:00] VITALS: BP 142/84
[2019-05-14] MEDS: ACIDOPHILUS/BULGARICUS 1 EACH TAB.CHEW PO SCH ×2 (08:04→16:20)
[2019-05-14] MEDS: POLYVINYL ALCOHOL 15 ML BOTTLE EACHEYE SCH ×2 (08:16→16:22)
[2019-05-14] MEDS: MULTIVITAMINS,THERAGRAN 1 UDTAB TABLET PO SCH (08:17)
[2019-05-14] MEDS: SIMETHICONE 80 MG TAB.CHEW PO SCH ×2 (08:17→16:20)
[2019-05-14] MEDS: CALCIUM CARB 250MG /VITAMIN D 1 UDTAB PO SCH ×2 (08:17→16:20)
[2019-05-14] MEDS: ACETAMINOPHEN 325 MG TABLET PO SCH (08:17)
[2019-05-14] MEDS: ASCORBIC ACID 500 MG TABLET PO SCH (08:17)
[2019-05-14] MEDS: FOLIC ACID 1 MG TABLET PO SCH (08:17)
[2019-05-14] MEDS: PROSOURCE / PROSTAT (PYXIS) 30 ML UDC PO SCH (08:18)
[2019-05-14] MEDS: FERROUS SULFATE (325 MG) 325 MG/TAB TABLET PO SCH (08:19)
[2019-05-14] MEDS: Z GUARD REMEDY 2 OZ OINT TP SCH (08:25)
[2019-05-14 16:00] VITALS: BP 143/77
[2019-05-14] MEDS: RIVAROXABAN 10 MG TABLET PO SCH (16:34)
--- NOTE | 2019-05-14 18:50 | NUR ---
MS/RN Closing note Patient is in bed, sleeping comfortably. No adverse reaction from IV ATB therapy, skin is warm to touch, clean/dry. Respiratory even and unlabored with room air. Kept lower position of the bed with elevated HOB. Call light within reach, will endorse dental technician instructor.
--- NOTE | 2019-05-14 19:51 | NUR ---
MS RN PATIENT IN BED AWAKE, NON VERBAL. STABLE NO C/O OF PAIN. CAREGIVER AT BEDSIDE, SAFETY MEASURES IN PLACE. WILL CONTINUE TO MONITOR.
[2019-05-14 20:00] VITALS: BP 131/80
[2019-05-14] MEDS: LEVETIRACETAM SOL (5 ML) 100 MG/ML UDC PO SCH (21:58)
[2019-05-14] MEDS: IV NS 0.9% 1,000 ML IV PRN (22:10)
--- NOTE | 2019-05-14 23:44 | NUR ---
NOTED PT SHORTNESS OF BREATH. O2 SAT AT 89% R.A ,APPLIED 2LPM VIA NC O2 SAT 93%. SUCTION PT TOLERATED PROCEDURE WELL. PAGED RT FOR BREATHING TREATMENT
[2019-05-14] MEDS: IPRATROPIUM NEB FS 0.5 MG/2.5 ML AMPUL.NEB IH PRN (23:47)
--- NOTE | 2019-05-15 00:30 | NUR ---
PT SLEEPING AT THIS TIME. NO S/S OF DISTRESS
--- NOTE | 2019-05-15 06:33 | NUR ---
MS RN NO SIGNIFICANT CHANGES, PT SLEPT WELL. ON 2LPM VIA NC 02 SAT 94%. CAREGIVER AT BEDSIDE. NEEDS ATTENDED AND ANTICIPATED, KEPT CLEAN, DRY AND COMFORTABLE. AM CARE RENDERED. REPOSITION EVERY 2 HOURS. OFFLOAD HEELS AND ELBOWS. SAFETY MEASURES AT ALL TIMES. WILL ENDORSE NEXT SHIFT POC.
--- NOTE | 2019-05-15 07:30 | NUR ---
MS/RN Opening Note Received patient in bed, AO x 1, able to resends physical stimuli. Respiratory even and unlabored, no sob or respiratory distress observed with oxygen at 3LPM. NO appears pain or discomfort. Skin is warm to touch, kept clean.dry. No s/s of adverse reaction from ATE therapy. Encouraged patient to oral fluid intake as tolerated, call light within reach, will continue to monitor.
[2019-05-15 08:00] VITALS: BP 124/85
[2019-05-15] MEDS: ACIDOPHILUS/BULGARICUS 1 EACH TAB.CHEW PO SCH ×2 (08:13→16:39)
[2019-05-15] MEDS: PANTOPRAZOLE 40 MG TABLET.DR PO SCH (08:13)
[2019-05-15 08:19] LABS: BASOPHILS # (AUTO) 0.1 /CMM (0.0-0.2); BASOPHILS % (AUTO) 0.8 % (0.0-2.0); EOSINOPHILS % (AUTO) 1.3 % (0.0-6.0); HEMATOCRIT 41 % (33-45); HEMOGLOBIN 13.6 g/dL (11.5-14.8); LYMPHOCYTES # (AUTO) 1.4 /CMM (0.8-4.8); LYMPHOCYTES % (AUTO) 18.3 % (20.0-44.0); MEAN CORPUSCULAR HGB CONC 33 g/dl (31.0-36.0); MEAN CORPUSCULAR VOLUME 96 fL (82-100); MONOCYTES # (AUTO) 0.4 /CMM (0.1-1.30); MONOCYTES % (AUTO) 5.4 % (2.0-12.0); NEUTROPHILS # (AUTO) 5.8 /CMM (1.8-8.9); NEUTROPHILS % (AUTO) 74.2 % (43.0-81.0); PLATELET COUNT (AUTO) 146 /CMM (150-450); RED BLOOD CELL COUNT(AUTO) 4.26 MIL/uL (4.0-5.2); WHITE BLOOD COUNT (AUTO) 7.8 K/uL (4.3-11.0)
[2019-05-15] MEDS: ACETAMINOPHEN 325 MG TABLET PO SCH (08:19)
[2019-05-15] MEDS: FOLIC ACID 1 MG TABLET PO SCH (08:19)
[2019-05-15] MEDS: FERROUS SULFATE (325 MG) 325 MG/TAB TABLET PO SCH (08:19)
[2019-05-15] MEDS: CALCIUM CARB 250MG /VITAMIN D 1 UDTAB PO SCH ×2 (08:19→16:38)
[2019-05-15] MEDS: MULTIVITAMINS,THERAGRAN 1 UDTAB TABLET PO SCH (08:19)
[2019-05-15] MEDS: ASCORBIC ACID 500 MG TABLET PO SCH (08:19)
[2019-05-15] MEDS: SIMETHICONE 80 MG TAB.CHEW PO SCH ×2 (08:19→16:38)
[2019-05-15] MEDS: PROSOURCE / PROSTAT (PYXIS) 30 ML UDC PO SCH (08:20)
[2019-05-15] MEDS: Z GUARD REMEDY 2 OZ OINT TP SCH (08:21)
[2019-05-15] MEDS: POLYVINYL ALCOHOL 15 ML BOTTLE EACHEYE SCH ×2 (08:21→16:40)
[2019-05-15 08:29] LABS: CALCIUM, SERUM 8.8 mg/dL (8.5-10.1); CARBON DIOXIDE 26 mmol/L (21-32); CHLORIDE 103 mmol/L (98-107); CREATININE 0.3 mg/dL (0.6-1.3); GLUCOSE 98 mg/dL (74-106); POTASSIUM 3.4 mmol/L (3.5-5.1); SODIUM SERUM 138 mmol/L (136-145); UREA NITROGEN, BLOOD 10 mg/dL (7-18)
[2019-05-15] MEDS: PIPERACILLIN /TAZOBACTAM 3.375 G in IV D5W 100 ML IV SCH ×3 (09:37→23:02)
[2019-05-15] MEDS ORDERED: POTASSIUM CHLORIDE 20 MEQ TAB.PRT.SR PO SCH (11:30)
[2019-05-15 16:00] VITALS: BP 127/83
[2019-05-15] MEDS: RIVAROXABAN 10 MG TABLET PO SCH (16:39)
--- NOTE | 2019-05-15 18:45 | NUR ---
MS/RN Closing note Patient is in bed, caregiver at bed side. No adverse reaction from IV ATB therapy, O2sat 94-93 % in room air without SOB or distress, skin is warm to touch, clean/dry. Kept lower position of the bed with elevated HOB. Call light within reach, will endorse maintenance technician 2nd shift.
[2019-05-15 20:00] VITALS: BP 144/88
--- NOTE | 2019-05-15 20:10 | NUR ---
RN MS NOTES PT RESTING IN BED, AWAKE, ALERT AND ORIENTED, NO COMPLAINT OF PAIN, BREATHING PATTERN NORMAL, CALL LIGHT WITHIN REACH, HOME VISITOR AT BED SIDE, KEPT WARM AND COMFORTABLE, WILL CONTINUITY WITH CARE.
[2019-05-15 20:30] VITALS: BP 130/78
[2019-05-15] MEDS: LEVETIRACETAM SOL (5 ML) 100 MG/ML UDC PO SCH (21:44)
--- NOTE | 2019-05-16 06:39 | NUR ---
RN MS NOTES PT.RESTING IN BED, AWAKE, ALERT AND ORIENTED, NO COMPLAINT OF PAIN, BREATHING PATTERN NORMAL, CALL LIGHT WITHIN REACH, IV FLUIDS INFUSING WELL,ASSAULT BOAT [place] AT BED SIDE, ALL NEEDS ATTENDED.WILL ENDORSE TO AM RN FOR CONTINUITY WITH CARE.
[2019-05-16 07:01] LABS: BASOPHILS # (AUTO) 0.1 /CMM (0.0-0.2); BASOPHILS % (AUTO) 0.9 % (0.0-2.0); HEMATOCRIT 40 % (33-45); HEMOGLOBIN 13.2 g/dL (11.5-14.8); LYMPHOCYTES # (AUTO) 1.5 /CMM (0.8-4.8); LYMPHOCYTES % (AUTO) 23.2 % (20.0-44.0); MEAN CORPUSCULAR HGB CONC 33 g/dl (31.0-36.0); MEAN CORPUSCULAR VOLUME 96 fL (82-100); MONOCYTES # (AUTO) 0.3 /CMM (0.1-1.30); MONOCYTES % (AUTO) 4.9 % (2.0-12.0); NEUTROPHILS # (AUTO) 4.5 /CMM (1.8-8.9); PLATELET COUNT (AUTO) 152 /CMM (150-450); RED BLOOD CELL COUNT(AUTO) 4.15 MIL/uL (4.0-5.2); WHITE BLOOD COUNT (AUTO) 6.5 K/uL (4.3-11.0)
[2019-05-16 07:13] LABS: CALCIUM, SERUM 8.9 mg/dL (8.5-10.1); CARBON DIOXIDE 25 mmol/L (21-32); CHLORIDE 103 mmol/L (98-107); CREATININE 0.3 mg/dL (0.6-1.3); GLUCOSE 96 mg/dL (74-106); POTASSIUM 3.7 mmol/L (3.5-5.1); SODIUM SERUM 136 mmol/L (136-145); UREA NITROGEN, BLOOD 7 mg/dL (7-18)
--- NOTE | 2019-05-16 07:30 | NUR ---
RN NOTES RECEIVED PATIENT IN BED RESTING COMFORTABLY IN MODERATE HIGH BACK REST. A/O X 1. CAREGIVER AT BED SIDE. NO SIGNS OF DISTRESS NOTED AT THIS TIME. IV FLUIDS ON LEFT HAND #22 WITH NS RUNNING @ 75 ML/HR. PATENT AND INTACT. SAFETY MEASURES IN PLACE, BED IN LOW LOCKED POSITION WITH SIDE RAILS UP X2. CALL LIGHT WITHIN REACH. WILL CONTINUE TO MONITOR.
[2019-05-16] MEDS: PIPERACILLIN /TAZOBACTAM 3.375 G in IV D5W 100 ML IV SCH ×2 (07:47→15:53)
[2019-05-16 08:00] VITALS: BP 135/74
[2019-05-16] MEDS: IV NS 0.9% 1,000 ML IV PRN (08:00)
[2019-05-16] MEDS: FERROUS SULFATE (325 MG) 325 MG/TAB TABLET PO SCH (08:53)
[2019-05-16] MEDS: PANTOPRAZOLE 40 MG TABLET.DR PO SCH (08:53)
[2019-05-16] MEDS: ACIDOPHILUS/BULGARICUS 1 EACH TAB.CHEW PO SCH ×2 (08:53→16:24)
[2019-05-16] MEDS: SIMETHICONE 80 MG TAB.CHEW PO SCH ×2 (08:53→16:24)
[2019-05-16] MEDS: CALCIUM CARB 250MG /VITAMIN D 1 UDTAB PO SCH ×2 (08:54→16:24)
[2019-05-16] MEDS: PROSOURCE / PROSTAT (PYXIS) 30 ML UDC PO SCH (08:54)
[2019-05-16] MEDS: MULTIVITAMINS,THERAGRAN 1 UDTAB TABLET PO SCH (08:54)
[2019-05-16] MEDS: ASCORBIC ACID 500 MG TABLET PO SCH (08:54)
[2019-05-16] MEDS: ACETAMINOPHEN 325 MG TABLET PO SCH (08:54)
[2019-05-16] MEDS: FOLIC ACID 1 MG TABLET PO SCH (08:54)
[2019-05-16] MEDS: POLYVINYL ALCOHOL 15 ML BOTTLE EACHEYE SCH ×2 (08:57→16:58)
[2019-05-16] MEDS: Z GUARD REMEDY 2 OZ OINT TP SCH (09:10)
[2019-05-16 16:00] VITALS: BP 121/70
[2019-05-16] MEDS: RIVAROXABAN 10 MG TABLET PO SCH (16:26)
--- NOTE | 2019-05-16 18:40 | NUR ---
RN NOTES PATIENT IN BED RESTING COMFORTABLY IN MODERATE HIGH BACK REST. A/O X 1. CAREGIVER AT BED SIDE. NO SIGNS OF DISTRESS NOTED THROUGHOUT THE SHIFT. IV FLUIDS ON LEFT HAND #22 WITH NS RUNNING @ 75 ML/HR. PATENT AND INTACT. SAFETY MEASURES IN PLACE, BED IN LOW LOCKED POSITION WITH SIDE RAILS UP X2. CALL LIGHT WITHIN REACH. WILL ENDORSE TO PRESENTATION TEAM MEMBER NURSE FOR ALANIS.
--- NOTE | 2019-05-16 19:20 | NUR ---
MS RN OPENING NOTES RECEIVED PATIENT FROM MORNING SHIFT, ALERT AND ORIENTED X 1, NON-VERBAL. CAREGIVER ON BEDSIDE. BREATHING REGULAR AND UNLABORED ON OXYGEN AT 2L/MIN VIA NASAL CANNULA. LEFT HAND G22 IV LINE INTACT AND PATENT, INFUSING WELL WITH NO BLEEDING OR S/S OF INFILTRATION NOTED. NO S/S OF PAIN/DISCOMFORT OBSERVED OF THE TIME. BED LOW AND LOCKED ON SEMI FOWLERS POSITION. CALL LIGHT IN REACH. WILL CONTINUE TO MONITOR.
[2019-05-16 20:37] VITALS: BP 151/79
[2019-05-16] MEDS: LEVETIRACETAM SOL (5 ML) 100 MG/ML UDC PO SCH (21:42)
[2019-05-16 22:00] VITALS: BP 151/79
--- NOTE | 2019-05-16 23:00 | NUR ---
MS RN NOTES DAUGHTER CALLED AND ASKED REGARDING PATIENTS ANTIBIOTIC TREATMENT, WISHES TO SPEAK TO MD TOMORROW. CHARGE NURSE AWARE. WILL ENDORSE TO MORNING SHIFT FOR ALANIS.
[2019-05-17] MEDS: PIPERACILLIN /TAZOBACTAM 3.375 G in IV D5W 100 ML IV SCH ×3 (00:29→15:45)
--- NOTE | 2019-05-17 06:20 | NUR ---
MS RN CLOSING NOTES PATINE IN BED ALERT AND ORIENTED X 1, NON-VERBAL. BREATHING REGULAR AND UNLABORED ON OXYGEN AT 2L/MIN VIA NASAL CANNULA. LEFT HAND G22 IV LINE PATENT AND INFUSING WELL. TREATMENT FOR SACRAL REDNESS PROVIDED. NO S/S OF PAIN/DISCOMFORT OBSERVED THE WHOLE SHIFT. BED LOW AND LOCKED ON SEMI FOWLERS POSITION. CALL LIGHT IN REACH. WILL ENDORSE TO MORNING SHIFT FOR ALANIS.
--- NOTE | 2019-05-17 07:15 | NUR ---
MS/RN - Assessment Patient is awake, non-verbal, on oxygen at 2lpm via NC, no shortness of breath, no s/s of pain, remain afebrile. Fall, aspiration, and seizure precautions maintained. Private caregiver at bedside. Will continue with current medical management.
[2019-05-17] MEDS: PANTOPRAZOLE 40 MG TABLET.DR PO SCH (07:44)
[2019-05-17] MEDS: ACIDOPHILUS/BULGARICUS 1 EACH TAB.CHEW PO SCH ×2 (07:44→16:08)
[2019-05-17 08:00] VITALS: BP 142/56
[2019-05-17] MEDS: FERROUS SULFATE (325 MG) 325 MG/TAB TABLET PO SCH (08:48)
[2019-05-17] MEDS: ASCORBIC ACID 500 MG TABLET PO SCH (08:48)
[2019-05-17] MEDS: CALCIUM CARB 250MG /VITAMIN D 1 UDTAB PO SCH ×2 (08:48→16:08)
[2019-05-17] MEDS: ACETAMINOPHEN 325 MG TABLET PO SCH (08:48)
[2019-05-17] MEDS: PROSOURCE / PROSTAT (PYXIS) 30 ML UDC PO SCH (08:48)
[2019-05-17] MEDS: SIMETHICONE 80 MG TAB.CHEW PO SCH ×2 (08:48→16:07)
[2019-05-17] MEDS: MULTIVITAMINS,THERAGRAN 1 UDTAB TABLET PO SCH (08:48)
[2019-05-17] MEDS: FOLIC ACID 1 MG TABLET PO SCH (08:48)
[2019-05-17] MEDS: Z GUARD REMEDY 2 OZ OINT TP SCH (08:49)
[2019-05-17] MEDS: POLYVINYL ALCOHOL 15 ML BOTTLE EACHEYE SCH ×2 (08:53→16:10)
[2019-05-17] MEDS: IV NS 0.9% 1,000 ML IV PRN (08:53)
[2019-05-17 16:00] VITALS: BP 155/83
[2019-05-17] MEDS: RIVAROXABAN 10 MG TABLET PO SCH (16:07)
[2019-05-17] MEDS: CLONIDINE HCL 0.1 MG TABLET PO PRN (16:43)
--- NOTE | 2019-05-17 18:45 | NUR ---
MS/RN - End of shift summary Patient had an episode of elevated BP 183/94, Clonidine 0.2 mg po given as ordered, latest BP 155/83, remain afebrile, no s/s of pain, no apparent distress, last dose of Zosyn given. Patient is medically cleared for discharge but son appealed, pending result. All needs attended. Private caregiver at bedside. Continue with current plan of care.
--- NOTE | 2019-05-17 19:50 | NUR ---
RN Notes Patient awake, non verbal, HOB elevated, on room air with good saturation. IV access on left hand patent and intact with ongoing IVF infusing well. Plan of care discussed with pet care attendant and verbalized understanding. reposition per protocol. Will continue to monitor.
[2019-05-17 20:00] VITALS: BP 123/79
[2019-05-17 22:00] VITALS: BP 123/79
[2019-05-17] MEDS: LEVETIRACETAM SOL (5 ML) 100 MG/ML UDC PO SCH (22:30)
[2019-05-18] MEDS: IV NS 0.9% 1,000 ML IV PRN ×2 (05:59→22:05)
--- NOTE | 2019-05-18 06:54 | NUR ---
RN Notes Patient stable overnight, afebrile. Current diet tolerated well, no signs of aspiration noted. No signs of distress and discomfort noted. No signs of seizure noted. Slight movement on upper extremities noted when cleaning the patient. Kept clean and dry, repositioned per protocol. All needs attended. Will continue to monitor.
[2019-05-18 08:00] VITALS: BP 122/69
[2019-05-18] MEDS ORDERED: LEVOFLOXACIN (500MG) 500 MG TABLET PO SCH (08:00)
[2019-05-18] MEDS: ACIDOPHILUS/BULGARICUS 1 EACH TAB.CHEW PO SCH ×2 (08:15→17:22)
[2019-05-18] MEDS: FERROUS SULFATE (325 MG) 325 MG/TAB TABLET PO SCH (08:15)
[2019-05-18] MEDS: FOLIC ACID 1 MG TABLET PO SCH (08:15)
[2019-05-18] MEDS: ASCORBIC ACID 500 MG TABLET PO SCH (08:16)
[2019-05-18] MEDS: ACETAMINOPHEN 325 MG TABLET PO SCH (08:16)
[2019-05-18] MEDS: PANTOPRAZOLE 40 MG TABLET.DR PO SCH (08:16)
[2019-05-18] MEDS: CALCIUM CARB 250MG /VITAMIN D 1 UDTAB PO SCH ×2 (08:16→17:22)
[2019-05-18] MEDS: MULTIVITAMINS,THERAGRAN 1 UDTAB TABLET PO SCH (08:19)
[2019-05-18] MEDS: PROSOURCE / PROSTAT (PYXIS) 30 ML UDC PO SCH (08:20)
[2019-05-18] MEDS: SIMETHICONE 80 MG TAB.CHEW PO SCH ×2 (08:20→17:22)
[2019-05-18] MEDS: POLYVINYL ALCOHOL 15 ML BOTTLE EACHEYE SCH ×2 (08:29→17:00)
[2019-05-18] MEDS: Z GUARD REMEDY 2 OZ OINT TP SCH (08:29)
[2019-05-18 10:38] LABS: BASOPHILS # (AUTO) 0.1 /CMM (0.0-0.2); BASOPHILS % (AUTO) 0.8 % (0.0-2.0); EOSINOPHILS % (AUTO) 1.1 % (0.0-6.0); HEMATOCRIT 40 % (33-45); HEMOGLOBIN 13.1 g/dL (11.5-14.8); LYMPHOCYTES # (AUTO) 1.6 /CMM (0.8-4.8); MEAN CORPUSCULAR HGB CONC 33 g/dl (31.0-36.0); MEAN CORPUSCULAR VOLUME 96 fL (82-100); MONOCYTES # (AUTO) 0.3 /CMM (0.1-1.30); MONOCYTES % (AUTO) 5.3 % (2.0-12.0); NEUTROPHILS # (AUTO) 4.4 /CMM (1.8-8.9); NEUTROPHILS % (AUTO) 67.8 % (43.0-81.0); PLATELET COUNT (AUTO) 166 /CMM (150-450); RED BLOOD CELL COUNT(AUTO) 4.11 MIL/uL (4.0-5.2); WHITE BLOOD COUNT (AUTO) 6.5 K/uL (4.3-11.0)
[2019-05-18 12:48] LABS: CALCIUM, SERUM 8.5 mg/dL (8.5-10.1); CARBON DIOXIDE 27 mmol/L (21-32); CHLORIDE 103 mmol/L (98-107); CREATININE 0.3 mg/dL (0.6-1.3); GLUCOSE 103 mg/dL (74-106); POTASSIUM 3.2 mmol/L (3.5-5.1); SODIUM SERUM 137 mmol/L (136-145); UREA NITROGEN, BLOOD 7 mg/dL (7-18)
[2019-05-18 16:00] VITALS: BP 155/83
[2019-05-18] MEDS: RIVAROXABAN 10 MG TABLET PO SCH (17:24)
--- NOTE | 2019-05-18 19:19 | NUR ---
PATINE IN BED ALERT AND ORIENTED X 1, NON-VERBAL. BREATHING REGULAR AND UNLABORED ON ROOM AIR. LEFT HAND G22 IV LINE PATENT AND INFUSING WELL FLUIDS ORDERED. SKIN TREATMENT PROVIDED. NO S/S OF PAIN/DISCOMFORT OBSERVED. BED LOW AND LOCKED POSITION , SIDE RAILS UP X2, DIVISIONAL HUMAN RESOURCES DIRECTOR AT BEDSIDE . CALL LIGHT IN REACH. WILL ENDORSE TO NEXT SHIFT FOR ALANIS.
--- NOTE | 2019-05-18 19:40 | NUR ---
RN OPENING NOTES RECEIVED REPORT FROM [facility] DORIE CARLSON. FAMILY CAREGIVER AT BEDSIDE. FOUND Pt AWAKE, SITTING UP IN BED, WITH UNLABORED RESPIRATIONS, AND EQUAL CHEST RISE AND FALL. Pt IS A/OX1, NONVERBAL, OPENS EYES & RESPONDS TO STIMULI. Pt IS ON A CARDIAC PUREE DIET. IV ACCESS ON AND #22G, IVF NS RUNNING @75ML/HR, INFUSING WELL. SAFETY MEASURES IN PLACE, BED LOW, LOCKED, HOB ELEVATED, SIDE RAILS UP, CALL LIGHT AND BEDSIDE TABLE WITHIN REACH. 24HR FAMILY CAREGIVER WILL BE AT BEDSIDE DURING Pt's STAY. WILL CONTINUE TO MONITOR Pt's CONDITION AND SAFETY THROUGHOUT THE NIGHT.
[2019-05-18 20:00] VITALS: BP 161/79
[2019-05-18 20:30] VITALS: BP 161/79
[2019-05-18] MEDS: LEVETIRACETAM SOL (5 ML) 100 MG/ML UDC PO SCH (22:04)
[2019-05-18] MEDS: CLONIDINE HCL 0.1 MG TABLET PO PRN (22:05)
[2019-05-19 00:55] VITALS: BP 130/73
--- NOTE | 2019-05-19 06:39 | NUR ---
RN CLOSING NOTES NO SIGNIFICANT CHANGES IN Pt's CONDITION. Pt IS RESTING COMFORTABLY IN BED. NO S/S OF ACUTE DISTRESS OR SOB NOTED. ALL NEEDS MET AND ATTENDED TO. SAFETY MEASURES IN PLACE. WILL ENDORSE TO DAYSHIFT RN FOR Pt's ALANIS.
[2019-05-19 08:00] VITALS: BP 152/84
[2019-05-19 08:23] VITALS: BP 152/84
[2019-05-19] MEDS: MULTIVITAMINS,THERAGRAN 1 UDTAB TABLET PO SCH (09:03)
[2019-05-19] MEDS: SIMETHICONE 80 MG TAB.CHEW PO SCH ×2 (09:03→17:47)
[2019-05-19] MEDS: ACETAMINOPHEN 325 MG TABLET PO SCH (09:03)
[2019-05-19] MEDS: PANTOPRAZOLE 40 MG TABLET.DR PO SCH (09:04)
[2019-05-19] MEDS: Z GUARD REMEDY 2 OZ OINT TP SCH (09:04)
[2019-05-19] MEDS: FERROUS SULFATE (325 MG) 325 MG/TAB TABLET PO SCH (09:04)
[2019-05-19] MEDS: ASCORBIC ACID 500 MG TABLET PO SCH (09:04)
[2019-05-19] MEDS: CALCIUM CARB 250MG /VITAMIN D 1 UDTAB PO SCH ×2 (09:04→17:47)
[2019-05-19] MEDS: FOLIC ACID 1 MG TABLET PO SCH (09:04)
[2019-05-19] MEDS: PROSOURCE / PROSTAT (PYXIS) 30 ML UDC PO SCH (09:06)
[2019-05-19] MEDS: POLYVINYL ALCOHOL 15 ML BOTTLE EACHEYE SCH ×2 (09:10→17:00)
[2019-05-19] MEDS: ACIDOPHILUS/BULGARICUS 1 EACH TAB.CHEW PO SCH ×2 (09:12→17:47)
[2019-05-19 15:55] VITALS: BP 164/91
[2019-05-19] MEDS: CLONIDINE HCL 0.1 MG TABLET PO PRN (16:11)
[2019-05-19] MEDS: RIVAROXABAN 10 MG TABLET PO SCH (17:48)
--- NOTE | 2019-05-19 19:08 | NUR ---
PATINE IN BED ALERT AND ORIENTED X 1, NON-VERBAL. BREATHING REGULAR AND UNLABORED ON ROOM AIR. LEFT HAND G22 IV LINE PATENT AND INFUSING WELL FLUIDS ORDERED. SKIN TREATMENT PROVIDED. NO S/S OF PAIN/DISCOMFORT OBSERVED. BED LOW AND LOCKED POSITION , SIDE RAILS UP X2, HIGH LIFT MULE OPERATOR AT BEDSIDE . CALL LIGHT IN REACH. WILL ENDORSE TO NEXT SHIFT FOR ALANIS.
--- NOTE | 2019-05-19 19:46 | NUR ---
MS RN PATIENT IN BED AWAKE, A/O X 1 CAREGIVER AT BEDSIDE, STABLE AND NOT IN DISTRESS. SAFETY MEASURES IN PLACE. WILL CONTINUE TO MONITOR.
[2019-05-19 20:00] VITALS: BP 148/80
[2019-05-19 20:30] VITALS: BP 155/85
[2019-05-19] MEDS: LEVETIRACETAM SOL (5 ML) 100 MG/ML UDC PO SCH (21:32)
[2019-05-19] MEDS: IV NS 0.9% 1,000 ML IV PRN (21:39)
--- NOTE | 2019-05-20 06:21 | NUR ---
SLEPT WELL, STABLE AND NOT IN DISTRESS, CAREGIVER AT BEDSIDE. AM CARE RENDERED. NEEDS ATTENDED AND ANTICIPATED, KEPT CLEAN, DRY AND COMFORTABLE. OFFLOAD HEELS AND ELBOWS. SAFETY MEASURES AT ALL TIMES. WILL ENDORSE NEXT SHIFT POC.
[2019-05-20 08:00] VITALS: BP 141/79
--- NOTE | 2019-05-20 08:00 | NUR ---
m/s production assembly supervisor: initial assessment received pt in bed awake, non-verbal. private caregiver at bedside and will leave soon and her daughter will take over as stated. no s/s of distress noted. appears comfortable. reality orientation provided prn. will continue to monitor.
[2019-05-20] MEDS: PANTOPRAZOLE 40 MG TABLET.DR PO SCH (08:48)
[2019-05-20] MEDS: CALCIUM CARB 250MG /VITAMIN D 1 UDTAB PO SCH ×2 (08:48→16:59)
[2019-05-20] MEDS: FOLIC ACID 1 MG TABLET PO SCH (08:48)
[2019-05-20] MEDS: ACIDOPHILUS/BULGARICUS 1 EACH TAB.CHEW PO SCH ×2 (08:48→16:59)
[2019-05-20] MEDS: MULTIVITAMINS,THERAGRAN 1 UDTAB TABLET PO SCH (08:48)
[2019-05-20] MEDS: FERROUS SULFATE (325 MG) 325 MG/TAB TABLET PO SCH (08:48)
[2019-05-20] MEDS: SIMETHICONE 80 MG TAB.CHEW PO SCH ×2 (08:48→16:58)
[2019-05-20] MEDS: ASCORBIC ACID 500 MG TABLET PO SCH (08:48)
[2019-05-20] MEDS: POLYVINYL ALCOHOL 15 ML BOTTLE EACHEYE SCH ×2 (08:49→16:58)
[2019-05-20] MEDS: PROSOURCE / PROSTAT (PYXIS) 30 ML UDC PO SCH (08:49)
[2019-05-20] MEDS: ACETAMINOPHEN 325 MG TABLET PO SCH (08:50)
[2019-05-20] MEDS: Z GUARD REMEDY 2 OZ OINT TP SCH (08:51)
--- NOTE | 2019-05-20 09:00 | NUR ---
m/s wound care technician: notes incontinent care rendered by staff. kept clean and dry. daughter refusing to have pt turned from side to side, stated, "she has a spine problem." educated daughter re: benefits of turning and repositioning and educated on prevention of skin breakdown, but still insisted on lying supine only.
--- NOTE | 2019-05-20 10:00 | NUR ---
m/s fire sprinkler inspector: md visit seen and examined by dr. rizzo and daughter addressed her concern on blood pressure with md. daughter verbalized understanding.
--- NOTE | 2019-05-20 11:00 | NUR ---
m/s nutrition teacher: notes incontinent of bladder rendered by staff. daughter still refuses to have pt turned and reposition on the side.
--- NOTE | 2019-05-20 12:00 | NUR ---
m/s news production supervisor: notes daughter remains at bedside and assisting pt with her lunch. hob elevated. instructed to call for assistance. will continue to monitor.
--- NOTE | 2019-05-20 13:00 | NUR ---
m/s government sales manager: notes offered to reposition pt, but daughter still refuses and prefers lying supine.
--- NOTE | 2019-05-20 15:00 | NUR ---
m/s bearing ring assembler: notes offered to reposition pt, but daughter still refuses and prefers lying supine.
--- NOTE | 2019-05-20 15:15 | NUR ---
m/s doctor podiatric medicine: neuro f/u seen and examined by dr. salas at this time. all questions and concerns answered by neurologist.
[2019-05-20 16:00] VITALS: BP 155/92
[2019-05-20] MEDS: RIVAROXABAN 10 MG TABLET PO SCH (17:00)
--- NOTE | 2019-05-20 17:00 | NUR ---
m/s ed case manager: notes daughter remains here, about to give artificial tears, but daughter refused to give, stated, "it has alcohol in it, i say not to give it." informed daughter this is one of her home meds and md reviewed them and continued her home meds, but daughter still says no and will ask her caregiver about it.
--- NOTE | 2019-05-20 17:15 | NUR ---
m/s bridge operator: notes offered to reposition pt, but daughter still refuses and prefers lying supine.
--- NOTE | 2019-05-20 19:00 | NUR ---
m/s managing supervisor: notes offered to reposition pt, but daughter still refuses and prefers lying supine.
--- NOTE | 2019-05-20 19:16 | NUR ---
m/s printed forms proofreader: notes bedside report given to apolonia (rn) for continuity of care.
--- NOTE | 2019-05-20 19:31 | NUR ---
MS RN PATIENT IN BED AWAKE AND A/O X 1, DAUGHTER AT BEDSIDE, PT NOT IN DISTRESS, SAFETY MEASURES IN PLACE. WILL CONTINUE TO MONITOR.
[2019-05-20 20:00] VITALS: BP_SYST 113; BP_SYST 143; BP_DIAS 96
[2019-05-20] MEDS: LEVETIRACETAM SOL (5 ML) 100 MG/ML UDC PO SCH (21:49)
--- NOTE | 2019-05-21 06:32 | NUR ---
NO SIGNIFICANT CHANGES, MONITORED ACCORDINGLY. O2 SAT WNL R.A. CAREGIVER AT BEDSIDE. KEPT CLEAN, DRY AND COMFORTABLE. NO S/S OF DSITRESS. AM CARE RENDERED. NEEDS ATTENDED AND ANTICIPATED,OFFLOAD HEELS AND ELBOWS. SAFETY MEASURES AT ALL TIMES. WILL ENDORSE NEXT SHIFT POC. Addendum: 05/21/19 at 0707 by LUNA VELIZ RN NO SEIZURE ACTIVITY THROUGHOUT THE SHIFT.
--- NOTE | 2019-05-21 07:29 | NUR ---
MS RN RECEIVED PATIENT IN BED RESTING COMFORTABLY IN MODERATE HIGH BACK REST. A/O X1. CAREGIVER AT BEDSIDE. NO SIGNS OF DISTRESS NOTED AT THIS TIME. IV ACCESS ON LEFT HAND #22, SL. PATENT AND INTACT. SAFETY MEASURES IN PLACE, BED IN LOWEST LOCKED POSITION WITH SIDE RAILS UP X2. CALL LIGHT WITHIN REACH. WILL CONTINUE TO MONITOR.
[2019-05-21 08:00] VITALS: BP 126/73
[2019-05-21] MEDS ORDERED: CLONIDINE HCL 0.1 MG TABLET PO PRN (08:30)
[2019-05-21] MEDS: FERROUS SULFATE (325 MG) 325 MG/TAB TABLET PO SCH (08:46)
[2019-05-21] MEDS: CALCIUM CARB 250MG /VITAMIN D 1 UDTAB PO SCH ×2 (08:46→17:13)
[2019-05-21] MEDS: ACIDOPHILUS/BULGARICUS 1 EACH TAB.CHEW PO SCH ×2 (08:46→17:13)
[2019-05-21] MEDS: SIMETHICONE 80 MG TAB.CHEW PO SCH ×2 (08:47→17:13)
[2019-05-21] MEDS: MULTIVITAMINS,THERAGRAN 1 UDTAB TABLET PO SCH (08:47)
[2019-05-21] MEDS: FOLIC ACID 1 MG TABLET PO SCH (08:47)
[2019-05-21] MEDS: ACETAMINOPHEN 325 MG TABLET PO SCH (08:47)
[2019-05-21] MEDS: ASCORBIC ACID 500 MG TABLET PO SCH (08:47)
[2019-05-21] MEDS: PANTOPRAZOLE 40 MG TABLET.DR PO SCH (08:47)
[2019-05-21] MEDS: Z GUARD REMEDY 2 OZ OINT TP SCH (08:49)
[2019-05-21] MEDS: PROSOURCE / PROSTAT (PYXIS) 30 ML UDC PO SCH (08:49)
[2019-05-21] MEDS: POLYVINYL ALCOHOL 15 ML BOTTLE EACHEYE SCH ×2 (09:09→17:13)
[2019-05-21 16:03] VITALS: BP 127/74
[2019-05-21] MEDS: RIVAROXABAN 10 MG TABLET PO SCH (17:15)
--- NOTE | 2019-05-21 18:33 | NUR ---
MS RN NOTES PATIENT IN BED RESTING COMFORTABLY IN MODERATE HIGH BACK REST. A/O X1. SON AT BEDSIDE. NO SIGNS OF DISTRESS NOTED THROUGHOUT THE SHIFT. IV ACCESS ON LEFT HAND #22, SL. PATENT AND INTACT. SAFETY MEASURES IN PLACE, BED IN LOWEST LOCKED POSITION WITH SIDE RAILS UP X2. CALL LIGHT WITHIN REACH. WILL ENDORSE TO LASER OPERATOR NURSE FOR ALANIS.
--- NOTE | 2019-05-21 19:26 | NUR ---
MS RN PATIENT IN BED AWAKE SON ANTOINE AT BEDSIDE (CAREGIVER), PT NOT IN DISTRESS, STABLE, SAFETY MEASURES IN PLACE. WILL CONTINUE TO MONITOR.
[2019-05-21 20:00] VITALS: BP 142/70
[2019-05-21] MEDS: LEVETIRACETAM SOL (5 ML) 100 MG/ML UDC PO SCH (21:27)
[2019-05-22] MEDS: IPRATROPIUM NEB FS 0.5 MG/2.5 ML AMPUL.NEB IH PRN (02:41)
--- NOTE | 2019-05-22 02:41 | NUR ---
MS RN CAREGIVER AT BEDSIDE REQUESTED TO HAVE PT BREATHING TREATMENT CHECKED O2 SAT 94% ROOM AIR. PER CAREGIVER SHE FEELS THE PT NEEDS IT. SUCTION PT WITH LITTLE PHLEGM (WHITE THIN). EXPLAINED O2 SAT WNL. WILL CONTINUE TO MONITOR.
--- NOTE | 2019-05-22 06:23 | NUR ---
MS RN PT STABLE AND NOT IN DISTRESS, MONITORED PT ACCORDINGLY. AM CARE RENDERED. NEEDS ATTENDED AND ANTICIPATED, KEPT CLEAN, DRY AND COMFORTABLE. O2 SAT ROOM AIR 96%. NURSING CARE RENDERED. OFFLOAD HEELS AND ELBOWS AT ALL TIMES. CAREGIVER AT BEDSIDE. SAFETY MEASURES AT ALL TIMES. WILL ENDORSE TO NEXT SHIFT Addendum: 05/22/19 at 0633 by LUNA VELIZ RN NO SEIZURE ACTIVITY NOTED
[2019-05-22 08:00] VITALS: BP 130/87
--- NOTE | 2019-05-22 08:00 | NUR ---
MS RN NOTES PT IS LAYING IN BED, HOB AT 45 DEGREES/SEMI FOWLERS. CRUSHED MEDICATIONS BEFORE ADMINISTERING DUE TO ASPIRATION PRECAUTIONS. CAREGIVER AT BEDSIDE, CALL LIGHT WITHIN REACH. PT APPEARS TO HAVE NO SOB. WILL CONTINUE TO MONITOR.
[2019-05-22] MEDS: FOLIC ACID 1 MG TABLET PO SCH (09:08)
[2019-05-22] MEDS: CALCIUM CARB 250MG /VITAMIN D 1 UDTAB PO SCH ×2 (09:08→16:28)
[2019-05-22] MEDS: ACETAMINOPHEN 325 MG TABLET PO SCH (09:08)
[2019-05-22] MEDS: POLYVINYL ALCOHOL 15 ML BOTTLE EACHEYE SCH ×2 (09:09→16:28)
[2019-05-22] MEDS: MULTIVITAMINS,THERAGRAN 1 UDTAB TABLET PO SCH (09:09)
[2019-05-22] MEDS: LISINOPRIL (5MG) 5 MG TABLET PO SCH (09:09)
[2019-05-22] MEDS: PANTOPRAZOLE 40 MG TABLET.DR PO SCH (09:09)
[2019-05-22] MEDS: SIMETHICONE 80 MG TAB.CHEW PO SCH ×2 (09:09→16:28)
[2019-05-22] MEDS: FERROUS SULFATE (325 MG) 325 MG/TAB TABLET PO SCH (09:09)
[2019-05-22] MEDS: ASCORBIC ACID 500 MG TABLET PO SCH (09:09)
[2019-05-22] MEDS: PROSOURCE / PROSTAT (PYXIS) 30 ML UDC PO SCH (09:11)
[2019-05-22] MEDS: ACIDOPHILUS/BULGARICUS 1 EACH TAB.CHEW PO SCH ×2 (09:14→16:28)
[2019-05-22] MEDS: Z GUARD REMEDY 2 OZ OINT TP SCH (09:14)
[2019-05-22] MEDS: RIVAROXABAN 10 MG TABLET PO SCH (16:28)
--- NOTE | 2019-05-22 18:00 | NUR ---
MS RN CLOSING NOTES PATIENT IS LAYING IN BED WITH CAREGIVER AT BEDSIDE. CALL LIGHT IS WITHIN REACH, APPEARS TO BE COMFORTABLE. PATIENT ON ROOM AIR WITH NO SOB NOTED. BED IN LOWEST POSITION, WITH SIDE RAILS X2, AT 45 DEGREES PER ASPIRATION PRECAUTIONS. GAVE REPORT TO PM NURSE.
--- NOTE | 2019-05-22 19:30 | NUR ---
MS RN OPENING NOTES RECEIVED PATIENT FROM MORNING SHIFT, ALERT AND ORIENTED X 1, NON-VERBAL. CAREGIVER AND FAMILY ON BEDSIDE. BREATHING REGULAR AND UNLABORED ON ROOM AIR. LEFT HAND G22 IV LINE INTACT AND PATENT, FLUSHING WELL WITH NO BLEEDING OR S/S OF INFILTRATION NOTED. NO S/S OF PAIN/DISCOMFORT OBSERVED OF THE TIME. BED LOW AND LOCKED ON SEMI FOWLERS POSITION. CALL LIGHT IN REACH. WILL CONTINUE TO MONITOR.
[2019-05-22 20:00] VITALS: BP 141/84
[2019-05-22 21:00] VITALS: BP 141/84
--- NOTE | 2019-05-22 22:00 | NUR ---
MS RN NOTES NOTED WITH BILATERAL GROIN RASH, PHOTO TAKEN ATTACHED TO CHART. WASH WITH WARM WATER, PAT DRY. APPLIED Z-GUARD. WILL REPOSITION EVERY 2HRS AND NEEDED.
[2019-05-22] MEDS: LEVETIRACETAM SOL (5 ML) 100 MG/ML UDC PO SCH (22:01)
--- NOTE | 2019-05-23 06:15 | NUR ---
MS RN CLOSING NOTES PATIENT IN BED ALERT AND ORIENTED X 1, NON-VERBAL. CAREGIVER ON BEDSIDE. BREATHING REGULAR AND UNLABORED ON ROOM AIR. LEFT HAND G22 IV LINE PATENT AND FLUSHING WELL. NO S/S OF PAIN/DISCOMFORT OBSERVED THE WHOLE SHIFT. BED LOW AND LOCKED ON SEMI FOWLERS POSITION. CALL LIGHT IN REACH. WILL ENDORSE TO MORNING SHIFT FOR ALANIS.
[2019-05-23 07:59] VITALS: BP 137/77
[2019-05-23 08:00] VITALS: BP 137/77
--- NOTE | 2019-05-23 08:00 | NUR ---
rn notes RECEIVED PT IN THE BED NONVERBALE, TOTAL CARE. V/S STABLE. HOB AT 45 DEGREES/SEMI FOWLERS. CRUSHED MEDICATIONS BEFORE ADMINISTERING DUE TO ASPIRATION PRECAUTIONS. CAREGIVER AT BEDSIDE, ASSIST TURN AND REPOSTION Q 2 HR. PATIENT CALL LIGHT WITHIN REACH. PT APPEARS TO HAVE NO SOB. WILL CONTINUE TO MONITOR.
[2019-05-23] MEDS: POLYVINYL ALCOHOL 15 ML BOTTLE EACHEYE SCH (09:42)
[2019-05-23] MEDS: PANTOPRAZOLE 40 MG TABLET.DR PO SCH (09:42)
[2019-05-23] MEDS: CALCIUM CARB 250MG /VITAMIN D 1 UDTAB PO SCH (09:42)
[2019-05-23] MEDS: MULTIVITAMINS,THERAGRAN 1 UDTAB TABLET PO SCH (09:42)
[2019-05-23] MEDS: ACIDOPHILUS/BULGARICUS 1 EACH TAB.CHEW PO SCH (09:42)
[2019-05-23 09:43] VITALS: BP 137/77
[2019-05-23] MEDS: FERROUS SULFATE (325 MG) 325 MG/TAB TABLET PO SCH (09:43)
[2019-05-23] MEDS: LISINOPRIL (5MG) 5 MG TABLET PO SCH (09:43)
[2019-05-23] MEDS: FOLIC ACID 1 MG TABLET PO SCH (09:43)
[2019-05-23] MEDS: SIMETHICONE 80 MG TAB.CHEW PO SCH (09:43)
[2019-05-23] MEDS: ACETAMINOPHEN 325 MG TABLET PO SCH (09:44)
[2019-05-23] MEDS: Z GUARD REMEDY 2 OZ OINT TP SCH (09:44)
[2019-05-23] MEDS: ASCORBIC ACID 500 MG TABLET PO SCH (09:44)
[2019-05-23] MEDS: PROSOURCE / PROSTAT (PYXIS) 30 ML UDC PO SCH (09:45)
[2019-05-23] MEDS ORDERED: CLOTRIMAZOLE 1% 15 GM TUBE TP SCH (10:30)
--- NOTE | 2019-05-23 11:05 | NUR ---
RN NOTES PER HOSPITALIST PATIENT WILL D/C ACUTE REHAB.
--- NOTE | 2019-05-23 14:26 | NUR ---
CUSTOMS VERIFIER NOTES PATIENT DISCHARGE AT THIS TIME GOING BACK TO THE SO. PATIENT NON-VERBAL, NO ACUTE RESPIRATORY DISTRESS, V/S WNL, TOTAL CARE. MED RECONCILIATION AND DISCHARGE ORDER REVIEWED AND EXPLAINED TO THE DATA ENTRY REPRESENTATIVE. REPORT GIVEN SNF OBINNA HAJI. RN VERBALIZED UNDERSTANDING. BELONGING WITH THE PATIENT. PATIENT WILL FOLLOW SNF SHEARER SCREEN MEASURER AND TRIMMER. PAPERWORK GIVEN PROCESS IMPROVEMENT CONSULTANT PERSONNEL. PATIENT SALES SPECIALIST BY AMBULANCE.
== END 2019-05-23 14:39 | DRG 871 ==
LOC: ER 16:02 → TELE 20:02 → MED 05-10 09:16
PROVIDERS: ADMIT Nurse Practitioner Acute Care; ATTEND Nurse Practitioner Acute Care
DX: A41.9 Sepsis, unspecified organism (principal); R53.2 Functional quadriplegia; N39.0 Urinary tract infection, site not specified; E87.1 Hypo-osmolality and hyponatremia; I50.32 Chronic diastolic (congestive) heart failure; E87.2 Acidosis; G93.40 Encephalopathy, unspecified; I82.532 Chronic embolism and thrombosis of left popliteal vein; I82.592 Chronic embolism and thrombosis of other specified deep vein of left lower extremity; D68.69 Other thrombophilia; I11.0 Hypertensive heart disease with heart failure; G40.909 Epilepsy, unspecified, not intractable, without status epilepticus; F02.80 Dementia in other diseases classified elsewhere, unspecified severity, without behavioral disturbance, psychotic disturbance, mood disturbance, and anxiety; G30.9 Alzheimer's disease, unspecified; Z96.643 Presence of artificial hip joint, bilateral; Z87.440 Personal history of urinary (tract) infections; Z87.01 Personal history of pneumonia (recurrent); Z79.01 Long term (current) use of anticoagulants; Z88.2 Allergy status to sulfonamides; K21.9 Gastro-esophageal reflux disease without esophagitis; D50.9 Iron deficiency anemia, unspecified; E86.1 Hypovolemia; B96.5 Pseudomonas (aeruginosa) (mallei) (pseudomallei) as the cause of diseases classified elsewhere; L98.8 Other specified disorders of the skin and subcutaneous tissue; L30.4 Erythema intertrigo
CPT/HCPCS: 36415; 70450-TC; 71045-TC; 80048-TC; 80076-TC; 80164-TC; 80184; 80185-TC; 80305; 81000-TC; 83605-TC; 83735-TC; 84100-TC; 85025-TC; 85730-TC; 87040-TC; 87081-TC; 87086-TC; 87186-TC; 92611-TC; 93970-TC; 97530-TC; G0378; G0480; J1953; J2060; J2543; J3490; J7030; J7060

== ENCOUNTER 2019-10-14 13:06 | Inpatient (IN) | payer MEDICARE, OTHER ==
[~2019-10-14] VITALS: Ht 167.6 cm; Wt 55.8 kg
[~2019-10-14 13:06] MED LIST changes: +CRAN3875 PO; +CRAN400T3 PO; +LORA2VIA11 IV
--- NOTE | 2019-10-14 14:14 | NUR ---
SRAVAN FROM [facility] FOR [facility]ITNESSED SEIZURE. ATIVAN 1MG GIVEN, BG 153 FAST FOOD WORKER. TO ER BED 8, HOOKED TO MONITOR, CHANGED TO HOSP GOWN, PATIENT RESPONSIVE TO PAINFUL STIMULI. PROVIDED W WARM BLANKET, SEIZURE PRECAUTIONS APPLIED. AWAITING MD GUAN.
--- NOTE | 2019-10-14 14:15 | NUR ---
DR KING AT BEDSIDE
[2019-10-14] MEDS ORDERED: LEVETIRACETAM (500MG) 500 MG in IV NS 0.9% 100 ML IV ONE (14:30)
[2019-10-14 14:51] LABS: BASOPHILS % (AUTO) 0.9 % (0.0-2.0); EOSINOPHILS % (AUTO) 1.1 % (0.0-6.0); HEMATOCRIT 44 % (33-45); HEMOGLOBIN 14.4 g/dL (11.5-14.8); LYMPHOCYTES # (AUTO) 1.8 /CMM (0.8-4.8); MEAN CORPUSCULAR HGB CONC 33 g/dl (31.0-36.0); MEAN CORPUSCULAR VOLUME 99 fL (82-100); MONOCYTES # (AUTO) 0.2 /CMM (0.1-1.30); MONOCYTES % (AUTO) 3.9 % (2.0-12.0); NEUTROPHILS # (AUTO) 3.3 /CMM (1.8-8.9); NEUTROPHILS % (AUTO) 61.1 % (43.0-81.0); PLATELET COUNT (AUTO) 154 /CMM (150-450); RED BLOOD CELL COUNT(AUTO) 4.45 MIL/uL (4.0-5.2); WHITE BLOOD COUNT (AUTO) 5.4 K/uL (4.3-11.0)
[2019-10-14 14:58] LABS: BILIRUBIN,URINE Negative (NEGATIVE); BLOOD, URINE Large Ery/uL (NEGATIVE); COLOR,URINE Yellow (YELLOW); KETONES,URINE Negative (NEGATIVE); LEUKOCYTE ESTERASE ,URINE Small (NEGATIVE); NITRITE, URINE Negative (NEGATIVE); PH,URINE 5.5 (5.0-8.0); PROTEIN,URINE 100 mg/dl (NEGATIVE); UGLUCOSE Negative (NEGATIVE); UROBILINOGEN,URINE 0.2 EU/dL (0.2)
[2019-10-14 15:01] LABS: APPEARANCE,URINE SLIGHTLY CLOUDY (CLEAR)
[2019-10-14 15:07] LABS: BACTERIA,URINE Few /HPF (None Seen); SQUAMOUS EPITHELIAL CELL,UR Many /HPF (None Seen); WBC,URINE 51-80 /HPF (0-3)
[2019-10-14 15:07] LABS: CARBON DIOXIDE 28 mmol/L (21-32); CHLORIDE 105 mmol/L (98-107); CREATININE 0.5 mg/dL (0.6-1.3); GLUCOSE 102 mg/dL (74-106); POTASSIUM 4.5 mmol/L (3.5-5.1); SODIUM SERUM 140 mmol/L (136-145); UREA NITROGEN, BLOOD 20 mg/dL (7-18)
[2019-10-14 15:12] LABS: ALANINE AMINOTRANSFERASE 20 U/L (12-78); ALBUMIN 3.5 g/dL (3.4-5.0); ALKALINE PHOSPHATASE 97 U/L (46-116); ASPARTATE AMINOTRANSFERASE 20 U/L (15-37); BILIRUBIN,DIRECT 0.1 mg/dL (0.0-0.2); BILIRUBIN,TOTAL 0.3 mg/dL (0.2-1.0); TOTAL PROTEIN, SERUM 7.3 g/dL (6.4-8.2)
[2019-10-14] MEDS ORDERED: LEVE100S PO (15:26)
[2019-10-14] MEDS ORDERED: CEFTRIAXONE 1GM BAG (ER ONLY) 50 ML IV ONE (15:28)
[2019-10-14] MEDS ORDERED: OMEP20CA15 PO (15:29)
[2019-10-14] MEDS ORDERED: IV NS 0.9% 500 ML BAG IV ONE (15:30)
[2019-10-14] MEDS ORDERED: CEFTRIAXONE 1GM BAG (ER ONLY) 1 GM/50 ML PIGGYBACK IV ONE (15:30)
--- NOTE | 2019-10-14 15:32 | NUR ---
patient in bed, hooked to monitor, vss, responds to painful stimuli, will continue to monitor accordingly.
[2019-10-14] MEDS ORDERED: GENTAMICIN SULFATE BLADIN (15:36)
[2019-10-14] MEDS ORDERED: MAG HYDROX/AL HYDROX/SIMETH 30 ML UDC PO PRN (16:00)
[2019-10-14] MEDS ORDERED: HYDROCODONE/APAP 5/325MG 1 EACH TABLET PO PRN (16:00)
[2019-10-14] MEDS ORDERED: ZOLPIDEM TARTRATE 5 MG TABLET PO PRN (16:00)
[2019-10-14] MEDS ORDERED: Z GUARD REMEDY 2 OZ OINT TP PRN (16:00)
[2019-10-14] MEDS ORDERED: ONDANSETRON HCL/PF 4 MG/2 ML VIAL IVP PRN (16:00)
[2019-10-14] MEDS ORDERED: LORAZEPAM INJ 2 MG/ML VIAL IV PRN (16:00)
[2019-10-14] MEDS ORDERED: ACETAMINOPHEN 325 MG TABLET PO PRN (16:00)
--- NOTE | 2019-10-14 17:29 | NUR ---
DONALDSON VIRUS SWAB DONE AND SENT TO LAB
--- NOTE | 2019-10-14 17:34 | NUR ---
BED 101
--- NOTE | 2019-10-14 17:40 | NUR ---
REPORT GIVEN TO RALF OSHEA OF TELE UNIT
[2019-10-14] MEDS: ENOXAPARIN SODIUM 40 MG/0.4 ML DISP.SYRIN SQ SCH (18:56)
--- NOTE | 2019-10-14 18:58 | NUR ---
RECEIVED PATIENT IN BED. NO ACUTE DISTRESS NOTED. PATIENT A&OX0, NONVERBAL BUT RESPONSIVE TO TOUCH. PATIENT ON 4L OXYGEN VIA NASAL CANNULA, SATURATING WELL AT 98-100%, BREATHING EVEN AND UNLABORED. PATIENT VITAL SIGNS STABLE- BLOOD PRESSURE OF 128/90, TEMPERATURE OF 97.5, RESPIRATIONS OF 17, HERAT RATE AT 70. PATIENT SAFETY MAINTAINED. CALL LIGHT WITHIN REACH. WILL ENDORSE PLAN OF CARE TO ONCOMING NURSE FOR CONTINUITY OF CARE.
[2019-10-14 20:00] VITALS: BP 159/76
[2019-10-14] MEDS: IV D5/0.45 NACL 1,000 ML IV PRN (21:29)
[2019-10-15] VITALS (7 sets, daily range): BP systolic 101–156; BP diastolic 9–91
--- NOTE | 2019-10-15 03:18 | NUR ---
RN notes Patient in bed, resting comfortably with no distress noted. Admitted for seizure and UTI. Alert to self, non verbal. No physical manifestation of pain or discomfort. Bed bath given, skin assessment done. No episode of seizure as of this time. In no apparent distress, breathing even and unlabored. On O2 at 4lpm, via nasal cannula tolerating well. Kept clean and dry. Will continue to monitor
[2019-10-15] MEDS: IV D5/0.45 NACL 1,000 ML IV PRN ×2 (07:06→20:50)
[2019-10-15] MEDS: PANTOPRAZOLE 40 MG TABLET.DR PO SCH ×2 (07:49→08:02)
--- NOTE | 2019-10-15 08:00 | NUR ---
LATESHA RN OPENING RECEIVED PT IN BED.PT IS OBTUNDED. PT IS ON NASAL CANNULA 4L.NO. PT IS ON NPO. S/S OF RESPIRATORY DISTRESS . HOB 45 DEGREE.PT IS BREATHING UNLABORED. TELE MONITOR READING SINUS FERNANDO HR 57. R HAND I#20 IS FLUSHED WELL AND INTACT AND RUNNING TKO AT 5 ML/HR. SEIZURE PRECAUTIONS ARE IMPLEMENTED. BED IS IN THE LOWEST POSITION.BED LOCKED AND RAILS ARE UP X2. CALL LIGHT WITHIN REACH. WILL CONTINUE TO MONITOR
[2019-10-15 08:03] LABS: BASOPHILS # (AUTO) 0.1 /CMM (0.0-0.2); BASOPHILS % (AUTO) 0.9 % (0.0-2.0); EOSINOPHILS % (AUTO) 1.6 % (0.0-6.0); HEMATOCRIT 45 % (33-45); HEMOGLOBIN 14.7 g/dL (11.5-14.8); LYMPHOCYTES # (AUTO) 1.6 /CMM (0.8-4.8); LYMPHOCYTES % (AUTO) 26.6 % (20.0-44.0); MEAN CORPUSCULAR HGB CONC 33 g/dl (31.0-36.0); MEAN CORPUSCULAR VOLUME 99 fL (82-100); MONOCYTES # (AUTO) 0.3 /CMM (0.1-1.30); NEUTROPHILS # (AUTO) 4.1 /CMM (1.8-8.9); NEUTROPHILS % (AUTO) 65.9 % (43.0-81.0); PLATELET COUNT (AUTO) 142 /CMM (150-450); RED BLOOD CELL COUNT(AUTO) 4.59 MIL/uL (4.0-5.2); WHITE BLOOD COUNT (AUTO) 6.2 K/uL (4.3-11.0)
[2019-10-15 09:02] LABS: CARBON DIOXIDE 29 mmol/L (21-32); CHLORIDE 100 mmol/L (98-107); CREATININE 0.2 mg/dL (0.6-1.3); GLUCOSE 96 mg/dL (74-106); MAGNESIUM 2.3 mg/dL (1.8-2.4); PHOSPHORUS 3.2 mg/dL (2.5-4.9); POTASSIUM 3.8 mmol/L (3.5-5.1); SODIUM SERUM 136 mmol/L (136-145); UREA NITROGEN, BLOOD 11 mg/dL (7-18)
[2019-10-15 09:24] LABS: CHOLESTEROL 172 mg/dL (<200); HDL CHOLESTEROL 65 mg/dL (40-60); LDL 98 mg/dL (0-99); THYROID STIMULATING HORMONE 1.043 uIU/mL (0.358-3.74); TRIGLYCERIDES 123 mg/dL (30-150)
[2019-10-15] MEDS: PANTOPRAZOLE 40 MG VIAL IV SCH (13:00)
[2019-10-15] MEDS: CEFTRIAXONE 1 G in IV D5W 50 ML IV SCH (15:08)
[2019-10-15] MEDS: ENOXAPARIN SODIUM 40 MG/0.4 ML DISP.SYRIN SQ SCH (16:28)
--- NOTE | 2019-10-15 18:25 | NUR ---
LATESHA RONNA NOTES PT IS COVID NEGATIVE AND READY TO TRANSFER TO ROOM 322. PT IS OBTUNDED. PT IS ON 4 L N/C. SEIZURE PRECAUTIONARY ARE TAKEN. PT IS NPO DUE TO ASPIRATION RISK. R HAND D 1/2 NS @75 ML/HR RUNNING. BED IN LOWEST POSITION. CALL LIGHT WITHIN REACH. SIDE RAILS X2. WILL GIVE REPORT TO THE NURSE ON MED SURGE FLOOR.
--- NOTE | 2019-10-15 18:51 | NUR ---
LATESHA RN NOTES PT IS STILL OBTUNDED. GETTING MORE ALERT BY THE HOUR. PT IS ON 4 L SAT 97%. SEIZURE PRECAUTIONS ARE IMPLEMENTED. PT IS ON NPO WITH THE FURTHER NOTICE. PT WILL BE TRANSFERRED TO [facility] TO JABARI RN.BED IN THE LOWEST POSITION. CALL LIGHT WITHIN THE REACH. RAILS ARE UP X2. PT HAS R HAND IV RUNNING D 5 1/2 NS @ 75 ML/HR.PT HAS LOWER COMPRESSION FRACTURE AND NEEDS TWO ASSISTANCE TO CHANGE AND MOVE THE PATIENT. WILL ENDORSE TO NIGHT SHIFTS TO MONITOR.
--- NOTE | 2019-10-15 20:14 | NUR ---
VENEER GLUER: TO ROOM 322-2 Covid 19 resulted negative 10/14/19. Transferred patient to [facility] by bed with DORIE Barrett. Report given to DORIE Ybarra. Personal belongings send with the patient upon transfer.
--- NOTE | 2019-10-15 20:17 | NUR ---
MS RN NOTES RECEIVED PATIENT VIA GURNEY FROM LATESHA. PATIENT IS NONVERBAL. ON 4L NASAL CANULA, NO SOB/ ACUTE RESPIRATORY DISTRESS NOTED. SHOWS NO SIGNS OF PAIN OR DISTRESS. IV IN R HAND #24G IS PATENT AND INTACT RUNNING D5 1/2 NS @75MLS/HR. BED IS IN LOWEST LOCKED POSITION WITH SIDE RAILS UP X3, SEMI FOWLERS. SIDE RAILS ARE PADDED FOR SEIZURE PRECAUTIONS. CALL LIGHT IS WITHIN REACH. WILL CONTINUE TO MONITOR.
--- NOTE | 2019-10-15 22:00 | NUR ---
MS RN NOTES SPOKE TO LIZETTE (DAUGHTER). LIZETTE STATED THAT HER MOM'S USUAL DIET IS PUREED AND REQUIRES A FEEDER.
[2019-10-16] MEDS: IV D5/0.45 NACL 1,000 ML IV PRN ×2 (06:09→19:50)
--- NOTE | 2019-10-16 06:24 | NUR ---
MS RN CLOSE NOTES PATIENT IS LAYING IN BED. PATIENT IS NONVERBAL. ON 4L NASAL CANULA, NO SOB/ ACUTE RESPIRATORY DISTRESS NOTED. IV IN R HAND #22G IS PATENT AND INTACT RUNNING D5 1/2 NS @ 75MLS/HR. BED IS IN LOWEST LOCKED POSITION WITH SIDE RAILS UP X3, SEMI FOWLERS. SEIZURE PRECAUTIONS IN PLACE, SIDE RAILS PADDED. CALL LIGHT IS WITHIN REACH. WILL ENDORSE TO AM NURSE.
[2019-10-16 06:54] LABS: CALCIUM, SERUM 9.2 mg/dL (8.5-10.1); CARBON DIOXIDE 29 mmol/L (21-32); CHLORIDE 102 mmol/L (98-107); CREATININE 0.3 mg/dL (0.6-1.3); GLUCOSE 113 mg/dL (74-106); MAGNESIUM 2.2 mg/dL (1.8-2.4); PHOSPHORUS 3.7 mg/dL (2.5-4.9); SODIUM SERUM 137 mmol/L (136-145); UREA NITROGEN, BLOOD 6 mg/dL (7-18)
[2019-10-16 07:00] LABS: BASOPHILS % (AUTO) 0.8 % (0.0-2.0); HEMATOCRIT 41 % (33-45); HEMOGLOBIN 13.5 g/dL (11.5-14.8); LYMPHOCYTES # (AUTO) 1.3 /CMM (0.8-4.8); LYMPHOCYTES % (AUTO) 23.1 % (20.0-44.0); MEAN CORPUSCULAR HGB CONC 33 g/dl (31.0-36.0); MEAN CORPUSCULAR VOLUME 97 fL (82-100); MONOCYTES # (AUTO) 0.3 /CMM (0.1-1.30); MONOCYTES % (AUTO) 4.7 % (2.0-12.0); NEUTROPHILS % (AUTO) 70.4 % (43.0-81.0); PLATELET COUNT (AUTO) 160 /CMM (150-450); RED BLOOD CELL COUNT(AUTO) 4.22 MIL/uL (4.0-5.2); WHITE BLOOD COUNT (AUTO) 5.7 K/uL (4.3-11.0)
[2019-10-16 08:00] VITALS: BP 158/75
--- NOTE | 2019-10-16 08:04 | NUR ---
MS RN OPENING NOTES PATIENT IS LAYING IN BED. PATIENT IS NONVERBAL. ON 4L NASAL CANULA, NO SOB/ ACUTE RESPIRATORY DISTRESS NOTED CURRENTLY NPO WILL F/U DIET. IV IN R HAND #22G IS PATENT AND INTACT RUNNING D5 1/2 NS @ 75MLS/HR. BED IS IN LOWEST LOCKED POSITION WITH SIDE RAILS UP X3, SEMI FOWLERS. SEIZURE PRECAUTIONS IN PLACE, SIDE RAILS PADDED. CALL LIGHT IS WITHIN REACH. WILL CONTINUE TO MONITOR.
[2019-10-16 10:00] VITALS: BP 158/75
[2019-10-16] MEDS: PANTOPRAZOLE 40 MG VIAL IV SCH (12:44)
[2019-10-16] MEDS: CEFTRIAXONE 1 G in IV D5W 50 ML IV SCH (15:59)
[2019-10-16 16:00] VITALS: BP 155/75
[2019-10-16] MEDS: ENOXAPARIN SODIUM 40 MG/0.4 ML DISP.SYRIN SQ SCH (16:03)
--- NOTE | 2019-10-16 19:00 | NUR ---
MS RN CLOSING NOTES PATIENT IS IN BED HOB ELEVATED. PATIENT IS NONVERBAL. ON 4L NASAL CANULA, NO SOB/ ACUTE RESPIRATORY DISTRESS NOTED. REMAIN NPO . IV IN R HAND #22G IS PATENT AND INTACT RUNNING D5 1/2 NS @ 75MLS/HR. BED IS IN LOWEST LOCKED POSITION WITH SIDE RAILS UP X3, SEMI FOWLERS. SEIZURE PRECAUTIONS IN PLACE, SIDE RAILS PADDED SEEN AND EXAM BY THE NEUROLOGO WITH NEW ORDER FOR GERMAN. CALL LIGHT IS WITHIN REACH. WILL ENDORSE TO NIGHT NURSE.
--- NOTE | 2019-10-16 19:35 | NUR ---
MS RN OPEN NOTES PATIENT IS LAYING IN BED. NONVERBAL. ON 4L NASAL CANULA, NO SOB/ ACUTE RESPIRATORY DISTRESS NOTED. APPEARS COMFORTABLE, SHOWS NO SIGN OF PAIN/ DISTRESS AT THE MOMENT. BED IS IN LOWEST LOCKED POSITION WITH SIDE RAILS UP X3, SEMI FOWLERS. CALL LIGHT IS WITHIN REACH. WILL CONTINUE TO MONITOR.
[2019-10-16 20:00] VITALS: BP 165/86
[2019-10-16] MEDS: LEVETIRACETAM IV SCH (21:30)
[2019-10-16] MEDS: NS 0.9% IV SCH (21:30)
[2019-10-16 22:00] VITALS: BP 165/86
[2019-10-17] MEDS: IV D5/0.45 NACL 1,000 ML IV PRN ×2 (05:16→19:13)
--- NOTE | 2019-10-17 06:15 | NUR ---
MS RN CLOSE NOTES PATIENT IS LAYING IN BED. A/O X1, NONVERBAL. ON 4L NASAL CANULA, NO SOB/ ACUTE RESPIRATORY DISTRESS NOTED. IV IN R HAND #22G IS PATENT AND INTACT RUNNING D5 1/2NS @ 75MLS/HR. APPEARS COMFORTABLE, SHOWS NO SIGNS OF PAIN/ DISTRESS. BED IS IN LOWEST LOCKED POSITION WITH SIDE RAILS UP X3, SEMI FOWLERS. SEIZURE PRECAUTIONS IN PLACE/ SIDE RAILS PADDED. CALL LIGHT IS WITHIN REACH. WILL ENDORSE TO AM NURSE.
[2019-10-17 07:08] LABS: BASOPHILS % (AUTO) 0.9 % (0.0-2.0); EOSINOPHILS % (AUTO) 1.4 % (0.0-6.0); HEMATOCRIT 38 % (33-45); HEMOGLOBIN 12.5 g/dL (11.5-14.8); LYMPHOCYTES # (AUTO) 1.6 /CMM (0.8-4.8); MEAN CORPUSCULAR HGB CONC 33 g/dl (31.0-36.0); MEAN CORPUSCULAR VOLUME 97 fL (82-100); MONOCYTES # (AUTO) 0.3 /CMM (0.1-1.30); MONOCYTES % (AUTO) 7.2 % (2.0-12.0); NEUTROPHILS # (AUTO) 2.6 /CMM (1.8-8.9); NEUTROPHILS % (AUTO) 55.5 % (43.0-81.0); PLATELET COUNT (AUTO) 150 /CMM (150-450); RED BLOOD CELL COUNT(AUTO) 3.91 MIL/uL (4.0-5.2); WHITE BLOOD COUNT (AUTO) 4.7 K/uL (4.3-11.0)
--- NOTE | 2019-10-17 08:00 | NUR ---
RN OPENING NOTES RECEIVED PATIENT IN BED, ASLEEP. PT IS AROUSABLE OPENS EYES,. PATIENT IS NONVERBAL. NO CARDIAC OR RESPIRATORY DISTRESS NOTED ON 4L NASAL CANULA, NO SOB/ ACUTE RESPIRATORY DISTRESS NOTED. PT HAS BEEN NPO PER BRUSHING MACHINE OPERATOR REPORT. AWAITING ORDERS FOR SWALLOW EVAL. IV ACCESS NOTED ON R HAND #22G IS PATENT AND INTACT RUNNING D5 1/2 NS @ 75MLS/HR. PADDINGON SIDE RAILS NOTED FOR SEIZURE PRECAUTIONS. SAFETY PRECAUTIONS IN PLACE. BED IS IN LOWEST LOCKED POSITION WITH SIDE RAILS UP X2, SEMI FOWLERS. S CALL LIGHT IS WITHIN REACH. WILL CONT TO MONITOR
[2019-10-17 08:02] VITALS: BP 128/68
[2019-10-17 08:02] LABS: CALCIUM, SERUM 8.9 mg/dL (8.5-10.1); CARBON DIOXIDE 31 mmol/L (21-32); CHLORIDE 104 mmol/L (98-107); CREATININE 0.3 mg/dL (0.6-1.3); GLUCOSE 95 mg/dL (74-106); MAGNESIUM 2.1 mg/dL (1.8-2.4); PHOSPHORUS 3.5 mg/dL (2.5-4.9); POTASSIUM 3.5 mmol/L (3.5-5.1); SODIUM SERUM 139 mmol/L (136-145); UREA NITROGEN, BLOOD 3 mg/dL (7-18)
--- NOTE | 2019-10-17 09:00 | NUR ---
SEEN BY DR. WORKMAN PT WAS SEEN BY DR. WORKMAN, OBTAINED ORDERS FOR SWALLOW EVAL. NOTIFIED .
[2019-10-17] MEDS ORDERED: LEVOFLOXACIN (500MG) 500 MG TABLET PO SCH (09:30)
[2019-10-17 10:00] VITALS: BP 128/68
--- NOTE | 2019-10-17 10:30 | NUR ---
SWALLOW EVAL PT WAS SEEN BY ST. PT STARTED ON PUREED DIET WITH HONEY THICK LIQUID. HIGH RISK FOR ASPIRATION. CLIN TECH NOTIFIED TO KEEP PY UPRIGHT DURING FEEDING
[2019-10-17] MEDS: PANTOPRAZOLE 40 MG VIAL IV SCH (12:43)
[2019-10-17] MEDS: ENOXAPARIN SODIUM 40 MG/0.4 ML DISP.SYRIN SQ SCH (15:13)
[2019-10-17 16:22] VITALS: BP 125/46
--- NOTE | 2019-10-17 18:49 | NUR ---
RN CLOSING NOTES PATIENT IN BED, ASLEEP. PT IS AROUSABLE OPENS EYES,. PATIENT IS NONVERBAL. NO CARDIAC OR RESPIRATORY DISTRESS NOTED ON 4L NASAL CANULA, NO SOB/ ACUTE RESPIRATORY DISTRESS NOTED. IV ACCESS NOTED ON R HAND #22G IS PATENT AND INTACT RUNNING D5 1/2 NS @ 75MLS/HR. PADDINGON SIDE RAILS NOTED FOR SEIZURE PRECAUTIONS. SAFETY PRECAUTIONS IN PLACE. BED IS IN LOWEST LOCKED POSITION WITH SIDE RAILS UP X2, SEMI FOWLERS. S CALL LIGHT IS WITHIN REACH. WILL CONT TO MONITOR
[2019-10-17 20:00] VITALS: BP 123/87
--- NOTE | 2019-10-17 20:00 | NUR ---
MS RN OPENING NOTE: Received patient in bed, sleeping. Patient is arousable. Opens her yes but non verbal. On 4L nasal canula. No SOB or respiratory distress noted. IV noted on right hand 22g. Flushes well, patent, no redness, or infiltration. Side rails are padded. Safety precaution in place. Bed in lowest level, brakes are on, call light is near, and alarm is on. Will continue care of plan.
[2019-10-17 20:10] VITALS: BP 123/87
[2019-10-17] MEDS: LEVETIRACETAM IV SCH (21:11)
[2019-10-17] MEDS: NS 0.9% IV SCH (21:11)
--- NOTE | 2019-10-17 22:00 | NUR ---
MS RN NOTE: Noted patient prescribed Levaquin and noted patient allergic to Levaquin. Notified Dr Mago HERNANDEZ. MD ordered to DC Levaquin and order Keflex 500mg po tid. Read order back and carried out.
[2019-10-18] VITALS (7 sets, daily range): BP systolic 118–149; BP diastolic 64–87
--- NOTE | 2019-10-18 06:56 | NUR ---
MS RN CLOSING NOTE: Patient in bed sleeping comfortably. Patient is arousable. No SOB or respiratory distress at the moment. Side rails are padded. Safety precaution in place. Bed in lowest level, brakes are on, call light is near, and alarm is on. Will endorse to next shift.
--- NOTE | 2019-10-18 08:00 | NUR ---
RN NOTES RECEIVED PATIENT IN THE BED, NON VERBAL, PATIENT HAS NO ACUTE RESPIRATORY DISTRESS, V/S STABLE, PATIENT SLEEPING AT THIS TIME, INFUSING D51/2 NS AT 75 ML/HR INTACT ON LEFT HAND, PATIENT TOTAL CARE, ASSIST TURN AND REPOSTION Q 2 HR. CALL LIGHT WITHIN TO REACH. CONTINUED MONITORING.
[2019-10-18 08:25] LABS: BASOPHILS % (AUTO) 0.9 % (0.0-2.0); EOSINOPHILS % (AUTO) 1.5 % (0.0-6.0); HEMATOCRIT 38 % (33-45); HEMOGLOBIN 12.5 g/dL (11.5-14.8); LYMPHOCYTES # (AUTO) 1.7 /CMM (0.8-4.8); LYMPHOCYTES % (AUTO) 30.7 % (20.0-44.0); MEAN CORPUSCULAR HGB CONC 33 g/dl (31.0-36.0); MEAN CORPUSCULAR VOLUME 97 fL (82-100); MONOCYTES # (AUTO) 0.3 /CMM (0.1-1.30); MONOCYTES % (AUTO) 5.5 % (2.0-12.0); NEUTROPHILS # (AUTO) 3.3 /CMM (1.8-8.9); NEUTROPHILS % (AUTO) 61.4 % (43.0-81.0); PLATELET COUNT (AUTO) 147 /CMM (150-450); RED BLOOD CELL COUNT(AUTO) 3.93 MIL/uL (4.0-5.2); WHITE BLOOD COUNT (AUTO) 5.4 K/uL (4.3-11.0)
[2019-10-18 08:35] LABS: ALANINE AMINOTRANSFERASE 24 U/L (12-78); ALBUMIN 2.8 g/dL (3.4-5.0); ALKALINE PHOSPHATASE 81 U/L (46-116); ASPARTATE AMINOTRANSFERASE 22 U/L (15-37); BILIRUBIN,TOTAL 0.4 mg/dL (0.2-1.0); CALCIUM, SERUM 8.5 mg/dL (8.5-10.1); CARBON DIOXIDE 30 mmol/L (21-32); CHLORIDE 103 mmol/L (98-107); CREATININE 0.3 mg/dL (0.6-1.3); GLUCOSE 99 mg/dL (74-106); MAGNESIUM 2.1 mg/dL (1.8-2.4); PHOSPHORUS 3.1 mg/dL (2.5-4.9); SODIUM SERUM 138 mmol/L (136-145); TOTAL PROTEIN, SERUM 6.3 g/dL (6.4-8.2); UREA NITROGEN, BLOOD 3 mg/dL (7-18)
[2019-10-18] MEDS ORDERED: CEPHALEXIN MONOHYDRATE 250 MG CAPSULE PO SCH (09:00)
[2019-10-18] MEDS ORDERED: NITR100C6 PO (09:13)
[2019-10-18] MEDS ORDERED: POTASSIUM CHLORIDE 10 MEQ/50 ML PREMIXED IVPB FOR PERIPHERAL LINE IV ONE (09:30)
[2019-10-18] MEDS ORDERED: POTASSIUM CL. PREMIX PERIPHER. 50 ML IV SCH (09:30)
--- NOTE | 2019-10-18 10:00 | NUR ---
RN NOTES PER HOSPITALIST PATIENT WILL D/C SNF AFTER [facility] INFUSION. CONTINUED MONITORING.
[2019-10-18] MEDS: Potassium Chloride 10 MEQ, LIDOCAINE HCL/PF 1% 1 ML in IV D5W 50 ML IV SCH ×6 (11:29→17:00)
[2019-10-18] MEDS: IV D5/0.45 NACL 1,000 ML IV PRN (11:33)
[2019-10-18] MEDS: PANTOPRAZOLE 40 MG VIAL IV SCH (12:43)
[2019-10-18] MEDS: ENOXAPARIN SODIUM 40 MG/0.4 ML DISP.SYRIN SQ SCH (15:32)
--- NOTE | 2019-10-18 16:00 | NUR ---
RN NOTES PER PATIENT FAMILY APPEAL CASE TO DISCHARGE. ASSIST TURN AND REPOSTION PATIENT STABLE V/S WNL.
--- NOTE | 2019-10-18 18:00 | NUR ---
RN NOTES PATIENT STABLE, NEEDS ATTENDED AND ANTICIPATED. ASSIST EATING TOLERATED DINNER 25%,TURN AND REPOSTION Q 2 HR,KEEP HOB ELEVATED FOR ASPIRATION PRECAUTION, INFUSING D51/2 NS AT 75 ML/HR INTACT. CALL LIGHT WITHIN TO REACH. CONTINUED MONITORING. ENDORSED ONCOMING NURSE FOLLOW PLAN OF CARE.
--- NOTE | 2019-10-18 19:35 | NUR ---
MS RN NOTES PATIENT IN BED, OPENS EYES, NON VERBAL. BREATHING EVEN AND UNLABORED ON NC 4L. SHOWS NO SIGNS OF ACUTE RESPIRATORY DISTRESS, NO ACUTE PAIN. IV ON R HAND 22G RUNNING D5 1/2 NS AT 75ML/HR. SHOWS NO SIGNS OF ACUTE RESPIRATORY DISTRESS, NO ACUTE PAIN. SAFETY PRECAUTIONS IN PLACE. BED IN LOWEST POSITION, LOCKED, AND CALL LIGHT KEPT WITHIN REACH. WILL CONTINUE TO MONITOR.
[2019-10-18] MEDS: NITROFURANTOIN/NITROFURAN MAC 100 MG CAPSULE PO SCH (20:45)
[2019-10-18] MEDS: NS 0.9% IV SCH (21:40)
[2019-10-18] MEDS: LEVETIRACETAM IV SCH (21:40)
[2019-10-19] VITALS (7 sets, daily range): BP systolic 128–157; BP diastolic 71–101
[2019-10-19] MEDS: MAGNESIUM HYDROXIDE 30 ML UDC PO PRN (06:26)
--- NOTE | 2019-10-19 06:36 | NUR ---
MS RN NOTES PATIENT IN BED, OPENS EYES, NON VERBAL. BREATHING EVEN AND UNLABORED ON NC 4L. SHOWS NO SIGNS OF ACUTE RESPIRATORY DISTRESS, NO ACUTE PAIN. IV ON R HAND 22G RUNNING D5 1/2 NS AT 75ML/HR. SHOWS NO SIGNS OF ACUTE RESPIRATORY DISTRESS, NO ACUTE PAIN. ALL DUE MEDICATIONS GIVEN. SAFETY PRECAUTIONS IN PLACE. BED IN LOWEST POSITION, LOCKED, AND CALL LIGHT KEPT WITHIN REACH. WILL ENDORSE TO ONCOMING NURSE.
--- NOTE | 2019-10-19 07:42 | NUR ---
MS RN NOTES PATIENT RECEIVED IN BED, NON-VERBAL, OPEN EYES TO TOUCH. PATIENT ON NASAL CANNULA 4L, TOLERATING OXYGEN WITH NO SIGNS OF RESPIRATORY DISTRESS AT THIS TIME, WITH EVEN NON-LABORED BREATHING, AND NO SOB NOTED. PATIENT SKIN WARM AND DRY TO TOUCH, AND IV ACCESS INTACT AND PATENT, INFUSING D5 1/2 NORMAL SALINE AT 75ml/hr. PATIENT PRESENTS NO SIGNS OF PAIN OR DISCOMFORT. SAFETY PRECAUTIONS AND SEIZURE PRECAUTIONS IN PLACE WITH BED IN THE LOWEST POSITION, BED LOCKED, BED ALARM ON, BILATERAL SIDE RAILS UP AND PADDED, AND CALL LIGHT WITHIN EASY REACH OF THE PATIENT. WILL CONTINUE TO MONITOR PATIENT.
--- NOTE | 2019-10-19 08:00 | NUR ---
MS RN NOTES PATIENT SEEN BY DR MIR, PATIENT CLEARED FOR DISCHARGE, BUT FAMILY APPEALED, MD AWARE. NO NEW ORDERS AT THIS TIME. WILL CONTINUE TO MONITOR PATIENT.
[2019-10-19 08:17] LABS: CALCIUM, SERUM 9.8 mg/dL (8.5-10.1); CARBON DIOXIDE 28 mmol/L (21-32); CHLORIDE 102 mmol/L (98-107); CREATININE 0.2 mg/dL (0.6-1.3); GLUCOSE 85 mg/dL (74-106); POTASSIUM 4.2 mmol/L (3.5-5.1); SODIUM SERUM 137 mmol/L (136-145); UREA NITROGEN, BLOOD 2 mg/dL (7-18)
[2019-10-19] MEDS: LEVETIRACETAM (500MG) 250 MG in IV NS 0.9% 100 ML IV SCH (09:32)
[2019-10-19] MEDS: IV D5/0.45 NACL 1,000 ML IV PRN (09:38)
[2019-10-19] MEDS: NITROFURANTOIN/NITROFURAN MAC 100 MG CAPSULE PO SCH ×2 (10:07→21:36)
[2019-10-19] MEDS: PANTOPRAZOLE 40 MG VIAL IV SCH (12:50)
[2019-10-19] MEDS: ENOXAPARIN SODIUM 40 MG/0.4 ML DISP.SYRIN SQ SCH (16:29)
--- NOTE | 2019-10-19 19:10 | NUR ---
MS RN NOTES PATIENT IN BED COMFORTABLY LAYING, NON-VERBAL, AND OPEN EYES TO TOUCH. PATIENT ON NASAL CANNULA 3L, TOLERATING OXYGEN WITH NO SIGNS OF RESPIRATORY DISTRESS AT THIS TIME, WITH EVEN NON-LABORED BREATHING, AND NO SOB NOTED. PATIENT SKIN KEPT CLEAN, WARM AND DRY TO TOUCH. IV ACCESS INTACT AND PATENT, INFUSING D5 1/2 NORMAL SALINE AT 75ml/hr. PATIENT PRESENTS NO SIGNS OF PAIN OR DISCOMFORT. SAFETY PRECAUTIONS, SEIZURE PRECAUTIONS AND ASPIRATION PRECAUTIONS IN PLACE WITH BED IN THE LOWEST POSITION, HEAD OF THE BED IN 40 DEGREES ELEVATED, BED LOCKED, BED ALARM ON, BILATERAL SIDE RAILS UP AND PADDED, AND CALL LIGHT WITHIN EASY REACH OF THE PATIENT. WILL ENDORSE PLAN OF CARE TO UPCOMING NURSE.
--- NOTE | 2019-10-19 19:52 | NUR ---
RN NOTES RECEIVED PATIENT AWAKE IN BED, NON-VERBAL, OPEN EYES TO TOUCH. PATIENT ON NASAL CANNULA 3L, TOLERATING OXYGEN WITH NO SIGNS OF RESPIRATORY DISTRESS AT THIS TIME, WITH EVEN NON-LABORED BREATHING, AND NO SOB NOTED. PATIENT SKIN WARM AND DRY TO TOUCH, AND IV ACCESS INTACT AND PATENT, INFUSING D5 1/2 NORMAL SALINE AT 75ml/hr. PATIENT PRESENTS NO SIGNS OF PAIN OR DISCOMFORT. SAFETY PRECAUTIONS AND SEIZURE PRECAUTIONS IN PLACE WITH BED IN THE LOWEST POSITION, BED LOCKED, BED ALARM ON, BILATERAL SIDE RAILS UP AND PADDED, AND CALL LIGHT WITHIN EASY REACH OF THE PATIENT. WILL CONTINUE TO MONITOR ACCORDINGLY.
[2019-10-19] MEDS: LEVETIRACETAM IV SCH (22:24)
[2019-10-19] MEDS: NS 0.9% IV SCH (22:24)
--- NOTE | 2019-10-20 06:17 | NUR ---
RN NOTES ALL NEEDS ATTENDED, ABLE TO REST AND SLEPT WITH LONG INTERVALS, SAFETY MEASURES IN PLACE, CALL LIGHT WITHIN EASY REACH, REPOSITIONED FOR COMFORT ASPIRATION PRECAUTION EMPHASIZED. PER PATIENT'S DAUGHTER REQUEST TO HAVE FOR MEALS ARE THE FOLLOWING: GREEN BEANS, MIXED VEGGIES, CARROTS, PEAS WITH SOME SALT IN IT, MOIST FISH, AND OR TURKEY. PATIENT REQUIRES A FEEDER DURING MEAL. CALLED AND SPOKE WITH RADHA OF [employer]. REGARDING FAMILY'S REQUEST FOR FOOD PREFERENCE. ALL NEEDS ANTICIPATED. KEPT CLEAN WARM DRY AND COMFORTABLE. WILL ENDORSE TO AM NURSE FOR CONTINUITY OF CARE.
[2019-10-20 08:00] VITALS: BP 136/58
--- NOTE | 2019-10-20 08:00 | NUR ---
RN NOTES RECEIVED PATIENT IN THE BED, NON VERBAL, PATIENT HAS NO ACUTE RESPIRATORY DISTRESS, V/S STABLE, PATIENT SLEEPING AT THIS TIME, INFUSING D5 1/2 NS AT 75 ML/HR INTACT ON LEFT HAND, PATIENT TOTAL CARE, ADMINISTERED SCHEDULED MEDICATION, PATIENT ASPIRATION PRECAUTION, KEEP HOB ELEVATED TO 40 DEGREE, ASSIST TURN AND REPOSTION Q 2 HR. CALL LIGHT WITHIN TO REACH. PATIENT TOLERATED INTAKE 75% VIA ASSIST OF SCIENCE INSTRUCTOR. CONTINUED MONITORING.
[2019-10-20] MEDS: LEVETIRACETAM (500MG) 250 MG in IV NS 0.9% 100 ML IV SCH (09:08)
[2019-10-20] MEDS: NITROFURANTOIN/NITROFURAN MAC 100 MG CAPSULE PO SCH ×2 (09:08→21:42)
[2019-10-20] MEDS: IV D5/0.45 NACL 1,000 ML IV PRN ×2 (09:15→23:17)
[2019-10-20 10:00] VITALS: BP 132/61
--- NOTE | 2019-10-20 12:00 | NUR ---
RN NOTES PATIENT WILLING TO D/C BACK TO THE SNF, BUT PER FAMILY APPEAL CASE FOR DISCHARGE.
[2019-10-20] MEDS: PANTOPRAZOLE 40 MG VIAL IV SCH (13:19)
[2019-10-20 15:55] VITALS: BP 131/89
[2019-10-20] MEDS: ENOXAPARIN SODIUM 40 MG/0.4 ML DISP.SYRIN SQ SCH (17:20)
--- NOTE | 2019-10-20 18:35 | NUR ---
RN NOTES PATIENT STABLE TOLERATED DINNER WELL, ASSIST TURN AND REPOSITION Q 2 HR. NEEDS ATTENDED AND ANTICIPATED, CALL LIGHT WITHIN TO RREACH, . ENDORSED ONCOMING NURSE FOLLOW PLAN OF CARE.
--- NOTE | 2019-10-20 19:25 | NUR ---
MS RN NOTES RECEIVED PT IN BED AND AWAKE. PT NON-VERBAL AND OPENS EYES. RESPIRATIONS EVEN AND UNLABORED WITH NO S/S OF ACUTE DISTRESS OR SOB NOTED. NO S/S OF PAIN AT THIS TIME. PT NOTED WITH IV ON RTHUMB #24G PATENT AND INTACT INFUSING D5 1/2 NS @75CC/HR. SAFETY MEASURES IN PLACE WITH BED IN LOWEST LOCKED POSITION WITH SIDE RAILS UP X2. CALL LIGHT WITHIN REACH. WILL CONTINUE TO MONITOR.
[2019-10-20 20:00] VITALS: BP 143/81
[2019-10-20 20:19] VITALS: BP 161/83
[2019-10-20 21:15] VITALS: BP 131/78
[2019-10-20] MEDS: LEVETIRACETAM IV SCH (21:42)
[2019-10-20] MEDS: NS 0.9% IV SCH (21:42)
--- NOTE | 2019-10-21 | NUR ---
MS RN NOTES SPOKE TO FAMILY AND FAMILY STATED THAT SHE WANTS TO HAVE HER MOM GIVEN MEDICATION IN THE AM FOR CONSTIPATION. OFFERED TO GIVE TO PT AT THIS TIME. FAMILY STATED THAT WE SHOULD JUST WAIT FOR THE MORNING. WILL CONTINUE TO MONITOR.
--- NOTE | 2019-10-21 07:25 | NUR ---
MS RN NOTES PATIENT IN BED EYES CLOSED, RESPOND TO VERBAL AND TACTILE STIMULI, OPENS EYES. NO ACUTE DISTRESS NOTED. BREATHING UNLABORED. NO SOB NOTED. IV ACCESS PATENT AND INTACT, NO REDNESS, NO SWELLING NOTED. SAFETY MEASURES IN PLACE. CALL LIGHT WITHIN REACH. WILL CONTINUE TO MONITOR ACCORDINGLY.
--- NOTE | 2019-10-21 07:32 | NUR ---
MS RN NOTES PT IN BED AND AWAKE. PT NON-VERBAL AND OPENS EYES. RESPIRATIONS EVEN AND UNLABORED WITH NO S/S OF ACUTE DISTRESS OR SOB NOTED THROUGHOUT SHIFT. PT KEPT CLEAN, DRY, AND COMFORTABLE. NO S/S OF PAIN AT THIS TIME. PT NOTED WITH IV ON RTHUMB #24G PATENT AND INTACT INFUSING D5 1/2 NS @75CC/HR. SAFETY MEASURES IN PLACE WITH BED IN LOWEST LOCKED POSITION WITH SIDE RAILS UP X2. CALL LIGHT WITHIN REACH. WILL ENDORSE TO ONCOMING NURSE FOR OCC.
[2019-10-21 08:00] VITALS: BP 132/67
[2019-10-21 08:15] LABS: BASOPHILS # (AUTO) 0.1 /CMM (0.0-0.2); BASOPHILS % (AUTO) 1.1 % (0.0-2.0); EOSINOPHILS % (AUTO) 1.6 % (0.0-6.0); HEMATOCRIT 43 % (33-45); HEMOGLOBIN 13.5 g/dL (11.5-14.8); LYMPHOCYTES # (AUTO) 1.6 /CMM (0.8-4.8); LYMPHOCYTES % (AUTO) 30.8 % (20.0-44.0); MEAN CORPUSCULAR HGB CONC 31 g/dl (31.0-36.0); MEAN CORPUSCULAR VOLUME 102 fL (82-100); MONOCYTES # (AUTO) 0.3 /CMM (0.1-1.30); NEUTROPHILS # (AUTO) 3.1 /CMM (1.8-8.9); NEUTROPHILS % (AUTO) 60.5 % (43.0-81.0); PLATELET COUNT (AUTO) 110 /CMM (150-450); RED BLOOD CELL COUNT(AUTO) 4.25 MIL/uL (4.0-5.2); WHITE BLOOD COUNT (AUTO) 5.1 K/uL (4.3-11.0)
[2019-10-21 08:28] LABS: CARBON DIOXIDE 28 mmol/L (21-32); CHLORIDE 102 mmol/L (98-107); CREATININE 0.3 mg/dL (0.6-1.3); GLUCOSE 97 mg/dL (74-106); POTASSIUM 3.5 mmol/L (3.5-5.1); SODIUM SERUM 137 mmol/L (136-145); UREA NITROGEN, BLOOD 5 mg/dL (7-18)
[2019-10-21] MEDS: NITROFURANTOIN/NITROFURAN MAC 100 MG CAPSULE PO SCH ×2 (09:37→21:37)
[2019-10-21] MEDS: LEVETIRACETAM (500MG) 250 MG in IV NS 0.9% 100 ML IV SCH (09:37)
[2019-10-21] MEDS ORDERED: BISACODYL SUPP (10 MG) 10 MG/SUPP.RECT SUPP.RECT RC PRN (13:00)
[2019-10-21] MEDS: PANTOPRAZOLE 40 MG VIAL IV SCH (13:19)
[2019-10-21] MEDS: DOCUSATE SODIUM 250 MG CAPSULE PO SCH (13:19)
[2019-10-21] MEDS: IV D5/0.45 NACL 1,000 ML IV PRN (15:04)
[2019-10-21 16:00] VITALS: BP 129/84
[2019-10-21] MEDS: ENOXAPARIN SODIUM 40 MG/0.4 ML DISP.SYRIN SQ SCH (16:40)
--- NOTE | 2019-10-21 19:00 | NUR ---
MS RN NOTES PATIENT IN BED AWAKE. NO ACUTE DISTRESS NOTED. BREATHING UNLABORED. NO SOB NOTED. IV ACCESS PATENT AND INTACT, NO REDNESS, NO SWELLING NOTED. NEEDS ATTENDED AND ANTICIPATED. KEPT COMFORTABLE. HEAD OF BED ELEVATED. SAFETY MEASURES IN PLACE. CALL LIGHT WITHIN REACH. WILL ENDORSE TO NIGHT FOR CONTINUITY OF CARE.
[2019-10-21 20:00] VITALS: BP 158/78
[2019-10-21] MEDS: MAGNESIUM HYDROXIDE 30 ML UDC PO PRN (21:36)
[2019-10-21] MEDS: LEVETIRACETAM IV SCH (21:36)
[2019-10-21] MEDS: NS 0.9% IV SCH (21:36)
--- NOTE | 2019-10-22 00:48 | NUR ---
MS RN NOTES PT NOTED WITH LABORED BREATHING/CONGESTION/DESAT. RT NOTIFIED, PT PUT ON SIMPLE MASK 10L O2, PT SATING 94-95%, AND FLUIDS STOPPED. MD NOTIFIED. NEW ORDERS FOR STAT ABG AND CHEST XRAY, HOLD FLUIDS. WILL CONTINUE TO MONITOR.
--- NOTE | 2019-10-22 01:38 | NUR ---
MS RN NOTES PT SUCTION BY RT WITH CLEAR WATER-LIKE MOST FLUID AND SOME THICK SECRETIONS. NOTIFIED. JOESPH ZAMORA FOR 40MG LASIX IV X1. WILL CONTINUE TO MONITOR.
[2019-10-22] MEDS ORDERED: FUROSEMIDE 40 MG/4 ML VIAL IV ONE (02:00)
[2019-10-22 02:01] VITALS: BP 127/64
--- NOTE | 2019-10-22 02:02 | NUR ---
MS RN NOTES LASIX GIVEN. BP NOTED 127/64. WILL CONTINUE TO MONITOR.
--- NOTE | 2019-10-22 05:00 | NUR ---
MS RN NOTES PT CXR AND ABG DONE AND RESULTED. MADE AWARE. NO NEW ORDERS. WILL CONTINUE TO MONITOR.
--- NOTE | 2019-10-22 07:20 | NUR ---
MS RN NOTES PATIENT IN BED AWAKE, NO ACUTE DISTRESS NOTED. BREATHING UNLABORED. ON 02 AT 2LPM VIA NASAL CANNULA SATURATING AT 99%, NO SOB NOTED. IV ACCESS PATENT AND INTACT, NO REDNESS, NO SWELLING NOTED. HEAD OF BED ELEVATED. SAFETY MEASURES IN PLACE. CALL LIGHT WITHIN REACH. WILL CONTINUE TO MONITOR ACCORDINGLY.
[2019-10-22] MEDS: PANTOPRAZOLE 40 MG/PACK PACK PO SCH (07:24)
[2019-10-22 08:00] VITALS: BP 141/82
--- NOTE | 2019-10-22 08:12 | NUR ---
MS RN NOTES PT IN BED AND RESTING. PT NON-VERBAL AND OPENS EYES. RESPIRATIONS EVEN AND UNLABORED WITH NO S/S OF ACUTE DISTRESS OR SOB NOTED ON 2L VIA NC. NO S/S OF PAIN AT THIS TIME. PT NOTED WITH IV ON LEJ PATENT AND INTACT AND SL. SAFETY MEASURES IN PLACE WITH BED IN LOWEST LOCKED POSITION WITH SIDE RAILS UP X2. PT KEPT CLEAN DRY, AND COMFORTABLE. CALL LIGHT WITHIN REACH. WILL ENDORSE TO ONCOMING NURSE FOR ALANIS..
[2019-10-22 08:34] LABS: ABG BASE EXCESS 1.8 mmol/L; ABG OXYGEN SATURATION 91.4 % (92.0-98.5); ABG PCO2 44.6 mmHg (35.0-45.0); ABG PO2 60.8 mmHg (75.0-100.0); AaDO2 317.9 mmHg; COHb 0.2 % (0.5-1.5); MetHb 0.1 % (0.0-1.5); O2Hb 91.1 % (94.0-97.0); SITE, ABG Right Radial; VENT MODE, BG 10L SM
[2019-10-22] MEDS: LEVETIRACETAM SOL (5 ML) 100 MG/ML UDC PO SCH ×2 (09:21→22:00)
[2019-10-22] MEDS: DOCUSATE SODIUM 250 MG CAPSULE PO SCH ×2 (09:21→16:54)
[2019-10-22] MEDS: NITROFURANTOIN/NITROFURAN MAC 100 MG CAPSULE PO SCH ×2 (09:21→22:00)
[2019-10-22] MEDS: ENSURE ENLIVE 237 ML LIQUID (VANILLA) PO SCH ×2 (13:51→16:59)
[2019-10-22 16:00] VITALS: BP 129/73
[2019-10-22] MEDS: ENOXAPARIN SODIUM 40 MG/0.4 ML DISP.SYRIN SQ SCH (16:53)
--- NOTE | 2019-10-22 19:00 | NUR ---
MS RN NOTES PATIENT IN BED EYES CLOSED, RESPOND TO VERBAL AND TACTILE STIMULI, OPENS EYES. NO ACUTE DISTRESS NOTED. BREATHING UNLABORED. ON 02 AT 2LPM VIA NASAL CANNULA SATURATING AT 98%, NO SOB NOTED. IV ACCESS PATENT AND INTACT, NO REDNESS, NO SWELLING NOTED. NEEDS ATTENDED AND ANTICIPATED. KEPT COMFORTABLE. HEAD OF BED ELEVATED. SAFETY MEASURES IN PLACE. CALL LIGHT WITHIN REACH. WILL ENDORSE TO NIGHT FOR CONTINUITY OF CARE.
--- NOTE | 2019-10-22 19:30 | NUR ---
MS/RN OPENING NOTES RECEIVED PATIENT RESTING IN BED. PATIENT EYES OPEN, ALERT AND ORIENTED X 1, NON VERBAL. PATIENT IS IN NO DISTRESS AT THE MOMENT. NO SIGNS OF SOB OR RESPIRATORY DISTRESS NOTED. PATIENT IS ON 2L OF OXYGEN VIA NC STAT AT 95%. PATIENT HAS EJ #[address] AND INTACT[address] HEAD OF THE BED IS POSITION ABOVE 40 DEGREES. PATIENT COMFORTABLE AT THIS TIME. SAFETY MEASURES ARE IN PLACE, BED IS LOCKED AND PLACED IN THE LOWEST POSITION WITH ALARM ON AND SIDE RAILS UP X 2 PADDED. CALL LIGHT IS WITHIN REACH. WILL CONTINUE TO MONITOR THROUGH OUT SHIFT.
[2019-10-22 20:00] VITALS: BP 154/94
--- NOTE | 2019-10-23 06:45 | NUR ---
MS/RN CLOSING NOTES PATIENT SLEEPING IN BED. PATIENT EYES OPEN, ALERT AND ORIENTED X 1, NON VERBAL. PATIENT IS IN NO DISTRESS AT THE MOMENT. NO SIGNS OF SOB OR RESPIRATORY DISTRESS NOTED. PATIENT IS ON 2L OF OXYGEN VIA NC STAT AT 95%. PATIENT HAS EJ #[address] AND INTACT. HEAD OF THE BED IS POSITION ABOVE 40 DEGREES. PATIENT COMFORTABLE AT THIS TIME. ORAL CARE HAS BEEN PERFORMED DURING SHIFT. PATIENT DAUGHTER CALLS THROUGH OUT SHIFT TO CHECK ON PATIENT. ALL PATIENTS NEEDS HAVE BEEN MET DURING SHIFT. SAFETY MEASURES ARE IN PLACE, BED IS LOCKED AND PLACED IN THE LOWEST POSITION WITH ALARM ON AND SIDE RAILS UP X 2 PADDED. CALL LIGHT IS WITHIN REACH. WILL ENDORSE CARE TO DAY SHIFT.
--- NOTE | 2019-10-23 07:30 | NUR ---
MS/RN NOTE THE PATIENT IS RECEIVED IN BED. THE PATIENT ASLEEP, RESPONSIVE TO TACTILE STIMULI BY OPENING EYES. PATIENT NON-VERBAL. LEFT EJ G 20 PATENT AND SALINE LOCKED. RECEIVING OXYGEN AT 2L/MIN VIA NASAL CANNULA. NO MANIFESTATION OF DISTRESS NOTED. BED LOW AND LOCKED. SIDE RAILS UP X3. CALL LIGHT WITHIN REACH. WILL CONTINUE TO MONITOR.
[2019-10-23 08:00] VITALS: BP 108/64
[2019-10-23] MEDS: PANTOPRAZOLE 40 MG/PACK PACK PO SCH (10:01)
[2019-10-23] MEDS: ENSURE ENLIVE 237 ML LIQUID (VANILLA) PO SCH ×3 (10:01→17:00)
[2019-10-23] MEDS: DOCUSATE SODIUM 250 MG CAPSULE PO SCH ×2 (10:01→17:48)
[2019-10-23] MEDS: LEVETIRACETAM SOL (5 ML) 100 MG/ML UDC PO SCH ×2 (10:01→21:53)
[2019-10-23] MEDS: NITROFURANTOIN/NITROFURAN MAC 100 MG CAPSULE PO SCH (10:01)
[2019-10-23 16:00] VITALS: BP 88/63
[2019-10-23] MEDS ORDERED: DOCUSATE SODIUM 250 MG CAPSULE PO ONE (17:48)
[2019-10-23] MEDS: ENOXAPARIN SODIUM 40 MG/0.4 ML DISP.SYRIN SQ SCH (17:49)
--- NOTE | 2019-10-23 19:01 | NUR ---
MS/RN NOTE THE PATIENT AWAKE AND RESPONSIVE TO TACTILE STIMULI. THE PATIENT IN NO APPARENT DISTRESS. RECEIVING OXYGEN AT 2L/MIN VIA NASAL CANNULA AND SATURATION IS AT 95%. PATIENT IS IN NO APPARENT DISTRESS. LEFT EJ G 20 PATENT AND SALINE LOCKED. BED LOW AND LOCKED. SIDE RAILS UP X3. CALL LIGHT WITHIN REACH. WILL ENDORSE TO NETWORK INTERNSHIP.
--- NOTE | 2019-10-23 19:30 | NUR ---
MS/RN OPENING NOTES RECEIVED PATIENT AWAKE IN BED. ALERT AND ORIENTED X 1, EYES OPEN. PATIENT IS IN NO SIGNS OF DISTRESS. NO SOB OR RESPIRATORY DISTRESS NOTED. PATIENT ON 2L OF OXYGEN TOLERATING WELL AT 95%. PATIENT HAS EJ #20 SL INTACT. SAFETY MEASURES ARE IN PLACE, BED IS LOCKED AND PLACED IN THE LOWEST POSITION WITH SIDE RAILS UP X 2, CALL LIGHT IS WITHIN REACH, WILL CONTINUE TO MONITOR PATIENT.
[2019-10-23 20:00] VITALS: BP 116/92
--- NOTE | 2019-10-24 06:20 | NUR ---
MS/RN CLOSING NOTES PATIENT SLEEPING IN BED. ALERT AND ORIENTED X 1, EYES OPEN TO TOUCH AND SOUND. PATIENT IS IN NO SIGNS OF DISTRESS. NO SOB OR RESPIRATORY DISTRESS NOTED. PATIENT ON 2L OF OXYGEN TOLERATING WELL AT 95%. PATIENT HAS EJ #20 SL INTACT AND FLUSHING WELL. PATIENT WAS ABLE TO TOLERATE SMALL AMOUNTS OF FLUID PO. ORAL CARE HAS BEEN PERFORMED DURING SHIFT. ALL PATIENTS NEEDS HAVE BEEN MET.SAFETY MEASURES ARE IN PLACE, BED IS LOCKED AND PLACED IN THE LOWEST POSITION WITH SIDE RAILS UP X 2, CALL LIGHT IS WITHIN REACH, WILL CONTINUE TO MONITOR PATIENT.
[2019-10-24 08:00] VITALS: BP 125/58
--- NOTE | 2019-10-24 08:00 | NUR ---
m/s associate justice: initial assessment received pt in bed awake, non-verbal, unable to comprehend. hob elevated. for d'c planning home under hospice care. case management making arrangement. will continue to monitor.
[2019-10-24] MEDS: ENSURE ENLIVE 237 ML LIQUID (VANILLA) PO SCH ×2 (08:22→12:39)
[2019-10-24] MEDS: PANTOPRAZOLE 40 MG/PACK PACK PO SCH (08:25)
[2019-10-24] MEDS: DOCUSATE SODIUM 250 MG CAPSULE PO SCH (08:25)
[2019-10-24] MEDS: LEVETIRACETAM SOL (5 ML) 100 MG/ML UDC PO SCH (08:25)
--- NOTE | 2019-10-24 10:00 | NUR ---
m/s memorial adviser: notes am care rendered by electric train driver. kept clean and dry. turned and repositioned. daughter called and wants to make sure she eats lunch before she leaves. awaiting order from dr. baker re: discharge home. case management aware and gotten a verbal from dr. baker re: pt going to be discharge today per kita (steve). cn made aware.
--- NOTE | 2019-10-24 12:00 | NUR ---
m/s sales administration manager: notes resting comfortable in bed. no distress noted. will continue to monitor.
--- NOTE | 2019-10-24 13:05 | NUR ---
m/s container washer: notes kita (steve) called and pt will be leaving at 1500, just waiting on dme to deliver to her house. daughter aware and will receive the pt per case management.
--- NOTE | 2019-10-24 13:12 | NUR ---
m/s commercial intern: notes dr. baker notifiied and made aware that pt is leaving at 1500 with telephone order to discharge pt home and f/u with home hospice. order read back and carried out and acknowledged.
--- NOTE | 2019-10-24 14:00 | NUR ---
m/s gastroenterology professor: notes pt unable to sign d'c papers due to cognitive impairment. 2 license staff signed all d'c papers and copy to be given to family when discharge home.
--- NOTE | 2019-10-24 15:10 | NUR ---
m/s appliance installer: notes ambulance here and report given to one of the crew. h/l removed to left ej with tip intact. pm care rendered. kept clean and dry.
--- NOTE | 2019-10-24 15:35 | NUR ---
m/s cleaning machine operator: discharged discharged home in stable condition with all d'c papers and belongings accompanied by 2 emt.
== END 2019-10-24 15:30 | disposition hospice, home (50) | DRG 100 ==
LOC: ER 13:08 → TELE1 17:46 → TELE 10-15 20:01 → MED 10-15 20:38
PROVIDERS: ATTEND Family Medicine
DX: G40.909 Epilepsy, unspecified, not intractable, without status epilepticus (principal); G93.41 Metabolic encephalopathy; N39.0 Urinary tract infection, site not specified; I50.32 Chronic diastolic (congestive) heart failure; E87.2 Acidosis; J98.11 Atelectasis; I11.0 Hypertensive heart disease with heart failure; D50.9 Iron deficiency anemia, unspecified; F02.80 Dementia in other diseases classified elsewhere, unspecified severity, without behavioral disturbance, psychotic disturbance, mood disturbance, and anxiety; B96.20 Unspecified Escherichia coli [E. coli] as the cause of diseases classified elsewhere; K21.9 Gastro-esophageal reflux disease without esophagitis; G30.9 Alzheimer's disease, unspecified; Z88.1 Allergy status to other antibiotic agents; Z88.2 Allergy status to sulfonamides; Z88.8 Allergy status to other drugs, medicaments and biological substances; Z79.51 Long term (current) use of inhaled steroids; Z79.899 Other long term (current) drug therapy; Z79.01 Long term (current) use of anticoagulants; E87.6 Hypokalemia; Z87.440 Personal history of urinary (tract) infections; Z96.649 Presence of unspecified artificial hip joint; F09 Unspecified mental disorder due to known physiological condition
CPT/HCPCS: 36415; 36600; 70450-TC; 71045-TC; 71250-TC; 80048-TC; 80053-TC; 80061-TC; 80076-TC; 81000-TC; 82803-TC; 83605-TC; 83735-TC; 84100-TC; 84443-TC; 85025-TC; 85730-TC; 87040-TC; 87081-TC; 87086-TC; 87186-TC; 92526; 92611-TC; 93307-TC; 95819-TC; C9113; G0378; J0696; J1650; J1940; J1953; J3480; J3490; J7030; J7040; J7050; J7060; U0003-CS